=== PATIENT | female | born 1935 | race Native Hawaiian/Other Pacific Islander ===

== ENCOUNTER 2016-12-31 06:50 | Day surgery (SDC) | payer MEDICARE, OTHER ==
[2016-12-31 08:11] VITALS: BMI 26.7
[2016-12-31] MEDS ORDERED: Propofol 10 mg/ml Inj (20 ML) ONE ×2 (09:21→09:52)
--- NOTE | 2016-12-31 09:28 | CP.SDSHP ---
Same Day Surgery H & P - History Proposed Procedure: colonoscopy Pre-Op Diagnosis: blood in stool. colon polyps - Previous Medical/Surgical History Comments: RA - Allergies Allergies: Allergies No Known Allergies Allergy (Verified 08/04/15 15:44) - Physical Exam Vital Signs: Vital Signs 12/31/16 07:26 Temperature 99.5 F Pulse Rate 107 H Respiratory 19 Rate Blood Pressure 119/65 O2 Sat by Pulse 95 Oximetry Mental Status: Alert & Oriented x3 Neuro: WNL Heart: WNL Lungs: WNL GI: WNL - Impression Impression: blood in stool. colon polyp Pt. Evaluated Today:Candidate for Anesthesia & Procedure: Yes - Date & Time Date: 12/31/16 Time: 09:28 Short Stay Discharge - Short Stay Discharge Admitting Diagnosis/Reason for Visit: OCCULT STOOL OTHER FECAL ABNORMALITIES Disposition: HOME/ ROUTINE
[2016-12-31] MEDS ORDERED: Sodium Chloride 0.9% 1,000 ML IV SCH (10:00)
[2016-12-31 10:12] VITALS: TEMP 97.1
[2016-12-31 10:21] VITALS: O2SAT 95
[2016-12-31 11:28] VITALS: BP 103/56; PULSE 95; RESP 18
== END 2016-12-31 11:17 | disposition home or self-care (01) ==
LOC: C.ENDO 06:50
PROVIDERS: ATTEND Internal Medicine Gastroenterology
DX: K63.5 Polyp of colon (principal); D12.3 Benign neoplasm of transverse colon; K92.1 Melena
CPT/HCPCS: 45380; 82948; 88305; J2704; J7040

== ENCOUNTER 2018-02-01 06:28 | Emergency (ER) | payer MEDICARE, OTHER ==
[2018-02-01 06:28] VITALS: BMI 26.7
--- NOTE | 2018-02-01 08:54 | C.PDOC ---
History Of Present Illness 82yo female, with history of arthritis, presents to ER with complaints of bilateral lower extremity pain for the past week. Patient states she has chronic pain but the pain has been worsening over the past week. She denies any trauma, injury, arm pain, chest pain or shortness of breath. She has no other medical complaints. PMD: Dr. Douglas Time Seen by Provider: 02/01/18 07:43 Chief Complaint (Nursing): Lower Extremity Problem/Injury History Per: Patient History/Exam Limitations: no limitations Onset/Duration Of Symptoms: Days Current Symptoms Are (Timing): Still Present Additional History Per: Patient Past Medical History Reviewed: Historical Data, Nursing Documentation, Vital Signs Vital Signs: Last Vital Signs Temp 98.1 F 02/01/18 06:35 Pulse 92 H 02/01/18 06:35 Resp 20 02/01/18 07:05 BP 126/57 L 02/01/18 06:35 Pulse Ox 99 02/01/18 08:57 - Medical History PMH: Arthritis, HTN Denies: Chronic Kidney Disease Surgical History: Appendectomy - [facility] Procedures ENDOSC POLYPECTOMY OF LG INTEST (02/17/13) Family History: States: No Known Family Hx, Unknown Family Hx - Social History Hx Tobacco Use: No Hx Alcohol Use: No Hx Substance Use: No - Immunization History Hx Tetanus Toxoid Vaccination: No Hx Influenza Vaccination: Yes Hx Pneumococcal Vaccination: Yes Review Of Systems Except As Marked, All Systems Reviewed And Found Negative. Constitutional: Negative for: Fever, Chills Cardiovascular: Negative for: Chest Pain Respiratory: Negative for: Shortness of Breath Musculoskeletal: Positive for: Leg Pain (bilateral). Negative for: Arm Pain Physical Exam - Physical Exam Appears: Non-toxic, No Acute Distress Skin: Normal Color, Warm, Dry Head: Normacephalic Eye(s): bilateral: Normal Inspection Neck: Normal ROM, Supple Chest: Symmetrical Cardiovascular: Rhythm Regular Respiratory: Normal Breath Sounds Extremity: Tenderness (diffuse tenderness to bilateral lower extremities below the knee), Pedal Edema (1+ pitting edema bilateral lower extremities), Calf Tenderness (bilateral), No Deformity, Other (chronic skin changes bilateral feet ) Neurological/Psych: Oriented x3 ED Course And Treatment O2 Sat by Pulse Oximetry: 99 (RA) Pulse Ox Interpretation: Normal Medical Decision Making Medical Decision Making: Impression: leg pain, pedal edema Plan: --US Doppler venous, lower extremities Disposition - Disposition Referrals: Alan Douglas MD [Staff Provider] - Disposition: HOME/ ROUTINE Disposition Time: 10:27 Condition: GOOD Additional Instructions: Follow up with the medical doctor within 1-2 days. Return if worsend. 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 - Scribe Statement The provider has reviewed the documentation as recorded by the Scribe (Beth Lauren) Provider Attestation: All medical record entries made by the Scribe were at my direction and personally dictated by me. I have reviewed the chart and agree that the record accurately reflects my personal performance of the history, physical exam, medical decision making, and the department course for this patient. I have also personally directed, reviewed, and agree with the discharge instructions and disposition.
[2018-02-01] MEDS ORDERED: Lidocaine 5% Patch TD STA (09:43)
[2018-02-01] MEDS ORDERED: Lidocaine 5% Patch TD ONE (09:55)
[2018-02-01 10:40] VITALS: BP 112/73; PULSE 99; RESP 16; TEMP 99.3; O2SAT 96
--- NOTE | 2018-02-01 11:59 | VASCLAB ---
PROCEDURE: Lower Extremity Venous Duplex Exam. HISTORY: Bilateral swelling and calf tenderness PRIORS: No previous venous exam TECHNIQUE: Bilateral common femoral, femoral, popliteal and posterior tibial, peroneal and great saphenous veins were evaluated. Flow was assessed with color Doppler, compressibility, assessment of phasic flow and augmentation response. Report prepared by LUCERO Be FINDINGS: RIGHT: 1. Common Femoral Vein: 1.1. Compressibility - Fully compressible: Thrombus - None : Flow - Phasic: Augmentation -Normal: Reflux - None. 2. Femoral Vein: 2.1. Compressibility - Fully compressible: Thrombus - None : Flow - Phasic: Augmentation -Normal: Reflux - None. 3. Popliteal Vein: 3.1. Compressibility - Fully compressible: Thrombus - None : Flow - Phasic: Augmentation -Normal: Reflux - None. 4. Posterior Tibial Vein: 5. Peroneal Vein: 6. Great Saphenous Vein: 6.1. Compressibility - Fully compressible: Thrombus - None: Flow - Phasic: Augmentation - Normal: Reflux - None. LEFT: 1. Common Femoral Vein: 1.1. Compressibility - Fully compressible: Thrombus - None: Flow - Phasic: Augmentation -Normal: Reflux - None. 2. Femoral Vein: 2.1. Compressibility - Fully compressible: Thrombus - None: Flow - Phasic: Augmentation -Normal: Reflux - None. 3. Popliteal Vein: 3.1. Compressibility - Fully compressible: Thrombus - None : Flow - Phasic: Augmentation -Normal: Reflux - None. 4. Posterior Tibial Vein: 5. Peroneal Vein: 6. Great Saphenous Vein: 6.1. Compressibility - Fully compressible: Thrombus - None: Flow - Phasic: Augmentation - Normal: Reflux - None. OTHER FINDINGS: 1. Unable to visualize bilateral calf veins, due to swelling. The remaining veins in bilateral lower extremities are compressible. 2. An irregular shaped anechoic mass was noted behind the right knee area, measuring 2.78 x 1.75 c.m., questionable romero's cyst. IMPRESSION: No evidence of venous thrombosis in bilateral lower extremities for the examined veins.
== END 2018-02-01 10:45 | disposition home or self-care (01) ==
LOC: C.ER 06:28
DX: M19.90 Unspecified osteoarthritis, unspecified site (principal); I10 Essential (primary) hypertension

== ENCOUNTER 2018-03-09 07:18 | Inpatient (IN) | payer MEDICARE, OTHER ==
[2018-03-09 07:25] VITALS: BMI 26.4
--- NOTE | 2018-03-09 08:29 | C.PDOC ---
History Of Present Illness Patient presents with abdominal pain radiating into rectal area associated with rectal bleeding. Patient denies fever, vomiting or diarrhea. Time Seen by Provider: 03/09/18 07:43 Chief Complaint (Nursing): GI Problem History Per: Patient History/Exam Limitations: no limitations Onset/Duration Of Symptoms: Days Current Symptoms Are (Timing): Still Present Context: Food Severity: Mild Pain Scale Rating Of: 1 Location Of Pain/Discomfort: Diffuse Radiation Of Pain To:: Other (rectal area) Associated Symptoms: denies: Fever Past Medical History Reviewed: Historical Data, Nursing Documentation, Vital Signs Vital Signs: Last Vital Signs Temp 99.0 F 03/09/18 07:24 Pulse 84 03/09/18 12:48 Resp 18 03/09/18 12:48 BP 112/56 L 03/09/18 12:48 Pulse Ox 97 03/09/18 13:38 - Medical History PMH: Arthritis, HTN Denies: Chronic Kidney Disease Surgical History: Appendectomy - [facility] Procedures ENDOSC POLYPECTOMY OF LG INTEST (02/17/13) Family History: States: Unknown Family Hx - Social History Hx Tobacco Use: No Hx Alcohol Use: No Hx Substance Use: No - Immunization History Hx Tetanus Toxoid Vaccination: No Hx Influenza Vaccination: Yes Hx Pneumococcal Vaccination: Yes Review Of Systems Constitutional: Negative for: Fever, Chills Gastrointestinal: Positive for: Abdominal Pain, Rectal Pain Physical Exam - Physical Exam Appears: Well, Non-toxic Skin: Normal Color Oral Mucosa: Moist Neck: Normal Cardiovascular: Rhythm Regular Respiratory: Normal Breath Sounds Gastrointestinal/Abdominal: Tenderness (diffuse) Rectal: Other (area of erythema around rectal area, (+) tenderness) ED Course And Treatment - Laboratory Results Result Diagrams: 03/09/18 08:15 03/09/18 08:15 Lab Interpretation: Normal O2 Sat by Pulse Oximetry: 97 Pulse Ox Interpretation: Normal - CT Scan/US No standard instances Other Rad Studies (CT/US): Read By Radiologist, Radiology Report Reviewed CT/US Interpretation: FINDINGS: LOWER THORAX: No infiltrate/effusion. Mild circumferential mural thickening of distal esophagus. Possible esophagitis. Consider endoscopy to rule out neoplasm. LIVER: Unremarkable. No gross lesion or ductal dilatation. GALLBLADDER AND BILE DUCTS: Unremarkable. PANCREAS: Fatty atrophy. No mass. No peripancreatic fluid. SPLEEN: Unremarkable. ADRENALS: Unremarkable. No mass. KIDNEYS AND URETERS: Unremarkable. No hydronephrosis. No solid mass. VASCULATURE: Unremarkable. No aortic aneurysm. BOWEL: No bowel obstruction. Incidental diverticulum of the 2nd duodenum protruding into the ampulla. Normal variant. APPENDIX: Not identified. No secondary findings. PERITONEUM: Unremarkable. No free fluid. No free air. LYMPH NODES: Unremarkable. No enlarged lymph nodes. BLADDER: Unremarkable. REPRODUCTIVE: Normal uterus. BONES: No acute fracture. 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 OTHER FINDINGS: None. IMPRESSION: Unremarkable non contrast enhanced CT of the abdomen and pelvis. Progress Note: Patient treated with IVF NSS and morphine 2 mg IV. On re- evaluation sleeping in no distress Reassessment Condition: Improved - Physician Consult Information Physician Contacted: Rick Ramos Outcome Of Conversation: admit Medical Decision Making Medical Decision Making: Consult placed to GI for Dr Novoa Disposition Discussed With Dr.: Rick Ramos Doctor Will See Patient In The: Hospital - Disposition Disposition: HOME/ ROUTINE Disposition Time: 11:40 Condition: STABLE - POA Present On Arrival: None - Clinical Impression Clinical Impression: UTI (urinary tract infection), Gastrointestinal hemorrhage Decision To Admit - Pt Status Changed To: Hospital Disposition Of: Inpatient - Admit Certification Admit to Inpatient:: After my assessment, the patient will require hospitalization for at least two midnights. This is because of the severity of symptoms shown, intensity of services needed, and/or the medical risk in this patient being treated as an outpatient. - InPatient: Physician Admission Certification:: Rectal Bleeding. UTI - . Bed Request Type: Regular Admitting Physician: Rick Ramos Patient Diagnosis: Gastrointestinal hemorrhage, UTI (urinary tract infection)
[2018-03-09 08:31] LABS: BASO # 0.1 K/uL (0.0-0.2); BASO % 0.5 % (0.0-2.0); HEMOGLOBIN 12.3 g/dL (11.0-16.0); LYMPH # 0.9 K/uL (1.0-4.3); LYMPH % 9.4 % (20.0-40.0); MEAN CELL VOLUME 94.8 fL (81.0-99.0); MEAN CORPUSCULAR HEMOGLOBIN 32.2 pg (27.0-31.0); MEAN CORPUSCULAR HGB CONC 33.9 g/dL (33.0-37.0); MEAN PLATELET VOLUME 7.6 fL (7.2-11.7); MONO # 0.8 K/uL (0.0-0.8); MONO % 8.5 % (0.0-10.0); NEUT # 7.9 K/uL (1.8-7.0); NEUT % 81.6 % (50.0-75.0); NRBC % 0.6 % (0.0-2.0); PLATELET COUNT 305 K/uL (130-400); RBC 3.83 Mil/uL (3.80-5.20); RED CELL DISTRIBUTION WIDTH 14.3 % (11.5-14.5); WHITE BLOOD COUNT 9.7 K/uL (4.8-10.8)
[2018-03-09 08:50] LABS: ALB/GLOB RATIO 1.4 (1.0-2.1); ALBUMIN 4.2 g/dL (3.5-5.0); ALT/SGPT 69 U/L (9-52); AST/SGOT 130 U/L (14-36); BLOOD UREA NITROGEN 39 mg/dL (7-17); CALCIUM 9.4 mg/dl (8.6-10.4); GFR AFRICAN-AMERICAN > 60; GFR NON-AFRICAN AMERICAN 60; LIPASE 60 U/L (23-300)
[2018-03-09 09:16] LABS: SQUAMOUS EPITHIAL 2 /hpf (0-5); URINE AMORPHOUS SEDIMENT OCC /ul (<OCC); URINE BACTERIA FEW (<OCC); URINE BILIRUBIN NEGATIVE (NEGATIVE); URINE BLOOD 1+ (NEGATIVE); URINE CLARITY Turbid (Clear); URINE GLUCOSE (UA) NORMAL (Normal); URINE LEUKOCYTE ESTERASE 3+ Leu/uL (Negative); URINE PROTEIN 1+ mg/dL (NEGATIVE); URINE UROBILINOGEN NORMAL mg/dL (0.2-1.0)
[2018-03-09 09:19] LABS: LYMPHOCYTE 13 % (20-40); MONOCYTE 3 % (0-10); NEUTROPHIL 84 % (50-75); PLATELET ESTIMATE NORMAL (NORMAL); TOTAL CELLS COUNTED 100
[2018-03-09 09:19] LABS: URINE COLOR YELLOW (YELLOW)
[2018-03-09] MEDS ORDERED: cefTRIAXone IV 1 gm in Dextros 50 ML IV ONE (09:24)
[2018-03-09] MEDS ORDERED: cefTRIAXone IV 1 gm in Dextros 50 ML IVPB ONE (09:47)
--- NOTE | 2018-03-09 10:09 | CT ---
PROCEDURE: CT Abdomen and Pelvis without intravenous contrast HISTORY: Pain COMPARISON: None. TECHNIQUE: Without contrast.. Contrast dose: 0 Radiation dose: Total exam DLP = 315.42 mGy-cm. This CT exam was performed using one or more of the following dose reduction techniques: Automated exposure control, adjustment of the mA and/or kV according to patient size, and/or use of iterative reconstruction technique. FINDINGS: LOWER THORAX: No infiltrate/effusion. Mild circumferential mural thickening of distal esophagus. Possible esophagitis. Consider endoscopy to rule out neoplasm. LIVER: Unremarkable. No gross lesion or ductal dilatation. GALLBLADDER AND BILE DUCTS: Unremarkable. PANCREAS: Fatty atrophy. No mass. No peripancreatic fluid. SPLEEN: Unremarkable. ADRENALS: Unremarkable. No mass. KIDNEYS AND URETERS: Unremarkable. No hydronephrosis. No solid mass. VASCULATURE: Unremarkable. No aortic aneurysm. BOWEL: No bowel obstruction. Incidental diverticulum of the 2nd duodenum protruding into the ampulla. Normal variant. APPENDIX: Not identified. No secondary findings. PERITONEUM: Unremarkable. No free fluid. No free air. LYMPH NODES: Unremarkable. No enlarged lymph nodes. BLADDER: Unremarkable. REPRODUCTIVE: Normal uterus. BONES: No acute fracture. 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 OTHER FINDINGS: None. IMPRESSION: Unremarkable non contrast enhanced CT of the abdomen and pelvis.
--- NOTE | 2018-03-09 14:26 | CP.PCM.HP ---
History of Present Illness - History of Present Illness History of Present Illness: COMPREHENSIVE HISTORY & PHYSICAL EXAM Patient is admitted with lower abdominal pain and rectal bleeding. The pain started this morning lower abdominal colicky radiating to the rectal area subsequently patient had a bright blood bleeding from the rectum. Patient was evaluated in an ER and admitted for further treatment Patient also has high WBC count in the urine with complaints of dysuria HPI PAST HIST. Patient has a history of hypertension arthritis and previous history of rectal bleeding PERSONAL HIST: Smoking. N Alcohol. N Allergy N Travel_- . FAMILY HIST : ROS : Constitutional: Negative for weight change, chills, night sweats, fatigue and usage of assist device. Eyes: Negative for redness, swelling, itching, discharge, vision changes, blurry vision, double vision, glaucoma, cataracts, Ears: Negative for hearing loss, ringing, , tinnitus, vertigo Nose: Negative for rhinorrhea, stuffiness, sniffing, itching, postnasal drip, discoloration, nasal congestion and epistaxis. Throat: Negative for throat clearing, sore throat, hoarseness, difficulty swallowing and difficulty speaking. Respiratory: Negative for cough, , sputum production, chest tightness, wheezing, pleuritic chest pain ,daytime somnolence, chronic cough, hemoptysis, snoring at night, Cardiovascular: Negative for chest pain, palpitations, orthopnea, PND, Edema of legs, leg cramps, angina, claudication, , irregular heartbeat, Neurology: Negative for irritability, muscle weakness, numbness and tingling, seizures, tremors, migraines, slurred speech, syncope, memory loss, mood changes , recurrent headaches Gastrointestinal: Negative for difficulty swallowing, diarrhea, constipation, nausea, flatulence, reflux, poor appetite, changes in bowel habits, Genitourinary: Negative for frequent urination, hematuria, discharge, incontinence, urinary retention, frequent UTI, Psychiatric: Negative for depression, anxiety/panic, suicidal tendencies, Musculoskeletal: Negative for swollen joints, back pain, , neck pain, morning stiffness of joints, . Skin: Negative for rash, ulcers, itching, dry skin and pigmented lesions. P/E: Constitutional: Appears stated age and in no apparent distress. Head: Normocephalic. Ears: External ear canals patent without inflammation. Tympanic membranes intact with normal light reflex and landmark. Eyes: Pupils are central, bilaterally equal, symmetrical and reacts to light with normal movements and no icterus or pallor. Nose: External nares are patent. Mucosa is pink Mouth-Throat: Good general appearance and condition. No post-pharyngeal/oropharyngeal erythema and tonsillar hypertrophy. Good dental hygiene. Neck-Lymphatic: Neck is supple with normal ROM, no thyromegaly, lymph nodes or masses. JVD is normal with no carotid bruit. Lungs: Clear to percussion and auscultation with bilateral normal air entry. Cardiovascular: S1 and S2 are normal with no murmurs, gallops and rub. GI Exam: No hepatomegaly. Abdomen is soft and-tender. No Organomegaly , masses or hernias are evident and bowel sounds are normal and active. Neurology: Higher function and all cranial nerves intact, with no gross motor or sensory deficit. Superficial and deep reflexes are normal with downwards planters. No cerebellar deficit with normal gait. Musculoskeletal: No tender spots with normal curvature of the spine with no swelling or restricted ROM of the small and large joints. Extremities: Homans sign absent. Intact pulses with no pitting edema, calf tenderness or skin color changes. Skin: No rash, eruptions or abnormal skin pigmentation LAB/RADIOLOGY: ASSESMENT : Acute rectal bleeding etiology to be determined. Urinary tract infection. Osteoarthritis. Hypertension PLAN: GI evaluation. See further orders Present on Admission - Present on Admission Any Indicators Present on Admission: No Past Patient History - Infectious Disease Hx of Infectious Diseases: None - Past Medical History & Family History Past Medical History?: Yes - Past Social History Smoking Status: Never Smoked - CARDIAC Hx Hypertension: Yes - PULMONARY Hx Respiratory Disorders: No - NEUROLOGICAL Hx Neurological Disorder: No - HEENT Hx Cataracts: Yes (WITH BRANDON IOL) - RENAL Hx Chronic Kidney Disease: No - ENDOCRINE/METABOLIC Hx Endocrine Disorders: No - HEMATOLOGICAL/ONCOLOGICAL Hx Blood Disorders: No - INTEGUMENTARY Hx Dermatological Problems: No - MUSCULOSKELETAL/RHEUMATOLOGICAL Hx Arthritis: Yes - GASTROINTESTINAL Hx Gastrointestinal Disorders: No - GENITOURINARY/GYNECOLOGICAL Hx Genitourinary Disorders: No - PSYCHIATRIC Hx Substance Use: No - SURGICAL HISTORY Hx Appendectomy: Yes - ANESTHESIA Hx Anesthesia: Yes Hx Anesthesia Reactions: No Meds Allergies/Adverse Reactions: Allergies Allergy/AdvReac Type Severity Reaction Status Date / Time No Known Allergies Allergy Verified 03/09/18 07:23 Results - Vital Signs Recent Vital Signs: Last Vital Signs Temp 99.0 F 03/09/18 07:24 Pulse 84 03/09/18 12:48 Resp 18 03/09/18 12:48 BP 112/56 L 03/09/18 12:48 Pulse Ox 97 03/09/18 13:38 - Labs Result Diagrams: 03/10/18 13:29 03/10/18 06:19 Labs: Laboratory Results - last 24 hr 03/09/18 03/09/18 03/09/18 07:29 08:15 08:15 WBC 9.7 RBC 3.83 Hgb 12.3 Hct 36.4 MCV 94.8 MCH 32.2 H MCHC 33.9 RDW 14.3 Plt Count 305 MPV 7.6 Neut % (Auto) 81.6 H Lymph % (Auto) 9.4 L [place] % (Auto) 8.5 Eos % (Auto) 0.0 Baso % (Auto) 0.5 Neut # (Auto) 7.9 H Lymph # (Auto) 0.9 L [place] # (Auto) 0.8 Eos # (Auto) 0.0 Baso # (Auto) 0.1 Neutrophils % (Manual) 84 H Lymphocytes % (Manual) 13 L Monocytes % (Manual) 3 Platelet Estimate Normal RBC Morphology Normal Sodium 141 Potassium 4.4 Chloride 103 Carbon Dioxide 28 Anion Gap 15 BUN 39 H Creatinine 0.9 Est GFR ( Amer) > 60 Est GFR (Non-Af Amer) 60 POC Glucose (mg/dL) 138 H Random Glucose 140 H Calcium 9.4 Total Bilirubin 1.4 H AST 130 H ALT 69 H Alkaline Phosphatase 67 Total Protein 7.1 Albumin 4.2 Globulin 3.0 Albumin/Globulin Ratio 1.4 Lipase 60 Urine Color Urine Clarity Urine pH Ur Specific [place] Urine Protein Urine Glucose (UA) Urine Ketones Urine Blood Urine Nitrate Urine Bilirubin Urine Urobilinogen Ur Leukocyte Esterase Urine WBC (Auto) Urine RBC (Auto) Ur Squamous Epith Cells Amorphous Sediment Urine Bacteria 03/09/18 08:29 WBC RBC Hgb Hct MCV MCH MCHC RDW Plt Count MPV Neut % (Auto) Lymph % (Auto) [place] % (Auto) Eos % (Auto) Baso % (Auto) Neut # (Auto) Lymph # (Auto) [place] # (Auto) Eos # (Auto) Baso # (Auto) Neutrophils % (Manual) Lymphocytes % (Manual) Monocytes % (Manual) Platelet Estimate RBC Morphology Sodium Potassium Chloride Carbon Dioxide Anion Gap BUN Creatinine Est GFR ( Amer) Est GFR (Non-Af Amer) POC Glucose (mg/dL) Random Glucose Calcium Total Bilirubin AST ALT Alkaline Phosphatase Total Protein Albumin Globulin Albumin/Globulin Ratio Lipase Urine Color Yellow Urine Clarity Turbid Urine pH 7.0 Ur Specific [place] 1.016 Urine Protein 1+ H Urine Glucose (UA) Normal Urine Ketones Negative Urine Blood 1+ H Urine Nitrate Negative Urine Bilirubin Negative Urine Urobilinogen Normal Ur Leukocyte Esterase 3+ H Urine WBC (Auto) 42 H Urine RBC (Auto) 10 H Ur Squamous Epith Cells 2 Amorphous Sediment Occ H Urine Bacteria Few H
--- NOTE | 2018-03-09 16:52 | CP.PCM.CON ---
<Maxine Pierre - Last Filed: 03/09/18 18:31> History of Present Illness - History of Present Illness History of Present Illness: Critical Care Consult Note This is an 82 year old female with PMHx of HTN, HLD, T2DM, osteoarthritis , previous history of rectal bleeding, who presented to the ED 7:24am on for abdominal pain and rectal bleeding. She denied any ASA, NSAID, anticoagulants. Patient reported the last 3 days she has been having abdominal pain, painful bowel movements, starting this morning she had bright red blood per rectum which prompted her to come to the ED. Patient had CBC, CMP, UA, CT abdomen and pelvis done at that time. There was an admission order at 11:33am for inpatient /medsurg with admitting diagnosis of Rectal Bleeding and UTI. At this time there was no consult ordered for GI - both consult for GI and Surgery were placed at 4:35pm. As per nurse rectal bleeding was only seen around 3pm. As per nurse's note, "increase in rectal bleed, pt soaked 2 bed pads. pt cleansed and made comfortable". At this time, 2: 13pm, no orders were carried out. Patient has remained in the ED during this time, waiting for bed placement. ICU was consulted by Primary Physician for ICU eval at 4:10pm. ICU team evaluated the patient within 10 minutes. Vitals on exam were stable. Patient was evaluated and noted to lying in coagulated blood contained by a shuck. Blood was noted to have collected in folds of her groin, vagina, and buttocks. At this time no repeat CBC was done since 8am, no type and cross match was ordered or administered, no consent for blood was retrieved, no coags ordered, no protonix given (despite protocol for GI bleed), no IVF given. ICU team retrieved consent for administration of blood products, type and crossmatched ordered for 4 units, coags ordered, IVF started, Protonix stat dose given and protonix Q12 started. Patient kept NPO. Instructed nurse to follow up with GI - Dr. Alfred - who is being covered by Dr. Oneill - pending recommendations. Patient denied chest pain, SOB, nausea, vomiting; admitted to abdominal pain and BRBPR. PMHx: HTN, HLD, T2DM, arthritis, previous history of rectal bleeding PSHx: Colonoscopy 2016 - polyps resected - pathology revealed tubular adenoma Meds: patient does not know her medications by name but reports she has not taken them for a few days due to abdominal pain SHx: Denied tobacco, ETOH, alcohol use FHx: Unremarkable Past Patient History - Infectious Disease Hx of Infectious Diseases: None - Past Medical History & Family History Past Medical History?: Yes - Past Social History Smoking Status: Never Smoked - CARDIAC Hx Hypertension: Yes - PULMONARY Hx Respiratory Disorders: No - NEUROLOGICAL Hx Neurological Disorder: No - HEENT Hx Cataracts: Yes (WITH BRANDON IOL) - RENAL Hx Chronic Kidney Disease: No - ENDOCRINE/METABOLIC Hx Endocrine Disorders: No - HEMATOLOGICAL/ONCOLOGICAL Hx Blood Disorders: No - INTEGUMENTARY Hx Dermatological Problems: No - MUSCULOSKELETAL/RHEUMATOLOGICAL Hx Arthritis: Yes - GASTROINTESTINAL Hx Gastrointestinal Disorders: No - GENITOURINARY/GYNECOLOGICAL Hx Genitourinary Disorders: No - PSYCHIATRIC Hx Substance Use: No - SURGICAL HISTORY Hx Appendectomy: Yes - ANESTHESIA Hx Anesthesia: Yes Hx Anesthesia Reactions: No Meds Allergies/Adverse Reactions: Allergies Allergy/AdvReac Type Severity Reaction Status Date / Time No Known Allergies Allergy Verified 03/09/18 07:23 - Medications Medications: Current Medications Sodium Chloride (Sodium Chloride 0.9%) 1,000 mls @ 100 mls/hr IV .Q10H [facility] Pantoprazole Sodium (Protonix Inj) 40 mg IVP Q12H [facility] Physical Exam - Constitutional Appears: Toxic - Head Exam Head Exam: ATRAUMATIC, NORMAL INSPECTION, NORMOCEPHALIC - Eye Exam Eye Exam: EOMI, Normal appearance, PERRL Pupil Exam: NORMAL ACCOMODATION, PERRL - ENT Exam ENT Exam: Mucous Membranes Dry - Respiratory Exam Respiratory Exam: Clear to Auscultation Bilateral, NORMAL BREATHING PATTERN - Cardiovascular Exam Cardiovascular Exam: Tachycardia - GI/Abdominal Exam GI & Abdominal Exam: Distended, Firm, Tenderness (LLQ, RLQ). absent: Organomegaly - Rectal Exam Additional comments: internal hemorrhoid exiting rectum, BRBPR. Blood was noted to have collected in folds of her groin, vagina, and buttocks. - Extremities Exam Extremities exam: Positive for: normal inspection, pedal pulses present. Negative for: pedal edema, tenderness - Back Exam Back exam: NORMAL INSPECTION - Neurological Exam Neurological exam: Alert, Oriented x3 - Psychiatric Exam Psychiatric exam: Anxious - Skin Skin Exam: Dry, Intact, Pallor, Warm Results - Vital Signs Recent Vital Signs: Last Vital Signs Temp 98.9 F 03/09/18 16:08 Pulse 131 H 03/09/18 16:50 Resp 18 03/09/18 16:50 BP 114/67 03/09/18 16:50 Pulse Ox 98 03/09/18 16:50 - Labs Result Diagrams: 03/09/18 08:15 03/09/18 08:15 Labs: Laboratory Results - last 24 hr 03/09/18 03/09/18 03/09/18 07:29 08:15 08:15 WBC 9.7 RBC 3.83 Hgb 12.3 Hct 36.4 MCV 94.8 MCH 32.2 H MCHC 33.9 RDW 14.3 Plt Count 305 MPV 7.6 Neut % (Auto) 81.6 H Lymph % (Auto) 9.4 L Elliott % (Auto) 8.5 Eos % (Auto) 0.0 Baso % (Auto) 0.5 Neut # (Auto) 7.9 H Lymph # (Auto) 0.9 L Elliott # (Auto) 0.8 Eos # (Auto) 0.0 Baso # (Auto) 0.1 Neutrophils % (Manual) 84 H Lymphocytes % (Manual) 13 L Monocytes % (Manual) 3 Platelet Estimate Normal RBC Morphology Normal Sodium 141 Potassium 4.4 Chloride 103 Carbon Dioxide 28 Anion Gap 15 BUN 39 H Creatinine 0.9 Est GFR ( Amer) > 60 Est GFR (Non-Af Amer) 60 POC Glucose (mg/dL) 138 H Random Glucose 140 H Calcium 9.4 Total Bilirubin 1.4 H AST 130 H ALT 69 H Alkaline Phosphatase 67 Total Protein 7.1 Albumin 4.2 Globulin 3.0 Albumin/Globulin Ratio 1.4 Lipase 60 Urine Color Urine Clarity Urine pH Ur Specific [place] Urine Protein Urine Glucose (UA) Urine Ketones Urine Blood Urine Nitrate Urine Bilirubin Urine Urobilinogen Ur Leukocyte Esterase Urine WBC (Auto) Urine RBC (Auto) Ur Squamous Epith Cells Amorphous Sediment Urine Bacteria 03/09/18 08:29 WBC RBC Hgb Hct MCV MCH MCHC RDW Plt Count MPV Neut % (Auto) Lymph % (Auto) Elliott % (Auto) Eos % (Auto) Baso % (Auto) Neut # (Auto) Lymph # (Auto) [place] # (Auto) Eos # (Auto) Baso # (Auto) Neutrophils % (Manual) Lymphocytes % (Manual) Monocytes % (Manual) Platelet Estimate RBC Morphology Sodium Potassium Chloride Carbon Dioxide Anion Gap BUN Creatinine Est GFR ( Amer) Est GFR (Non-Af Amer) POC Glucose (mg/dL) Random Glucose Calcium Total Bilirubin AST ALT Alkaline Phosphatase Total Protein Albumin Globulin Albumin/Globulin Ratio Lipase Urine Color Yellow Urine Clarity Turbid Urine pH 7.0 Ur Specific [place] 1.016 Urine Protein 1+ H Urine Glucose (UA) Normal Urine Ketones Negative Urine Blood 1+ H Urine Nitrate Negative Urine Bilirubin Negative Urine Urobilinogen Normal Ur Leukocyte Esterase 3+ H Urine WBC (Auto) 42 H Urine RBC (Auto) 10 H Ur Squamous Epith Cells 2 Amorphous Sediment Occ H Urine Bacteria Few H Assessment & Plan - Assessment and Plan (Free Text) Assessment: This is an 82 year old female with PMHx of HTN, HLD, T2DM, osteoarthritis , previous history of rectal bleeding admitted to the ICU for rectal bleeding. Plan: Neuro: GCS15 Cardio: A: Hx HTN, HLD - Will hold all BP meds in light of rectal bleeding - Will hold any statins 2/2 transaminitis Endo: A: T2DM - Accuchecks, ISS- low - Q6H - HgbA1C ordered GI: A: Rectal Bleeding -- Dr. Alfred/ Mai consulted -- Dr. Lopez consulted - Previous colonoscopy 12/2016; 2-3 polyps seen, resected and biopsied; tubular adenoma - CT Ab/pelvis: Unremarkable - CBC ordered STAT 12.3 --> 10.8 - Will be transfused 1 unit - due to hypotension - NPO, PPIQ12, IVF A: Transaminitis, Elevated T. Bili - CT Ab/pelvis: Unremarkable - Continue to monitor : A: UTI -- Dr. Lutz consulted - Started Cefepime due to Transaminitis - UC ordered MSK: A: Osteoarthritis - Patient denies any ASA, NSAID use - As per EMR she was once on methotrexate Prophylaxis: - PPI Q12 - SCDs, VTE c/i 2/2 rectal bleeding - PT/ OT will be ordered once patient is stabilized - NPO for now Disposition: Monitoring vitals, CBC, pending GI/ Surg reccs. DW Maxine Levine DO, PGY-1 <Hay Haddad S - Last Filed: 03/09/18 18:59> Meds - Medications Medications: Current Medications Dextrose (Dextrose 50% Inj) 0 ml IV STAT PRN; Protocol PRN Reason: Hypoglycemia Protocol Dextrose (Glutose 15) 0 gm PO ONCE PRN; Protocol PRN Reason: Hypoglycemia Protocol Glucagon (Glucagen Diagnostic Kit) 0 mg IM STAT PRN; Protocol PRN Reason: Hypoglycemia Protocol Sodium Chloride (Sodium Chloride 0.9%) 1,000 mls @ 100 mls/hr IV .Q10H [facility] Last Admin: 03/09/18 17:22 Dose: 100 mls/hr Dextrose (Dextrose 5% In Water 1000 Ml) 1,000 mls @ 0 mls/hr IV .Q0M PRN; Protocol; Per Protocol PRN Reason: Hypoglycemia Protocol Cefepime HCl (Maxipime Iv 1 Gm Premix) 1 gm in 50 mls @ 100 mls/hr IVPB Q24H [facility] PRN Reason: Protocol Insulin Human Regular (Novolin R) 0 unit SC Q6H [facility] PRN Reason: Protocol Morphine Sulfate (Morphine) 1 mg IVP Q4 PRN PRN Reason: Pain, severe (8-10) Pantoprazole Sodium (Protonix Inj) 40 mg IVP Q12H [facility] Results - Vital Signs Recent Vital Signs: Last Vital Signs Temp 98.9 F 03/09/18 16:08 Pulse 131 H 03/09/18 16:50 Resp 18 03/09/18 16:50 BP 114/67 03/09/18 16:50 Pulse Ox 98 03/09/18 16:50 - Labs Result Diagrams: 03/09/18 18:28 03/09/18 08:15 Labs: Laboratory Results - last 24 hr 03/09/18 03/09/18 03/09/18 07:29 08:15 08:15 WBC 9.7 RBC 3.83 Hgb 12.3 Hct 36.4 MCV 94.8 MCH 32.2 H MCHC 33.9 RDW 14.3 Plt Count 305 MPV 7.6 Neut % (Auto) 81.6 H Lymph % (Auto) 9.4 L [place] % (Auto) 8.5 Eos % (Auto) 0.0 Baso % (Auto) 0.5 Neut # (Auto) 7.9 H Lymph # (Auto) 0.9 L [place] # (Auto) 0.8 Eos # (Auto) 0.0 Baso # (Auto) 0.1 Neutrophils % (Manual) 84 H Lymphocytes % (Manual) 13 L Monocytes % (Manual) 3 Platelet Estimate Normal RBC Morphology Normal PT INR APTT Sodium 141 Potassium 4.4 Chloride 103 Carbon Dioxide 28 Anion Gap 15 BUN 39 H Creatinine 0.9 Est GFR ( Amer) > 60 Est GFR (Non-Af Amer) 60 POC Glucose (mg/dL) 138 H Random Glucose 140 H Calcium 9.4 Total Bilirubin 1.4 H AST 130 H ALT 69 H Alkaline Phosphatase 67 Total Protein 7.1 Albumin 4.2 Globulin 3.0 Albumin/Globulin Ratio 1.4 Lipase 60 Urine Color Urine Clarity Urine pH Ur Specific [place] Urine Protein Urine Glucose (UA) Urine Ketones Urine Blood Urine Nitrate Urine Bilirubin Urine Urobilinogen Ur Leukocyte Esterase Urine WBC (Auto) Urine RBC (Auto) Ur Squamous Epith Cells Amorphous Sediment Urine Bacteria Blood Type Antibody Screen 03/09/18 03/09/18 03/09/18 08:29 17:02 17:05 WBC RBC Hgb Hct MCV MCH MCHC RDW Plt Count MPV Neut % (Auto) Lymph % (Auto) [place] % (Auto) Eos % (Auto) Baso % (Auto) Neut # (Auto) Lymph # (Auto) Elliott # (Auto) Eos # (Auto) Baso # (Auto) Neutrophils % (Manual) Lymphocytes % (Manual) Monocytes % (Manual) Platelet Estimate RBC Morphology PT 11.7 INR 1.1 APTT 20 L Sodium Potassium Chloride Carbon Dioxide Anion Gap BUN Creatinine Est GFR ( Amer) Est GFR (Non-Af Amer) POC Glucose (mg/dL) Random Glucose Calcium Total Bilirubin AST ALT Alkaline Phosphatase Total Protein Albumin Globulin Albumin/Globulin Ratio Lipase Urine Color Yellow Urine Clarity Turbid Urine pH 7.0 Ur Specific [place] 1.016 Urine Protein 1+ H Urine Glucose (UA) Normal Urine Ketones Negative Urine Blood 1+ H Urine Nitrate Negative Urine Bilirubin Negative Urine Urobilinogen Normal Ur Leukocyte Esterase 3+ H Urine WBC (Auto) 42 H Urine RBC (Auto) 10 H Ur Squamous Epith Cells 2 Amorphous Sediment Occ H Urine Bacteria Few H Blood Type O POSITIVE Antibody Screen Negative 03/09/18 18:28 WBC 16.5 H D RBC 3.35 L Hgb 10.8 L Hct 32.0 L MCV 95.6 MCH 32.3 H MCHC 33.8 RDW 14.3 Plt Count 334 MPV 7.8 Neut % (Auto) Lymph % (Auto) [place] % (Auto) Eos % (Auto) Baso % (Auto) Neut # (Auto) Lymph # (Auto) [place] # (Auto) Eos # (Auto) Baso # (Auto) Neutrophils % (Manual) Lymphocytes % (Manual) Monocytes % (Manual) Platelet Estimate RBC Morphology PT INR APTT Sodium Potassium Chloride Carbon Dioxide Anion Gap BUN Creatinine Est GFR ( Amer) Est GFR (Non-Af Amer) POC Glucose (mg/dL) Random Glucose Calcium Total Bilirubin AST ALT Alkaline Phosphatase Total Protein Albumin Globulin Albumin/Globulin Ratio Lipase Urine Color Urine Clarity Urine pH Ur Specific [place] Urine Protein Urine Glucose (UA) Urine Ketones Urine Blood Urine Nitrate Urine Bilirubin Urine Urobilinogen Ur Leukocyte Esterase Urine WBC (Auto) Urine RBC (Auto) Ur Squamous Epith Cells Amorphous Sediment Urine Bacteria Blood Type Antibody Screen Attending/Attestation - Attestation I have personally seen and examined this patient.: Yes I have fully participated in the care of the patient.: Yes I have reviewed all pertinent clinical information: Yes Notes (Text): 03/09/18 18:58 patient seen and examined 82-year-old female admitted to intensive care unit for rectal bleeding, hypotension and tachycardia. Transfuse packed RBCs Monitor H&H GI evaluation Protonix
[2018-03-09] MEDS: Sodium Chloride 0.9% 1,000 ML IV SCH (17:22)
[2018-03-09 17:24] LABS: INR 1.1; PROTHROMBIN TIME 11.7 SECONDS (9.7-12.2)
--- NOTE | 2018-03-09 17:40 | RAD ---
Chest x-ray single frontal view History: Preoperative evaluation. Comparison: 07/10/2014 Findings: Diffuse increased interstitial lung markings. No gross focal infiltrate or effusion. Chin obscures evaluation of the right lung apex. Tortuous aorta. Calcification at the aortic knob. Degenerative changes in the spine. Impression: No focal infiltrate or effusion.
[2018-03-09] MEDS ORDERED: Glucagon Recombinant 1 mg Inj IM PRN (17:50)
[2018-03-09] MEDS ORDERED: Dextrose 50% SYRINGE Inj (50 ml) IV PRN (17:50)
--- NOTE | 2018-03-09 17:50 | CP.PCM.CON ---
History of Present Illness - History of Present Illness History of Present Illness: INFECTIOUS DISEASE CONSULT; HPI; 82-year-old female who presented to [facility] on 03/09/18 with complaints of abdominal pain and small amount of rectal bleeding. Patient also complains of tenesmus. Patient on admission was found to have stable hemoglobin of 12.3 Today later in the day patient developed large amount of bright red rectal bleeding and clots and became tachypneic and tachycardic and was transferred to ICU from the ER. GI and surgery consults were obtained as per chart. Infectious disease consultation requested as patient was found to have turbid urine with 3+ leukocytes and pyuria. PATIENT ALSO COMPLAINING OF DYSURIA AND FREQUENT AMOUNTS OF SMALL AMOUNTS OF URINATION Patient denied any history of fever or chills. Patient was started empirically on IV Rocephin as noted in the ER. CT scan of the abdomen and pelvis was unremarkable with questionable esophagitis. Patient denies any odynophagia or dysphagia. PATIENT DENIES ANY RECENT TRAVEL. NO HISTORY OF DIARRHEA. Patient also found to have transaminitis with elevated AST and ALT and bilirubin of 1.4. PMHx: HTN, HLD, T2DM, arthritis, previous history of rectal bleeding PSHx: Colonoscopy 2016 - polyps resected - pathology revealed tubular adenoma Meds: patient does not know her medications by name but reports she has not taken them for a few days due to abdominal pain SHx: Denied tobacco, ETOH, alcohol use FHx: Unremarkable ALLERGY; NKA Review of Systems - Constitutional Constitutional: absent: Chills, Fever - EENT Nose/Mouth/Throat: Dry Mouth. absent: Mouth Lesions, Odynophagia - Cardiovascular Cardiovascular: absent: Chest Pain, Dyspnea - Respiratory Respiratory: absent: Cough, Hemoptysis - Gastrointestinal Gastrointestinal: Abdominal Pain, Hematochezia, Temesmus. absent: Hematemesis, Nausea, Odynophagia, Vomiting - Genitourinary Genitourinary: Dysuria, Voiding Freq/Small Amts. absent: Urinary Frequency - Menstruation Menstruation: Post Menopausal - Neurological Neurological: Weakness - Hematologic/Lymphatic Hematologic: As Per HPI. absent: Easy Bleeding, Easy Bruising Past Patient History - Infectious Disease Hx of Infectious Diseases: None - Past Medical History & Family History Past Medical History?: Yes - Past Social History Smoking Status: Never Smoked - CARDIAC Hx Hypertension: Yes - PULMONARY Hx Respiratory Disorders: No - NEUROLOGICAL Hx Neurological Disorder: No - HEENT Hx Cataracts: Yes (WITH BRANDON IOL) - RENAL Hx Chronic Kidney Disease: No - ENDOCRINE/METABOLIC Hx Endocrine Disorders: No - HEMATOLOGICAL/ONCOLOGICAL Hx Blood Disorders: No - INTEGUMENTARY Hx Dermatological Problems: No - MUSCULOSKELETAL/RHEUMATOLOGICAL Hx Arthritis: Yes - GASTROINTESTINAL Hx Gastrointestinal Disorders: No - GENITOURINARY/GYNECOLOGICAL Hx Genitourinary Disorders: No - PSYCHIATRIC Hx Substance Use: No - SURGICAL HISTORY Hx Appendectomy: Yes - ANESTHESIA Hx Anesthesia: Yes Hx Anesthesia Reactions: No Meds Allergies/Adverse Reactions: Allergies Allergy/AdvReac Type Severity Reaction Status Date / Time No Known Allergies Allergy Verified 03/09/18 07:23 - Medications Medications: Current Medications Sodium Chloride (Sodium Chloride 0.9%) 1,000 mls @ 100 mls/hr IV .Q10H [facility] Last Admin: 03/09/18 17:22 Dose: 100 mls/hr Ceftriaxone Sodium (Rocephin Iv 1 Gm Duplex) 50 mls @ 100 mls/hr IVPB DAILY [facility] PRN Reason: Protocol Insulin Human Regular (Novolin R) 0 unit SC Q6H [facility] PRN Reason: Protocol Morphine Sulfate (Morphine) 1 mg IVP Q4 PRN PRN Reason: Pain, severe (8-10) Pantoprazole Sodium (Protonix Inj) 40 mg IVP Q12H [facility] Physical Exam - Constitutional Appears: No Acute Distress - Head Exam Head Exam: NORMAL INSPECTION - Eye Exam Eye Exam: EOMI, PERRL - ENT Exam ENT Exam: Mucous Membranes Dry, Normal Oropharynx - Neck Exam Neck exam: Positive for: Normal Inspection - Respiratory Exam Respiratory Exam: Clear to Auscultation Bilateral - Cardiovascular Exam Cardiovascular Exam: Tachycardia, REGULAR RHYTHM, +S1, +S2 - GI/Abdominal Exam GI & Abdominal Exam: Hyperactive Bowel Sounds, Soft, Tenderness (LOWER ABDOMINAL ON DEEP PALPATION.). absent: Distended, Guarding - Rectal Exam Rectal Exam: Deferred - Extremities Exam Extremities exam: Positive for: pedal pulses present. Negative for: calf tenderness, pedal edema - Neurological Exam Neurological exam: Alert, CN II-XII Intact, Oriented x3, Reflexes Normal - Psychiatric Exam Psychiatric exam: Normal Mood - Skin Skin Exam: Normal Color, Warm Results - Vital Signs Recent Vital Signs: Last Vital Signs Temp 98.9 F 03/09/18 16:08 Pulse 131 H 03/09/18 16:50 Resp 18 03/09/18 16:50 BP 114/67 03/09/18 16:50 Pulse Ox 98 03/09/18 16:50 - Labs Result Diagrams: 03/09/18 18:28 03/09/18 08:15 Labs: Laboratory Results - last 24 hr 03/09/18 03/09/18 03/09/18 07:29 08:15 08:15 WBC 9.7 RBC 3.83 Hgb 12.3 Hct 36.4 MCV 94.8 MCH 32.2 H MCHC 33.9 RDW 14.3 Plt Count 305 MPV 7.6 Neut % (Auto) 81.6 H Lymph % (Auto) 9.4 L [place] % (Auto) 8.5 Eos % (Auto) 0.0 Baso % (Auto) 0.5 Neut # (Auto) 7.9 H Lymph # (Auto) 0.9 L [place] # (Auto) 0.8 Eos # (Auto) 0.0 Baso # (Auto) 0.1 Neutrophils % (Manual) 84 H Lymphocytes % (Manual) 13 L Monocytes % (Manual) 3 Platelet Estimate Normal RBC Morphology Normal PT INR APTT Sodium 141 Potassium 4.4 Chloride 103 Carbon Dioxide 28 Anion Gap 15 BUN 39 H Creatinine 0.9 Est GFR ( Amer) > 60 Est GFR (Non-Af Amer) 60 POC Glucose (mg/dL) 138 H Random Glucose 140 H Calcium 9.4 Total Bilirubin 1.4 H AST 130 H ALT 69 H Alkaline Phosphatase 67 Total Protein 7.1 Albumin 4.2 Globulin 3.0 Albumin/Globulin Ratio 1.4 Lipase 60 Urine Color Urine Clarity Urine pH Ur Specific [place] Urine Protein Urine Glucose (UA) Urine Ketones Urine Blood Urine Nitrate Urine Bilirubin Urine Urobilinogen Ur Leukocyte Esterase Urine WBC (Auto) Urine RBC (Auto) Ur Squamous Epith Cells Amorphous Sediment Urine Bacteria Blood Type 03/09/18 03/09/18 03/09/18 08:29 17:02 17:05 WBC RBC Hgb Hct MCV MCH MCHC RDW Plt Count MPV Neut % (Auto) Lymph % (Auto) [place] % (Auto) Eos % (Auto) Baso % (Auto) Neut # (Auto) Lymph # (Auto) [place] # (Auto) Eos # (Auto) Baso # (Auto) Neutrophils % (Manual) Lymphocytes % (Manual) Monocytes % (Manual) Platelet Estimate RBC Morphology PT 11.7 INR 1.1 APTT 20 L Sodium Potassium Chloride Carbon Dioxide Anion Gap BUN Creatinine Est GFR ( Amer) Est GFR (Non-Af Amer) POC Glucose (mg/dL) Random Glucose Calcium Total Bilirubin AST ALT Alkaline Phosphatase Total Protein Albumin Globulin Albumin/Globulin Ratio Lipase Urine Color Yellow Urine Clarity Turbid Urine pH 7.0 Ur Specific [place] 1.016 Urine Protein 1+ H Urine Glucose (UA) Normal Urine Ketones Negative Urine Blood 1+ H Urine Nitrate Negative Urine Bilirubin Negative Urine Urobilinogen Normal Ur Leukocyte Esterase 3+ H Urine WBC (Auto) 42 H Urine RBC (Auto) 10 H Ur Squamous Epith Cells 2 Amorphous Sediment Occ H Urine Bacteria Few H Blood Type O POSITIVE - Imaging and Cardiology CT scan - abdomenand pelvis without by mouth or IV contrast Status: Report reviewed by me Assessment & Plan (1) UTI (urinary tract infection) Assessment and Plan: PANCULTURES uRINE CULTURES PENDING DC iv CEFTRIAXONE IN VIEW OF ELEVATED TRANSAMINASES. START iv MAXIPEME 1 G EVERY 24 HOURLY. 03/09/18 fOLLOW-UP URINE CULTURES TO ADJUST ANTIBIOTICS. CASE DISCUSSED WITH THE STAFF/AND RESIDENT. Status: Acute (2) Acute lower GI hemorrhage Assessment and Plan: PATIENT GETTING BLOOD TRANSFUSION. GI ON BOARD. SURGERY CONSULT IN PROGRESS Status: Acute (3) Arthritis Assessment and Plan: PATIENT HAS HISTORY OF ARTHRITIS ON NSAIDS AND ACETAMINOPHEN PRN . Status: Acute (4) HTN (hypertension) Status: Acute
[2018-03-09 18:38] LABS: HEMOGLOBIN 10.8 g/dL (11.0-16.0); MEAN CELL VOLUME 95.6 fL (81.0-99.0); MEAN CORPUSCULAR HEMOGLOBIN 32.3 pg (27.0-31.0); MEAN CORPUSCULAR HGB CONC 33.8 g/dL (33.0-37.0); MEAN PLATELET VOLUME 7.8 fL (7.2-11.7); RBC 3.35 Mil/uL (3.80-5.20); RED CELL DISTRIBUTION WIDTH 14.3 % (11.5-14.5); WHITE BLOOD COUNT 16.5 K/uL (4.8-10.8)
--- NOTE | 2018-03-09 18:52 | CP.PCM.CON ---
History of Present Illness - History of Present Illness History of Present Illness: CC: rectal hemorrhage 82 yr old woman presented to the ER this morning with small amount of blood on toilet paper 4 days ago. Pt was straining to have BMs over next few days and she saw blood in stool again today. Hgb was 12 on presentation. Later in the day she developed large amount of bright red rectal bleeding of large amounts and became tachycardic and was admitted to the ICU, and GI and surgery consults were obtained. The patient is known to Dr Alfred, and had Colonoscopy in 2017- 2 small benign polyps, without diverticulosis. The patient had previous colonoscopies, also showing small polyps, without any other lesions noted on the reports. Patient also found to have a UTI . CT scan of abdomen is unremarkable. Review of Systems - Constitutional Constitutional: absent: Fever, Weakness - EENT Eyes: absent: Change in Vision Nose/Mouth/Throat: absent: Epistaxis - Breasts Breasts: absent: Mass - Cardiovascular Cardiovascular: absent: Chest Pain - Respiratory Respiratory: absent: Dyspnea - Gastrointestinal Gastrointestinal: Constipation, Hematochezia. absent: Abdominal Pain, Dyspepsia , Melena - Genitourinary Genitourinary: absent: Difficulty Urinating, Dysuria - Musculoskeletal Musculoskeletal: Arthralgias, Back Pain - Integumentary Integumentary: absent: Jaundice - Neurological Neurological: absent: Abnormal Hearing, Syncope - Psychiatric Psychiatric: absent: Anxiety, Depression - Hematologic/Lymphatic Hematologic: absent: Easy Bleeding Past Patient History - Infectious Disease Hx of Infectious Diseases: None - Past Medical History & Family History Past Medical History?: Yes - Past Social History Smoking Status: Never Smoked - CARDIAC Hx Hypertension: Yes - PULMONARY Hx Respiratory Disorders: No - NEUROLOGICAL Hx Neurological Disorder: No - HEENT Hx Cataracts: Yes (WITH BRANDON IOL) - RENAL Hx Chronic Kidney Disease: No - ENDOCRINE/METABOLIC Hx Endocrine Disorders: No - HEMATOLOGICAL/ONCOLOGICAL Hx Blood Disorders: No - INTEGUMENTARY Hx Dermatological Problems: No - MUSCULOSKELETAL/RHEUMATOLOGICAL Hx Arthritis: Yes - GASTROINTESTINAL Hx Gastrointestinal Disorders: No - GENITOURINARY/GYNECOLOGICAL Hx Genitourinary Disorders: No - PSYCHIATRIC Hx Substance Use: No - SURGICAL HISTORY Hx Appendectomy: Yes - ANESTHESIA Hx Anesthesia: Yes Hx Anesthesia Reactions: No Meds Allergies/Adverse Reactions: Allergies Allergy/AdvReac Type Severity Reaction Status Date / Time No Known Allergies Allergy Verified 03/09/18 07:23 - Medications Medications: Current Medications Dextrose (Dextrose 50% Inj) 0 ml IV STAT PRN; Protocol PRN Reason: Hypoglycemia Protocol Dextrose (Glutose 15) 0 gm PO ONCE PRN; Protocol PRN Reason: Hypoglycemia Protocol Glucagon (Glucagen Diagnostic Kit) 0 mg IM STAT PRN; Protocol PRN Reason: Hypoglycemia Protocol Sodium Chloride (Sodium Chloride 0.9%) 1,000 mls @ 100 mls/hr IV .Q10H [facility] Last Admin: 03/09/18 17:22 Dose: 100 mls/hr Dextrose (Dextrose 5% In Water 1000 Ml) 1,000 mls @ 0 mls/hr IV .Q0M PRN; Protocol; Per Protocol PRN Reason: Hypoglycemia Protocol Cefepime HCl (Maxipime Iv 1 Gm Premix) 1 gm in 50 mls @ 100 mls/hr IVPB Q24H [facility] PRN Reason: Protocol Insulin Human Regular (Novolin R) 0 unit SC Q6H [facility] PRN Reason: Protocol Morphine Sulfate (Morphine) 1 mg IVP Q4 PRN PRN Reason: Pain, severe (8-10) Pantoprazole Sodium (Protonix Inj) 40 mg IVP Q12H [facility] Physical Exam - Constitutional Appears: No Acute Distress, Chronically Ill - Head Exam Head Exam: NORMOCEPHALIC - Eye Exam Eye Exam: absent: Scleral icterus (Pale conjunctivae) - ENT Exam ENT Exam: Normal Exam - Respiratory Exam Respiratory Exam: Clear to Auscultation Bilateral - Cardiovascular Exam Cardiovascular Exam: Tachycardia, REGULAR RHYTHM - GI/Abdominal Exam GI & Abdominal Exam: Distended, Soft, Tenderness. absent: Rebound (Suprapubic fullness/tenderness) - Rectal Exam Additional comments: escorted by Dr Pierre. Large fleshy engorged hemorrhoid with active bleeding present at anal verge - Extremities Exam Extremities exam: Positive for: normal inspection - Neurological Exam Neurological exam: Alert, Oriented x3 - Psychiatric Exam Psychiatric exam: Normal Mood - Skin Skin Exam: Warm Results - Vital Signs Recent Vital Signs: Last Vital Signs Temp 98.9 F 03/09/18 16:08 Pulse 131 H 03/09/18 16:50 Resp 18 03/09/18 16:50 BP 114/67 03/09/18 16:50 Pulse Ox 98 03/09/18 16:50 - Labs Result Diagrams: 03/09/18 08:15 03/09/18 08:15 Labs: Laboratory Results - last 24 hr 03/09/18 03/09/18 03/09/18 07:29 08:15 08:15 WBC 9.7 RBC 3.83 Hgb 12.3 Hct 36.4 MCV 94.8 MCH 32.2 H MCHC 33.9 RDW 14.3 Plt Count 305 MPV 7.6 Neut % (Auto) 81.6 H Lymph % (Auto) 9.4 L Waller % (Auto) 8.5 Eos % (Auto) 0.0 Baso % (Auto) 0.5 Neut # (Auto) 7.9 H Lymph # (Auto) 0.9 L [place] # (Auto) 0.8 Eos # (Auto) 0.0 Baso # (Auto) 0.1 Neutrophils % (Manual) 84 H Lymphocytes % (Manual) 13 L Monocytes % (Manual) 3 Platelet Estimate Normal RBC Morphology Normal PT INR APTT Sodium 141 Potassium 4.4 Chloride 103 Carbon Dioxide 28 Anion Gap 15 BUN 39 H Creatinine 0.9 Est GFR ( Amer) > 60 Est GFR (Non-Af Amer) 60 POC Glucose (mg/dL) 138 H Random Glucose 140 H Calcium 9.4 Total Bilirubin 1.4 H AST 130 H ALT 69 H Alkaline Phosphatase 67 Total Protein 7.1 Albumin 4.2 Globulin 3.0 Albumin/Globulin Ratio 1.4 Lipase 60 Urine Color Urine Clarity Urine pH Ur Specific [place] Urine Protein Urine Glucose (UA) Urine Ketones Urine Blood Urine Nitrate Urine Bilirubin Urine Urobilinogen Ur Leukocyte Esterase Urine WBC (Auto) Urine RBC (Auto) Ur Squamous Epith Cells Amorphous Sediment Urine Bacteria Blood Type Antibody Screen 03/09/18 03/09/18 03/09/18 08:29 17:02 17:05 WBC RBC Hgb Hct MCV MCH MCHC RDW Plt Count MPV Neut % (Auto) Lymph % (Auto) [place] % (Auto) Eos % (Auto) Baso % (Auto) Neut # (Auto) Lymph # (Auto) [place] # (Auto) Eos # (Auto) Baso # (Auto) Neutrophils % (Manual) Lymphocytes % (Manual) Monocytes % (Manual) Platelet Estimate RBC Morphology PT 11.7 INR 1.1 APTT 20 L Sodium Potassium Chloride Carbon Dioxide Anion Gap BUN Creatinine Est GFR ( Amer) Est GFR (Non-Af Amer) POC Glucose (mg/dL) Random Glucose Calcium Total Bilirubin AST ALT Alkaline Phosphatase Total Protein Albumin Globulin Albumin/Globulin Ratio Lipase Urine Color Yellow Urine Clarity Turbid Urine pH 7.0 Ur Specific [place] 1.016 Urine Protein 1+ H Urine Glucose (UA) Normal Urine Ketones Negative Urine Blood 1+ H Urine Nitrate Negative Urine Bilirubin Negative Urine Urobilinogen Normal Ur Leukocyte Esterase 3+ H Urine WBC (Auto) 42 H Urine RBC (Auto) 10 H Ur Squamous Epith Cells 2 Amorphous Sediment Occ H Urine Bacteria Few H Blood Type O POSITIVE Antibody Screen Negative - Imaging and Cardiology CT scan - abdomen Status: Report reviewed by me Assessment & Plan - Assessment and Plan (Free Text) Assessment: Hemorrhage of Rectum/Anus- Source is large engorged prolapsed hemorrhoid, precipitated by straining with BMs Suprapubic fullness/tenderness- CT reported normal bladder appearance. I suspect UTI and possible development of urinary retention since the CT was done History of Colon Polyps- most recent colonoscopy was < 1 year ago. Diabetes Arthritis Rec; Surgery consultation. Topical/local care of hemorrhoids. Would not repeat Colonoscopy at the present time. Monitor Hgb levels. Consider Lopes catheter discussed with ICU resident Dr Vazquez - Date & Time Date: 03/09/18 Time: 19:02
[2018-03-09] MEDS: (Novolin R) Insulin Human Regular 100 units/ml vial SC SCH (19:00)
[2018-03-09] MEDS: Cefepime IV 1 gm in Dextrose 1 GM/50 ML BAG IVPB SCH (19:04)
[2018-03-09] MEDS ORDERED: Sodium Chloride 0.9% 1,000 ML IV ONE (19:08)
[2018-03-09 22:00] LABS: URINE AMORPHOUS SEDIMENT MODERATE /ul (<OCC); URINE BILIRUBIN NEGATIVE (NEGATIVE); URINE BLOOD 1+ (NEGATIVE); URINE CLARITY Hazy (Clear); URINE COLOR Yellow (YELLOW); URINE GLUCOSE (UA) NORMAL (Normal); URINE LEUKOCYTE ESTERASE 1+ Leu/uL (Negative); URINE PROTEIN 1+ mg/dL (NEGATIVE); URINE UROBILINOGEN NORMAL mg/dL (0.2-1.0)
[2018-03-09] MEDS: Hydrocortisone 2.5% Rectal Cream(30 gm) PR SCH (22:14)
[2018-03-10] MEDS: Sodium Chloride 0.9% 1,000 ML IV SCH ×4 (03:00→22:00)
[2018-03-10] MEDS: (Novolin R) Insulin Human Regular 100 units/ml vial SC SCH ×4 (06:00→17:54)
[2018-03-10 06:36] LABS: BASO % 0.3 % (0.0-2.0); HEMOGLOBIN 10.3 g/dL (11.0-16.0); LYMPH # 1.1 K/uL (1.0-4.3); MEAN CORPUSCULAR HEMOGLOBIN 31.2 pg (27.0-31.0); MEAN CORPUSCULAR HGB CONC 33.9 g/dL (33.0-37.0); MEAN PLATELET VOLUME 7.8 fL (7.2-11.7); MONO # 0.6 K/uL (0.0-0.8); MONO % 7.3 % (0.0-10.0); NEUT # 6.8 K/uL (1.8-7.0); NEUT % 79.4 % (50.0-75.0); RBC 3.31 Mil/uL (3.80-5.20); RED CELL DISTRIBUTION WIDTH 16.9 % (11.5-14.5); WHITE BLOOD COUNT 8.6 K/uL (4.8-10.8)
[2018-03-10 06:42] LABS: ALB/GLOB RATIO 1.2 (1.0-2.1); ALBUMIN 3.1 g/dL (3.5-5.0); ALT/SGPT 62 U/L (9-52); AST/SGOT 74 U/L (14-36); BLOOD UREA NITROGEN 33 mg/dL (7-17); CALCIUM 8.2 mg/dl (8.6-10.4); GFR AFRICAN-AMERICAN > 60; GFR NON-AFRICAN AMERICAN > 60
[2018-03-10] MEDS: Hydrocortisone 2.5% Rectal Cream(30 gm) PR SCH ×2 (09:25→17:55)
[2018-03-10] MEDS ORDERED: Potassium Chloride 20 mEq ER Tab PO ONE ×2 (10:00→13:30)
[2018-03-10] MEDS ORDERED: cefTRIAXone IV 1 gm in Dextros 50 ML IVPB SCH (10:00)
[2018-03-10] MEDS: POLYETHYLENE GLYCOL 3350 17 GM/Dose PACKET PO SCH ×2 (10:00→15:24)
--- NOTE | 2018-03-10 10:12 | CP.PCM.PN ---
Subjective - Date & Time of Evaluation Date of Evaluation: 03/10/18 Time of Evaluation: 10:09 - Subjective Subjective: F/u r bleeding. Reports few episodes BRBPR. Reports anal pain- same. Abdom pain- mild mid lower. Denies SOB, fever, WYNNE, cough, hemoptysis, SZ, tremor, myalgia Objective - Vital Signs/Intake and Output Vital Signs (last 24 hours): Temp Pulse Resp BP Pulse Ox 97.8 F 92 H 14 130/59 L 99 03/10/18 07:30 03/10/18 09:27 03/10/18 09:27 03/10/18 09:28 03/10/18 09:27 Intake and Output: 03/10/18 03/10/18 06:59 18:59 Intake Total 19681 1200 Output Total 1460 250 Balance 61253 950 - Medications Medications: Current Medications Dextrose (Dextrose 50% Inj) 0 ml IV STAT PRN; Protocol PRN Reason: Hypoglycemia Protocol Dextrose (Glutose 15) 0 gm PO ONCE PRN; Protocol PRN Reason: Hypoglycemia Protocol Docusate Sodium (Colace) 100 mg PO TID [facility] Glucagon (Glucagen Diagnostic Kit) 0 mg IM STAT PRN; Protocol PRN Reason: Hypoglycemia Protocol Hydrocortisone (Anusol-Hc) 1 gm [place] BID [facility] Last Admin: 03/10/18 09:25 Dose: 1 applic Sodium Chloride (Sodium Chloride 0.9%) 1,000 mls @ 100 mls/hr IV .Q10H [facility] Last Admin: 03/10/18 09:23 Dose: 100 mls/hr Dextrose (Dextrose 5% In Water 1000 Ml) 1,000 mls @ 0 mls/hr IV .Q0M PRN; Protocol; Per Protocol PRN Reason: Hypoglycemia Protocol Cefepime HCl (Maxipime Iv 1 Gm Premix) 1 gm in 50 mls @ 100 mls/hr IVPB Q24H [facility] PRN Reason: Protocol Last Admin: 03/09/18 19:04 Dose: 100 mls/hr Insulin Human Regular (Novolin R) 0 unit SC Q6H [facility] PRN Reason: Protocol Last Admin: 03/10/18 06:00 Dose: Not Given Morphine Sulfate (Morphine) 1 mg IVP Q4 PRN PRN Reason: Pain, severe (8-10) Pantoprazole Sodium (Protonix Inj) 40 mg IVP Q12H [facility] Last Admin: 03/10/18 09:24 Dose: 40 mg Polyethylene Glycol (Miralax) 17 gm PO DAILY [facility] - Labs Labs: 03/10/18 06:18 03/10/18 06:19 PT 11.7 SECONDS (9.7-12.2) 03/09/18 17:05 INR 1.1 03/09/18 17:05 APTT 20 SECONDS (21-34) L 03/09/18 17:05 - Constitutional Appears: Well - Respiratory Exam Respiratory Exam: Clear to Ausculation Bilateral - Cardiovascular Exam Cardiovascular Exam: RRR - GI/Abdominal Exam GI & Abdominal Exam: Soft, Normal Bowel Sounds. absent: Guarding, Tenderness, Mass, Rebound - Rectal Exam Additional comments: RN present. + blood, sl tender, prolapsd hemorrhoids- reducible. - Extremities Exam Extremities Exam: absent: Calf Tenderness - Neurological Exam Neurological Exam: Alert, Awake Assessment and Plan (1) Hemorrhoids Assessment & Plan: patient had recent colonosocpy. No other lesions seen. Bleeding appears to be from hemorrhoids. Colace. Check Hb NEEDS SURGERY EVALUATION. . Cont Rx with cream. Consider SITZ baths, suppositories. Status: Acute (2) Constipation Assessment & Plan: colace, laxatives. Status: Acute (3) Acute lower GI hemorrhage Assessment & Plan: Appears from hemorrhodis. Sl drop in Hb. Status: Acute (4) HTN (hypertension) Status: Acute (5) UTI (urinary tract infection) Status: Acute (6) Arthritis Status: Acute
--- NOTE | 2018-03-10 10:16 | CP.CCUPN ---
<Maxine Pierre - Last Filed: 03/10/18 10:11> CCU Subjective - Physician Review Subjective (Free Text): Patient was seen and examined at bedside. Patient reports she does not feel well. She continues with rectal pain. CCU Objective - Vital Signs / Intake & Output Vital Signs (Last 4 hours): Vital Signs Temp Pulse Resp BP Pulse Ox 03/10/18 09:28 130/59 L 03/10/18 09:27 92 H 14 99 03/10/18 09:00 87 21 99 03/10/18 08:30 92 H 19 89 L 03/10/18 08:28 87 17 123/51 L 96 03/10/18 08:00 90 17 98 03/10/18 07:30 97.8 F 91 H 20 100 03/10/18 07:28 88 13 118/52 L 95 03/10/18 07:00 86 15 97 03/10/18 06:28 87 16 111/54 L 98 Intake and Output (Last 8hrs): Intake & Output 03/09/18 03/10/18 03/10/18 22:59 06:59 14:59 Intake Total 4000 8278 1200 Output Total 780 680 250 Balance 3220 7598 950 Weight 139 lb 15.896 oz Intake: Intake, IV Amount 4000 8000 1200 Left Antecubital 4000 8000 1200 Oral 0 Blood Product 0 278 Apheresis Rbc Cp2d As3 Lr 0 278 1st Unit [id number] Output: Urine 780 680 250 Urethral (Lopes) 780 680 250 Emesis 0 Other: Voiding Method Bedpan # Bowel Movements 1 - Physical Exam Other physical findings (Free Text): - Constitutional Appears: No acute distress - Head Exam Head Exam: ATRAUMATIC, NORMAL INSPECTION, NORMOCEPHALIC - Eye Exam Eye Exam: EOMI, Normal appearance, PERRL Pupil Exam: NORMAL ACCOMODATION, PERRL - ENT Exam ENT Exam: Mucous Membranes Dry - Respiratory Exam Respiratory Exam: Clear to Auscultation Bilateral, NORMAL BREATHING PATTERN - Cardiovascular Exam Cardiovascular Exam: Tachycardia - GI/Abdominal Exam GI & Abdominal Exam: Soft, less distended. absent: Organomegaly - Extremities Exam Extremities exam: Positive for: normal inspection, pedal pulses present. Negative for: pedal edema, tenderness - Back Exam Back exam: NORMAL INSPECTION - Neurological Exam Neurological exam: Alert, Oriented x3 - Psychiatric Exam Psychiatric exam: Anxious - Skin Skin Exam: Dry, Intact, Pallor, Warm - Medications Active Medications: Active Medications Generic Name Dose Route Start Last Admin Trade Name Freq PRN Reason Stop Dose Admin Dextrose 0 ml 03/09/18 17:50 Dextrose 50% Inj IV STAT PRN Hypoglycemia Protocol Protocol Dextrose 0 gm 03/09/18 17:50 Glutose 15 PO ONCE PRN Hypoglycemia Protocol Protocol Docusate Sodium 100 mg 03/10/18 10:00 Colace PO TID MERRILL Glucagon 0 mg 03/09/18 17:50 Glucagen Diagnostic Kit IM STAT PRN Hypoglycemia Protocol Protocol Hydrocortisone 1 gm 03/09/18 19:15 03/10/18 09:25 Anusol-Hc VT 1 applic BID MERRILL Administration Sodium Chloride 1,000 mls @ 100 mls/hr 03/09/18 17:00 03/10/18 09:23 Sodium Chloride 0.9% IV 100 mls/hr .Q10H MERRILL Administration Dextrose 1,000 mls @ 0 mls/hr 03/09/18 17:50 Dextrose 5% In Water 1000 Ml IV .Q0M PRN Hypoglycemia Protocol Protocol Per Protocol Cefepime HCl 1 gm in 50 mls @ 100 mls/hr 03/09/18 18:00 03/09/18 19:04 Maxipime Iv 1 Gm Premix IVPB 100 mls/hr Q24H MERRILL Administration Protocol Insulin Human Regular 0 unit 03/09/18 18:00 03/10/18 06:00 Novolin R SC Not Given Q6H MERRILL Protocol Morphine Sulfate 1 mg 03/09/18 16:59 Morphine IVP Q4 PRN Pain, severe (8-10) Pantoprazole Sodium 40 mg 03/09/18 22:00 03/10/18 09:24 Protonix Inj IVP 40 mg Q12H MERRILL Administration Polyethylene Glycol 17 gm 03/10/18 10:00 Miralax PO DAILY MERRILL - Patient Studies Lab Studies: Microbiology Studies 03/09/18 08:33 Urine Culture - Preliminary Urine,Catheterized Gram Negative Reynaldo Lab Studies 03/10/18 03/10/18 03/10/18 Range/Units 06:42 06:19 06:18 WBC 8.6 (4.8-10.8) K/uL RBC 3.31 L (3.80-5.20) Mil/uL Hgb 10.3 L (11.0-16.0) g/dL Hct 30.4 L (34.0-47.0) % MCV 92.0 D (81.0-99.0) fL MCH 31.2 H (27.0-31.0) pg MCHC 33.9 (33.0-37.0) g/dL RDW 16.9 H (11.5-14.5) % Plt Count 223 D (130-400) K/uL MPV 7.8 (7.2-11.7) fL Neut % (Auto) 79.4 H (50.0-75.0) % Lymph % (Auto) 13.0 L (20.0-40.0) % [place] % (Auto) 7.3 (0.0-10.0) % Eos % (Auto) 0.0 (0.0-4.0) % Baso % (Auto) 0.3 (0.0-2.0) % Neut # (Auto) 6.8 (1.8-7.0) K/uL Lymph # (Auto) 1.1 (1.0-4.3) K/uL [place] # (Auto) 0.6 (0.0-0.8) K/uL Eos # (Auto) 0.0 (0.0-0.7) K/uL Baso # (Auto) 0.0 (0.0-0.2) K/uL PT (9.7-12.2) SECONDS INR APTT (21-34) SECONDS Sodium 144 (132-148) mmol/L Potassium 3.5 L (3.6-5.2) mmol/L Chloride 109 H (98-107) mmol/L Carbon Dioxide 22 (22-30) mmol/L Anion Gap 16 (10-20) BUN 33 H (7-17) mg/dL Creatinine 0.8 (0.7-1.2) mg/dL Est GFR ( Amer) > 60 Est GFR (Non-Af Amer) > 60 POC Glucose (mg/dL) (65-110) mg/dL Random Glucose 109 H (65-105) mg/dL Hemoglobin A1c 5.9 (4.2-6.5) % Calcium 8.2 L (8.6-10.4) mg/dl Phosphorus 3.5 (2.5-4.5) mg/dL Magnesium 2.3 (1.6-2.3) mg/dL Total Bilirubin 0.9 (0.2-1.3) mg/dL AST 74 H D (14-36) U/L ALT 62 H (9-52) U/L Alkaline Phosphatase 49 (38-126) U/L Total Protein 5.8 L (6.3-8.3) g/dL Albumin 3.1 L D (3.5-5.0) g/dL Globulin 2.6 (2.2-3.9) gm/dL Albumin/Globulin Ratio 1.2 (1.0-2.1) Urine Color (YELLOW) Urine Clarity (Clear) Urine pH (5.0-8.0) Ur Specific [place] (1.003-1.030) Urine Protein (NEGATIVE) mg/dL Urine Glucose (UA) (Normal) mg/dL Urine Ketones (NEGATIVE) mg/dL Urine Blood (NEGATIVE) Urine Nitrate (NEGATIVE) Urine Bilirubin (NEGATIVE) Urine Urobilinogen (0.2-1.0) mg/dL Ur Leukocyte Esterase (Negative) Wilner/uL Urine WBC (Auto) (0-5) /hpf Urine RBC (Auto) (0-3) /hpf Amorphous Sediment (<OCC) /ul Blood Type Antibody Screen 03/10/18 03/09/18 03/09/18 Range/Units 06:06 23:34 21:43 WBC (4.8-10.8) K/uL RBC (3.80-5.20) Mil/uL Hgb (11.0-16.0) g/dL Hct (34.0-47.0) % MCV (81.0-99.0) fL MCH (27.0-31.0) pg MCHC (33.0-37.0) g/dL RDW (11.5-14.5) % Plt Count (130-400) K/uL MPV (7.2-11.7) fL Neut % (Auto) (50.0-75.0) % Lymph % (Auto) (20.0-40.0) % [place] % (Auto) (0.0-10.0) % Eos % (Auto) (0.0-4.0) % Baso % (Auto) (0.0-2.0) % Neut # (Auto) (1.8-7.0) K/uL Lymph # (Auto) (1.0-4.3) K/uL [place] # (Auto) (0.0-0.8) K/uL Eos # (Auto) (0.0-0.7) K/uL Baso # (Auto) (0.0-0.2) K/uL PT (9.7-12.2) SECONDS INR APTT (21-34) SECONDS Sodium (132-148) mmol/L Potassium (3.6-5.2) mmol/L Chloride (98-107) mmol/L Carbon Dioxide (22-30) mmol/L Anion Gap (10-20) BUN (7-17) mg/dL Creatinine (0.7-1.2) mg/dL Est GFR ( Amer) Est GFR (Non-Af Amer) POC Glucose (mg/dL) 112 H 149 H (65-110) mg/dL Random Glucose (65-105) mg/dL Hemoglobin A1c (4.2-6.5) % Calcium (8.6-10.4) mg/dl Phosphorus (2.5-4.5) mg/dL Magnesium (1.6-2.3) mg/dL Total Bilirubin (0.2-1.3) mg/dL AST (14-36) U/L ALT (9-52) U/L Alkaline Phosphatase (38-126) U/L Total Protein (6.3-8.3) g/dL Albumin (3.5-5.0) g/dL Globulin (2.2-3.9) gm/dL Albumin/Globulin Ratio (1.0-2.1) Urine Color Yellow (YELLOW) Urine Clarity Hazy (Clear) Urine pH 7.0 (5.0-8.0) Ur Specific [place] 1.016 (1.003-1.030) Urine Protein 1+ H (NEGATIVE) mg/dL Urine Glucose (UA) Normal (Normal) mg/dL Urine Ketones Trace (NEGATIVE) mg/dL Urine Blood 1+ H (NEGATIVE) Urine Nitrate Negative (NEGATIVE) Urine Bilirubin Negative (NEGATIVE) Urine Urobilinogen Normal (0.2-1.0) mg/dL Ur Leukocyte Esterase 1+ H (Negative) Wilner/uL Urine WBC (Auto) 9 H (0-5) /hpf Urine RBC (Auto) 11 H (0-3) /hpf Amorphous Sediment Moderate H (<OCC) /ul Blood Type Antibody Screen 03/09/18 03/09/18 03/09/18 Range/Units 18:53 18:28 17:05 WBC 16.5 H D (4.8-10.8) K/uL RBC 3.35 L (3.80-5.20) Mil/uL Hgb 10.8 L (11.0-16.0) g/dL Hct 32.0 L (34.0-47.0) % MCV 95.6 (81.0-99.0) fL MCH 32.3 H (27.0-31.0) pg MCHC 33.8 (33.0-37.0) g/dL RDW 14.3 (11.5-14.5) % Plt Count 334 (130-400) K/uL MPV 7.8 (7.2-11.7) fL Neut % (Auto) (50.0-75.0) % Lymph % (Auto) (20.0-40.0) % [place] % (Auto) (0.0-10.0) % Eos % (Auto) (0.0-4.0) % Baso % (Auto) (0.0-2.0) % Neut # (Auto) (1.8-7.0) K/uL Lymph # (Auto) (1.0-4.3) K/uL [place] # (Auto) (0.0-0.8) K/uL Eos # (Auto) (0.0-0.7) K/uL Baso # (Auto) (0.0-0.2) K/uL PT 11.7 (9.7-12.2) SECONDS INR 1.1 APTT 20 L (21-34) SECONDS Sodium (132-148) mmol/L Potassium (3.6-5.2) mmol/L Chloride (98-107) mmol/L Carbon Dioxide (22-30) mmol/L Anion Gap (10-20) BUN (7-17) mg/dL Creatinine (0.7-1.2) mg/dL Est GFR ( Amer) Est GFR (Non-Af Amer) POC Glucose (mg/dL) 162 H (65-110) mg/dL Random Glucose (65-105) mg/dL Hemoglobin A1c (4.2-6.5) % Calcium (8.6-10.4) mg/dl Phosphorus (2.5-4.5) mg/dL Magnesium (1.6-2.3) mg/dL Total Bilirubin (0.2-1.3) mg/dL AST (14-36) U/L ALT (9-52) U/L Alkaline Phosphatase (38-126) U/L Total Protein (6.3-8.3) g/dL Albumin (3.5-5.0) g/dL Globulin (2.2-3.9) gm/dL Albumin/Globulin Ratio (1.0-2.1) Urine Color (YELLOW) Urine Clarity (Clear) Urine pH (5.0-8.0) Ur Specific [place] (1.003-1.030) Urine Protein (NEGATIVE) mg/dL Urine Glucose (UA) (Normal) mg/dL Urine Ketones (NEGATIVE) mg/dL Urine Blood (NEGATIVE) Urine Nitrate (NEGATIVE) Urine Bilirubin (NEGATIVE) Urine Urobilinogen (0.2-1.0) mg/dL Ur Leukocyte Esterase (Negative) Wilner/uL Urine WBC (Auto) (0-5) /hpf Urine RBC (Auto) (0-3) /hpf Amorphous Sediment (<OCC) /ul Blood Type Antibody Screen 03/09/18 Range/Units 17:02 WBC (4.8-10.8) K/uL RBC (3.80-5.20) Mil/uL Hgb (11.0-16.0) g/dL Hct (34.0-47.0) % MCV (81.0-99.0) fL MCH (27.0-31.0) pg MCHC (33.0-37.0) g/dL RDW (11.5-14.5) % Plt Count (130-400) K/uL MPV (7.2-11.7) fL Neut % (Auto) (50.0-75.0) % Lymph % (Auto) (20.0-40.0) % [place] % (Auto) (0.0-10.0) % Eos % (Auto) (0.0-4.0) % Baso % (Auto) (0.0-2.0) % Neut # (Auto) (1.8-7.0) K/uL Lymph # (Auto) (1.0-4.3) K/uL [place] # (Auto) (0.0-0.8) K/uL Eos # (Auto) (0.0-0.7) K/uL Baso # (Auto) (0.0-0.2) K/uL PT (9.7-12.2) SECONDS INR APTT (21-34) SECONDS Sodium (132-148) mmol/L Potassium (3.6-5.2) mmol/L Chloride (98-107) mmol/L Carbon Dioxide (22-30) mmol/L Anion Gap (10-20) BUN (7-17) mg/dL Creatinine (0.7-1.2) mg/dL Est GFR ( Amer) Est GFR (Non-Af Amer) POC Glucose (mg/dL) (65-110) mg/dL Random Glucose (65-105) mg/dL Hemoglobin A1c (4.2-6.5) % Calcium (8.6-10.4) mg/dl Phosphorus (2.5-4.5) mg/dL Magnesium (1.6-2.3) mg/dL Total Bilirubin (0.2-1.3) mg/dL AST (14-36) U/L ALT (9-52) U/L Alkaline Phosphatase (38-126) U/L Total Protein (6.3-8.3) g/dL Albumin (3.5-5.0) g/dL Globulin (2.2-3.9) gm/dL Albumin/Globulin Ratio (1.0-2.1) Urine Color (YELLOW) Urine Clarity (Clear) Urine pH (5.0-8.0) Ur Specific [place] (1.003-1.030) Urine Protein (NEGATIVE) mg/dL Urine Glucose (UA) (Normal) mg/dL Urine Ketones (NEGATIVE) mg/dL Urine Blood (NEGATIVE) Urine Nitrate (NEGATIVE) Urine Bilirubin (NEGATIVE) Urine Urobilinogen (0.2-1.0) mg/dL Ur Leukocyte Esterase (Negative) Wilner/uL Urine WBC (Auto) (0-5) /hpf Urine RBC (Auto) (0-3) /hpf Amorphous Sediment (<OCC) /ul Blood Type O POSITIVE Antibody Screen Negative Laboratory Results - last 24 hr 03/09/18 03/09/18 03/09/18 17:02 17:05 18:28 WBC 16.5 H D RBC 3.35 L Hgb 10.8 L Hct 32.0 L MCV 95.6 MCH 32.3 H MCHC 33.8 RDW 14.3 Plt Count 334 MPV 7.8 Neut % (Auto) Lymph % (Auto) [place] % (Auto) Eos % (Auto) Baso % (Auto) Neut # (Auto) Lymph # (Auto) [place] # (Auto) Eos # (Auto) Baso # (Auto) PT 11.7 INR 1.1 APTT 20 L Sodium Potassium Chloride Carbon Dioxide Anion Gap BUN Creatinine Est GFR ( Amer) Est GFR (Non-Af Amer) POC Glucose (mg/dL) Random Glucose Hemoglobin A1c Calcium Phosphorus Magnesium Total Bilirubin AST ALT Alkaline Phosphatase Total Protein Albumin Globulin Albumin/Globulin Ratio Urine Color Urine Clarity Urine pH Ur Specific [place] Urine Protein Urine Glucose (UA) Urine Ketones Urine Blood Urine Nitrate Urine Bilirubin Urine Urobilinogen Ur Leukocyte Esterase Urine WBC (Auto) Urine RBC (Auto) Amorphous Sediment Blood Type O POSITIVE Antibody Screen Negative 03/09/18 03/09/18 03/09/18 18:53 21:43 23:34 WBC RBC Hgb Hct MCV MCH MCHC RDW Plt Count MPV Neut % (Auto) Lymph % (Auto) [place] % (Auto) Eos % (Auto) Baso % (Auto) Neut # (Auto) Lymph # (Auto) [place] # (Auto) Eos # (Auto) Baso # (Auto) PT INR APTT Sodium Potassium Chloride Carbon Dioxide Anion Gap BUN Creatinine Est GFR ( Amer) Est GFR (Non-Af Amer) POC Glucose (mg/dL) 162 H 149 H Random Glucose Hemoglobin A1c Calcium Phosphorus Magnesium Total Bilirubin AST ALT Alkaline Phosphatase Total Protein Albumin Globulin Albumin/Globulin Ratio Urine Color Yellow Urine Clarity Hazy Urine pH 7.0 Ur Specific [place] 1.016 Urine Protein 1+ H Urine Glucose (UA) Normal Urine Ketones Trace Urine Blood 1+ H Urine Nitrate Negative Urine Bilirubin Negative Urine Urobilinogen Normal Ur Leukocyte Esterase 1+ H Urine WBC (Auto) 9 H Urine RBC (Auto) 11 H Amorphous Sediment Moderate H Blood Type Antibody Screen 03/10/18 03/10/18 03/10/18 06:06 06:18 06:19 WBC 8.6 RBC 3.31 L Hgb 10.3 L Hct 30.4 L MCV 92.0 D MCH 31.2 H MCHC 33.9 RDW 16.9 H Plt Count 223 D MPV 7.8 Neut % (Auto) 79.4 H Lymph % (Auto) 13.0 L [place] % (Auto) 7.3 Eos % (Auto) 0.0 Baso % (Auto) 0.3 Neut # (Auto) 6.8 Lymph # (Auto) 1.1 [place] # (Auto) 0.6 Eos # (Auto) 0.0 Baso # (Auto) 0.0 PT INR APTT Sodium 144 Potassium 3.5 L Chloride 109 H Carbon Dioxide 22 Anion Gap 16 BUN 33 H Creatinine 0.8 Est GFR ( Amer) > 60 Est GFR (Non-Af Amer) > 60 POC Glucose (mg/dL) 112 H Random Glucose 109 H Hemoglobin A1c Calcium 8.2 L Phosphorus 3.5 Magnesium 2.3 Total Bilirubin 0.9 AST 74 H D ALT 62 H Alkaline Phosphatase 49 Total Protein 5.8 L Albumin 3.1 L D Globulin 2.6 Albumin/Globulin Ratio 1.2 Urine Color Urine Clarity Urine pH Ur Specific [place] Urine Protein Urine Glucose (UA) Urine Ketones Urine Blood Urine Nitrate Urine Bilirubin Urine Urobilinogen Ur Leukocyte Esterase Urine WBC (Auto) Urine RBC (Auto) Amorphous Sediment Blood Type Antibody Screen 03/10/18 06:42 WBC RBC Hgb Hct MCV MCH MCHC RDW Plt Count MPV Neut % (Auto) Lymph % (Auto) [place] % (Auto) Eos % (Auto) Baso % (Auto) Neut # (Auto) Lymph # (Auto) [place] # (Auto) Eos # (Auto) Baso # (Auto) PT INR APTT Sodium Potassium Chloride Carbon Dioxide Anion Gap BUN Creatinine Est GFR ( Amer) Est GFR (Non-Af Amer) POC Glucose (mg/dL) Random Glucose Hemoglobin A1c 5.9 Calcium Phosphorus Magnesium Total Bilirubin AST ALT Alkaline Phosphatase Total Protein Albumin Globulin Albumin/Globulin Ratio Urine Color Urine Clarity Urine pH Ur Specific [place] Urine Protein Urine Glucose (UA) Urine Ketones Urine Blood Urine Nitrate Urine Bilirubin Urine Urobilinogen Ur Leukocyte Esterase Urine WBC (Auto) Urine RBC (Auto) Amorphous Sediment Blood Type Antibody Screen EKG/Cardiology Studies: Cardiology / EKG Studies 03/09/18 17:13 ELECTROCARDIOGRAM Stat Comment: Mode Of Transportation: Reason For Exam: preop Fingerstick Blood Sugar Results: 112 Critical Care Progress Note - Nutrition Nutrition: Nutrition Category Date Time Status NPO Diet [DIET] Diets 03/09/18 Dinner Active Assessment/Plan - Assessment and Plan (Free Text) Assessment: This is an 82 year old female with PMHx of HTN, HLD, T2DM, osteoarthritis , previous history of rectal bleeding admitted to the ICU for rectal bleeding. Plan: Neuro: GCS15 Cardio: A: Hx HTN, HLD - Will hold all BP meds in light of rectal bleeding - Will hold any statins 2/2 transaminitis Endo: A: T2DM - Accuchecks, ISS- low - Q6H - 5.9 GI: A: Rectal Bleeding -- Dr. Alfred/ Mai consulted -- Dr. Lopez consulted - Previous colonoscopy 12/2016; 2-3 polyps seen, resected and biopsied; tubular adenoma - CT Ab/pelvis: Unremarkable - Colonoscopy 11am today - CBC ordered STAT 12.3 --> 10.8 - Transfused 1 unit - due to hypotension - NPO, PPIQ12, IVF A: Transaminitis, Elevated T. Bili - CT Ab/pelvis: Unremarkable - Continue to monitor : A: UTI, urinary retention -- Dr. Lutz consulted - Started Cefepime due to Transaminitis - Lopes placed, due to retention of 1000cc - UC ordered - gram neg MSK: A: Osteoarthritis - Patient denies any ASA, NSAID use - As per EMR she was once on methotrexate Prophylaxis: - PPI Q12 - SCDs, VTE c/i 2/2 rectal bleeding - PT/ OT will be ordered once patient is stabilized - NPO for now Disposition: For colonoscopy today @ 11am. Patient is downgraded to telemetry. DW Dr. Ernestine Junior, Maxine Pierre DO, PGY-1 <Edison Junior - Last Filed: 03/10/18 17:04> CCU Objective - Vital Signs / Intake & Output Vital Signs (Last 4 hours): Vital Signs Pulse Resp BP Pulse Ox 03/10/18 14:27 83 19 109/61 98 03/10/18 14:00 89 13 96 03/10/18 13:28 84 19 108/51 L 98 Intake and Output (Last 8hrs): Intake & Output 03/10/18 03/10/18 03/10/18 06:59 14:59 22:59 Intake Total 8278 1700 Output Total 680 610 Balance 7598 1090 Weight 139 lb 15.896 oz Intake: Intake, IV Amount 8000 1700 Left Antecubital 8000 1700 Oral 0 Blood Product 278 Apheresis Rbc Cp2d As3 Lr 278 1st Unit [id number] Output: Urine 680 610 Urethral (Lopes) 680 610 Emesis 0 Other: # Bowel Movements 0 - Medications Active Medications: Active Medications Generic Name Dose Route Start Last Admin Trade Name Freq PRN Reason Stop Dose Admin Dextrose 0 ml 03/09/18 17:50 Dextrose 50% Inj IV STAT PRN Hypoglycemia Protocol Protocol Dextrose 0 gm 03/09/18 17:50 Glutose 15 PO ONCE PRN Hypoglycemia Protocol Protocol Docusate Sodium 100 mg 03/10/18 10:00 03/10/18 15:23 Colace PO 100 mg TID MERRILL Administration Glucagon 0 mg 03/09/18 17:50 Glucagen Diagnostic Kit IM STAT PRN Hypoglycemia Protocol Protocol Hydrocortisone 1 gm 03/09/18 19:15 03/10/18 09:25 Anusol-Hc VT 1 applic BID MERRILL Administration Sodium Chloride 1,000 mls @ 100 mls/hr 03/09/18 17:00 03/10/18 09:23 Sodium Chloride 0.9% IV 100 mls/hr .Q10H MERRILL Administration Dextrose 1,000 mls @ 0 mls/hr 03/09/18 17:50 Dextrose 5% In Water 1000 Ml IV .Q0M PRN Hypoglycemia Protocol Protocol Per Protocol Cefepime HCl 1 gm in 50 mls @ 100 mls/hr 03/09/18 18:00 03/09/18 19:04 Maxipime Iv 1 Gm Premix IVPB 100 mls/hr Q24H MERRILL Administration Protocol Amikacin Sulfate 500 mg/ 252 mls @ 250 mls/hr 03/10/18 14:15 Sodium Chloride IVPB ONCE MERRILL Protocol Insulin Human Regular 0 unit 03/09/18 18:00 03/10/18 12:40 Novolin R SC Not Given Q6H MERRILL Protocol Morphine Sulfate 1 mg 03/09/18 16:59 03/10/18 12:46 Morphine IVP 1 mg Q4 PRN Administration Pain, severe (8-10) Pantoprazole Sodium 40 mg 03/09/18 22:00 03/10/18 09:24 Protonix Inj IVP 40 mg Q12H MERRILL Administration Polyethylene Glycol 17 gm 03/10/18 10:00 03/10/18 15:24 Miralax PO 17 gm DAILY MERRILL Administration - Patient Studies Lab Studies: Microbiology Studies 03/09/18 21:43 Urine Culture - Preliminary Urine,Lopes Gram Negative Reynaldo 03/09/18 08:33 Urine Culture - Preliminary Urine,Catheterized Gram Negative Reynaldo Lab Studies 03/10/18 03/10/18 03/10/18 Range/Units 13:29 11:34 06:42 WBC 8.9 (4.8-10.8) K/uL RBC 3.15 L (3.80-5.20) Mil/uL Hgb 9.8 L (11.0-16.0) g/dL Hct 28.6 L (34.0-47.0) % MCV 90.6 (81.0-99.0) fL MCH 31.1 H (27.0-31.0) pg MCHC 34.3 (33.0-37.0) g/dL RDW 17.0 H (11.5-14.5) % Plt Count 230 (130-400) K/uL MPV 7.6 (7.2-11.7) fL Neut % (Auto) 77.4 H (50.0-75.0) % Lymph % (Auto) 13.1 L (20.0-40.0) % [place] % (Auto) 9.1 (0.0-10.0) % Eos % (Auto) 0.0 (0.0-4.0) % Baso % (Auto) 0.4 (0.0-2.0) % Neut # (Auto) 6.9 (1.8-7.0) K/uL Lymph # (Auto) 1.2 (1.0-4.3) K/uL [place] # (Auto) 0.8 (0.0-0.8) K/uL Eos # (Auto) 0.0 (0.0-0.7) K/uL Baso # (Auto) 0.0 (0.0-0.2) K/uL PT (9.7-12.2) SECONDS INR APTT (21-34) SECONDS Sodium (132-148) mmol/L Potassium (3.6-5.2) mmol/L Chloride (98-107) mmol/L Carbon Dioxide (22-30) mmol/L Anion Gap (10-20) BUN (7-17) mg/dL Creatinine (0.7-1.2) mg/dL Est GFR ( Amer) Est GFR (Non-Af Amer) POC Glucose (mg/dL) 92 (65-110) mg/dL Random Glucose (65-105) mg/dL Hemoglobin A1c 5.9 (4.2-6.5) % Calcium (8.6-10.4) mg/dl Phosphorus (2.5-4.5) mg/dL Magnesium (1.6-2.3) mg/dL Total Bilirubin (0.2-1.3) mg/dL AST (14-36) U/L ALT (9-52) U/L Alkaline Phosphatase (38-126) U/L Total Protein (6.3-8.3) g/dL Albumin (3.5-5.0) g/dL Globulin (2.2-3.9) gm/dL Albumin/Globulin Ratio (1.0-2.1) Urine Color (YELLOW) Urine Clarity (Clear) Urine pH (5.0-8.0) Ur Specific [place] (1.003-1.030) Urine Protein (NEGATIVE) mg/dL Urine Glucose (UA) (Normal) mg/dL Urine Ketones (NEGATIVE) mg/dL Urine Blood (NEGATIVE) Urine Nitrate (NEGATIVE) Urine Bilirubin (NEGATIVE) Urine Urobilinogen (0.2-1.0) mg/dL Ur Leukocyte Esterase (Negative) Wilner/uL Urine WBC (Auto) (0-5) /hpf Urine RBC (Auto) (0-3) /hpf Amorphous Sediment (<OCC) /ul Blood Type Antibody Screen 03/10/18 03/10/18 03/10/18 Range/Units 06:19 06:18 06:06 WBC 8.6 (4.8-10.8) K/uL RBC 3.31 L (3.80-5.20) Mil/uL Hgb 10.3 L (11.0-16.0) g/dL Hct 30.4 L (34.0-47.0) % MCV 92.0 D (81.0-99.0) fL MCH 31.2 H (27.0-31.0) pg MCHC 33.9 (33.0-37.0) g/dL RDW 16.9 H (11.5-14.5) % Plt Count 223 D (130-400) K/uL MPV 7.8 (7.2-11.7) fL Neut % (Auto) 79.4 H (50.0-75.0) % Lymph % (Auto) 13.0 L (20.0-40.0) % [place] % (Auto) 7.3 (0.0-10.0) % Eos % (Auto) 0.0 (0.0-4.0) % Baso % (Auto) 0.3 (0.0-2.0) % Neut # (Auto) 6.8 (1.8-7.0) K/uL Lymph # (Auto) 1.1 (1.0-4.3) K/uL [place] # (Auto) 0.6 (0.0-0.8) K/uL Eos # (Auto) 0.0 (0.0-0.7) K/uL Baso # (Auto) 0.0 (0.0-0.2) K/uL PT (9.7-12.2) SECONDS INR APTT (21-34) SECONDS Sodium 144 (132-148) mmol/L Potassium 3.5 L (3.6-5.2) mmol/L Chloride 109 H (98-107) mmol/L Carbon Dioxide 22 (22-30) mmol/L Anion Gap 16 (10-20) BUN 33 H (7-17) mg/dL Creatinine 0.8 (0.7-1.2) mg/dL Est GFR ( Amer) > 60 Est GFR (Non-Af Amer) > 60 POC Glucose (mg/dL) 112 H (65-110) mg/dL Random Glucose 109 H (65-105) mg/dL Hemoglobin A1c (4.2-6.5) % Calcium 8.2 L (8.6-10.4) mg/dl Phosphorus 3.5 (2.5-4.5) mg/dL Magnesium 2.3 (1.6-2.3) mg/dL Total Bilirubin 0.9 (0.2-1.3) mg/dL AST 74 H D (14-36) U/L ALT 62 H (9-52) U/L Alkaline Phosphatase 49 (38-126) U/L Total Protein 5.8 L (6.3-8.3) g/dL Albumin 3.1 L D (3.5-5.0) g/dL Globulin 2.6 (2.2-3.9) gm/dL Albumin/Globulin Ratio 1.2 (1.0-2.1) Urine Color (YELLOW) Urine Clarity (Clear) Urine pH (5.0-8.0) Ur Specific [place] (1.003-1.030) Urine Protein (NEGATIVE) mg/dL Urine Glucose (UA) (Normal) mg/dL Urine Ketones (NEGATIVE) mg/dL Urine Blood (NEGATIVE) Urine Nitrate (NEGATIVE) Urine Bilirubin (NEGATIVE) Urine Urobilinogen (0.2-1.0) mg/dL Ur Leukocyte Esterase (Negative) Wilner/uL Urine WBC (Auto) (0-5) /hpf Urine RBC (Auto) (0-3) /hpf Amorphous Sediment (<OCC) /ul Blood Type Antibody Screen 03/09/18 03/09/18 03/09/18 Range/Units 23:34 21:43 18:53 WBC (4.8-10.8) K/uL RBC (3.80-5.20) Mil/uL Hgb (11.0-16.0) g/dL Hct (34.0-47.0) % MCV (81.0-99.0) fL MCH (27.0-31.0) pg MCHC (33.0-37.0) g/dL RDW (11.5-14.5) % Plt Count (130-400) K/uL MPV (7.2-11.7) fL Neut % (Auto) (50.0-75.0) % Lymph % (Auto) (20.0-40.0) % [place] % (Auto) (0.0-10.0) % Eos % (Auto) (0.0-4.0) % Baso % (Auto) (0.0-2.0) % Neut # (Auto) (1.8-7.0) K/uL Lymph # (Auto) (1.0-4.3) K/uL [place] # (Auto) (0.0-0.8) K/uL Eos # (Auto) (0.0-0.7) K/uL Baso # (Auto) (0.0-0.2) K/uL PT (9.7-12.2) SECONDS INR APTT (21-34) SECONDS Sodium (132-148) mmol/L Potassium (3.6-5.2) mmol/L Chloride (98-107) mmol/L Carbon Dioxide (22-30) mmol/L Anion Gap (10-20) BUN (7-17) mg/dL Creatinine (0.7-1.2) mg/dL Est GFR ( Amer) Est GFR (Non-Af Amer) POC Glucose (mg/dL) 149 H 162 H (65-110) mg/dL Random Glucose (65-105) mg/dL Hemoglobin A1c (4.2-6.5) % Calcium (8.6-10.4) mg/dl Phosphorus (2.5-4.5) mg/dL Magnesium (1.6-2.3) mg/dL Total Bilirubin (0.2-1.3) mg/dL AST (14-36) U/L ALT (9-52) U/L Alkaline Phosphatase (38-126) U/L Total Protein (6.3-8.3) g/dL Albumin (3.5-5.0) g/dL Globulin (2.2-3.9) gm/dL Albumin/Globulin Ratio (1.0-2.1) Urine Color Yellow (YELLOW) Urine Clarity Hazy (Clear) Urine pH 7.0 (5.0-8.0) Ur Specific [place] 1.016 (1.003-1.030) Urine Protein 1+ H (NEGATIVE) mg/dL Urine Glucose (UA) Normal (Normal) mg/dL Urine Ketones Trace (NEGATIVE) mg/dL Urine Blood 1+ H (NEGATIVE) Urine Nitrate Negative (NEGATIVE) Urine Bilirubin Negative (NEGATIVE) Urine Urobilinogen Normal (0.2-1.0) mg/dL Ur Leukocyte Esterase 1+ H (Negative) Wilner/uL Urine WBC (Auto) 9 H (0-5) /hpf Urine RBC (Auto) 11 H (0-3) /hpf Amorphous Sediment Moderate H (<OCC) /ul Blood Type Antibody Screen 03/09/18 03/09/18 03/09/18 Range/Units 18:28 17:05 17:02 WBC 16.5 H D (4.8-10.8) K/uL RBC 3.35 L (3.80-5.20) Mil/uL Hgb 10.8 L (11.0-16.0) g/dL Hct 32.0 L (34.0-47.0) % MCV 95.6 (81.0-99.0) fL MCH 32.3 H (27.0-31.0) pg MCHC 33.8 (33.0-37.0) g/dL RDW 14.3 (11.5-14.5) % Plt Count 334 (130-400) K/uL MPV 7.8 (7.2-11.7) fL Neut % (Auto) (50.0-75.0) % Lymph % (Auto) (20.0-40.0) % [place] % (Auto) (0.0-10.0) % Eos % (Auto) (0.0-4.0) % Baso % (Auto) (0.0-2.0) % Neut # (Auto) (1.8-7.0) K/uL Lymph # (Auto) (1.0-4.3) K/uL [place] # (Auto) (0.0-0.8) K/uL Eos # (Auto) (0.0-0.7) K/uL Baso # (Auto) (0.0-0.2) K/uL PT 11.7 (9.7-12.2) SECONDS INR 1.1 APTT 20 L (21-34) SECONDS Sodium (132-148) mmol/L Potassium (3.6-5.2) mmol/L Chloride (98-107) mmol/L Carbon Dioxide (22-30) mmol/L Anion Gap (10-20) BUN (7-17) mg/dL Creatinine (0.7-1.2) mg/dL Est GFR ( Amer) Est GFR (Non-Af Amer) POC Glucose (mg/dL) (65-110) mg/dL Random Glucose (65-105) mg/dL Hemoglobin A1c (4.2-6.5) % Calcium (8.6-10.4) mg/dl Phosphorus (2.5-4.5) mg/dL Magnesium (1.6-2.3) mg/dL Total Bilirubin (0.2-1.3) mg/dL AST (14-36) U/L ALT (9-52) U/L Alkaline Phosphatase (38-126) U/L Total Protein (6.3-8.3) g/dL Albumin (3.5-5.0) g/dL Globulin (2.2-3.9) gm/dL Albumin/Globulin Ratio (1.0-2.1) Urine Color (YELLOW) Urine Clarity (Clear) Urine pH (5.0-8.0) Ur Specific [place] (1.003-1.030) Urine Protein (NEGATIVE) mg/dL Urine Glucose (UA) (Normal) mg/dL Urine Ketones (NEGATIVE) mg/dL Urine Blood (NEGATIVE) Urine Nitrate (NEGATIVE) Urine Bilirubin (NEGATIVE) Urine Urobilinogen (0.2-1.0) mg/dL Ur Leukocyte Esterase (Negative) [place]/uL Urine WBC (Auto) (0-5) /hpf Urine RBC (Auto) (0-3) /hpf Amorphous Sediment (<OCC) /ul Blood Type O POSITIVE Antibody Screen Negative Laboratory Results - last 24 hr 03/09/18 03/09/18 03/09/18 17:02 17:05 18:28 WBC 16.5 H D RBC 3.35 L Hgb 10.8 L Hct 32.0 L MCV 95.6 MCH 32.3 H MCHC 33.8 RDW 14.3 Plt Count 334 MPV 7.8 Neut % (Auto) Lymph % (Auto) [place] % (Auto) Eos % (Auto) Baso % (Auto) Neut # (Auto) Lymph # (Auto) [place] # (Auto) Eos # (Auto) Baso # (Auto) PT 11.7 INR 1.1 APTT 20 L Sodium Potassium Chloride Carbon Dioxide Anion Gap BUN Creatinine Est GFR ( Amer) Est GFR (Non-Af Amer) POC Glucose (mg/dL) Random Glucose Hemoglobin A1c Calcium Phosphorus Magnesium Total Bilirubin AST ALT Alkaline Phosphatase Total Protein Albumin Globulin Albumin/Globulin Ratio Urine Color Urine Clarity Urine pH Ur Specific [place] Urine Protein Urine Glucose (UA) Urine Ketones Urine Blood Urine Nitrate Urine Bilirubin Urine Urobilinogen Ur Leukocyte Esterase Urine WBC (Auto) Urine RBC (Auto) Amorphous Sediment Blood Type O POSITIVE Antibody Screen Negative 03/09/18 03/09/18 03/09/18 18:53 21:43 23:34 WBC RBC Hgb Hct MCV MCH MCHC RDW Plt Count MPV Neut % (Auto) Lymph % (Auto) [place] % (Auto) Eos % (Auto) Baso % (Auto) Neut # (Auto) Lymph # (Auto) [place] # (Auto) Eos # (Auto) Baso # (Auto) PT INR APTT Sodium Potassium Chloride Carbon Dioxide Anion Gap BUN Creatinine Est GFR ( Amer) Est GFR (Non-Af Amer) POC Glucose (mg/dL) 162 H 149 H Random Glucose Hemoglobin A1c Calcium Phosphorus Magnesium Total Bilirubin AST ALT Alkaline Phosphatase Total Protein Albumin Globulin Albumin/Globulin Ratio Urine Color Yellow Urine Clarity Hazy Urine pH 7.0 Ur Specific [place] 1.016 Urine Protein 1+ H Urine Glucose (UA) Normal Urine Ketones Trace Urine Blood 1+ H Urine Nitrate Negative Urine Bilirubin Negative Urine Urobilinogen Normal Ur Leukocyte Esterase 1+ H Urine WBC (Auto) 9 H Urine RBC (Auto) 11 H Amorphous Sediment Moderate H Blood Type Antibody Screen 03/10/18 03/10/18 03/10/18 06:06 06:18 06:19 WBC 8.6 RBC 3.31 L Hgb 10.3 L Hct 30.4 L MCV 92.0 D MCH 31.2 H MCHC 33.9 RDW 16.9 H Plt Count 223 D MPV 7.8 Neut % (Auto) 79.4 H Lymph % (Auto) 13.0 L [place] % (Auto) 7.3 Eos % (Auto) 0.0 Baso % (Auto) 0.3 Neut # (Auto) 6.8 Lymph # (Auto) 1.1 [place] # (Auto) 0.6 Eos # (Auto) 0.0 Baso # (Auto) 0.0 PT INR APTT Sodium 144 Potassium 3.5 L Chloride 109 H Carbon Dioxide 22 Anion Gap 16 BUN 33 H Creatinine 0.8 Est GFR ( Amer) > 60 Est GFR (Non-Af Amer) > 60 POC Glucose (mg/dL) 112 H Random Glucose 109 H Hemoglobin A1c Calcium 8.2 L Phosphorus 3.5 Magnesium 2.3 Total Bilirubin 0.9 AST 74 H D ALT 62 H Alkaline Phosphatase 49 Total Protein 5.8 L Albumin 3.1 L D Globulin 2.6 Albumin/Globulin Ratio 1.2 Urine Color Urine Clarity Urine pH Ur Specific [place] Urine Protein Urine Glucose (UA) Urine Ketones Urine Blood Urine Nitrate Urine Bilirubin Urine Urobilinogen Ur Leukocyte Esterase Urine WBC (Auto) Urine RBC (Auto) Amorphous Sediment Blood Type Antibody Screen 03/10/18 03/10/18 03/10/18 06:42 11:34 13:29 WBC 8.9 RBC 3.15 L Hgb 9.8 L Hct 28.6 L MCV 90.6 MCH 31.1 H MCHC 34.3 RDW 17.0 H Plt Count 230 MPV 7.6 Neut % (Auto) 77.4 H Lymph % (Auto) 13.1 L [place] % (Auto) 9.1 Eos % (Auto) 0.0 Baso % (Auto) 0.4 Neut # (Auto) 6.9 Lymph # (Auto) 1.2 [place] # (Auto) 0.8 Eos # (Auto) 0.0 Baso # (Auto) 0.0 PT INR APTT Sodium Potassium Chloride Carbon Dioxide Anion Gap BUN Creatinine Est GFR ( Amer) Est GFR (Non-Af Amer) POC Glucose (mg/dL) 92 Random Glucose Hemoglobin A1c 5.9 Calcium Phosphorus Magnesium Total Bilirubin AST ALT Alkaline Phosphatase Total Protein Albumin Globulin Albumin/Globulin Ratio Urine Color Urine Clarity Urine pH Ur Specific [place] Urine Protein Urine Glucose (UA) Urine Ketones Urine Blood Urine Nitrate Urine Bilirubin Urine Urobilinogen Ur Leukocyte Esterase Urine WBC (Auto) Urine RBC (Auto) Amorphous Sediment Blood Type Antibody Screen EKG/Cardiology Studies: Cardiology / EKG Studies 03/09/18 17:13 ELECTROCARDIOGRAM Stat Comment: Mode Of Transportation: Reason For Exam: preop Critical Care Progress Note - Nutrition Nutrition: Nutrition Category Date Time Status Heart Healthy Diet [DIET] Diets 03/10/18 Lunch Active NPO Diet [DIET] Diets 03/11/18 Lunch Active Assessment/Plan - Assessment and Plan (Free Text) Plan: Patient remains hemodynamically stable. -monitor serial cbc -transfuse as needed to keep hemodynamic stability -patient remains hemodyanmically stable. - Date & Time Date: 03/10/18 Time: 17:04
[2018-03-10 13:35] LABS: BASO % 0.4 % (0.0-2.0); HEMOGLOBIN 9.8 g/dL (11.0-16.0); LYMPH # 1.2 K/uL (1.0-4.3); LYMPH % 13.1 % (20.0-40.0); MEAN CELL VOLUME 90.6 fL (81.0-99.0); MEAN CORPUSCULAR HEMOGLOBIN 31.1 pg (27.0-31.0); MEAN CORPUSCULAR HGB CONC 34.3 g/dL (33.0-37.0); MEAN PLATELET VOLUME 7.6 fL (7.2-11.7); MONO # 0.8 K/uL (0.0-0.8); MONO % 9.1 % (0.0-10.0); NEUT # 6.9 K/uL (1.8-7.0); NEUT % 77.4 % (50.0-75.0); NRBC % 0.1 % (0.0-2.0); RBC 3.15 Mil/uL (3.80-5.20); WHITE BLOOD COUNT 8.9 K/uL (4.8-10.8)
--- NOTE | 2018-03-10 13:54 | CP.PCM.PN ---
Subjective - Date & Time of Evaluation Date of Evaluation: 03/10/18 Time of Evaluation: 13:50 - Subjective Subjective: CHIEF COMPLAINTS TODAY : 2 hours after the patient was admitted the nurse from the emergency room informed me that patient had a moderate amount of rectal bleeding with tachycardia. She also informed me that the GI consult has not responded. Type and crossmatch and to transfuse 1 unit order was given and also informed to call GI consult with Dr. Alfred. Initially patient was seen in the triage and admitted in a stable condition. Currently patient has very minimal bleeding with some rectal pain ROS. HEENT : N. Resp : No cough, wheezing ,pleuritic CP ,or hemoptysis Cardio : No anginal CP, PND, orthopnea, palpitation GI : No abd.pain, n/v ,diarrhea or GI bleeding . 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 Musculoskel : No joint swelling , Derm : No rash Psych : Normal affect. Ext : No swelling ,calf pain PE. Pt. is alert awake in no distress. V.S As noted in the chart Head ,ear nose,throat and eyes : Normal. Neck : Supple with normal carotids. Lungs: Clear air entry. Heart : S1 & S2 normal with S4. No murmur. Abd : Soft non tender with normal bowel sounds. Neuro : Moves all ext. with no localized deficit. Ext : No edema with intact pulses.Non tender calves Derm : No rashes or decubitus ulcer. LABS/RADIOLOGY: ASSESSMENT/PLAN : Most probably patient has a fissure in ano with rectal bleeding secondary to hemorrhoids. We will stabilize the patient and referred to the surgical service. Objective - Vital Signs/Intake and Output Vital Signs (last 24 hours): Temp Pulse Resp BP Pulse Ox 97.8 F 92 H 14 130/59 L 99 03/10/18 07:30 03/10/18 09:27 03/10/18 09:27 03/10/18 09:28 03/10/18 09:27 Intake and Output: 03/10/18 03/10/18 11:59 23:59 Intake Total 8478 Output Total 830 Balance 7648 - Medications Medications: Current Medications Dextrose (Dextrose 50% Inj) 0 ml IV STAT PRN; Protocol PRN Reason: Hypoglycemia Protocol Dextrose (Glutose 15) 0 gm PO ONCE PRN; Protocol PRN Reason: Hypoglycemia Protocol Docusate Sodium (Colace) 100 mg PO TID [facility] Last Admin: 03/10/18 10:00 Dose: Not Given Glucagon (Glucagen Diagnostic Kit) 0 mg IM STAT PRN; Protocol PRN Reason: Hypoglycemia Protocol Hydrocortisone (Anusol-Hc) 1 gm ID BID [facility] Last Admin: 03/10/18 09:25 Dose: 1 applic Sodium Chloride (Sodium Chloride 0.9%) 1,000 mls @ 100 mls/hr IV .Q10H [facility] Last Admin: 03/10/18 09:23 Dose: 100 mls/hr Dextrose (Dextrose 5% In Water 1000 Ml) 1,000 mls @ 0 mls/hr IV .Q0M PRN; Protocol; Per Protocol PRN Reason: Hypoglycemia Protocol Cefepime HCl (Maxipime Iv 1 Gm Premix) 1 gm in 50 mls @ 100 mls/hr IVPB Q24H [facility] PRN Reason: Protocol Last Admin: 03/09/18 19:04 Dose: 100 mls/hr Insulin Human Regular (Novolin R) 0 unit SC Q6H [facility] PRN Reason: Protocol Last Admin: 03/10/18 12:40 Dose: Not Given Morphine Sulfate (Morphine) 1 mg IVP Q4 PRN PRN Reason: Pain, severe (8-10) Last Admin: 03/10/18 12:46 Dose: 1 mg Pantoprazole Sodium (Protonix Inj) 40 mg IVP Q12H [facility] Last Admin: 03/10/18 09:24 Dose: 40 mg Polyethylene Glycol (Miralax) 17 gm PO DAILY [facility] Last Admin: 03/10/18 10:00 Dose: Not Given - Labs Labs: 03/10/18 13:29 03/10/18 06:19 PT 11.7 SECONDS (9.7-12.2) 03/09/18 17:05 INR 1.1 03/09/18 17:05 APTT 20 SECONDS (21-34) L 03/09/18 17:05
--- NOTE | 2018-03-10 14:10 | CP.PCM.PN ---
Subjective - Date & Time of Evaluation Date of Evaluation: 03/10/18 Time of Evaluation: 14:10 - Subjective Subjective: CHIEF COMPLAINTS TODAY : afebrile, VS NOTED AWAKE / ALERT PRESENTLY DENIES ANY FURTHER BLEEDING C/O PAIN ON DEFECATION/STRAINING. C/O DYSURIA. ROS. HEENT : N. Resp : No cough, wheezing ,pleuritic CP ,or hemoptysis Cardio : No anginal CP, PND, orthopnea, palpitation GI : No abd.pain, n/v ,diarrhea +VE GI bleeding (BRIGHT RED BLOOD RECTUM ). 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 Musculoskel : No joint swelling , Derm : No rash Psych : Normal affect. Ext : No swelling ,calf pain PE. Pt. is alert awake in no distress. V.S As noted in the chart Head ,ear nose,throat and eyes : Normal. Neck : Supple with normal carotids. Lungs: Clear air entry. Heart : S1 & S2 normal with S4. No murmur. Abd : Soft non tender with normal bowel sounds. Neuro : Moves all ext. with no localized deficit. Ext : No edema with intact pulses.Non tender calves Derm : No rashes or decubitus ulcer. LABS/RADIOLOGY: wbc 8.9, H/H 9.8/28.6 pLATELETS ADEQUATE AT 230 LFTS -IMPROVING URINE CULTURE +VE GNR Objective - Vital Signs/Intake and Output Vital Signs (last 24 hours): Temp Pulse Resp BP Pulse Ox 97.8 F 92 H 14 130/59 L 99 03/10/18 07:30 03/10/18 09:27 03/10/18 09:27 03/10/18 09:28 03/10/18 09:27 Intake and Output: 03/10/18 03/10/18 06:59 18:59 Intake Total 71129 1200 Output Total 1460 250 Balance 23064 950 - Medications Medications: Current Medications Dextrose (Dextrose 50% Inj) 0 ml IV STAT PRN; Protocol PRN Reason: Hypoglycemia Protocol Dextrose (Glutose 15) 0 gm PO ONCE PRN; Protocol PRN Reason: Hypoglycemia Protocol Docusate Sodium (Colace) 100 mg PO TID [facility] Last Admin: 03/10/18 10:00 Dose: Not Given Glucagon (Glucagen Diagnostic Kit) 0 mg IM STAT PRN; Protocol PRN Reason: Hypoglycemia Protocol Hydrocortisone (Anusol-Hc) 1 gm [place] BID [facility] Last Admin: 03/10/18 09:25 Dose: 1 applic Sodium Chloride (Sodium Chloride 0.9%) 1,000 mls @ 100 mls/hr IV .Q10H [facility] Last Admin: 03/10/18 09:23 Dose: 100 mls/hr Dextrose (Dextrose 5% In Water 1000 Ml) 1,000 mls @ 0 mls/hr IV .Q0M PRN; Protocol; Per Protocol PRN Reason: Hypoglycemia Protocol Cefepime HCl (Maxipime Iv 1 Gm Premix) 1 gm in 50 mls @ 100 mls/hr IVPB Q24H [facility] PRN Reason: Protocol Last Admin: 03/09/18 19:04 Dose: 100 mls/hr Insulin Human Regular (Novolin R) 0 unit SC Q6H [facility] PRN Reason: Protocol Last Admin: 03/10/18 12:40 Dose: Not Given Morphine Sulfate (Morphine) 1 mg IVP Q4 PRN PRN Reason: Pain, severe (8-10) Last Admin: 03/10/18 12:46 Dose: 1 mg Pantoprazole Sodium (Protonix Inj) 40 mg IVP Q12H [facility] Last Admin: 03/10/18 09:24 Dose: 40 mg Polyethylene Glycol (Miralax) 17 gm PO DAILY [facility] Last Admin: 03/10/18 10:00 Dose: Not Given - Labs Labs: 03/10/18 13:29 03/10/18 06:19 PT 11.7 SECONDS (9.7-12.2) 03/09/18 17:05 INR 1.1 03/09/18 17:05 APTT 20 SECONDS (21-34) L 03/09/18 17:05 Assessment and Plan (1) UTI (urinary tract infection) Assessment & Plan: ON iv MAXIPEME 1 G EVERY 24 HOURLY. 03/09/18 I DOSE IV AMIKACIN 500MG IVPB STAT ORDERED TODAY 03/10/18 fOLLOW-UP URINE CULTURES TO ADJUST ANTIBIOTICS. CASE DISCUSSED WITH THE STAFF/AND RESIDENT. Status: Acute (2) Acute lower GI hemorrhage Assessment & Plan: SEEN BY GI AND NOTED. SEEN BY SURGERY . PT HAS FISSURE IN ANO/HEMORRHOIDAL BLEED. PER SURGERY PT FOR OR IN AM. Status: Acute (3) Arthritis Status: Acute (4) HTN (hypertension) Status: Acute
[2018-03-10] MEDS ORDERED: Amikacin Sulfate 500 MG in Sodium Chloride 0.9% 250 ML IVPB SCH (14:15)
[2018-03-10] MEDS ORDERED: Amikacin Sulfate 500 MG in Sodium Chloride 0.9% 250 ML IVPB ONE (17:30)
[2018-03-10] MEDS: Cefepime IV 1 gm in Dextrose 1 GM/50 ML BAG IVPB SCH (17:56)
[2018-03-11 00:02] LABS: BASO % 0.6 % (0.0-2.0); EOS % 0.5 % (0.0-4.0); HEMOGLOBIN 8.6 g/dL (11.0-16.0); LYMPH # 1.3 K/uL (1.0-4.3); MEAN CELL VOLUME 91.1 fL (81.0-99.0); MEAN CORPUSCULAR HEMOGLOBIN 31.4 pg (27.0-31.0); MEAN CORPUSCULAR HGB CONC 34.5 g/dL (33.0-37.0); MEAN PLATELET VOLUME 7.5 fL (7.2-11.7); MONO # 0.9 K/uL (0.0-0.8); MONO % 12.4 % (0.0-10.0); NEUT # 5.1 K/uL (1.8-7.0); NEUT % 68.5 % (50.0-75.0); NRBC % 0.1 % (0.0-2.0); RBC 2.73 Mil/uL (3.80-5.20); RED CELL DISTRIBUTION WIDTH 16.7 % (11.5-14.5); WHITE BLOOD COUNT 7.5 K/uL (4.8-10.8)
[2018-03-11] MEDS: (Novolin R) Insulin Human Regular 100 units/ml vial SC SCH ×4 (05:28→17:22)
[2018-03-11 06:21] LABS: BASO % 0.5 % (0.0-2.0); EOS % 0.5 % (0.0-4.0); HEMOGLOBIN 9.6 g/dL (11.0-16.0); LYMPH # 1.1 K/uL (1.0-4.3); LYMPH % 14.3 % (20.0-40.0); MEAN CELL VOLUME 91.3 fL (81.0-99.0); MEAN CORPUSCULAR HEMOGLOBIN 31.6 pg (27.0-31.0); MEAN CORPUSCULAR HGB CONC 34.6 g/dL (33.0-37.0); MEAN PLATELET VOLUME 7.6 fL (7.2-11.7); MONO # 0.9 K/uL (0.0-0.8); MONO % 11.1 % (0.0-10.0); NEUT # 5.8 K/uL (1.8-7.0); NEUT % 73.6 % (50.0-75.0); RBC 3.05 Mil/uL (3.80-5.20); RED CELL DISTRIBUTION WIDTH 16.9 % (11.5-14.5); WHITE BLOOD COUNT 7.8 K/uL (4.8-10.8)
[2018-03-11 06:40] LABS: ALB/GLOB RATIO 1.1 (1.0-2.1); ALBUMIN 2.7 g/dL (3.5-5.0); ALT/SGPT 52 U/L (9-52); AST/SGOT 47 U/L (14-36); BLOOD UREA NITROGEN 16 mg/dL (7-17); CALCIUM 7.9 mg/dl (8.6-10.4); GFR AFRICAN-AMERICAN > 60; GFR NON-AFRICAN AMERICAN > 60
[2018-03-11] MEDS: Hydrocortisone 2.5% Rectal Cream(30 gm) PR SCH ×2 (09:51→17:22)
[2018-03-11] MEDS: POLYETHYLENE GLYCOL 3350 17 GM/Dose PACKET PO SCH (09:52)
[2018-03-11] MEDS: Pantoprazole 40 mg EC Tab PO SCH (09:53)
--- NOTE | 2018-03-11 13:33 | CP.PCM.PN ---
Subjective - Date & Time of Evaluation Date of Evaluation: 03/11/18 Time of Evaluation: 13:30 - Subjective Subjective: Discussed with RN: blood stain from rectum. Pt notes rectal pain. Apparently having surgical intervention later today for hemorrhoidal bleeding. Objective - Vital Signs/Intake and Output Vital Signs (last 24 hours): Temp Pulse Resp BP Pulse Ox 98 F 91 H 21 120/63 97 03/11/18 11:30 03/11/18 13:00 03/11/18 13:00 03/11/18 12:39 03/11/18 13:00 Intake and Output: 03/11/18 03/11/18 06:59 18:59 Intake Total 100 1750 Output Total 100 1700 Balance 0 50 - Medications Medications: Current Medications Dextrose (Dextrose 50% Inj) 0 ml IV STAT PRN; Protocol PRN Reason: Hypoglycemia Protocol Dextrose (Glutose 15) 0 gm PO ONCE PRN; Protocol PRN Reason: Hypoglycemia Protocol Docusate Sodium (Colace) 100 mg PO TID [facility] Last Admin: 03/11/18 09:52 Dose: Not Given Glucagon (Glucagen Diagnostic Kit) 0 mg IM STAT PRN; Protocol PRN Reason: Hypoglycemia Protocol Hydrocortisone (Anusol-Hc) 1 gm [place] BID [facility] Last Admin: 03/11/18 09:51 Dose: 1 applic Sodium Chloride (Sodium Chloride 0.9%) 1,000 mls @ 100 mls/hr IV .Q10H [facility] Last Admin: 03/10/18 22:00 Dose: Not Given Dextrose (Dextrose 5% In Water 1000 Ml) 1,000 mls @ 0 mls/hr IV .Q0M PRN; Protocol; Per Protocol PRN Reason: Hypoglycemia Protocol Cefepime HCl (Maxipime Iv 1 Gm Premix) 1 gm in 50 mls @ 100 mls/hr IVPB Q24H [facility] PRN Reason: Protocol Last Admin: 03/10/18 17:56 Dose: 100 mls/hr Insulin Human Regular (Novolin R) 0 unit SC Q6H [facility] PRN Reason: Protocol Last Admin: 03/11/18 12:10 Dose: Not Given Morphine Sulfate (Morphine) 1 mg IVP Q4 PRN PRN Reason: Pain, severe (8-10) Last Admin: 03/11/18 00:16 Dose: 1 mg Pantoprazole Sodium (Protonix Ec Tab) 40 mg PO DAILY [facility] Last Admin: 03/11/18 09:53 Dose: 40 mg Polyethylene Glycol (Miralax) 17 gm PO DAILY [facility] Last Admin: 03/11/18 09:52 Dose: Not Given - Labs Labs: 03/11/18 06:14 03/11/18 06:14 PT 11.7 SECONDS (9.7-12.2) 03/09/18 17:05 INR 1.1 03/09/18 17:05 APTT 20 SECONDS (21-34) L 03/09/18 17:05 - Constitutional Appears: Well, No Acute Distress - Respiratory Exam Respiratory Exam: Clear to Ausculation Bilateral - Cardiovascular Exam Cardiovascular Exam: REGULAR RHYTHM - GI/Abdominal Exam GI & Abdominal Exam: Soft. absent: Tenderness Assessment and Plan (1) Gastrointestinal hemorrhage Assessment & Plan: Bleeding prolapsed engorged hemorrhoids Bleed has subsided. Hgb is stable Continue laxatives Surgery consult for bleeding hemorrhoids recommend stool softeners and laxatives, topical cream for hemorrhoids Status: Acute (2) Hemorrhoids Assessment & Plan: See above Status: Acute
--- NOTE | 2018-03-11 14:21 | CP.PCM.PN ---
Subjective - Date & Time of Evaluation Date of Evaluation: 03/11/18 Time of Evaluation: 14:19 - Subjective Subjective: CHIEF COMPLAINTS TODAY : patient has complained of rectal pain and still has some oozing of blood Hemoglobin is 9.6 mg/dL. Patient is for OR for hemorrhoidectomy. ROS. HEENT : N. 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 Musculoskel : No joint swelling , Derm : No rash Psych : Normal affect. Ext : No swelling ,calf pain PE. Pt. is alert awake in no distress. V.S As noted in the chart Head ,ear nose,throat and eyes : Normal. Neck : Supple with normal carotids. Lungs: Clear air entry. Heart : S1 & S2 normal with S4. No murmur. Abd : Soft non tender with normal bowel sounds. Neuro : Moves all ext. with no localized deficit. Ext : No edema with intact pulses.Non tender calves Derm : No rashes or decubitus ulcer. LABS/RADIOLOGY: ASSESSMENT/PLAN : we will transfuse 1 unit of packed cell prior to OR. Monitor H&H Objective - Vital Signs/Intake and Output Vital Signs (last 24 hours): Temp Pulse Resp BP Pulse Ox 98.5 F 89 16 134/68 96 03/11/18 13:45 03/11/18 13:45 03/11/18 13:45 03/11/18 13:45 03/11/18 13:40 Intake and Output: 03/11/18 03/11/18 11:59 23:59 Intake Total 1750 0 Output Total 1700 Balance 50 0 - Medications Medications: Current Medications Dextrose (Dextrose 50% Inj) 0 ml IV STAT PRN; Protocol PRN Reason: Hypoglycemia Protocol Dextrose (Glutose 15) 0 gm PO ONCE PRN; Protocol PRN Reason: Hypoglycemia Protocol Docusate Sodium (Colace) 100 mg PO TID [facility] Last Admin: 03/11/18 13:59 Dose: Not Given Glucagon (Glucagen Diagnostic Kit) 0 mg IM STAT PRN; Protocol PRN Reason: Hypoglycemia Protocol Hydrocortisone (Anusol-Hc) 1 gm [place] BID [facility] Last Admin: 03/11/18 09:51 Dose: 1 applic Sodium Chloride (Sodium Chloride 0.9%) 1,000 mls @ 100 mls/hr IV .Q10H [facility] Last Admin: 03/10/18 22:00 Dose: Not Given Dextrose (Dextrose 5% In Water 1000 Ml) 1,000 mls @ 0 mls/hr IV .Q0M PRN; Protocol; Per Protocol PRN Reason: Hypoglycemia Protocol Cefepime HCl (Maxipime Iv 1 Gm Premix) 1 gm in 50 mls @ 100 mls/hr IVPB Q24H [facility] PRN Reason: Protocol Last Admin: 03/10/18 17:56 Dose: 100 mls/hr Insulin Human Regular (Novolin R) 0 unit SC Q6H [facility] PRN Reason: Protocol Last Admin: 03/11/18 12:10 Dose: Not Given Morphine Sulfate (Morphine) 1 mg IVP Q4 PRN PRN Reason: Pain, severe (8-10) Last Admin: 03/11/18 00:16 Dose: 1 mg Pantoprazole Sodium (Protonix Ec Tab) 40 mg PO DAILY [facility] Last Admin: 03/11/18 09:53 Dose: 40 mg Polyethylene Glycol (Miralax) 17 gm PO DAILY [facility] Last Admin: 03/11/18 09:52 Dose: Not Given - Labs Labs: 03/11/18 06:14 03/11/18 06:14 PT 11.7 SECONDS (9.7-12.2) 03/09/18 17:05 INR 1.1 03/09/18 17:05 APTT 20 SECONDS (21-34) L 03/09/18 17:05
[2018-03-11] MEDS: Cefepime IV 1 gm in Dextrose 1 GM/50 ML BAG IVPB SCH (17:21)
[2018-03-11] MEDS: Sodium Chloride 0.9% 1,000 ML IV SCH (17:23)
[2018-03-11] MEDS ORDERED: Propofol 10 mg/ml Inj (20 ML) ONE (17:24)
[2018-03-11] MEDS ORDERED: Bupivacaine 0.25% 20 ML INJ IJ ONE (17:32)
[2018-03-11] MEDS ORDERED: Neostigmine Methylsulfate 3mg/3ml Syringe IV ONE (18:33)
--- NOTE | 2018-03-11 23:49 | CP.PCM.PN ---
Subjective - Date & Time of Evaluation Date of Evaluation: 03/11/18 Time of Evaluation: 23:49 - Subjective Subjective: CHIEF COMPLAINTS TODAY : afebrile, VS NOTED C/O RECTAL PAIN lESS DYSURIA. PT FOR OR TODAY FOR HEMORRHOIDECTOMY ROS. HEENT : N. Resp : No cough, wheezing ,pleuritic CP ,or hemoptysis Cardio : No anginal CP, PND, orthopnea, palpitation GI : No abd.pain, n/v ,diarrhea +VE GI bleeding (BRIGHT RED BLOOD RECTUM ). 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 Musculoskel : No joint swelling , Derm : No rash Psych : Normal affect. Ext : No swelling ,calf pain PE. Pt. is alert awake in no distress. V.S As noted in the chart Head ,ear nose,throat and eyes : Normal. Neck : Supple with normal carotids. Lungs: Clear air entry. Heart : S1 & S2 normal with S4. No murmur. Abd : Soft non tender with normal bowel sounds. Neuro : Moves all ext. with no localized deficit. Ext : No edema with intact pulses.Non tender calves Derm : No rashes or decubitus ulcer. LABS/RADIOLOGY: wbc 7.8, H/H 9.6/28.6 pLATELETS ADEQUATE AT 210 LFTS -IMPROVING CREAT 0.6/BUN 16. URINE CULTURE +VE kLEBSIELLA PNEUMONIA -VE ESBL S- CEFEPIME. Objective - Vital Signs/Intake and Output Vital Signs (last 24 hours): Temp Pulse Resp BP Pulse Ox 98.2 F 87 16 116/61 100 03/11/18 20:00 03/11/18 22:25 03/11/18 22:25 03/11/18 22:26 03/11/18 22:25 Intake and Output: 03/11/18 03/12/18 18:59 06:59 Intake Total 2775 Output Total 1700 Balance 1075 - Medications Medications: Current Medications Dextrose (Dextrose 50% Inj) 0 ml IV STAT PRN; Protocol PRN Reason: Hypoglycemia Protocol Dextrose (Glutose 15) 0 gm PO ONCE PRN; Protocol PRN Reason: Hypoglycemia Protocol Docusate Sodium (Colace) 100 mg PO TID [facility] Last Admin: 03/11/18 17:22 Dose: Not Given Glucagon (Glucagen Diagnostic Kit) 0 mg IM STAT PRN; Protocol PRN Reason: Hypoglycemia Protocol Hydrocortisone (Anusol-Hc) 1 gm [place] BID [facility] Last Admin: 03/11/18 17:22 Dose: 1 applic Sodium Chloride (Sodium Chloride 0.9%) 1,000 mls @ 100 mls/hr IV .Q10H [facility] Last Admin: 03/11/18 17:23 Dose: Not Given Dextrose (Dextrose 5% In Water 1000 Ml) 1,000 mls @ 0 mls/hr IV .Q0M PRN; Protocol; Per Protocol PRN Reason: Hypoglycemia Protocol Cefepime HCl (Maxipime Iv 1 Gm Premix) 1 gm in 50 mls @ 100 mls/hr IVPB Q24H [facility] PRN Reason: Protocol Last Admin: 03/11/18 17:21 Dose: 100 mls/hr Insulin Human Regular (Novolin R) 0 unit SC Q6H [facility] PRN Reason: Protocol Last Admin: 03/11/18 17:22 Dose: Not Given Morphine Sulfate (Morphine) 1 mg IVP Q4 PRN PRN Reason: Pain, severe (8-10) Last Admin: 03/11/18 19:55 Dose: 1 mg Pantoprazole Sodium (Protonix Ec Tab) 40 mg PO DAILY [facility] Last Admin: 03/11/18 09:53 Dose: 40 mg Polyethylene Glycol (Miralax) 17 gm PO DAILY [facility] Last Admin: 03/11/18 09:52 Dose: Not Given Tramadol HCl (Ultram) 50 mg PO TID PRN - Labs Labs: 03/11/18 06:14 03/11/18 06:14 PT 11.7 SECONDS (9.7-12.2) 03/09/18 17:05 INR 1.1 03/09/18 17:05 APTT 20 SECONDS (21-34) L 03/09/18 17:05 Assessment and Plan (1) UTI (urinary tract infection) Assessment & Plan: CONTINUE iv ANTIBIOTICS CEFEPIME 1 G ONCE A DAY. Status: Acute (2) Acute lower GI hemorrhage Assessment & Plan: PT WITH INTERNAL HEMORRHOIDS PATIENT FOR OR TODAY. Status: Acute (3) Arthritis Status: Acute (4) HTN (hypertension) Status: Acute
[2018-03-12] MEDS: (Novolin R) Insulin Human Regular 100 units/ml vial SC SCH ×4 (06:33→21:37)
[2018-03-12 06:40] LABS: BASO % 0.4 % (0.0-2.0); EOS % 0.3 % (0.0-4.0); HEMOGLOBIN 11.2 g/dL (11.0-16.0); LYMPH # 0.9 K/uL (1.0-4.3); LYMPH % 10.6 % (20.0-40.0); MEAN CELL VOLUME 91.6 fL (81.0-99.0); MEAN CORPUSCULAR HEMOGLOBIN 31.4 pg (27.0-31.0); MEAN CORPUSCULAR HGB CONC 34.3 g/dL (33.0-37.0); MEAN PLATELET VOLUME 7.6 fL (7.2-11.7); MONO # 0.9 K/uL (0.0-0.8); NEUT # 6.9 K/uL (1.8-7.0); NEUT % 78.7 % (50.0-75.0); NRBC % 0.1 % (0.0-2.0); RBC 3.57 Mil/uL (3.80-5.20); WHITE BLOOD COUNT 8.8 K/uL (4.8-10.8)
[2018-03-12] MEDS: Sodium Chloride 0.9% 1,000 ML IV SCH ×3 (06:43→17:25)
[2018-03-12 07:05] LABS: ALB/GLOB RATIO 1.2 (1.0-2.1); ALT/SGPT 51 U/L (9-52); AST/SGOT 34 U/L (14-36); BLOOD UREA NITROGEN 10 mg/dL (7-17); CALCIUM 8.3 mg/dl (8.6-10.4); GFR AFRICAN-AMERICAN > 60; GFR NON-AFRICAN AMERICAN > 60
[2018-03-12] MEDS: POLYETHYLENE GLYCOL 3350 17 GM/Dose PACKET PO SCH (10:13)
[2018-03-12] MEDS: Pantoprazole 40 mg EC Tab PO SCH (10:13)
[2018-03-12] MEDS: Hydrocortisone 2.5% Rectal Cream(30 gm) PR SCH ×2 (10:15→18:03)
--- NOTE | 2018-03-12 11:28 | CP.PCM.PN ---
Subjective - Date & Time of Evaluation Date of Evaluation: 03/12/18 Time of Evaluation: 11:25 - Subjective Subjective: Patient underwent hemorroidectomy last night. She is complaining of rectal pain but denies having abdominal pain, nausea and vomiting. Her appetite is poor. HGB this moring is 11.2. Objective - Vital Signs/Intake and Output Vital Signs (last 24 hours): Temp Pulse Resp BP Pulse Ox 99.1 F 84 20 130/74 99 03/12/18 08:30 03/12/18 08:30 03/12/18 08:30 03/12/18 08:30 03/12/18 08:30 - Medications Medications: Current Medications Dextrose (Dextrose 50% Inj) 0 ml IV STAT PRN; Protocol PRN Reason: Hypoglycemia Protocol Dextrose (Glutose 15) 0 gm PO ONCE PRN; Protocol PRN Reason: Hypoglycemia Protocol Docusate Sodium (Colace) 100 mg PO TID [facility] Last Admin: 03/12/18 10:12 Dose: 100 mg Glucagon (Glucagen Diagnostic Kit) 0 mg IM STAT PRN; Protocol PRN Reason: Hypoglycemia Protocol Hydrocortisone (Anusol-Hc) 1 gm [place] BID [facility] Last Admin: 03/12/18 10:15 Dose: 1 applic Sodium Chloride (Sodium Chloride 0.9%) 1,000 mls @ 100 mls/hr IV .Q10H [facility] Last Admin: 03/12/18 06:43 Dose: 100 mls/hr Dextrose (Dextrose 5% In Water 1000 Ml) 1,000 mls @ 0 mls/hr IV .Q0M PRN; Protocol; Per Protocol PRN Reason: Hypoglycemia Protocol Cefepime HCl (Maxipime Iv 1 Gm Premix) 1 gm in 50 mls @ 100 mls/hr IVPB Q24H [facility] PRN Reason: Protocol Last Admin: 03/11/18 17:21 Dose: 100 mls/hr Insulin Human Regular (Novolin R) 0 unit SC Q6H [facility] PRN Reason: Protocol Last Admin: 03/12/18 06:33 Dose: Not Given Morphine Sulfate (Morphine) 1 mg IVP Q4 PRN PRN Reason: Pain, severe (8-10) Last Admin: 03/11/18 19:55 Dose: 1 mg Pantoprazole Sodium (Protonix Ec Tab) 40 mg PO DAILY [facility] Last Admin: 03/12/18 10:13 Dose: 40 mg Polyethylene Glycol (Miralax) 17 gm PO DAILY [facility] Last Admin: 03/12/18 10:13 Dose: 17 gm Tramadol HCl (Ultram) 50 mg PO TID PRN Last Admin: 03/12/18 10:12 Dose: 50 mg - Labs Labs: 03/12/18 06:32 03/12/18 06:33 PT 11.7 SECONDS (9.7-12.2) 03/09/18 17:05 INR 1.1 03/09/18 17:05 APTT 20 SECONDS (21-34) L 03/09/18 17:05 - Constitutional Appears: No Acute Distress - Head Exam Head Exam: ATRAUMATIC, NORMOCEPHALIC - Eye Exam Eye Exam: EOMI, PERRL - Neck Exam Neck Exam: absent: Lymphadenopathy, Thyromegaly - Respiratory Exam Respiratory Exam: NORMAL BREATHING PATTERN. absent: Rales, Rhonchi, Wheezes - Cardiovascular Exam Cardiovascular Exam: REGULAR RHYTHM, +S1, +S2. absent: Gallop, Rubs, Murmur - GI/Abdominal Exam GI & Abdominal Exam: Soft, Normal Bowel Sounds. absent: Tenderness, Mass, Organomegaly - Rectal Exam Rectal Exam: Deferred - Extremities Exam Extremities Exam: absent: Calf Tenderness, Pedal Edema Assessment and Plan (1) Acute lower GI hemorrhage Assessment & Plan: Patient underwent hemorrhoidectomy last night. The hemoglobin is stable. Follow CBC. Post op orders per Dr. Lopez. Status: Acute
--- NOTE | 2018-03-12 14:31 | CP.PCM.PN ---
Subjective - Date & Time of Evaluation Date of Evaluation: 03/12/18 Time of Evaluation: 14:30 - Subjective Subjective: CHIEF COMPLAINTS TODAY : patient is status post hemorrhoidectomy with postop pain. Hemoglobin is stable no further bleeding ROS. HEENT : N. Resp : No cough, wheezing ,pleuritic CP ,or hemoptysis Cardio : No anginal CP, PND, orthopnea, palpitation GI : No abd.pain, n/v rectal pain and bleeding. 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 Musculoskel : No joint swelling , Derm : No rash Psych : Normal affect. Ext : No swelling ,calf pain PE. Pt. is alert awake in no distress. V.S As noted in the chart Head ,ear nose,throat and eyes : Normal. Neck : Supple with normal carotids. Lungs: Clear air entry. Heart : S1 & S2 normal with S4. No murmur. Abd : Soft non tender with normal bowel sounds. Neuro : Moves all ext. with no localized deficit. Ext : No edema with intact pulses.Non tender calves Derm : No rashes or decubitus ulcer. LABS/RADIOLOGY: ASSESSMENT/PLAN : continue postop care as outlined by the surgery. Follow H&H Objective - Vital Signs/Intake and Output Vital Signs (last 24 hours): Temp Pulse Resp BP Pulse Ox 99.1 F 83 20 101/60 95 03/12/18 11:55 03/12/18 11:55 03/12/18 11:55 03/12/18 11:55 03/12/18 11:55 - Medications Medications: Current Medications Dextrose (Dextrose 50% Inj) 0 ml IV STAT PRN; Protocol PRN Reason: Hypoglycemia Protocol Dextrose (Glutose 15) 0 gm PO ONCE PRN; Protocol PRN Reason: Hypoglycemia Protocol Docusate Sodium (Colace) 100 mg PO TID [facility] Last Admin: 03/12/18 10:12 Dose: 100 mg Glucagon (Glucagen Diagnostic Kit) 0 mg IM STAT PRN; Protocol PRN Reason: Hypoglycemia Protocol Hydrocortisone (Anusol-Hc) 1 gm [place] BID [facility] Last Admin: 03/12/18 10:15 Dose: 1 applic Sodium Chloride (Sodium Chloride 0.9%) 1,000 mls @ 100 mls/hr IV .Q10H [facility] Last Admin: 03/12/18 06:43 Dose: 100 mls/hr Dextrose (Dextrose 5% In Water 1000 Ml) 1,000 mls @ 0 mls/hr IV .Q0M PRN; Protocol; Per Protocol PRN Reason: Hypoglycemia Protocol Cefepime HCl (Maxipime Iv 1 Gm Premix) 1 gm in 50 mls @ 100 mls/hr IVPB Q24H [facility] PRN Reason: Protocol Last Admin: 03/11/18 17:21 Dose: 100 mls/hr Insulin Human Regular (Novolin R) 0 unit SC Q6H [facility] PRN Reason: Protocol Last Admin: 03/12/18 12:28 Dose: 1 unit Morphine Sulfate (Morphine) 1 mg IVP Q4 PRN PRN Reason: Pain, severe (8-10) Last Admin: 03/11/18 19:55 Dose: 1 mg Pantoprazole Sodium (Protonix Ec Tab) 40 mg PO DAILY [facility] Last Admin: 03/12/18 10:13 Dose: 40 mg Polyethylene Glycol (Miralax) 17 gm PO DAILY [facility] Last Admin: 03/12/18 10:13 Dose: 17 gm Tramadol HCl (Ultram) 50 mg PO TID PRN Last Admin: 03/12/18 10:12 Dose: 50 mg - Labs Labs: 03/12/18 06:32 03/12/18 06:33 PT 11.7 SECONDS (9.7-12.2) 03/09/18 17:05 INR 1.1 03/09/18 17:05 APTT 20 SECONDS (21-34) L 03/09/18 17:05
[2018-03-12] MEDS: Cefepime IV 1 gm in Dextrose 1 GM/50 ML BAG IVPB SCH (17:22)
[2018-03-12 19:34] LABS: BASO % 0.3 % (0.0-2.0); EOS # 0.1 K/uL (0.0-0.7); LYMPH # 1.3 K/uL (1.0-4.3); LYMPH % 14.1 % (20.0-40.0); MEAN CELL VOLUME 91.9 fL (81.0-99.0); MEAN CORPUSCULAR HEMOGLOBIN 31.7 pg (27.0-31.0); MEAN CORPUSCULAR HGB CONC 34.5 g/dL (33.0-37.0); MEAN PLATELET VOLUME 7.7 fL (7.2-11.7); MONO % 10.8 % (0.0-10.0); NEUT # 7.1 K/uL (1.8-7.0); NEUT % 73.8 % (50.0-75.0); RBC 3.48 Mil/uL (3.80-5.20); RED CELL DISTRIBUTION WIDTH 15.7 % (11.5-14.5); WHITE BLOOD COUNT 9.6 K/uL (4.8-10.8)
--- NOTE | 2018-03-12 23:53 | CP.PCM.PN ---
Subjective - Date & Time of Evaluation Date of Evaluation: 03/12/18 Time of Evaluation: 23:53 - Subjective Subjective: CHIEF COMPLAINTS TODAY : POD # S/P HEMORRHOIDECTOMY 03/11/18 afebrile, VSS C/O RECTAL BLEEDING FEELING SWEATY H/H 11.0/32.0 ROS. HEENT : N. Resp : No cough, wheezing ,pleuritic CP ,or hemoptysis Cardio : No anginal CP, PND, orthopnea, palpitation GI : No abd.pain, n/v ,diarrhea +VE GI bleeding (BRIGHT RED BLOOD RECTUM ). 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 Musculoskel : No joint swelling , Derm : No rash Psych : Normal affect. Ext : No swelling ,calf pain PE. Pt. is alert awake in no distress. V.S As noted in the chart Head ,ear nose,throat and eyes : Normal. Neck : Supple with normal carotids. Lungs: Clear air entry. Heart : S1 & S2 normal with S4. No murmur. Abd : Soft non tender with normal bowel sounds. Neuro : Moves all ext. with no localized deficit. Ext : No edema with intact pulses.Non tender calves Derm : No rashes or decubitus ulcer. LABS/RADIOLOGY: WBC 9.6 CREAT 0.6/BUN 10 URINE CULTURE +VE kLEBSIELLA PNEUMONIA -VE ESBL S- CEFEPIME. Objective - Vital Signs/Intake and Output Vital Signs (last 24 hours): Temp Pulse Resp BP Pulse Ox 98.1 F 105 H 18 113/80 98 03/12/18 22:38 03/12/18 22:38 03/12/18 22:38 03/12/18 22:38 03/12/18 22:38 Intake and Output: 03/12/18 03/13/18 18:59 06:59 Intake Total 1200 Output Total 900 Balance 300 - Medications Medications: Current Medications Dextrose (Dextrose 50% Inj) 0 ml IV STAT PRN; Protocol PRN Reason: Hypoglycemia Protocol Dextrose (Glutose 15) 0 gm PO ONCE PRN; Protocol PRN Reason: Hypoglycemia Protocol Docusate Sodium (Colace) 100 mg PO TID [facility] Last Admin: 03/12/18 17:23 Dose: 100 mg Glucagon (Glucagen Diagnostic Kit) 0 mg IM STAT PRN; Protocol PRN Reason: Hypoglycemia Protocol Hydrocortisone (Anusol-Hc) 1 gm [place] BID [facility] Last Admin: 03/12/18 18:03 Dose: 1 applic Cefepime HCl (Maxipime Iv 1 Gm Premix) 1 gm in 50 mls @ 100 mls/hr IVPB Q24H [facility] PRN Reason: Protocol Last Admin: 03/12/18 17:22 Dose: 100 mls/hr Insulin Human Regular (Novolin R) 0 unit SC ACHS [facility] PRN Reason: Protocol Last Admin: 03/12/18 21:37 Dose: Not Given Morphine Sulfate (Morphine) 1 mg IVP Q4 PRN PRN Reason: Pain, severe (8-10) Last Admin: 03/11/18 19:55 Dose: 1 mg Pantoprazole Sodium (Protonix Ec Tab) 40 mg PO DAILY [facility] Last Admin: 03/12/18 10:13 Dose: 40 mg Polyethylene Glycol (Miralax) 17 gm PO DAILY [facility] Last Admin: 03/12/18 10:13 Dose: 17 gm Tramadol HCl (Ultram) 50 mg PO TID PRN Last Admin: 03/12/18 20:01 Dose: 50 mg - Labs Labs: 03/12/18 19:32 03/12/18 06:33 PT 11.7 SECONDS (9.7-12.2) 03/09/18 17:05 INR 1.1 03/09/18 17:05 APTT 20 SECONDS (21-34) L 03/09/18 17:05 Assessment and Plan (1) UTI (urinary tract infection) Assessment & Plan: CONTINUE iv CEFEPIME 1 G EVERY 24 HOURLY. F/U REPEAT UA/AND URINE CULTURE ON wednesday Status: Acute (2) Acute lower GI hemorrhage Assessment & Plan: S/P HEMORRHOIDECTOMY. PRESENTLY COMPLAINING OF RECTAL BLEEDING. SURGERY AWARE PATIENT FOR BLEEDING SCAN TODAY. WATCH H/H . Status: Acute (3) Arthritis Status: Acute (4) HTN (hypertension) Status: Acute (5) Status post hemorrhoidectomy Assessment & Plan: PATIENT POSTOPERATIVE DAY # 1 (03/11/18 ) Status: Acute
[2018-03-13 03:27] LABS: BASO # 0.1 K/uL (0.0-0.2); BASO % 1.3 % (0.0-2.0); EOS # 0.1 K/uL (0.0-0.7); EOS % 0.9 % (0.0-4.0); HEMOGLOBIN 8.9 g/dL (11.0-16.0); LYMPH # 0.6 K/uL (1.0-4.3); LYMPH % 7.9 % (20.0-40.0); MEAN CELL VOLUME 91.8 fL (81.0-99.0); MEAN CORPUSCULAR HEMOGLOBIN 30.8 pg (27.0-31.0); MEAN CORPUSCULAR HGB CONC 33.5 g/dL (33.0-37.0); MEAN PLATELET VOLUME 7.2 fL (7.2-11.7); MONO # 0.7 K/uL (0.0-0.8); MONO % 8.9 % (0.0-10.0); NEUT # 6.4 K/uL (1.8-7.0); NRBC % 0.1 % (0.0-2.0); PLATELET COUNT 220 K/uL (130-400); RBC 2.91 Mil/uL (3.80-5.20); RED CELL DISTRIBUTION WIDTH 16.2 % (11.5-14.5); WHITE BLOOD COUNT 7.9 K/uL (4.8-10.8)
[2018-03-13 03:33] LABS: ALB/GLOB RATIO 1.1 (1.0-2.1); ALBUMIN 2.5 g/dL (3.5-5.0); ALT/SGPT 40 U/L (9-52); AST/SGOT 24 U/L (14-36); BLOOD UREA NITROGEN 11 mg/dL (7-17); CALCIUM 7.9 mg/dl (8.6-10.4); GFR AFRICAN-AMERICAN > 60; GFR NON-AFRICAN AMERICAN > 60
[2018-03-13 04:13] LABS: ANISOCYTOSIS SLIGHT; BASOPHIL 1 % (0-2); EOSINOPHIL 1 % (0-4); LYMPHOCYTE 8 % (20-40); MONOCYTE 7 % (0-10); NEUTROPHIL 83 % (50-75); PLATELET ESTIMATE NORMAL (NORMAL); POLYCHROMIC SLIGHT; TOTAL CELLS COUNTED 100
[2018-03-13] MEDS: (Novolin R) Insulin Human Regular 100 units/ml vial SC SCH ×4 (07:54→21:42)
[2018-03-13] MEDS: POLYETHYLENE GLYCOL 3350 17 GM/Dose PACKET PO SCH (09:16)
[2018-03-13] MEDS: Pantoprazole 40 mg EC Tab PO SCH (09:16)
[2018-03-13] MEDS: Hydrocortisone 2.5% Rectal Cream(30 gm) PR SCH ×2 (09:20→17:37)
--- NOTE | 2018-03-13 11:32 | CP.PCM.PN ---
Subjective - Date & Time of Evaluation Date of Evaluation: 03/13/18 Time of Evaluation: 11:29 - Subjective Subjective: Nurses report rectal bleeding with clots last night and this morning. Hemoglobin dropped from 11.0 to 8.9 this morning. Patient continues to complain of rectal pain. Her appetite is poor. She denies having nausea, vomiting, abdominal pain. Objective - Vital Signs/Intake and Output Vital Signs (last 24 hours): Temp Pulse Resp BP Pulse Ox 98 F 90 20 110/65 100 03/13/18 08:59 03/13/18 08:59 03/13/18 08:59 03/13/18 08:59 03/13/18 08:59 Intake and Output: 03/13/18 03/13/18 06:59 18:59 Intake Total 1450 325 Output Total 2400 Balance -950 325 - Medications Medications: Current Medications Dextrose (Dextrose 50% Inj) 0 ml IV STAT PRN; Protocol PRN Reason: Hypoglycemia Protocol Dextrose (Glutose 15) 0 gm PO ONCE PRN; Protocol PRN Reason: Hypoglycemia Protocol Docusate Sodium (Colace) 100 mg PO TID [facility] Last Admin: 03/13/18 09:16 Dose: 100 mg Glucagon (Glucagen Diagnostic Kit) 0 mg IM STAT PRN; Protocol PRN Reason: Hypoglycemia Protocol Hydrocortisone (Anusol-Hc) 1 gm [place] BID [facility] Last Admin: 03/13/18 09:20 Dose: 1 applic Cefepime HCl (Maxipime Iv 1 Gm Premix) 1 gm in 50 mls @ 100 mls/hr IVPB Q24H [facility] PRN Reason: Protocol Last Admin: 03/12/18 17:22 Dose: 100 mls/hr Insulin Human Regular (Novolin R) 0 unit SC ACHS [facility] PRN Reason: Protocol Last Admin: 03/13/18 07:54 Dose: Not Given Morphine Sulfate (Morphine) 1 mg IVP Q4 PRN PRN Reason: Pain, severe (8-10) Last Admin: 03/11/18 19:55 Dose: 1 mg Pantoprazole Sodium (Protonix Ec Tab) 40 mg PO DAILY [facility] Last Admin: 03/13/18 09:16 Dose: 40 mg Polyethylene Glycol (Miralax) 17 gm PO DAILY [facility] Last Admin: 03/13/18 09:16 Dose: 17 gm Tramadol HCl (Ultram) 50 mg PO TID PRN Last Admin: 03/13/18 09:16 Dose: 50 mg - Labs Labs: 03/13/18 03:19 03/13/18 03:19 PT 11.7 SECONDS (9.7-12.2) 03/09/18 17:05 INR 1.1 03/09/18 17:05 APTT 20 SECONDS (21-34) L 03/09/18 17:05 - Constitutional Appears: No Acute Distress - Head Exam Head Exam: ATRAUMATIC, NORMOCEPHALIC - Eye Exam Eye Exam: EOMI, PERRL - Neck Exam Neck Exam: absent: Lymphadenopathy, Thyromegaly - Respiratory Exam Respiratory Exam: NORMAL BREATHING PATTERN. absent: Rales, Rhonchi, Wheezes - Cardiovascular Exam Cardiovascular Exam: REGULAR RHYTHM, +S1, +S2. absent: Gallop, Rubs, Murmur - GI/Abdominal Exam GI & Abdominal Exam: Soft, Normal Bowel Sounds. absent: Tenderness, Mass, Organomegaly - Rectal Exam Rectal Exam: Deferred - Extremities Exam Extremities Exam: absent: Calf Tenderness, Pedal Edema Assessment and Plan (1) Acute lower GI hemorrhage Assessment & Plan: Patient has two episodes of bleeding post operatively. HGB dropped to 8.9, and a repeat CBC is pending. Recommend surgery follow up. Status: Acute
--- NOTE | 2018-03-13 11:33 | NM ---
PROCEDURE: Nuclear medicine gastrointestinal bleeding scan. HISTORY: rectal bleeding COMPARISON: None available. TECHNIQUE: 4ccof patient blood was withdrawn and mixed with 24.3mCi of technetium ultra tagged. Images of the abdomen and pelvis were obtained in the anterior and posterior projection at 1 min intervals over a period of 45 min. FINDINGS: No abnormal extravasation of tracer was observed throughout the exam to indicate active bleeding within or outside the gastrointestinal tract. Physiologic activity was seen in the heart, liver, spleen and blood vessels. IMPRESSION: No evidence of active gastrointestinal bleeding. Concordant results (preliminary interpretation) provided by [facility]. Procedure Completed: 01:20 Preliminary ([facility]) Report: Dictated and Authenticated: 01:48 Final Interpretation: 11:31
[2018-03-13 13:33] LABS: HEMOGLOBIN 11.4 g/dL (11.0-16.0); MEAN CELL VOLUME 92.2 fL (81.0-99.0); MEAN CORPUSCULAR HGB CONC 34.7 g/dL (33.0-37.0); MEAN PLATELET VOLUME 7.3 fL (7.2-11.7); RBC 3.56 Mil/uL (3.80-5.20); RED CELL DISTRIBUTION WIDTH 14.9 % (11.5-14.5); WHITE BLOOD COUNT 8.9 K/uL (4.8-10.8)
[2018-03-13 13:48] LABS: BLOOD UREA NITROGEN 13 mg/dL (7-17); GFR AFRICAN-AMERICAN > 60; GFR NON-AFRICAN AMERICAN > 60
--- NOTE | 2018-03-13 15:31 | CP.PCM.PN ---
Subjective - Date & Time of Evaluation Date of Evaluation: 03/13/18 Time of Evaluation: 15:29 - Subjective Subjective: Last night patient had a rectal bleeding with clots significant amount. Patient felt diaphoretic with a heart rate of 105 with normal blood pressure. Hemoglobin yesterday was 11.2 and this morning it is 8.9 and the repeat hemoglobin done at 3 PM today is 11.2. Since this morning there is very small amount of clots coming out from the rectum Patient had a bleeding scan which did not show any active GI bleeding. Patient still has lower abdominal and rectal pain Discussed with surgery, patient will be evaluated today by surgery for further orders and treatment Objective - Vital Signs/Intake and Output Vital Signs (last 24 hours): Temp Pulse Resp BP Pulse Ox 98 F 86 20 110/65 100 03/13/18 08:59 03/13/18 12:00 03/13/18 08:59 03/13/18 08:59 03/13/18 08:59 Intake and Output: 03/13/18 03/13/18 11:59 23:59 Intake Total 325 500 Output Total 1000 850 Balance -675 -350 - Medications Medications: Current Medications Dextrose (Dextrose 50% Inj) 0 ml IV STAT PRN; Protocol PRN Reason: Hypoglycemia Protocol Dextrose (Glutose 15) 0 gm PO ONCE PRN; Protocol PRN Reason: Hypoglycemia Protocol Docusate Sodium (Colace) 100 mg PO TID [facility] Last Admin: 03/13/18 14:20 Dose: 100 mg Glucagon (Glucagen Diagnostic Kit) 0 mg IM STAT PRN; Protocol PRN Reason: Hypoglycemia Protocol Hydrocortisone (Anusol-Hc) 1 gm [place] BID [facility] Last Admin: 03/13/18 09:20 Dose: 1 applic Cefepime HCl (Maxipime Iv 1 Gm Premix) 1 gm in 50 mls @ 100 mls/hr IVPB Q24H [facility] PRN Reason: Protocol Last Admin: 03/12/18 17:22 Dose: 100 mls/hr Insulin Human Regular (Novolin R) 0 unit SC ACHS [facility] PRN Reason: Protocol Last Admin: 03/13/18 12:30 Dose: Not Given Morphine Sulfate (Morphine) 1 mg IVP Q4 PRN PRN Reason: Pain, severe (8-10) Last Admin: 03/11/18 19:55 Dose: 1 mg Pantoprazole Sodium (Protonix Ec Tab) 40 mg PO DAILY [facility] Last Admin: 03/13/18 09:16 Dose: 40 mg Polyethylene Glycol (Miralax) 17 gm PO DAILY [facility] Last Admin: 03/13/18 09:16 Dose: 17 gm Tramadol HCl (Ultram) 50 mg PO TID PRN Last Admin: 03/13/18 09:16 Dose: 50 mg - Labs Labs: 03/13/18 13:26 03/13/18 13:26 PT 11.7 SECONDS (9.7-12.2) 03/09/18 17:05 INR 1.1 03/09/18 17:05 APTT 20 SECONDS (21-34) L 03/09/18 17:05
[2018-03-13] MEDS: Cefepime IV 1 gm in Dextrose 1 GM/50 ML BAG IVPB SCH (17:29)
[2018-03-14] MEDS: (Novolin R) Insulin Human Regular 100 units/ml vial SC SCH ×4 (08:46→22:22)
[2018-03-14] MEDS: Pantoprazole 40 mg EC Tab PO SCH (10:38)
[2018-03-14] MEDS: Sodium Chloride 0.9% 1,000 ML IV SCH ×3 (10:38→20:25)
[2018-03-14] MEDS: POLYETHYLENE GLYCOL 3350 17 GM/Dose PACKET PO SCH (10:38)
[2018-03-14] MEDS: Hydrocortisone 2.5% Rectal Cream(30 gm) PR SCH ×2 (11:21→18:57)
[2018-03-14] MEDS ORDERED: Lactated Ringer's 1,000 ML IV ONE (12:25)
[2018-03-14] MEDS ORDERED: Propofol 10 mg/ml Inj (20 ML) ONE (12:39)
[2018-03-14] MEDS ORDERED: Bupivacaine 0.25% 20 ML INJ IJ ONE (12:42)
[2018-03-14] MEDS ORDERED: Absorbable Gelatin Sponge Size 100 ONE (13:19)
--- NOTE | 2018-03-14 13:44 | CP.PCM.PN ---
Subjective - Date & Time of Evaluation Date of Evaluation: 03/14/18 Time of Evaluation: 13:44 - Subjective Subjective: CHIEF COMPLAINTS TODAY : POD # S/P HEMORRHOIDECTOMY 03/11/18 # DAY 3 afebrile, VSS PT HAD RECTAL BLEEDING LAST NIGHT S/P RIGID PROCTOSIGMOIDOSCOPY TODAY 03/14/18. and bleeding controlled -findings noted. GI F/U NOTED. ROS. HEENT : N. Resp : No cough, wheezing ,pleuritic CP ,or hemoptysis Cardio : No anginal CP, PND, orthopnea, palpitation GI : No abd.pain, n/v ,diarrhea , NO BLEEDING PRESENTLY. 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 Musculoskel : No joint swelling , Derm : No rash Psych : Normal affect. Ext : No swelling ,calf pain PE. Pt. is alert awake in no distress. V.S As noted in the chart Head ,ear nose,throat and eyes : Normal. Neck : Supple with normal carotids. Lungs: Clear air entry. Heart : S1 & S2 normal with S4. No murmur. Abd : Soft non tender with normal bowel sounds. Neuro : Moves all ext. with no localized deficit. Ext : No edema with intact pulses.Non tender calves Derm : No rashes or decubitus ulcer. LABS/RADIOLOGY: WBC 8.9 H/H 11.4/32.8 03/14/18 CREAT 0.6/BUN 13 URINE CULTURE +VE kLEBSIELLA PNEUMONIA -VE ESBL S- CEFEPIME. Objective - Vital Signs/Intake and Output Vital Signs (last 24 hours): Temp Pulse Resp BP Pulse Ox 98.3 F 82 20 100/57 L 97 03/14/18 07:00 03/14/18 07:42 03/14/18 07:00 03/14/18 07:00 03/14/18 07:00 Intake and Output: 03/14/18 03/14/18 06:59 18:59 Intake Total 700 Output Total 400 Balance 300 - Medications Medications: Current Medications Dextrose (Dextrose 50% Inj) 0 ml IV STAT PRN; Protocol PRN Reason: Hypoglycemia Protocol Dextrose (Glutose 15) 0 gm PO ONCE PRN; Protocol PRN Reason: Hypoglycemia Protocol Docusate Sodium (Colace) 100 mg PO TID [facility] Last Admin: 03/14/18 09:59 Dose: Not Given Glucagon (Glucagen Diagnostic Kit) 0 mg IM STAT PRN; Protocol PRN Reason: Hypoglycemia Protocol Hydrocortisone (Anusol-Hc) 1 gm [place] BID [facility] Last Admin: 03/14/18 11:21 Dose: 1 applic Cefepime HCl (Maxipime Iv 1 Gm Premix) 1 gm in 50 mls @ 100 mls/hr IVPB Q24H [facility] PRN Reason: Protocol Last Admin: 03/13/18 17:29 Dose: 100 mls/hr Sodium Chloride (Sodium Chloride 0.9%) 1,000 mls @ 100 mls/hr IV .Q10H [facility] Last Admin: 03/14/18 10:38 Dose: Not Given Insulin Human Regular (Novolin R) 0 unit SC ACHS [facility] PRN Reason: Protocol Last Admin: 03/14/18 12:06 Dose: Not Given Ketorolac Tromethamine (Toradol) 30 mg IVP ONCE PRN PRN Reason: Pain, moderate (4-7) Stop: 03/14/18 15:28 Ondansetron HCl (Zofran Inj) 4 mg IVP ONCE PRN PRN Reason: Nausea/Vomiting Stop: 03/14/18 15:28 Pantoprazole Sodium (Protonix Ec Tab) 40 mg PO DAILY [facility] Last Admin: 03/14/18 10:38 Dose: Not Given Polyethylene Glycol (Miralax) 17 gm PO DAILY [facility] Last Admin: 03/14/18 10:38 Dose: Not Given Tramadol HCl (Ultram) 50 mg PO TID PRN Last Admin: 03/13/18 20:51 Dose: 50 mg - Labs Labs: 03/13/18 13:26 03/13/18 13:26 PT 11.7 SECONDS (9.7-12.2) 03/09/18 17:05 INR 1.1 03/09/18 17:05 APTT 20 SECONDS (21-34) L 03/09/18 17:05 Assessment and Plan (1) UTI (urinary tract infection) Assessment & Plan: CONTINUE iv CEFEPIME 1 G EVERY 24 HOURLY. F/U REPEAT UA/AND URINE CULTURE AFTER COLONOSCOPY. Status: Acute (2) Acute lower GI hemorrhage Assessment & Plan: S/P RIGID PROCTOSIGMOIDOSCOPY.FINDINGS NOTED bLEEDING CONTROLLED PRESENTLY. GI FOR COLONOSCOPY FOR ETIOLOGY OF RECURRENT GI BLEEDING Status: Acute (3) Arthritis Status: Acute (4) HTN (hypertension) Status: Acute (5) Status post hemorrhoidectomy Status: Acute
--- NOTE | 2018-03-14 13:51 | CP.PCM.PN ---
Subjective - Date & Time of Evaluation Date of Evaluation: 03/14/18 Time of Evaluation: 13:47 - Subjective Subjective: CHIEF COMPLAINTS TODAY : Patient is in OR for proctosigmoidoscopy. Patient again had a bleeding with clots last night. Hemoglobin is stable ROS. HEENT : N. Resp : No cough, wheezing ,pleuritic CP ,or hemoptysis Cardio : No anginal CP, PND, orthopnea, palpitation GI : No abd.pain, n/v rectal pain and bleeding. 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 Musculoskel : No joint swelling , Derm : No rash Psych : Normal affect. Ext : No swelling ,calf pain PE. Pt. is alert awake in no distress. V.S As noted in the chart Head ,ear nose,throat and eyes : Normal. Neck : Supple with normal carotids. Lungs: Clear air entry. Heart : S1 & S2 normal with S4. No murmur. Abd : Soft non tender with normal bowel sounds. Neuro : Moves all ext. with no localized deficit. Ext : No edema with intact pulses.Non tender calves Derm : No rashes or decubitus ulcer. LABS/RADIOLOGY: ASSESSMENT/PLAN : Continue monitoring H&H and IV fluids Discussed with surgery. Objective - Vital Signs/Intake and Output Vital Signs (last 24 hours): Temp Pulse Resp BP Pulse Ox 98.3 F 82 20 100/57 L 97 03/14/18 07:00 03/14/18 07:42 03/14/18 07:00 03/14/18 07:00 03/14/18 07:00 Intake and Output: 03/14/18 03/14/18 11:59 23:59 Intake Total 700 Output Total 400 Balance 300 - Medications Medications: Current Medications Dextrose (Dextrose 50% Inj) 0 ml IV STAT PRN; Protocol PRN Reason: Hypoglycemia Protocol Dextrose (Glutose 15) 0 gm PO ONCE PRN; Protocol PRN Reason: Hypoglycemia Protocol Docusate Sodium (Colace) 100 mg PO TID [facility] Last Admin: 03/14/18 09:59 Dose: Not Given Glucagon (Glucagen Diagnostic Kit) 0 mg IM STAT PRN; Protocol PRN Reason: Hypoglycemia Protocol Hydrocortisone (Anusol-Hc) 1 gm [place] BID [facility] Last Admin: 03/14/18 11:21 Dose: 1 applic Cefepime HCl (Maxipime Iv 1 Gm Premix) 1 gm in 50 mls @ 100 mls/hr IVPB Q24H [facility] PRN Reason: Protocol Last Admin: 03/13/18 17:29 Dose: 100 mls/hr Sodium Chloride (Sodium Chloride 0.9%) 1,000 mls @ 100 mls/hr IV .Q10H [facility] Last Admin: 03/14/18 10:38 Dose: Not Given Insulin Human Regular (Novolin R) 0 unit SC ACHS [facility] PRN Reason: Protocol Last Admin: 03/14/18 12:06 Dose: Not Given Ketorolac Tromethamine (Toradol) 30 mg IVP ONCE PRN PRN Reason: Pain, moderate (4-7) Stop: 03/14/18 15:28 Ondansetron HCl (Zofran Inj) 4 mg IVP ONCE PRN PRN Reason: Nausea/Vomiting Stop: 03/14/18 15:28 Pantoprazole Sodium (Protonix Ec Tab) 40 mg PO DAILY [facility] Last Admin: 03/14/18 10:38 Dose: Not Given Polyethylene Glycol (Miralax) 17 gm PO DAILY [facility] Last Admin: 03/14/18 10:38 Dose: Not Given Tramadol HCl (Ultram) 50 mg PO TID PRN Last Admin: 03/13/18 20:51 Dose: 50 mg - Labs Labs: 03/13/18 13:26 03/13/18 13:26 PT 11.7 SECONDS (9.7-12.2) 03/09/18 17:05 INR 1.1 03/09/18 17:05 APTT 20 SECONDS (21-34) L 03/09/18 17:05
--- NOTE | 2018-03-14 15:42 | CP.PCM.PN ---
Subjective - Date & Time of Evaluation Date of Evaluation: 03/14/18 Time of Evaluation: 15:39 - Subjective Subjective: Rectal bleed S/p hemorrhoidectomy 03/11, followed by large lower GI bleeding, subsequent rigid proctoscopy by Dr Lopez today reveals blood coming from more proximal region than the rectum. Discussed with Dr Lopez. Will need Colonoscopy to evaluate, discussed with patient. Of note, patient had colonoscopy in past 8 months. Objective - Vital Signs/Intake and Output Vital Signs (last 24 hours): Temp Pulse Resp BP Pulse Ox 97.7 F 88 16 117/59 L 98 03/14/18 14:30 03/14/18 14:30 03/14/18 14:30 03/14/18 14:30 03/14/18 14:30 Intake and Output: 03/14/18 03/14/18 06:59 18:59 Intake Total 700 410 Output Total 400 Balance 300 410 - Medications Medications: Current Medications Dextrose (Dextrose 50% Inj) 0 ml IV STAT PRN; Protocol PRN Reason: Hypoglycemia Protocol Dextrose (Glutose 15) 0 gm PO ONCE PRN; Protocol PRN Reason: Hypoglycemia Protocol Docusate Sodium (Colace) 100 mg PO TID [facility] Last Admin: 03/14/18 13:50 Dose: Not Given Glucagon (Glucagen Diagnostic Kit) 0 mg IM STAT PRN; Protocol PRN Reason: Hypoglycemia Protocol Hydrocortisone (Anusol-Hc) 1 gm DC BID [facility] Last Admin: 03/14/18 11:21 Dose: 1 applic Cefepime HCl (Maxipime Iv 1 Gm Premix) 1 gm in 50 mls @ 100 mls/hr IVPB Q24H [facility] PRN Reason: Protocol Last Admin: 03/13/18 17:29 Dose: 100 mls/hr Sodium Chloride (Sodium Chloride 0.9%) 1,000 mls @ 100 mls/hr IV .Q10H [facility] Last Admin: 03/14/18 10:38 Dose: Not Given Insulin Human Regular (Novolin R) 0 unit SC ACHS [facility] PRN Reason: Protocol Last Admin: 03/14/18 12:06 Dose: Not Given Pantoprazole Sodium (Protonix Ec Tab) 40 mg PO DAILY [facility] Last Admin: 03/14/18 10:38 Dose: Not Given Polyethylene Glycol (Miralax) 17 gm PO DAILY [facility] Last Admin: 03/14/18 10:38 Dose: Not Given Tramadol HCl (Ultram) 50 mg PO TID PRN Last Admin: 03/13/18 20:51 Dose: 50 mg - Labs Labs: 03/13/18 13:26 03/13/18 13:26 PT 11.7 SECONDS (9.7-12.2) 03/09/18 17:05 INR 1.1 03/09/18 17:05 APTT 20 SECONDS (21-34) L 03/09/18 17:05 - Constitutional Appears: Well, No Acute Distress - Head Exam Head Exam: NORMOCEPHALIC - Respiratory Exam Respiratory Exam: NORMAL BREATHING PATTERN - Cardiovascular Exam Cardiovascular Exam: REGULAR RHYTHM - GI/Abdominal Exam GI & Abdominal Exam: Soft, Tenderness Assessment and Plan (1) Gastrointestinal hemorrhage Assessment & Plan: Need to assess via repeat colonoscopy Monitor for bleeding recheck CBC Status: Acute (2) Hemorrhoids Status: Acute
[2018-03-14] MEDS ORDERED: Bisacodyl 5mg EC Tab PO ONE (17:00)
[2018-03-14] MEDS ORDERED: Peg-Electrolyte Oral Soln 4L (Golytely) PO ONE (18:00)
[2018-03-14] MEDS: Cefepime IV 1 gm in Dextrose 1 GM/50 ML BAG IVPB SCH (18:58)
--- NOTE | 2018-03-15 00:46 | OP ---
PROCEDURE DATE: 03/14/2018 PREOPERATIVE DIAGNOSIS: Rule out suture line bleeding, status post hemorrhoidectomy. POSTOPERATIVE DIAGNOSIS: Colonic bleeding. PROCEDURE PERFORMED: Anoscopy and proctosigmoidoscopy with rectal exam under anesthesia. SURGEON: Hermilo Lopez M.D. ANESTHESIA: General. BLOOD LOSS: 30 mL. POSTOPERATIVE CONDITION: Stable. INDICATIONS FOR SURGERY: This is an 82-year-old female who presented with rectal bleeding, found to have bleeding secondary to hemorrhoids with GI exam. She was taken for hemorrhoidectomy on this past Wednesday, but however, over the last couple of days continued to have colonic bleeding. She now is taken back to the OR for examination of her suture line. GROSS FINDINGS: The suture line was noted not to be bleeding. It was bleeding, coming from above, and a proctosigmoidoscopy was performed to 20 cm with dark maroon blood and clots noted to be coming from above this area. During vigorous anoscopy and proctosigmoidoscopy, there was a perianal tear and some bleeding which was repaired. Otherwise, the patient tolerated the procedure well, returned to recovery room in stable condition. Hermilo Lopez MD
[2018-03-15] MEDS: Sodium Chloride 0.9% 1,000 ML IV SCH ×4 (05:45→18:30)
[2018-03-15] MEDS ORDERED: Peg-Electrolyte Oral Soln 4L (Golytely) PO ONE (06:00)
--- NOTE | 2018-03-15 06:03 | CARD ---
APPROVED REPORT EKG Measurement Heart [id number] <Conclusion> Sinus tachycardia Otherwise normal ECG
[2018-03-15] MEDS: (Novolin R) Insulin Human Regular 100 units/ml vial SC SCH ×4 (07:38→22:47)
[2018-03-15 08:21] LABS: HEMOGLOBIN 10.2 g/dL (11.0-16.0); MEAN CELL VOLUME 92.8 fL (81.0-99.0); MEAN CORPUSCULAR HEMOGLOBIN 31.7 pg (27.0-31.0); MEAN CORPUSCULAR HGB CONC 34.1 g/dL (33.0-37.0); MEAN PLATELET VOLUME 7.1 fL (7.2-11.7); RBC 3.23 Mil/uL (3.80-5.20); RED CELL DISTRIBUTION WIDTH 15.4 % (11.5-14.5); WHITE BLOOD COUNT 6.1 K/uL (4.8-10.8)
[2018-03-15 08:37] LABS: BLOOD UREA NITROGEN 10 mg/dL (7-17); CALCIUM 8.3 mg/dl (8.6-10.4); GFR AFRICAN-AMERICAN > 60; GFR NON-AFRICAN AMERICAN > 60
[2018-03-15] MEDS: Pantoprazole 40 mg EC Tab PO SCH (10:06)
[2018-03-15] MEDS: POLYETHYLENE GLYCOL 3350 17 GM/Dose PACKET PO SCH (10:06)
[2018-03-15] MEDS: Hydrocortisone 2.5% Rectal Cream(30 gm) PR SCH ×2 (12:53→18:30)
[2018-03-15] MEDS ORDERED: Lactated Ringer's 500 ML IV ONE (13:04)
[2018-03-15] MEDS ORDERED: Propofol 10 mg/ml Inj (20 ML) ONE (13:21)
--- NOTE | 2018-03-15 13:57 | CP.PCM.PN ---
Subjective - Date & Time of Evaluation Date of Evaluation: 03/15/18 Time of Evaluation: 13:56 - Subjective Subjective: CHIEF COMPLAINTS TODAY : patient had a colonoscopy done this morning. There is no new finding on the test. There are just postoperative changes from the recent hemorrhoidectomy. There were no any active bleeding sites noted. ROS. HEENT : N. Resp : No cough, wheezing ,pleuritic CP ,or hemoptysis Cardio : No anginal CP, PND, orthopnea, palpitation GI : No abd.pain, n/v rectal pain and bleeding. rectal pain QA AUTOMATION ARCHITECT : No headache, vertigo, focal deficit. Musculoskel : No joint swelling , Derm : No rash Psych : Normal affect. Ext : No swelling ,calf pain PE. Pt. is alert awake in no distress. V.S As noted in the chart Head ,ear nose,throat and eyes : Normal. Neck : Supple with normal carotids. Lungs: Clear air entry. Heart : S1 & S2 normal with S4. No murmur. Abd : Soft non tender with normal bowel sounds. Neuro : Moves all ext. with no localized deficit. Ext : No edema with intact pulses.Non tender calves Derm : No rashes or decubitus ulcer. LABS/RADIOLOGY: ASSESSMENT/PLAN : the recent hemoglobin is 10.2 g/. Will continue monitoring the hemoglobin and hematocrit. Continue postop care as outlined by surgery. Objective - Vital Signs/Intake and Output Vital Signs (last 24 hours): Temp Pulse Resp BP Pulse Ox 98.8 F 105 H 11 L 138/64 100 03/15/18 13:45 03/15/18 13:45 03/15/18 13:45 03/15/18 13:45 03/15/18 13:45 - Medications Medications: Current Medications Dextrose (Dextrose 50% Inj) 0 ml IV STAT PRN; Protocol PRN Reason: Hypoglycemia Protocol Dextrose (Glutose 15) 0 gm PO ONCE PRN; Protocol PRN Reason: Hypoglycemia Protocol Docusate Sodium (Colace) 100 mg PO TID [facility] Last Admin: 03/15/18 13:25 Dose: Not Given Glucagon (Glucagen Diagnostic Kit) 0 mg IM STAT PRN; Protocol PRN Reason: Hypoglycemia Protocol Hydrocortisone (Anusol-Hc) 1 gm ME BID [facility] Last Admin: 03/15/18 12:53 Dose: Not Given Cefepime HCl (Maxipime Iv 1 Gm Premix) 1 gm in 50 mls @ 100 mls/hr IVPB Q24H [facility] PRN Reason: Protocol Last Admin: 03/14/18 18:58 Dose: 100 mls/hr Sodium Chloride (Sodium Chloride 0.9%) 1,000 mls @ 100 mls/hr IV .Q10H [facility] Last Admin: 03/15/18 07:03 Dose: 100 mls/hr Insulin Human Regular (Novolin R) 0 unit SC ACHS [facility] PRN Reason: Protocol Last Admin: 03/15/18 12:53 Dose: Not Given Pantoprazole Sodium (Protonix Ec Tab) 40 mg PO DAILY [facility] Last Admin: 03/15/18 10:06 Dose: Not Given Polyethylene Glycol (Miralax) 17 gm PO DAILY [facility] Last Admin: 03/15/18 10:06 Dose: Not Given Tramadol HCl (Ultram) 50 mg PO TID [facility]N Last Admin: 03/13/18 20:51 Dose: 50 mg - Labs Labs: 03/15/18 08:14 03/15/18 08:14 PT 11.7 SECONDS (9.7-12.2) 03/09/18 17:05 INR 1.1 03/09/18 17:05 APTT 20 SECONDS (21-34) L 03/09/18 17:05
--- NOTE | 2018-03-15 14:37 | CP.PCM.PN ---
Subjective - Date & Time of Evaluation Date of Evaluation: 03/15/18 Time of Evaluation: 14:37 - Subjective Subjective: CHIEF COMPLAINTS TODAY : POD # S/P HEMORRHOIDECTOMY 03/11/18 # DAY 4 afebrile, VSS S/P -COLONOSCOPY TODAY BY GI NO NEW FINDINGS. NO FURTHER BLEEDING ROS. HEENT : N. Resp : No cough, wheezing ,pleuritic CP ,or hemoptysis Cardio : No anginal CP, PND, orthopnea, palpitation GI : No abd.pain, n/v ,diarrhea , NO BLEEDING PRESENTLY. DRYERMAN/WOMAN : No headache, vertigo, focal deficit. Musculoskel : No joint swelling , Derm : No rash Psych : Normal affect. Ext : No swelling ,calf pain PE. Pt. isawake in no distress. V.S As noted in the chart Head ,ear nose,throat and eyes : Normal. Neck : Supple with normal carotids. Lungs: Clear air entry. Heart : S1 & S2 normal with S4. No murmur. Abd : Soft non tender with normal bowel sounds. Neuro : Moves all ext. with no localized deficit. Ext : No edema with intact pulses.Non tender calves Derm : No rashes or decubitus ulcer. LABS/RADIOLOGY: WBC 6.1 H/H 10.2/30.0 CREAT 0.6/BUN 10 URINE CULTURE +VE kLEBSIELLA PNEUMONIA -VE ESBL S- CEFEPIME. Objective - Vital Signs/Intake and Output Vital Signs (last 24 hours): Temp Pulse Resp BP Pulse Ox 98.8 F 95 H 12 131/68 100 03/15/18 13:45 03/15/18 14:15 03/15/18 14:15 03/15/18 14:15 03/15/18 14:15 Intake and Output: 03/15/18 03/15/18 06:59 18:59 Intake Total 2600 300 Output Total 1200 Balance 1400 300 - Medications Medications: Current Medications Dextrose (Dextrose 50% Inj) 0 ml IV STAT PRN; Protocol PRN Reason: Hypoglycemia Protocol Dextrose (Glutose 15) 0 gm PO ONCE PRN; Protocol PRN Reason: Hypoglycemia Protocol Docusate Sodium (Colace) 100 mg PO TID [facility] Last Admin: 03/15/18 13:25 Dose: Not Given Glucagon (Glucagen Diagnostic Kit) 0 mg IM STAT PRN; Protocol PRN Reason: Hypoglycemia Protocol Hydrocortisone (Anusol-Hc) 1 gm ID BID [facility] Last Admin: 03/15/18 12:53 Dose: Not Given Cefepime HCl (Maxipime Iv 1 Gm Premix) 1 gm in 50 mls @ 100 mls/hr IVPB Q24H [facility] PRN Reason: Protocol Last Admin: 03/14/18 18:58 Dose: 100 mls/hr Sodium Chloride (Sodium Chloride 0.9%) 1,000 mls @ 100 mls/hr IV .Q10H [facility] Last Admin: 03/15/18 07:03 Dose: 100 mls/hr Insulin Human Regular (Novolin R) 0 unit SC ACHS [facility] PRN Reason: Protocol Last Admin: 03/15/18 12:53 Dose: Not Given Pantoprazole Sodium (Protonix Ec Tab) 40 mg PO DAILY [facility] Last Admin: 03/15/18 10:06 Dose: Not Given Polyethylene Glycol (Miralax) 17 gm PO DAILY [facility] Last Admin: 03/15/18 10:06 Dose: Not Given Tramadol HCl (Ultram) 50 mg PO TID PRN Last Admin: 03/13/18 20:51 Dose: 50 mg - Labs Labs: 03/15/18 08:14 03/15/18 08:14 PT 11.7 SECONDS (9.7-12.2) 03/09/18 17:05 INR 1.1 03/09/18 17:05 APTT 20 SECONDS (21-34) L 03/09/18 17:05 Assessment and Plan (1) UTI (urinary tract infection) Assessment & Plan: ON IV CEFEPIME 1GM IVPB Q 24 HRLY. F/U REPEAT UA/AND URINE CULTURE IN AM Status: Acute (2) Acute lower GI hemorrhage Assessment & Plan: F/U H/H. Status: Acute (3) Arthritis Status: Acute (4) HTN (hypertension) Status: Acute (5) Status post hemorrhoidectomy Status: Acute
[2018-03-15] MEDS: Cefepime IV 1 gm in Dextrose 1 GM/50 ML BAG IVPB SCH (18:29)
[2018-03-16 03:28] LABS: URINE BILIRUBIN NEGATIVE (NEGATIVE); URINE BLOOD NEGATIVE (NEGATIVE); URINE COLOR Straw (YELLOW); URINE GLUCOSE (UA) 2+ mg/dL (Normal); URINE LEUKOCYTE ESTERASE 2+ Leu/uL (Negative); URINE PROTEIN NEGATIVE (NEGATIVE); URINE UROBILINOGEN NORMAL mg/dL (0.2-1.0)
[2018-03-16 03:37] LABS: URINE CLARITY Hazy (Clear)
[2018-03-16 07:27] LABS: BASO # 0.1 K/uL (0.0-0.2); EOS # 0.2 K/uL (0.0-0.7); EOS % 2.8 % (0.0-4.0); HEMOGLOBIN 9.7 g/dL (11.0-16.0); LYMPH # 0.7 K/uL (1.0-4.3); LYMPH % 11.2 % (20.0-40.0); MEAN CELL VOLUME 92.2 fL (81.0-99.0); MEAN CORPUSCULAR HEMOGLOBIN 31.7 pg (27.0-31.0); MEAN CORPUSCULAR HGB CONC 34.4 g/dL (33.0-37.0); MEAN PLATELET VOLUME 7.1 fL (7.2-11.7); MONO # 0.8 K/uL (0.0-0.8); MONO % 11.9 % (0.0-10.0); NEUT # 4.7 K/uL (1.8-7.0); NEUT % 73.1 % (50.0-75.0); RBC 3.07 Mil/uL (3.80-5.20); RED CELL DISTRIBUTION WIDTH 15.3 % (11.5-14.5); WHITE BLOOD COUNT 6.5 K/uL (4.8-10.8)
--- NOTE | 2018-03-16 09:51 | CP.PCM.PN ---
Subjective - Date & Time of Evaluation Date of Evaluation: 03/16/18 Time of Evaluation: 09:45 - Subjective Subjective: F/u RB. Pt seen with RN No R bleeding. Still ano-rectal pain. Denies fever, chills, SZ, LOC, WYNNE, cough, hematuria, hemoptysis Objective - Vital Signs/Intake and Output Vital Signs (last 24 hours): Temp Pulse Resp BP Pulse Ox 98.2 F 83 20 126/65 100 03/16/18 07:00 03/16/18 07:31 03/16/18 07:00 03/16/18 07:00 03/16/18 07:00 Intake and Output: 03/16/18 03/16/18 06:59 18:59 Intake Total 1280 Output Total 800 Balance 480 - Medications Medications: Current Medications Dextrose (Dextrose 50% Inj) 0 ml IV STAT PRN; Protocol PRN Reason: Hypoglycemia Protocol Dextrose (Glutose 15) 0 gm PO ONCE PRN; Protocol PRN Reason: Hypoglycemia Protocol Docusate Sodium (Colace) 100 mg PO TID [facility] Last Admin: 03/15/18 18:30 Dose: 100 mg Glucagon (Glucagen Diagnostic Kit) 0 mg IM STAT PRN; Protocol PRN Reason: Hypoglycemia Protocol Hydrocortisone (Anusol-Hc) 1 gm MS BID [facility] Last Admin: 03/15/18 18:30 Dose: 1 applic Cefepime HCl (Maxipime Iv 1 Gm Premix) 1 gm in 50 mls @ 100 mls/hr IVPB Q24H [facility] PRN Reason: Protocol Last Admin: 03/15/18 18:29 Dose: 100 mls/hr Sodium Chloride (Sodium Chloride 0.9%) 1,000 mls @ 100 mls/hr IV .Q10H [facility] Last Admin: 03/15/18 18:30 Dose: 100 mls/hr Insulin Human Regular (Novolin R) 0 unit SC ACHS [facility] PRN Reason: Protocol Last Admin: 03/15/18 22:47 Dose: Not Given Pantoprazole Sodium (Protonix Ec Tab) 40 mg PO DAILY [facility] Last Admin: 03/15/18 10:06 Dose: Not Given Polyethylene Glycol (Miralax) 17 gm PO DAILY [facility] Last Admin: 03/15/18 10:06 Dose: Not Given Tramadol HCl (Ultram) 50 mg PO TID PRN Last Admin: 03/13/18 20:51 Dose: 50 mg - Labs Labs: 03/16/18 07:15 03/15/18 08:14 PT 11.7 SECONDS (9.7-12.2) 03/09/18 17:05 INR 1.1 03/09/18 17:05 APTT 20 SECONDS (21-34) L 03/09/18 17:05 - Constitutional Appears: Well - Neck Exam Neck Exam: absent: Tenderness - Respiratory Exam Respiratory Exam: Clear to Ausculation Bilateral - Cardiovascular Exam Cardiovascular Exam: RRR - GI/Abdominal Exam GI & Abdominal Exam: Soft, Normal Bowel Sounds. absent: Guarding, Tenderness, Mass - Neurological Exam Neurological Exam: Alert, Awake, Oriented x3 Assessment and Plan (1) Hemorrhoids Assessment & Plan: s/p surgery Status: Acute (2) Constipation Assessment & Plan: avoid constipation. Use laxatives Status: Acute (3) Acute lower GI hemorrhage Assessment & Plan: Colonosocpy showed inflamm and ulceration at hemorrhoid surgery site. No other source for bleeding seen. Only source seen at colonosocpy was ano-rectal inflammation at surgery site. F/u by Dr Lopez Status: Acute (4) HTN (hypertension) Status: Acute (5) UTI (urinary tract infection) Status: Acute (6) Arthritis Status: Acute
[2018-03-16] MEDS: Pantoprazole 40 mg EC Tab PO SCH (11:00)
[2018-03-16] MEDS: POLYETHYLENE GLYCOL 3350 17 GM/Dose PACKET PO SCH (11:00)
[2018-03-16] MEDS: (Novolin R) Insulin Human Regular 100 units/ml vial SC SCH ×5 (11:00→21:19)
[2018-03-16] MEDS: Hydrocortisone 2.5% Rectal Cream(30 gm) PR SCH (11:02)
--- NOTE | 2018-03-16 12:07 | CP.PCM.PN ---
Subjective - Date & Time of Evaluation Date of Evaluation: 03/16/18 Time of Evaluation: 12:06 - Subjective Subjective: CHIEF COMPLAINTS TODAY : PATIENT'S HEMOGLOBIN HAS GONE DOWN BY 1 G. tHERE IS NO ANY ACTIVE RECTAL BLEEDING JUST COMPLAINS OF PAIN IN THE RECTAL AREA ROS. HEENT : N. Resp : No cough, wheezing ,pleuritic CP ,or hemoptysis Cardio : No anginal CP, PND, orthopnea, palpitation GI : No abd.pain, n/v rectal pain and bleeding. rectal pain SUPERVISOR PLASMA : No headache, vertigo, focal deficit. Musculoskel : No joint swelling , Derm : No rash Psych : Normal affect. Ext : No swelling ,calf pain PE. Pt. is alert awake in no distress. V.S As noted in the chart Head ,ear nose,throat and eyes : Normal. Neck : Supple with normal carotids. Lungs: Clear air entry. Heart : S1 & S2 normal with S4. No murmur. Abd : Soft non tender with normal bowel sounds. Neuro : Moves all ext. with no localized deficit. Ext : No edema with intact pulses.Non tender calves Derm : No rashes or decubitus ulcer. LABS/RADIOLOGY: ASSESSMENT/PLAN : CONTINUE MONITORING h&h. aWAITING BED FOR SHORT-TERM REHAB. Objective - Vital Signs/Intake and Output Vital Signs (last 24 hours): Temp Pulse Resp BP Pulse Ox 98.2 F 81 20 126/65 100 03/16/18 07:00 03/16/18 11:48 03/16/18 07:00 03/16/18 07:00 03/16/18 07:00 Intake and Output: 03/16/18 03/16/18 11:59 23:59 Output Total 800 Balance -800 - Medications Medications: Current Medications Dextrose (Dextrose 50% Inj) 0 ml IV STAT PRN; Protocol PRN Reason: Hypoglycemia Protocol Dextrose (Glutose 15) 0 gm PO ONCE PRN; Protocol PRN Reason: Hypoglycemia Protocol Docusate Sodium (Colace) 100 mg PO TID [facility] Last Admin: 03/16/18 10:59 Dose: Not Given Glucagon (Glucagen Diagnostic Kit) 0 mg IM STAT PRN; Protocol PRN Reason: Hypoglycemia Protocol Hydrocortisone (Anusol-Hc) 1 gm MS BID [facility] Last Admin: 03/16/18 11:02 Dose: 1 applic Cefepime HCl (Maxipime Iv 1 Gm Premix) 1 gm in 50 mls @ 100 mls/hr IVPB Q24H [facility] PRN Reason: Protocol Last Admin: 03/15/18 18:29 Dose: 100 mls/hr Sodium Chloride (Sodium Chloride 0.9%) 1,000 mls @ 100 mls/hr IV .Q10H [facility] Last Admin: 03/15/18 18:30 Dose: 100 mls/hr Insulin Human Regular (Novolin R) 0 unit SC ACHS [facility] PRN Reason: Protocol Last Admin: 03/16/18 11:00 Dose: Not Given Pantoprazole Sodium (Protonix Ec Tab) 40 mg PO DAILY [facility] Last Admin: 03/16/18 11:00 Dose: 40 mg Polyethylene Glycol (Miralax) 17 gm PO DAILY [facility] Last Admin: 03/16/18 11:00 Dose: Not Given Tramadol HCl (Ultram) 50 mg PO TID PRN Last Admin: 03/13/18 20:51 Dose: 50 mg - Labs Labs: 03/16/18 07:15 03/15/18 08:14 PT 11.7 SECONDS (9.7-12.2) 03/09/18 17:05 INR 1.1 03/09/18 17:05 APTT 20 SECONDS (21-34) L 03/09/18 17:05
[2018-03-16] MEDS: Cefepime IV 1 gm in Dextrose 1 GM/50 ML BAG IVPB SCH (17:22)
--- NOTE | 2018-03-16 23:59 | CP.PCM.PN ---
Subjective - Date & Time of Evaluation Date of Evaluation: 03/16/18 Time of Evaluation: 23:59 - Subjective Subjective: CHIEF COMPLAINTS TODAY : POD # S/P HEMORRHOIDECTOMY 03/11/18 # DAY 5 afebrile, VSS S/P -COLONOSCOPY BY GI, -NO NEW FINDINGS. NO FURTHER BLEEDING H/H 9.7/28.3 ROS. HEENT : N. Resp : No cough, wheezing ,pleuritic CP ,or hemoptysis Cardio : No anginal CP, PND, orthopnea, palpitation GI : No abd.pain, n/v ,diarrhea , NO BLEEDING PRESENTLY. TUBER HELPER : No headache, vertigo, focal deficit. Musculoskel : No joint swelling , Derm : No rash Psych : Normal affect. Ext : No swelling ,calf pain PE. Pt. isawake in no distress. V.S As noted in the chart Head ,ear nose,throat and eyes : Normal. Neck : Supple with normal carotids. Lungs: Clear air entry. Heart : S1 & S2 normal with S4. No murmur. Abd : Soft non tender with normal bowel sounds. Neuro : Moves all ext. with no localized deficit. Ext : No edema with intact pulses.Non tender calves Derm : No rashes or decubitus ulcer. LABS/RADIOLOGY: WBC 6.5 H/H DROPPED 1 G CREAT 0.6/BUN 10 URINE CULTURE +VE kLEBSIELLA PNEUMONIA -VE ESBL S- CEFEPIME. Objective - Vital Signs/Intake and Output Vital Signs (last 24 hours): Temp Pulse Resp BP Pulse Ox 99.1 F 106 H 20 112/64 100 03/16/18 15:50 03/16/18 20:00 03/16/18 15:50 03/16/18 15:50 03/16/18 15:50 Intake and Output: 03/16/18 03/17/18 18:59 06:59 Intake Total 1100 1200 Output Total 1400 1200 Balance -300 0 - Medications Medications: Current Medications Dextrose (Dextrose 50% Inj) 0 ml IV STAT PRN; Protocol PRN Reason: Hypoglycemia Protocol Dextrose (Glutose 15) 0 gm PO ONCE PRN; Protocol PRN Reason: Hypoglycemia Protocol Docusate Sodium (Colace) 100 mg PO TID [facility] Last Admin: 03/16/18 17:21 Dose: Not Given Glucagon (Glucagen Diagnostic Kit) 0 mg IM STAT PRN; Protocol PRN Reason: Hypoglycemia Protocol Hydrocortisone (Anusol-Hc) 1 gm IA BID [facility] Last Admin: 03/16/18 11:02 Dose: 1 applic Cefepime HCl (Maxipime Iv 1 Gm Premix) 1 gm in 50 mls @ 100 mls/hr IVPB Q24H [facility] PRN Reason: Protocol Last Admin: 03/16/18 17:22 Dose: 100 mls/hr Sodium Chloride (Sodium Chloride 0.9%) 1,000 mls @ 100 mls/hr IV .Q10H [facility] Last Admin: 03/15/18 18:30 Dose: 100 mls/hr Insulin Human Regular (Novolin R) 0 unit SC ACHS [facility] PRN Reason: Protocol Last Admin: 03/16/18 21:19 Dose: Not Given Pantoprazole Sodium (Protonix Ec Tab) 40 mg PO DAILY [facility] Last Admin: 03/16/18 11:00 Dose: 40 mg Polyethylene Glycol (Miralax) 17 gm PO DAILY [facility] Last Admin: 03/16/18 11:00 Dose: Not Given Tramadol HCl (Ultram) 50 mg PO TID PRN Last Admin: 03/13/18 20:51 Dose: 50 mg - Labs Labs: 03/16/18 07:15 03/15/18 08:14 PT 11.7 SECONDS (9.7-12.2) 03/09/18 17:05 INR 1.1 03/09/18 17:05 APTT 20 SECONDS (21-34) L 03/09/18 17:05 Assessment and Plan (1) UTI (urinary tract infection) Assessment & Plan: FOLLOW-UP REPEAT ua URINE CULTURES .cONTINUE iv CEFEPIME 1 G EVERY 24 HOURLY. Status: Acute (2) Acute lower GI hemorrhage Assessment & Plan: MONITOR h&h fOLLOW-UP FOR ANY FURTHER BLEED. Status: Acute (3) Arthritis Status: Acute (4) HTN (hypertension) Status: Acute (5) Status post hemorrhoidectomy Assessment & Plan: C/O RECTAL PAIN. dENIES ANY FURTHER BLEEDING. Status: Acute
[2018-03-17] MEDS: Sodium Chloride 0.9% 1,000 ML IV SCH ×2 (04:58→13:32)
[2018-03-17 07:50] LABS: BASO % 0.7 % (0.0-2.0); EOS # 0.1 K/uL (0.0-0.7); EOS % 1.7 % (0.0-4.0); HEMOGLOBIN 9.9 g/dL (11.0-16.0); LYMPH # 0.8 K/uL (1.0-4.3); LYMPH % 11.2 % (20.0-40.0); MEAN CELL VOLUME 92.3 fL (81.0-99.0); MEAN CORPUSCULAR HEMOGLOBIN 32.8 pg (27.0-31.0); MEAN CORPUSCULAR HGB CONC 35.5 g/dL (33.0-37.0); MEAN PLATELET VOLUME 7.2 fL (7.2-11.7); MONO # 0.8 K/uL (0.0-0.8); MONO % 11.5 % (0.0-10.0); NEUT # 5.1 K/uL (1.8-7.0); NEUT % 74.9 % (50.0-75.0); NRBC % 0.1 % (0.0-2.0); RBC 3.01 Mil/uL (3.80-5.20); RED CELL DISTRIBUTION WIDTH 15.6 % (11.5-14.5); WHITE BLOOD COUNT 6.8 K/uL (4.8-10.8)
[2018-03-17] MEDS ORDERED: Sodium Chloride 0.9% 1,000 ML IV ONE (08:41)
--- NOTE | 2018-03-17 08:44 | CP.PCM.PN ---
Subjective - Date & Time of Evaluation Date of Evaluation: 03/17/18 Time of Evaluation: 08:35 - Subjective Subjective: CC- eye pain RN called to evaluate pat c/o eye pain this am also tachycardia on monitor HPI- 82 yr old female with pmhx of HTN and arthritis s/p heorrhoidectomy on with Dr. Lopez, followed by proctosigmoidoscopy for continued rectal bleed and anorectal pain. Patient seen an dexamined at bed corie e awake, alert, denies any eye pain, tachycardia noted and hypotension BP 90/70 and monitor sinus tachy rate above 130's . upon physical examination moderate amount of blood from rectum with clots noted and am labs reviewed noted hgb 7 drops from 9.3 . 1 lit of NSS bolus started and D/w Dr. Junior. R. quality lead , accepted patient for ICU transfer for further management . DIRECTOR SALES TRAINING called by RN patient transferred to ICU The above plan discussed with Dr. Ramos and agrees with plan Dr. Ta service contacted and left the message fo rDr. Ta Objective - Vital Signs/Intake and Output Vital Signs (last 24 hours): Temp Pulse Resp BP Pulse Ox 98.6 F 85 20 117/65 100 03/16/18 23:00 03/16/18 23:00 03/16/18 23:00 03/16/18 23:00 03/16/18 23:00 Intake and Output: 03/17/18 03/17/18 06:59 18:59 Intake Total 1200 Output Total 1200 Balance 0 - Medications Medications: Current Medications Dextrose (Dextrose 50% Inj) 0 ml IV STAT PRN; Protocol PRN Reason: Hypoglycemia Protocol Dextrose (Glutose 15) 0 gm PO ONCE PRN; Protocol PRN Reason: Hypoglycemia Protocol Docusate Sodium (Colace) 100 mg PO TID [facility] Last Admin: 03/16/18 17:21 Dose: Not Given Glucagon (Glucagen Diagnostic Kit) 0 mg IM STAT PRN; Protocol PRN Reason: Hypoglycemia Protocol Hydrocortisone (Anusol-Hc) 1 gm CA BID [facility] Last Admin: 03/16/18 11:02 Dose: 1 applic Cefepime HCl (Maxipime Iv 1 Gm Premix) 1 gm in 50 mls @ 100 mls/hr IVPB Q24H [facility] PRN Reason: Protocol Last Admin: 03/16/18 17:22 Dose: 100 mls/hr Sodium Chloride (Sodium Chloride 0.9%) 1,000 mls @ 1,000 mls/hr IV .Q1H ONE Stop: 03/17/18 09:40 Insulin Human Regular (Novolin R) 0 unit SC ACHS [facility] PRN Reason: Protocol Last Admin: 03/16/18 21:19 Dose: Not Given Pantoprazole Sodium (Protonix Ec Tab) 40 mg PO DAILY [facility] Last Admin: 03/16/18 11:00 Dose: 40 mg Polyethylene Glycol (Miralax) 17 gm PO DAILY [facility] Last Admin: 03/16/18 11:00 Dose: Not Given Tramadol HCl (Ultram) 50 mg PO TID PRN Last Admin: 03/13/18 20:51 Dose: 50 mg - Labs Labs: 03/17/18 07:00 03/15/18 08:14 PT 11.7 SECONDS (9.7-12.2) 03/09/18 17:05 INR 1.1 03/09/18 17:05 APTT 20 SECONDS (21-34) L 03/09/18 17:05
[2018-03-17] MEDS: (Novolin R) Insulin Human Regular 100 units/ml vial SC SCH ×4 (08:46→21:44)
[2018-03-17 08:56] LABS: BASO # 0.1 K/uL (0.0-0.2); BASO % 0.9 % (0.0-2.0); EOS # 0.1 K/uL (0.0-0.7); EOS % 1.1 % (0.0-4.0); LYMPH # 0.8 K/uL (1.0-4.3); LYMPH % 11.9 % (20.0-40.0); MEAN CELL VOLUME 93.5 fL (81.0-99.0); MEAN CORPUSCULAR HEMOGLOBIN 31.5 pg (27.0-31.0); MEAN CORPUSCULAR HGB CONC 33.7 g/dL (33.0-37.0); MONO # 0.6 K/uL (0.0-0.8); MONO % 8.9 % (0.0-10.0); NEUT # 5.2 K/uL (1.8-7.0); NEUT % 77.2 % (50.0-75.0); RBC 2.21 Mil/uL (3.80-5.20); RED CELL DISTRIBUTION WIDTH 15.6 % (11.5-14.5); WHITE BLOOD COUNT 6.8 K/uL (4.8-10.8)
[2018-03-17 09:05] LABS: INR 1.3; PROTHROMBIN TIME 14.3 SECONDS (9.7-12.2)
--- NOTE | 2018-03-17 09:58 | PCM.PROC ---
Procedures Attestation:: I certify that I have explained the specified Operation(s) or Procedure(s), risks, benefits and reasonable alternatives to the Patient and/or other person responsible. The opportunity was given to ask questions and all questions answered - Central Line Placement Right Femoral Triple Lumen Catheter Aseptic technique was employed throughout the procedure: Hand Hygiene done prior to procedure, Full sterile barriers (mask, hair cover, sterile gown, sterile gloves), Full body sterile drape, Chloraprep Antiseptic: 2 minute prep for Femoral CVP Time Out Performed: Yes Pt. Placed on Pulse Ox Monitor: Yes Local Anesthesia Used: Lidocaine 1% Amount of Anesthesia Used (mls): 7 Ultrasound Used for Placement: No Central Line Lumen Inserted: triple Central Line Length: 20 cm Post Procedure: Sutured in Place, Good Blood Return, All Ports Aspirated, Flushed, Capped, Sterile Dressing Applied Secured by: Suture Post procedure dressing: Gauze, Clear vapor permeable Post Procedure X-Ray: No Patient Tolerated Procedure: Well Immediate Complications: None
--- NOTE | 2018-03-17 10:11 | CP.PCM.PN ---
Subjective - Date & Time of Evaluation Date of Evaluation: 03/17/18 Time of Evaluation: 10:00 - Subjective Subjective: f/u r bleed. Had more BRBPR last nite- dropped Hb to 7. Tachcardic. Denies constip, fever, chills, SZ, melena, hematemesis, hematuria, hemoptysis, myalgia, SZ, tremor, dysphagia, dysarthria C/o RECTAL PAIN Objective - Vital Signs/Intake and Output Vital Signs (last 24 hours): Temp Pulse Resp BP Pulse Ox 98.0 F 127 H 18 98/70 L 100 03/17/18 07:30 03/17/18 07:30 03/17/18 07:30 03/17/18 07:30 03/17/18 07:30 Intake and Output: 03/17/18 03/17/18 06:59 18:59 Intake Total 1200 Output Total 1200 Balance 0 - Medications Medications: Current Medications Dextrose (Dextrose 50% Inj) 0 ml IV STAT PRN; Protocol PRN Reason: Hypoglycemia Protocol Dextrose (Glutose 15) 0 gm PO ONCE PRN; Protocol PRN Reason: Hypoglycemia Protocol Docusate Sodium (Colace) 100 mg PO TID [facility] Last Admin: 03/16/18 17:21 Dose: Not Given Glucagon (Glucagen Diagnostic Kit) 0 mg IM STAT PRN; Protocol PRN Reason: Hypoglycemia Protocol Hydrocortisone (Anusol-Hc) 1 gm [place] BID [facility] Last Admin: 03/16/18 11:02 Dose: 1 applic Cefepime HCl (Maxipime Iv 1 Gm Premix) 1 gm in 50 mls @ 100 mls/hr IVPB Q24H [facility] PRN Reason: Protocol Last Admin: 03/16/18 17:22 Dose: 100 mls/hr Insulin Human Regular (Novolin R) 0 unit SC ACHS [facility] PRN Reason: Protocol Last Admin: 03/17/18 08:46 Dose: Not Given Pantoprazole Sodium (Protonix Ec Tab) 40 mg PO DAILY [facility] Last Admin: 03/16/18 11:00 Dose: 40 mg Polyethylene Glycol (Miralax) 17 gm PO DAILY [facility] Last Admin: 03/16/18 11:00 Dose: Not Given Tramadol HCl (Ultram) 50 mg PO TID PRN Last Admin: 03/13/18 20:51 Dose: 50 mg - Labs Labs: 03/17/18 08:52 03/15/18 08:14 PT 14.3 SECONDS (9.7-12.2) H 03/17/18 08:52 INR 1.3 03/17/18 08:52 APTT 28 SECONDS (21-34) 03/17/18 08:52 - Constitutional Appears: Non-toxic - Respiratory Exam Respiratory Exam: Clear to Ausculation Bilateral - Cardiovascular Exam Cardiovascular Exam: RRR - GI/Abdominal Exam GI & Abdominal Exam: Normal Bowel Sounds - Extremities Exam Extremities Exam: absent: Calf Tenderness - Neurological Exam Neurological Exam: Alert, Awake, Oriented x3 Assessment and Plan (1) Hemorrhoids Assessment & Plan: s/p surgery Status: Acute (2) Constipation Status: Acute (3) Acute lower GI hemorrhage Assessment & Plan: ano-rectal inflammation and ulceration at site of recent hemorrhoid surgery. Bleeding I feel is from this area. No other lesions seen in colon. Recommend surgery follow up and treatment Status: Acute (4) HTN (hypertension) Status: Acute (5) UTI (urinary tract infection) Status: Acute (6) Arthritis Status: Acute
--- NOTE | 2018-03-17 10:12 | PCM.RRT ---
<Trina Matos P - Last Filed: 03/17/18 10:09> COUNTER SERVER Nurses Assessment - Situation Date: 03/17/18 Time COUNTER SERVER was called: 08:20 COUNTER SERVER Responder Arrival Time:: 08:20 COUNTER SERVER Location:: 6T Med/Surg COUNTER SERVER Reason for Call: Tachycardia, Hypotension, Looks Sicker (blood per rectum with clots) COUNTER SERVER Called By: RN - IV IV Fluids Initiated During COUNTER SERVER?: Normal Saline 1L bolus - Respiratory COUNTER SERVER Delivery Method: Nasal Cannula @L/min (2L/min) - Stat Labs Ordered COUNTER SERVER Stat Labs Ordered: CBC, PT/PTT COUNTER SERVER Other Labs Ordered: Type and cross - Samina Coma Scale Coma Scale Eye Opening: Spontaneous Coma Scale Motor: Obeys Commands Movement - Recommendations 5) COUNTER SERVER Level of Care Recommendations: Transfer to ICU I.Reason for COUNTER SERVER - A) Acute Change in Patient: (Select all that apply): Uncontrolled Bleeding, Hemoptysis, Hematemesis, Melena (Blood per rectum with clots) - Neurological Status (Select all that apply): Alert, Responsive - Respiratory Oxygen Delivery Method: Nasal Cannula @L/min (2L/min) - Constitutional Appears: No Acute Distress - Head Head Exam: ATRAUMATIC, NORMOCEPHALIC - Eyes Eye Exam: EOMI - Respiratory Exam Respiratory Exam: NORMAL BREATHING PATTERN - Cardiovascular Exam Cardiovascular Exam: Tachycardia, +S1, +S2 - GI/Abdominal Exam GI & Abdominal Exam: Soft Additional comments: Blood per rectum with clots. - Neurological Exam Neurological Exam: Alert, Awake Plan - Assessment of Findings&Treatment Plan House doctor note. Rapid response called by nurse for decreased blood pressure, increased heart rate and blood per rectum with clots. Patient status post anoscopy and proctosigmoidoscopy with rectal exam under anesthesia on 03/14/18. Pt had prior hemorrhoidectomy on 03/11/[address] Lopez. Vital Signs: HR 125, BP 85/59, SpO2 100% 2L NC Blood with clots noted in bed. Patient is awake and alert, following commands, answering questions appropriately. 1L saline bolus started. Patient was transferred to ICU. Type and cross, CBC, and PT/INR were ordered and drawn in ICU. Blood bank was called. Dr. Ramos, Primary physican, was called. Dr. Lopez was called. Additional fluid boluses ordered for patient. Patient verbally consented for R femoral TLC. Further management per ICU team. <Fritz Kent - Last Filed: 03/22/18 07:15> COUNTER SERVER Nurses Assessment - Vital Signs Vital Signs: Rapid Response Vital Sign Blood Pressure 85/59 Pulse Rate 140 Temperature 97.8 F Oxygen Saturation 100 - Vital Signs at end of COUNTER SERVER Vital Signs at end of COUNTER SERVER: Rapid Response End Vital Sign Pulse Rate 127 Respiratory Rate 20 O2 Sat by Pulse Oximetry 117 Attending/Attestation - Attestation I have personally seen and examined this patient.: Yes I have fully participated in the care of the patient.: Yes I have reviewed all pertinent clinical information, including history, physical exam and plan: Yes Notes (Text): Patient was seen and examined and I agree with the documentation
[2018-03-17] MEDS: POLYETHYLENE GLYCOL 3350 17 GM/Dose PACKET PO SCH (11:03)
[2018-03-17] MEDS: Pantoprazole 40 mg EC Tab PO SCH (11:03)
[2018-03-17] MEDS: Hydrocortisone 2.5% Rectal Cream(30 gm) PR SCH ×2 (11:25→18:01)
--- NOTE | 2018-03-17 13:02 | CP.PCM.CON ---
<Doreen Paulson - Last Filed: 03/17/18 15:10> History of Present Illness - History of Present Illness History of Present Illness: 82 yo F with PMHx of HTN and arthritis transferred to ICU today for rectal bleeding. Pt is s/p heorrhoidectomy on 03/[address] Lopez, followed by proctosigmoidoscopy for continued rectal bleed and anorectal pain. Patient was admitted to ICU today after continued rectal bleed. Hgb dropped from 9.9 to 7.0 after bleed. Femoral TLC was placed and patient to be transfused 2U PRBC. Patient admits to weakness, but is improving. Denies chest pain, SOB, palpitations, abdominal pain, dyuria, headache, dizziness. Review of Systems - Constitutional Constitutional: As Per HPI - EENT Eyes: absent: Change in Vision - Cardiovascular Cardiovascular: absent: Chest Pain, Palpitations - Respiratory Respiratory: As Per HPI. absent: Dyspnea - Gastrointestinal Gastrointestinal: As Per HPI, Hematochezia. absent: Abdominal Pain, Nausea, Vomiting - Genitourinary Genitourinary: absent: Dysuria - Musculoskeletal Musculoskeletal: Arthralgias - Neurological Neurological: absent: Dizziness Past Patient History - Infectious Disease Hx of Infectious Diseases: None - Past Medical History & Family History Past Medical History?: Yes - Past Social History Smoking Status: Never Smoked - CARDIAC Hx Hypertension: Yes - PULMONARY Hx Respiratory Disorders: No - NEUROLOGICAL Hx Neurological Disorder: No - HEENT Hx Cataracts: Yes (WITH BRANDON IOL) - RENAL Hx Chronic Kidney Disease: No - ENDOCRINE/METABOLIC Hx Diabetes Mellitus Type 2: Yes - HEMATOLOGICAL/ONCOLOGICAL Hx Blood Disorders: No - INTEGUMENTARY Hx Dermatological Problems: No - MUSCULOSKELETAL/RHEUMATOLOGICAL Hx Arthritis: Yes - GASTROINTESTINAL Hx Gastrointestinal Disorders: No - GENITOURINARY/GYNECOLOGICAL Hx Genitourinary Disorders: No - PSYCHIATRIC Hx Substance Use: No - SURGICAL HISTORY Hx Appendectomy: Yes - ANESTHESIA Hx Anesthesia: Yes Hx Anesthesia Reactions: No Meds Allergies/Adverse Reactions: Allergies Allergy/AdvReac Type Severity Reaction Status Date / Time No Known Allergies Allergy Verified 03/09/18 07:23 - Medications Medications: Current Medications Dextrose (Dextrose 50% Inj) 0 ml IV STAT PRN; Protocol PRN Reason: Hypoglycemia Protocol Dextrose (Glutose 15) 0 gm PO ONCE PRN; Protocol PRN Reason: Hypoglycemia Protocol Docusate Sodium (Colace) 100 mg PO TID [facility] Last Admin: 03/17/18 10:00 Dose: Not Given Glucagon (Glucagen Diagnostic Kit) 0 mg IM STAT PRN; Protocol PRN Reason: Hypoglycemia Protocol Hydrocortisone (Anusol-Hc) 1 gm ME BID [facility] Last Admin: 03/17/18 11:25 Dose: 1 applic Cefepime HCl (Maxipime Iv 1 Gm Premix) 1 gm in 50 mls @ 100 mls/hr IVPB Q24H [facility] PRN Reason: Protocol Last Admin: 03/16/18 17:22 Dose: 100 mls/hr Insulin Human Regular (Novolin R) 0 unit SC ACHS [facility] PRN Reason: Protocol Last Admin: 03/17/18 12:07 Dose: Not Given Pantoprazole Sodium (Protonix Ec Tab) 40 mg PO DAILY [facility] Last Admin: 03/17/18 11:03 Dose: Not Given Polyethylene Glycol (Miralax) 17 gm PO DAILY [facility] Last Admin: 03/17/18 11:03 Dose: Not Given Tramadol HCl (Ultram) 50 mg PO TID [facility] Last Admin: 03/13/18 20:51 Dose: 50 mg Physical Exam - Constitutional Appears: Non-toxic - Head Exam Head Exam: ATRAUMATIC - Eye Exam Eye Exam: EOMI - Respiratory Exam Respiratory Exam: Clear to Auscultation Bilateral, NORMAL BREATHING PATTERN - Cardiovascular Exam Cardiovascular Exam: REGULAR RHYTHM, RRR - GI/Abdominal Exam GI & Abdominal Exam: Normal Bowel Sounds - Rectal Exam Additional comments: Blood Results - Vital Signs Recent Vital Signs: Last Vital Signs Temp 98.9 F 03/17/18 11:12 Pulse 114 H 03/17/18 11:12 Resp 14 03/17/18 11:12 BP 103/70 03/17/18 11:12 Pulse Ox 100 03/17/18 10:00 - Labs Result Diagrams: 03/17/18 08:52 03/17/18 13:25 Labs: Laboratory Results - last 24 hr 03/16/18 03/16/18 03/16/18 16:10 20:48 21:17 WBC RBC Hgb Hct MCV MCH MCHC RDW Plt Count MPV Neut % (Auto) Lymph % (Auto) [place] % (Auto) Eos % (Auto) Baso % (Auto) Neut # (Auto) Lymph # (Auto) [place] # (Auto) Eos # (Auto) Baso # (Auto) PT INR APTT POC Glucose (mg/dL) 158 H 216 H 203 H Blood Type Antibody Screen 03/17/18 03/17/18 03/17/18 06:44 07:00 08:52 WBC 6.8 6.8 RBC 3.01 L 2.21 L Hgb 9.9 L 7.0 L D Hct 27.8 L 20.7 L MCV 92.3 93.5 MCH 32.8 H 31.5 H MCHC 35.5 33.7 RDW 15.6 H 15.6 H Plt Count 304 258 MPV 7.2 7.0 L Neut % (Auto) 74.9 77.2 H Lymph % (Auto) 11.2 L 11.9 L [place] % (Auto) 11.5 H 8.9 Eos % (Auto) 1.7 1.1 Baso % (Auto) 0.7 0.9 Neut # (Auto) 5.1 5.2 Lymph # (Auto) 0.8 L 0.8 L [place] # (Auto) 0.8 0.6 Eos # (Auto) 0.1 0.1 Baso # (Auto) 0.0 0.1 PT INR APTT POC Glucose (mg/dL) 140 H Blood Type Antibody Screen 03/17/18 03/17/18 03/17/18 08:52 08:52 11:53 WBC RBC Hgb Hct MCV MCH MCHC RDW Plt Count MPV Neut % (Auto) Lymph % (Auto) [place] % (Auto) Eos % (Auto) Baso % (Auto) Neut # (Auto) Lymph # (Auto) [place] # (Auto) Eos # (Auto) Baso # (Auto) PT 14.3 H INR 1.3 APTT 28 POC Glucose (mg/dL) 155 H Blood Type O POSITIVE Antibody Screen Negative Assessment & Plan - Assessment and Plan (Free Text) Assessment: 82 yo F with PMHx of HTN and arthritis transferred to ICU today for rectal bleeding. Pt is s/p heorrhoidectomy on 03/[address] Lopez, followed by proctosigmoidoscopy for continued rectal bleed and anorectal pain. Patient was admitted to ICU today after continued rectal bleed. Hgb dropped from 9.9 to 7.0 after bleed. Femoral TLC was placed and patient to be transfused 2U PRBC. Pt being treated for UTI. Patient admits to weakness, but is improving. Denies chest pain, SOB, palpitations, abdominal pain, dyuria, headache, dizziness. 1. Anemia-blood loss per rectum -transfused 1U, another to be transfused today -monitor hgb -NPO -Hold antocoags -plan for CT angio per Dr. Lopez 2. Hemorrhoids -6 days s/p hemerrhoidectomy -Tamadol 50mg TID for pain -Miralax, colace 3. UTI -Cefepime 1g IV 3. HTN -stable, monitor 4. Arthritis -monitor for pain 5. Ppx -heparin held at this time due to acute blood loss per rectum -protonix 40mg IVP <Edison Junior - Last Filed: 03/18/18 15:27> Meds - Medications Medications: Current Medications Dextrose (Dextrose 50% Inj) 0 ml IV STAT PRN; Protocol PRN Reason: Hypoglycemia Protocol Dextrose (Glutose 15) 0 gm PO ONCE PRN; Protocol PRN Reason: Hypoglycemia Protocol Docusate Sodium (Colace) 100 mg PO TID [facility] Last Admin: 03/18/18 13:23 Dose: 100 mg Glucagon (Glucagen Diagnostic Kit) 0 mg IM STAT PRN; Protocol PRN Reason: Hypoglycemia Protocol Hydrocortisone (Anusol-Hc) 0 gm ME BID [facility] Cefepime HCl (Maxipime Iv 1 Gm Premix) 1 gm in 50 mls @ 100 mls/hr IVPB Q24H [facility] PRN Reason: Protocol Last Admin: 03/17/18 18:01 Dose: 100 mls/hr Potassium Phosphate 15 mmole/ (Dextrose) 255 mls @ 42.5 mls/hr IVPB ONCE ONE Stop: 03/18/18 21:59 Insulin Human Regular (Novolin R) 0 unit SC ACHS [facility] PRN Reason: Protocol Last Admin: 03/18/18 11:30 Dose: Not Given Pantoprazole Sodium (Protonix Inj) 40 mg IVP DAILY [facility] Last Admin: 03/18/18 09:06 Dose: 40 mg Potassium Chloride (Potassium Chloride Oral Soln) 40 meq PO Q6H [facility] Stop: 03/18/18 21:16 Results - Vital Signs Recent Vital Signs: Last Vital Signs Temp 98.2 F 07/06/18 12:25 Pulse 82 03/18/18 13:42 Resp 15 03/18/18 13:42 BP 125/63 03/18/18 13:42 Pulse Ox 100 03/18/18 13:42 - Labs Result Diagrams: 03/18/18 06:26 03/18/18 06:25 Labs: Laboratory Results - last 24 hr 03/17/18 03/17/18 03/17/18 16:00 16:21 21:14 WBC 7.3 RBC 3.11 L Hgb 9.5 L D Hct 26.8 L MCV 86.2 D MCH 30.5 MCHC 35.4 RDW 15.5 H Plt Count 200 MPV 7.0 L Neut % (Auto) 74.0 Lymph % (Auto) 13.0 L [place] % (Auto) 11.5 H Eos % (Auto) 1.0 Baso % (Auto) 0.5 Neut # (Auto) 5.4 Lymph # (Auto) 0.9 L [place] # (Auto) 0.8 Eos # (Auto) 0.1 Baso # (Auto) 0.0 Sodium Potassium Chloride Carbon Dioxide Anion Gap BUN Creatinine Est GFR ( Amer) Est GFR (Non-Af Amer) POC Glucose (mg/dL) 137 H Random Glucose Calcium Phosphorus Magnesium Total Bilirubin AST ALT Alkaline Phosphatase Total Protein Albumin Globulin Albumin/Globulin Ratio Urine Color Yellow Urine Clarity Turbid Urine pH 5.0 Ur Specific [place] 1.005 Urine Protein Negative Urine Glucose (UA) 1+ Urine Ketones Negative Urine Blood 1+ H Urine Nitrate Negative Urine Bilirubin Negative Urine Urobilinogen Normal Ur Leukocyte Esterase 3+ H Urine WBC (Auto) 1667 H Urine RBC (Auto) 582 H Urine Yeast (Budding) Many H 03/17/18 03/18/18 03/18/18 21:34 06:25 06:26 WBC 6.4 RBC 3.08 L Hgb 9.4 L Hct 26.7 L MCV 86.9 MCH 30.6 MCHC 35.2 RDW 15.9 H Plt Count 189 MPV 7.3 Neut % (Auto) Lymph % (Auto) [place] % (Auto) Eos % (Auto) Baso % (Auto) Neut # (Auto) Lymph # (Auto) [place] # (Auto) Eos # (Auto) Baso # (Auto) Sodium 138 Potassium 3.4 L Chloride 107 Carbon Dioxide 25 Anion Gap 10 BUN 10 Creatinine 0.6 L Est GFR ( Amer) > 60 Est GFR (Non-Af Amer) > 60 POC Glucose (mg/dL) 100 Random Glucose 94 Calcium 7.7 L Phosphorus 2.2 L Magnesium 1.9 Total Bilirubin 0.6 AST 26 ALT 35 Alkaline Phosphatase 36 L Total Protein 4.1 L Albumin 2.2 L Globulin 1.9 L Albumin/Globulin Ratio 1.2 Urine Color Urine Clarity Urine pH Ur Specific [place] Urine Protein Urine Glucose (UA) Urine Ketones Urine Blood Urine Nitrate Urine Bilirubin Urine Urobilinogen Ur Leukocyte Esterase Urine WBC (Auto) Urine RBC (Auto) Urine Yeast (Budding) 03/18/18 03/18/18 08:15 11:04 WBC RBC Hgb Hct MCV MCH MCHC RDW Plt Count MPV Neut % (Auto) Lymph % (Auto) [place] % (Auto) Eos % (Auto) Baso % (Auto) Neut # (Auto) Lymph # (Auto) [place] # (Auto) Eos # (Auto) Baso # (Auto) Sodium Potassium Chloride Carbon Dioxide Anion Gap BUN Creatinine Est GFR ( Amer) Est GFR (Non-Af Amer) POC Glucose (mg/dL) 100 85 Random Glucose Calcium Phosphorus Magnesium Total Bilirubin AST ALT Alkaline Phosphatase Total Protein Albumin Globulin Albumin/Globulin Ratio Urine Color Urine Clarity Urine pH Ur Specific [place] Urine Protein Urine Glucose (UA) Urine Ketones Urine Blood Urine Nitrate Urine Bilirubin Urine Urobilinogen Ur Leukocyte Esterase Urine WBC (Auto) Urine RBC (Auto) Urine Yeast (Budding) Assessment & Plan - Assessment and Plan (Free Text) Plan: Above patient seen and examined at bedside. Patient had acute blood loss anemia requiring urgent central line on femoral vein. Patient was trasnfused 2 units of blood. Patient's hemodynamic stabilized. Colorectal and Gi were consulted. Patient. Daughter reqeusted 2nd opinion from Dr. Macedo (surgery) and Gi consult (Dr. Landaverde). -Patient's clinical status stabilized. -awaiting endoscopy in AM. -d/w daughter, who requested patient to be DNR/DNI. -Patient verbalized understanding. -monitor serial cbc - Date & Time Date: 03/17/18 Time: 19:00
[2018-03-17 13:43] LABS: ALB/GLOB RATIO 1.1 (1.0-2.1); ALBUMIN 2.2 g/dL (3.5-5.0); ALT/SGPT 37 U/L (9-52); AST/SGOT 20 U/L (14-36); BLOOD UREA NITROGEN 8 mg/dL (7-17); CALCIUM 6.9 mg/dl (8.6-10.4); GFR AFRICAN-AMERICAN > 60; GFR NON-AFRICAN AMERICAN > 60
--- NOTE | 2018-03-17 14:13 | CP.PCM.PN ---
Subjective - Date & Time of Evaluation Date of Evaluation: 03/17/18 Time of Evaluation: 14:10 - Subjective Subjective: this morning patient became tachycardic and hypotensive. There was another bout of rectal bleeding with clots. Stat H&H showed hemoglobin of 7 drop of 2 g. Patient is ICU for resuscitation and blood transfusion. Discussed with Dr. Lopez. Patient is to undergo endorectal area inspection in the OR. If there is no site of bleeding patient probably will need a CT angiography for the site of bleeding. At the present time I do not think patient needs a colectomy Objective - Vital Signs/Intake and Output Vital Signs (last 24 hours): Temp Pulse Resp BP Pulse Ox 98.4 F 97 H 16 92/53 L 100 03/17/18 13:29 03/17/18 13:29 03/17/18 13:29 03/17/18 13:29 03/17/18 10:00 Intake and Output: 03/17/18 03/17/18 11:59 23:59 Intake Total 1380 325 Output Total 0 Balance 1380 325 - Medications Medications: Current Medications Dextrose (Dextrose 50% Inj) 0 ml IV STAT PRN; Protocol PRN Reason: Hypoglycemia Protocol Dextrose (Glutose 15) 0 gm PO ONCE PRN; Protocol PRN Reason: Hypoglycemia Protocol Docusate Sodium (Colace) 100 mg PO TID [facility] Last Admin: 03/17/18 14:02 Dose: Not Given Glucagon (Glucagen Diagnostic Kit) 0 mg IM STAT PRN; Protocol PRN Reason: Hypoglycemia Protocol Hydrocortisone (Anusol-Hc) 1 gm GA BID [facility] Last Admin: 03/17/18 11:25 Dose: 1 applic Cefepime HCl (Maxipime Iv 1 Gm Premix) 1 gm in 50 mls @ 100 mls/hr IVPB Q24H [facility] PRN Reason: Protocol Last Admin: 03/16/18 17:22 Dose: 100 mls/hr Insulin Human Regular (Novolin R) 0 unit SC ACHS [facility] PRN Reason: Protocol Last Admin: 03/17/18 12:07 Dose: Not Given Mesalamine (Canasa) 1,000 mg GA DAILY [facility] Pantoprazole Sodium (Protonix Inj) 40 mg IVP DAILY [facility] Last Admin: 03/17/18 14:01 Dose: 40 mg Polyethylene Glycol (Miralax) 17 gm PO DAILY [facility] Last Admin: 03/17/18 11:03 Dose: Not Given Tramadol HCl (Ultram) 50 mg PO TID PRN Last Admin: 03/13/18 20:51 Dose: 50 mg - Labs Labs: 03/17/18 08:52 03/17/18 13:25 PT 14.3 SECONDS (9.7-12.2) H 03/17/18 08:52 INR 1.3 03/17/18 08:52 APTT 28 SECONDS (21-34) 03/17/18 08:52
[2018-03-17 16:25] LABS: URINE BILIRUBIN NEGATIVE (NEGATIVE); URINE BLOOD 1+ (NEGATIVE); URINE CLARITY Turbid (Clear); URINE COLOR Yellow (YELLOW); URINE GLUCOSE (UA) 1+ mg/dL (Normal); URINE LEUKOCYTE ESTERASE 3+ Leu/uL (Negative); URINE PROTEIN NEGATIVE (NEGATIVE); URINE UROBILINOGEN NORMAL mg/dL (0.2-1.0)
[2018-03-17] MEDS: Cefepime IV 1 gm in Dextrose 1 GM/50 ML BAG IVPB SCH (18:01)
[2018-03-17] MEDS ORDERED: Iodixanol 320 MG/ML 100 ML BOTTLE IV ONE (18:38)
--- NOTE | 2018-03-17 20:31 | CP.PCM.PN ---
Subjective - Date & Time of Evaluation Date of Evaluation: 03/17/18 Time of Evaluation: 20:08 - Subjective Subjective: F/u for Gi bleed. Bleeding decreased- and now no further bleeding. I have had many conversations today with doctors, daughter, and patient. I spoke to dr lopez early this afternoon- He discussed that when he did scope on wednesday03/14/18, he saw blood coming from proximal to 20 cm. He thought bleeding was from more proximal location than the rectum. He explained that he had originall seen a solitary rectal ulcer. He did the hemorrhoidectomy distal to the ulcer. I explained that I did not see any bleeding at colonosocpy and no precise bleeding site. And I saw the ulcerations and inflamation in distal rectum, and I thought the bleeding had likely come from one of the ulcer sites. He recommended CT angio and consider colectomy for the recurrent severe bleeding. I told him I do not recommend colectomy as I am not sure that will take care of the bleeding. I agree with CTA or bleeding scan, and do EGD to rule out Upper GI source for bleeding. NG tube shows no blood. I would also consider repeat flex sig to try to see if bleeding source is from rectum. I called the daughter and had a long discussion with her- about the details and my findings and impression and thoughts. I discussed the rectal ulcers and Dr Lopez findings and that he thought bleeding was coming from more proximal. She does not want colon resection at this time. She asked for second opinion for Surgery and Gi. I told her to discuss this with Dr Ramos. I called Dr Ramos and i discussed the same with him. I reviewed the colonsocopy findings, Dr Lopez findings and recommendations. I discussed that I would not proceed with colectomy at this point. And I would agree with CTAngio. IF CTAngio is not helpful, then I would proceed with EGD and consider repeat FLex sig. He recommended that I call a reectal Surgeon at [facility]. I called DR Jalloh and had a long conversation with her. She agrees with the current plan: CTAngio, consider EGD and repeat flex sig, and not to do colectomy. Also said to consider SITZ baths and suppositories. I have also discussed this with Dr Oneill, and this evening with Dr Landaverde. I came now to ,. I discussed all this again with the daughter and the patient at the bedside. They agree to this plan. The daughter and patient request DNR status. I discussed this also with the ICU Net Application Support Specialist, DR Bill Armenta. We will proceed with plan of: CTAngio, check Hb. Then will consider further work -up- such as EGD and flex-sig- depending on results of CTAngio. Fortunately, bleeding has stopped today PM. Objective - Vital Signs/Intake and Output Vital Signs (last 24 hours): Temp Pulse Resp BP Pulse Ox 98.5 F 75 19 103/52 L 100 03/17/18 18:22 03/17/18 19:00 03/17/18 19:00 03/17/18 18:59 03/17/18 19:00 Intake and Output: 03/17/18 03/18/18 18:59 06:59 Intake Total 3575 Output Total 1300 Balance 2275 - Medications Medications: Current Medications Dextrose (Dextrose 50% Inj) 0 ml IV STAT PRN; Protocol PRN Reason: Hypoglycemia Protocol Dextrose (Glutose 15) 0 gm PO ONCE PRN; Protocol PRN Reason: Hypoglycemia Protocol Docusate Sodium (Colace) 100 mg PO TID [facility] Last Admin: 03/17/18 17:10 Dose: Not Given Glucagon (Glucagen Diagnostic Kit) 0 mg IM STAT PRN; Protocol PRN Reason: Hypoglycemia Protocol Hydrocortisone (Anusol-Hc) 1 gm [place] BID [facility] Last Admin: 03/17/18 18:01 Dose: 1 applic Cefepime HCl (Maxipime Iv 1 Gm Premix) 1 gm in 50 mls @ 100 mls/hr IVPB Q24H [facility] PRN Reason: Protocol Last Admin: 03/17/18 18:01 Dose: 100 mls/hr Insulin Human Regular (Novolin R) 0 unit SC ACHS [facility] PRN Reason: Protocol Last Admin: 03/17/18 17:06 Dose: Not Given Mesalamine (Canasa) 1,000 mg [place] DAILY [facility] Pantoprazole Sodium (Protonix Inj) 40 mg IVP DAILY [facility] Last Admin: 03/17/18 14:01 Dose: 40 mg Polyethylene Glycol (Miralax) 17 gm PO DAILY [facility] Last Admin: 03/17/18 11:03 Dose: Not Given - Labs Labs: 03/17/18 08:52 07/05/18 13:25 PT 14.3 SECONDS (9.7-12.2) H 03/17/18 08:52 INR 1.3 03/17/18 08:52 APTT 28 SECONDS (21-34) 03/17/18 08:52 Assessment and Plan (1) Hemorrhoids Status: Acute (2) Constipation Status: Acute (3) Acute lower GI hemorrhage Status: Acute (4) HTN (hypertension) Status: Acute (5) UTI (urinary tract infection) Status: Acute (6) Arthritis Status: Acute
--- NOTE | 2018-03-17 20:36 | CP.PCM.PN ---
Subjective - Date & Time of Evaluation Date of Evaluation: 03/17/18 Time of Evaluation: 20:36 - Subjective Subjective: CHIEF COMPLAINTS TODAY : EVENT NOTED. PT SEEN IN ICU' H/H DROPPED TO 7.0 THIS AM EMERGENCY RT FEMORAL CATHETER PLACEMENT NOTED BY DR FINLEY PATIENT GETTING BLOOD TRANSFUSION POD # S/P HEMORRHOIDECTOMY 03/11/18 # DAY 6 ROS. HEENT : N. Resp : No cough, wheezing ,pleuritic CP ,or hemoptysis Cardio : No anginal CP, PND, orthopnea, palpitation GI : No abd.pain, n/v ,diarrhea , +VE RECTAL BLEEDING PRESENTLY. [employer] : No headache, vertigo, focal deficit. Musculoskel : No joint swelling , Derm : No rash Psych : Normal affect. Ext : No swelling ,calf pain PE. Pt. is awake V.S As noted in the chart Head ,ear nose,throat and eyes : Normal. Neck : Supple with normal carotids. Lungs: Clear air entry. Heart : S1 & S2 normal with SINUS TACHYCARDIA Abd : Soft non tender with normal bowel sounds. Neuro : Moves all ext. with no localized deficit. Ext : No edema with intact pulses.Non tender calves Derm : No rashes or decubitus ulcer. LABS/RADIOLOGY: REVIEWED. REPEAT URINE CULTURE -VE GROWTH 03/16/18 H/H HGB 7.0 URINE CULTURE +VE kLEBSIELLA PNEUMONIA -VE ESBL S- CEFEPIME. Objective - Vital Signs/Intake and Output Vital Signs (last 24 hours): Temp Pulse Resp BP Pulse Ox 98.5 F 75 19 103/52 L 100 03/17/18 18:22 03/17/18 19:00 03/17/18 19:00 03/17/18 18:59 03/17/18 19:00 Intake and Output: 03/17/18 03/18/18 18:59 06:59 Intake Total 3575 Output Total 1300 Balance 2275 - Medications Medications: Current Medications Dextrose (Dextrose 50% Inj) 0 ml IV STAT PRN; Protocol PRN Reason: Hypoglycemia Protocol Dextrose (Glutose 15) 0 gm PO ONCE PRN; Protocol PRN Reason: Hypoglycemia Protocol Docusate Sodium (Colace) 100 mg PO TID [facility] Last Admin: 03/17/18 17:10 Dose: Not Given Glucagon (Glucagen Diagnostic Kit) 0 mg IM STAT PRN; Protocol PRN Reason: Hypoglycemia Protocol Hydrocortisone (Anusol-Hc) 1 gm NC BID [facility] Last Admin: 03/17/18 18:01 Dose: 1 applic Cefepime HCl (Maxipime Iv 1 Gm Premix) 1 gm in 50 mls @ 100 mls/hr IVPB Q24H [facility] PRN Reason: Protocol Last Admin: 03/17/18 18:01 Dose: 100 mls/hr Insulin Human Regular (Novolin R) 0 unit SC ACHS [facility] PRN Reason: Protocol Last Admin: 03/17/18 17:06 Dose: Not Given Mesalamine (Canasa) 1,000 mg NC DAILY [facility] Pantoprazole Sodium (Protonix Inj) 40 mg IVP DAILY [facility] Last Admin: 03/17/18 14:01 Dose: 40 mg Polyethylene Glycol (Miralax) 17 gm PO DAILY [facility] Last Admin: 03/17/18 11:03 Dose: Not Given - Labs Labs: 03/17/18 08:52 03/17/18 13:25 PT 14.3 SECONDS (9.7-12.2) H 03/17/18 08:52 INR 1.3 03/17/18 08:52 APTT 28 SECONDS (21-34) 03/17/18 08:52 Assessment and Plan (1) UTI (urinary tract infection) Assessment & Plan: REPEAT URINE CULTURES NEGATIVE . CONTINUE iv CEFEPIME 1 G EVERY 24 HOURLY FOR NOW Status: Acute (2) Acute lower GI hemorrhage Assessment & Plan: PATIENT HAD A SECOND BOUT OF RECTAL BLEEDING. GI/SURGERY ON THE CASE. RECOMMENDATIONS NOTED. CASE DISCUSSED WITH THE STAFF/PMD. Status: Acute (3) Arthritis Status: Acute (4) HTN (hypertension) Status: Acute (5) Status post hemorrhoidectomy Assessment & Plan: PER GI/SURGERY. Status: Acute
[2018-03-17 21:26] LABS: BASO % 0.5 % (0.0-2.0); EOS # 0.1 K/uL (0.0-0.7); LYMPH # 0.9 K/uL (1.0-4.3); MEAN CORPUSCULAR HEMOGLOBIN 30.5 pg (27.0-31.0); MEAN CORPUSCULAR HGB CONC 35.4 g/dL (33.0-37.0); MONO # 0.8 K/uL (0.0-0.8); MONO % 11.5 % (0.0-10.0); NEUT # 5.4 K/uL (1.8-7.0); RBC 3.11 Mil/uL (3.80-5.20); RED CELL DISTRIBUTION WIDTH 15.5 % (11.5-14.5); WHITE BLOOD COUNT 7.3 K/uL (4.8-10.8)
[2018-03-17 21:33] LABS: HEMOGLOBIN 9.5 g/dL (11.0-16.0); MEAN CELL VOLUME 86.2 fL (81.0-99.0)
--- NOTE | 2018-03-17 23:09 | CON ---
DATE: 03/17/2018 HISTORY OF PRESENT ILLNESS: The patient is an 82-year-old female with a history of diabetes. She was admitted for abdominal issues and was recently transferred to the ICU for abdominal bleeding. The patient reports that starting this morning, she had sharp pain in her right eye. She does not feel that the vision changed. PHYSICAL EXAMINATION: EYES: She has some dryness of her right eye. Her anterior chamber appears normal. Her conjunctiva appears normal. Posterior exam, her nerve and retina appear healthy. Her left eye appears totally within normal limits. 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 ASSESSMENT AND PLAN: No acute serious pathology. She does appear to have some dry eye irritation in the right eye. Would recommend Artificial Tears three times a day as needed if the patient feels discomfort. Otherwise, she should have a routine eye checkup once she is discharged. She can always make an appointment again at [phone]. If you have any questions, you can also call the same number. David Nagel MD
[2018-03-18] MEDS: Sodium Chloride 0.9% 1,000 ML IV SCH ×3 (02:46→23:45)
[2018-03-18 06:32] LABS: HEMOGLOBIN 9.4 g/dL (11.0-16.0); MEAN CELL VOLUME 86.9 fL (81.0-99.0); MEAN CORPUSCULAR HEMOGLOBIN 30.6 pg (27.0-31.0); MEAN CORPUSCULAR HGB CONC 35.2 g/dL (33.0-37.0); MEAN PLATELET VOLUME 7.3 fL (7.2-11.7); RBC 3.08 Mil/uL (3.80-5.20); RED CELL DISTRIBUTION WIDTH 15.9 % (11.5-14.5); WHITE BLOOD COUNT 6.4 K/uL (4.8-10.8)
[2018-03-18 06:52] LABS: ALB/GLOB RATIO 1.2 (1.0-2.1); ALBUMIN 2.2 g/dL (3.5-5.0); ALT/SGPT 35 U/L (9-52); AST/SGOT 26 U/L (14-36); BLOOD UREA NITROGEN 10 mg/dL (7-17); CALCIUM 7.7 mg/dl (8.6-10.4); GFR AFRICAN-AMERICAN > 60; GFR NON-AFRICAN AMERICAN > 60
[2018-03-18] MEDS: (Novolin R) Insulin Human Regular 100 units/ml vial SC SCH ×4 (07:30→22:00)
--- NOTE | 2018-03-18 08:35 | CP.PCM.PN ---
Subjective - Date & Time of Evaluation Date of Evaluation: 03/18/18 Time of Evaluation: 08:29 - Subjective Subjective: Patient complans of pain on urination. She denies having abdominal pain. She states that she wants only Dr. Alfred to be taking care of her digestive ailments. Objective - Vital Signs/Intake and Output Vital Signs (last 24 hours): Temp Pulse Resp BP Pulse Ox 98.5 F 65 16 124/56 L 100 03/18/18 04:00 03/18/18 07:00 03/18/18 07:00 03/18/18 06:38 03/18/18 07:00 Intake and Output: 03/18/18 03/18/18 06:59 18:59 Intake Total 1225 100 Output Total 1000 Balance 225 100 - Medications Medications: Current Medications Dextrose (Dextrose 50% Inj) 0 ml IV STAT PRN; Protocol PRN Reason: Hypoglycemia Protocol Dextrose (Glutose 15) 0 gm PO ONCE PRN; Protocol PRN Reason: Hypoglycemia Protocol Docusate Sodium (Colace) 100 mg PO TID [facility] Last Admin: 03/17/18 17:10 Dose: Not Given Glucagon (Glucagen Diagnostic Kit) 0 mg IM STAT PRN; Protocol PRN Reason: Hypoglycemia Protocol Hydrocortisone (Anusol-Hc) 1 gm NV BID [facility] Last Admin: 03/17/18 18:01 Dose: 1 applic Cefepime HCl (Maxipime Iv 1 Gm Premix) 1 gm in 50 mls @ 100 mls/hr IVPB Q24H [facility] PRN Reason: Protocol Last Admin: 03/17/18 18:01 Dose: 100 mls/hr Potassium Chloride (Potassium Chloride 20 Meq/100 Ml) 20 meq in 100 mls @ 50 mls/hr IVPB ONCE ONE Stop: 03/18/18 10:09 Insulin Human Regular (Novolin R) 0 unit SC ACHS [facility] PRN Reason: Protocol Last Admin: 03/17/18 21:44 Dose: Not Given Mesalamine (Canasa) 1,000 mg NV DAILY [facility] Pantoprazole Sodium (Protonix Inj) 40 mg IVP DAILY [facility] Last Admin: 03/17/18 14:01 Dose: 40 mg Polyethylene Glycol (Miralax) 17 gm PO DAILY [facility] Last Admin: 03/17/18 11:03 Dose: Not Given - Labs Labs: 03/18/18 06:26 03/18/18 06:25 PT 14.3 SECONDS (9.7-12.2) H 03/17/18 08:52 INR 1.3 03/17/18 08:52 APTT 28 SECONDS (21-34) 03/17/18 08:52 - Constitutional Appears: No Acute Distress - Head Exam Head Exam: ATRAUMATIC, NORMOCEPHALIC - Eye Exam Eye Exam: EOMI, PERRL - Neck Exam Neck Exam: absent: Lymphadenopathy, Thyromegaly - Respiratory Exam Respiratory Exam: NORMAL BREATHING PATTERN. absent: Rales, Rhonchi, Wheezes - Cardiovascular Exam Cardiovascular Exam: REGULAR RHYTHM, +S1, +S2. absent: Gallop, Rubs, Murmur - GI/Abdominal Exam GI & Abdominal Exam: Soft, Normal Bowel Sounds. absent: Tenderness, Mass, Organomegaly - Rectal Exam Rectal Exam: Deferred - Extremities Exam Extremities Exam: absent: Calf Tenderness, Pedal Edema Assessment and Plan (1) Acute lower GI hemorrhage Assessment & Plan: The etiology of the rectal bleeding is certainly related to rectal ulcerations post hemorrhoidectomy. I agree with plans for EGD. If there is further bleeding, repeat colonoscopy should be considered to identify a bleeding site and treat endoscopically if possible. There is no indication for colectomy at this point. 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 I will therefore sign off. Status: Acute
[2018-03-18] MEDS: Hydrocortisone 2.5% Rectal Cream(30 gm) PR SCH ×2 (09:07→17:00)
[2018-03-18] MEDS: POLYETHYLENE GLYCOL 3350 17 GM/Dose PACKET PO SCH (09:15)
[2018-03-18] MEDS ORDERED: Etomidate 20 mg/10ml Inj IV ONE (11:39)
[2018-03-18] MEDS ORDERED: Propofol 10 mg/ml Inj (20 ML) ONE (11:39)
[2018-03-18] MEDS ORDERED: ePHEDrine 50 mg/ml Inj ONE (11:58)
--- NOTE | 2018-03-18 14:17 | CP.PCM.PN ---
Subjective - Date & Time of Evaluation Date of Evaluation: 03/18/18 Time of Evaluation: 14:16 - Subjective Subjective: Patient has no further rectal bleeding. Hemoglobin is stable at 9 g/dL. Patient had a repeat colonoscopy and endoscopy. There is no evidence of any bleeding from the upper GI. The colonoscopy showed an ulcerated hemorrhoid with some clotted blood and some fresh blood. There is no any evidence of any colonic abnormality for the cause of the bleeding. Extensively discussed with the GI. If patient bleeds probably patient will need to be evaluated by colorectal surgeon most probably in [facility]. Discussed with the family. Objective - Vital Signs/Intake and Output Vital Signs (last 24 hours): Temp Pulse Resp BP Pulse Ox 98.2 F 82 15 125/63 100 03/18/18 12:25 03/18/18 13:42 03/18/18 13:42 03/18/18 13:42 03/18/18 13:42 Intake and Output: 03/18/18 03/18/18 11:59 23:59 Intake Total 1200 Output Total 2024 Balance -825 - Medications Medications: Current Medications Dextrose (Dextrose 50% Inj) 0 ml IV STAT PRN; Protocol PRN Reason: Hypoglycemia Protocol Dextrose (Glutose 15) 0 gm PO ONCE PRN; Protocol PRN Reason: Hypoglycemia Protocol Docusate Sodium (Colace) 100 mg PO TID [facility] Last Admin: 03/18/18 13:23 Dose: 100 mg Glucagon (Glucagen Diagnostic Kit) 0 mg IM STAT PRN; Protocol PRN Reason: Hypoglycemia Protocol Hydrocortisone (Anusol-Hc) 0 gm CA BID [facility] Cefepime HCl (Maxipime Iv 1 Gm Premix) 1 gm in 50 mls @ 100 mls/hr IVPB Q24H [facility] PRN Reason: Protocol Last Admin: 03/17/18 18:01 Dose: 100 mls/hr Insulin Human Regular (Novolin R) 0 unit SC ACHS [facility] PRN Reason: Protocol Last Admin: 03/18/18 11:30 Dose: Not Given Pantoprazole Sodium (Protonix Inj) 40 mg IVP DAILY [facility] Last Admin: 03/18/18 09:06 Dose: 40 mg - Labs Labs: 03/18/18 06:26 03/18/18 06:25 PT 14.3 SECONDS (9.7-12.2) H 03/17/18 08:52 INR 1.3 03/17/18 08:52 APTT 28 SECONDS (21-34) 03/17/18 08:52
--- NOTE | 2018-03-18 14:37 | CP.CCUPN ---
<Doreen Paulson - Last Filed: 03/18/18 16:10> CCU Subjective - Physician Review Subjective (Free Text): 03/18/18 14:36 82 yo F with PMHx of HTN and arthritis transferred to ICU today for rectal bleeding. Pt is s/p heorrhoidectomy on 03/[address] Lopez, followed by proctosigmoidoscopy for continued rectal bleed and anorectal pain. Patient was admitted to ICU after continued rectal bleed, with resulting drop in hgb. Femoral TLC was placed and patient was transfused. Patient admits to weakness, but is improving. Denies chest pain, SOB, palpitations, abdominal pain, dyuria , headache, dizziness. No rectal bleed reported overnight, hemodynamically stable. Pt complains of arthritic pain. 03/18/18 15:04 03/18/18 16:10 CCU Objective - Vital Signs / Intake & Output Vital Signs (Last 4 hours): Vital Signs Temp Pulse Resp BP Pulse Ox 03/18/18 13:42 82 15 125/63 100 03/18/18 13:27 80 16 124/63 100 03/18/18 13:12 78 16 124/62 100 03/18/18 13:00 76 16 100 03/18/18 12:57 78 16 130/62 100 03/18/18 12:42 82 15 133/65 100 03/18/18 12:27 85 126/67 100 03/18/18 12:26 85 100 03/18/18 12:25 98.2 F 100 03/18/18 11:05 71 14 123/58 L 100 03/18/18 11:00 70 15 100 Intake and Output (Last 8hrs): Intake & Output 03/17/18 03/18/18 03/18/18 22:59 06:59 14:59 Intake Total 1755 800 500 Output Total 1564 019 6160 Balance 305 -50 -725 Weight 129 lb 9.6 oz Intake: Intake, IV Amount 1430 800 500 Right Medial Port Femoral 800 800 500 Right Proximal Port 630 Femoral Oral 0 0 0 Blood Product 325 Red Blood Cells Cpd As1 325 Lr Unit [id number] Output: Urine 9977 874 4127 Urethral (Lopes) 0502 519 8746 Emesis 0 Other: # Bowel Movements 0 0 0 - Physical Exam Head: Positive for: Atraumatic, Normocephalic Extroacular Muscles: Positive for: EOMI Mouth: Positive for: Moist Mucous Membranes Respiratory/Chest: Positive for: Clear to Auscultation. Negative for: Wheezes, Decreased Breath Sounds Cardiovascular: Positive for: Regular Rate and Rhythm Abdomen: Positive for: Normal Bowel Sounds. Negative for: Tenderness Upper Extremity: Positive for: Normal Inspection. Negative for: Cyanosis Lower Extremity: Positive for: Normal Inspection. Negative for: Edema Neurological: Positive for: GCS=15 Psychiatric: Positive for: Alert, Oriented x 3 - Medications Active Medications: Active Medications Generic Name Dose Route Start Last Admin Trade Name Freq PRN Reason Stop Dose Admin Dextrose 0 ml 03/09/18 17:50 Dextrose 50% Inj IV STAT PRN Hypoglycemia Protocol Protocol Dextrose 0 gm 03/09/18 17:50 Glutose 15 PO ONCE PRN Hypoglycemia Protocol Protocol Docusate Sodium 100 mg 03/10/18 10:00 03/18/18 13:23 Colace PO 100 mg TID MERRILL Administration Glucagon 0 mg 03/09/18 17:50 Glucagen Diagnostic Kit IM STAT PRN Hypoglycemia Protocol Protocol Hydrocortisone 0 gm 03/18/18 12:35 Anusol-Hc AR BID MERRILL Cefepime HCl 1 gm in 50 mls @ 100 mls/hr 03/09/18 18:00 03/17/18 18:01 Maxipime Iv 1 Gm Premix IVPB 100 mls/hr Q24H MERRILL Administration Protocol Insulin Human Regular 0 unit 03/12/18 16:30 03/18/18 11:30 Novolin R SC Not Given ACHS MERRILL Protocol Pantoprazole Sodium 40 mg 03/17/18 13:15 03/18/18 09:06 Protonix Inj IVP 40 mg DAILY MERRILL Administration - Patient Studies Lab Studies: Lab Studies 03/18/18 03/18/18 03/18/18 Range/Units 11:04 08:15 06:26 WBC 6.4 (4.8-10.8) K/uL RBC 3.08 L (3.80-5.20) Mil/uL Hgb 9.4 L (11.0-16.0) g/dL Hct 26.7 L (34.0-47.0) % MCV 86.9 (81.0-99.0) fL MCH 30.6 (27.0-31.0) pg MCHC 35.2 (33.0-37.0) g/dL RDW 15.9 H (11.5-14.5) % Plt Count 189 (130-400) K/uL MPV 7.3 (7.2-11.7) fL Neut % (Auto) (50.0-75.0) % Lymph % (Auto) (20.0-40.0) % [place] % (Auto) (0.0-10.0) % Eos % (Auto) (0.0-4.0) % Baso % (Auto) (0.0-2.0) % Neut # (Auto) (1.8-7.0) K/uL Lymph # (Auto) (1.0-4.3) K/uL [place] # (Auto) (0.0-0.8) K/uL Eos # (Auto) (0.0-0.7) K/uL Baso # (Auto) (0.0-0.2) K/uL Sodium (132-148) mmol/L Potassium (3.6-5.2) mmol/L Chloride (98-107) mmol/L Carbon Dioxide (22-30) mmol/L Anion Gap (10-20) BUN (7-17) mg/dL Creatinine (0.7-1.2) mg/dL Est GFR ( Amer) Est GFR (Non-Af Amer) POC Glucose (mg/dL) 85 100 (65-110) mg/dL Random Glucose (65-105) mg/dL Calcium (8.6-10.4) mg/dl Phosphorus (2.5-4.5) mg/dL Magnesium (1.6-2.3) mg/dL Total Bilirubin (0.2-1.3) mg/dL AST (14-36) U/L ALT (9-52) U/L Alkaline Phosphatase (38-126) U/L Total Protein (6.3-8.3) g/dL Albumin (3.5-5.0) g/dL Globulin (2.2-3.9) gm/dL Albumin/Globulin Ratio (1.0-2.1) Urine Color (YELLOW) Urine Clarity (Clear) Urine pH (5.0-8.0) Ur Specific Horner (1.003-1.030) Urine Protein (NEGATIVE) mg/dL Urine Glucose (UA) (Normal) mg/dL Urine Ketones (NEGATIVE) mg/dL Urine Blood (NEGATIVE) Urine Nitrate (NEGATIVE) Urine Bilirubin (NEGATIVE) Urine Urobilinogen (0.2-1.0) mg/dL Ur Leukocyte Esterase (Negative) Wilner/uL Urine WBC (Auto) (0-5) /hpf Urine RBC (Auto) (0-3) /hpf Urine Yeast (Budding) (NEGATIVE) /hpf 03/18/18 03/17/18 03/17/18 Range/Units 06:25 21:34 21:14 WBC 7.3 (4.8-10.8) K/uL RBC 3.11 L (3.80-5.20) Mil/uL Hgb 9.5 L D (11.0-16.0) g/dL Hct 26.8 L (34.0-47.0) % MCV 86.2 D (81.0-99.0) fL MCH 30.5 (27.0-31.0) pg MCHC 35.4 (33.0-37.0) g/dL RDW 15.5 H (11.5-14.5) % Plt Count 200 (130-400) K/uL MPV 7.0 L (7.2-11.7) fL Neut % (Auto) 74.0 (50.0-75.0) % Lymph % (Auto) 13.0 L (20.0-40.0) % [place] % (Auto) 11.5 H (0.0-10.0) % Eos % (Auto) 1.0 (0.0-4.0) % Baso % (Auto) 0.5 (0.0-2.0) % Neut # (Auto) 5.4 (1.8-7.0) K/uL Lymph # (Auto) 0.9 L (1.0-4.3) K/uL [place] # (Auto) 0.8 (0.0-0.8) K/uL Eos # (Auto) 0.1 (0.0-0.7) K/uL Baso # (Auto) 0.0 (0.0-0.2) K/uL Sodium 138 (132-148) mmol/L Potassium 3.4 L (3.6-5.2) mmol/L Chloride 107 (98-107) mmol/L Carbon Dioxide 25 (22-30) mmol/L Anion Gap 10 (10-20) BUN 10 (7-17) mg/dL Creatinine 0.6 L (0.7-1.2) mg/dL Est GFR ( Amer) > 60 Est GFR (Non-Af Amer) > 60 POC Glucose (mg/dL) 100 (65-110) mg/dL Random Glucose 94 (65-105) mg/dL Calcium 7.7 L (8.6-10.4) mg/dl Phosphorus 2.2 L (2.5-4.5) mg/dL Magnesium 1.9 (1.6-2.3) mg/dL Total Bilirubin 0.6 (0.2-1.3) mg/dL AST 26 (14-36) U/L ALT 35 (9-52) U/L Alkaline Phosphatase 36 L (38-126) U/L Total Protein 4.1 L (6.3-8.3) g/dL Albumin 2.2 L (3.5-5.0) g/dL Globulin 1.9 L (2.2-3.9) gm/dL Albumin/Globulin Ratio 1.2 (1.0-2.1) Urine Color (YELLOW) Urine Clarity (Clear) Urine pH (5.0-8.0) Ur Specific [place]ner (1.003-1.030) Urine Protein (NEGATIVE) mg/dL Urine Glucose (UA) (Normal) mg/dL Urine Ketones (NEGATIVE) mg/dL Urine Blood (NEGATIVE) Urine Nitrate (NEGATIVE) Urine Bilirubin (NEGATIVE) Urine Urobilinogen (0.2-1.0) mg/dL Ur Leukocyte Esterase (Negative) Wilner/uL Urine WBC (Auto) (0-5) /hpf Urine RBC (Auto) (0-3) /hpf Urine Yeast (Budding) (NEGATIVE) /hpf 03/17/18 03/17/18 Range/Units 16:21 16:00 WBC (4.8-10.8) K/uL RBC (3.80-5.20) Mil/uL Hgb (11.0-16.0) g/dL Hct (34.0-47.0) % MCV (81.0-99.0) fL MCH (27.0-31.0) pg MCHC (33.0-37.0) g/dL RDW (11.5-14.5) % Plt Count (130-400) K/uL MPV (7.2-11.7) fL Neut % (Auto) (50.0-75.0) % Lymph % (Auto) (20.0-40.0) % [place] % (Auto) (0.0-10.0) % Eos % (Auto) (0.0-4.0) % Baso % (Auto) (0.0-2.0) % Neut # (Auto) (1.8-7.0) K/uL Lymph # (Auto) (1.0-4.3) K/uL [place] # (Auto) (0.0-0.8) K/uL Eos # (Auto) (0.0-0.7) K/uL Baso # (Auto) (0.0-0.2) K/uL Sodium (132-148) mmol/L Potassium (3.6-5.2) mmol/L Chloride (98-107) mmol/L Carbon Dioxide (22-30) mmol/L Anion Gap (10-20) BUN (7-17) mg/dL Creatinine (0.7-1.2) mg/dL Est GFR ( Amer) Est GFR (Non-Af Amer) POC Glucose (mg/dL) 137 H (65-110) mg/dL Random Glucose (65-105) mg/dL Calcium (8.6-10.4) mg/dl Phosphorus (2.5-4.5) mg/dL Magnesium (1.6-2.3) mg/dL Total Bilirubin (0.2-1.3) mg/dL AST (14-36) U/L ALT (9-52) U/L Alkaline Phosphatase (38-126) U/L Total Protein (6.3-8.3) g/dL Albumin (3.5-5.0) g/dL Globulin (2.2-3.9) gm/dL Albumin/Globulin Ratio (1.0-2.1) Urine Color Yellow (YELLOW) Urine Clarity Turbid (Clear) Urine pH 5.0 (5.0-8.0) Ur Specific [place]ner 1.005 (1.003-1.030) Urine Protein Negative (NEGATIVE) mg/dL Urine Glucose (UA) 1+ (Normal) mg/dL Urine Ketones Negative (NEGATIVE) mg/dL Urine Blood 1+ H (NEGATIVE) Urine Nitrate Negative (NEGATIVE) Urine Bilirubin Negative (NEGATIVE) Urine Urobilinogen Normal (0.2-1.0) mg/dL Ur Leukocyte Esterase 3+ H (Negative) Wilner/uL Urine WBC (Auto) 1667 H (0-5) /hpf Urine RBC (Auto) 582 H (0-3) /hpf Urine Yeast (Budding) Many H (NEGATIVE) /hpf Laboratory Results - last 24 hr 03/17/18 03/17/18 03/17/18 16:00 16:21 21:14 WBC 7.3 RBC 3.11 L Hgb 9.5 L D Hct 26.8 L MCV 86.2 D MCH 30.5 MCHC 35.4 RDW 15.5 H Plt Count 200 MPV 7.0 L Neut % (Auto) 74.0 Lymph % (Auto) 13.0 L [place] % (Auto) 11.5 H Eos % (Auto) 1.0 Baso % (Auto) 0.5 Neut # (Auto) 5.4 Lymph # (Auto) 0.9 L [place] # (Auto) 0.8 Eos # (Auto) 0.1 Baso # (Auto) 0.0 Sodium Potassium Chloride Carbon Dioxide Anion Gap BUN Creatinine Est GFR ( Amer) Est GFR (Non-Af Amer) POC Glucose (mg/dL) 137 H Random Glucose Calcium Phosphorus Magnesium Total Bilirubin AST ALT Alkaline Phosphatase Total Protein Albumin Globulin Albumin/Globulin Ratio Urine Color Yellow Urine Clarity Turbid Urine pH 5.0 Ur Specific [place]ner 1.005 Urine Protein Negative Urine Glucose (UA) 1+ Urine Ketones Negative Urine Blood 1+ H Urine Nitrate Negative Urine Bilirubin Negative Urine Urobilinogen Normal Ur Leukocyte Esterase 3+ H Urine WBC (Auto) 1667 H Urine RBC (Auto) 582 H Urine Yeast (Budding) Many H 03/17/18 03/18/18 03/18/18 21:34 06:25 06:26 WBC 6.4 RBC 3.08 L Hgb 9.4 L Hct 26.7 L MCV 86.9 MCH 30.6 MCHC 35.2 RDW 15.9 H Plt Count 189 MPV 7.3 Neut % (Auto) Lymph % (Auto) [place] % (Auto) Eos % (Auto) Baso % (Auto) Neut # (Auto) Lymph # (Auto) [place] # (Auto) Eos # (Auto) Baso # (Auto) Sodium 138 Potassium 3.4 L Chloride 107 Carbon Dioxide 25 Anion Gap 10 BUN 10 Creatinine 0.6 L Est GFR ( Amer) > 60 Est GFR (Non-Af Amer) > 60 POC Glucose (mg/dL) 100 Random Glucose 94 Calcium 7.7 L Phosphorus 2.2 L Magnesium 1.9 Total Bilirubin 0.6 AST 26 ALT 35 Alkaline Phosphatase 36 L Total Protein 4.1 L Albumin 2.2 L Globulin 1.9 L Albumin/Globulin Ratio 1.2 Urine Color Urine Clarity Urine pH Ur Specific Horner Urine Protein Urine Glucose (UA) Urine Ketones Urine Blood Urine Nitrate Urine Bilirubin Urine Urobilinogen Ur Leukocyte Esterase Urine WBC (Auto) Urine RBC (Auto) Urine Yeast (Budding) 03/18/18 03/18/18 08:15 11:04 WBC RBC Hgb Hct MCV MCH MCHC RDW Plt Count MPV Neut % (Auto) Lymph % (Auto) [place] % (Auto) Eos % (Auto) Baso % (Auto) Neut # (Auto) Lymph # (Auto) [place] # (Auto) Eos # (Auto) Baso # (Auto) Sodium Potassium Chloride Carbon Dioxide Anion Gap BUN Creatinine Est GFR ( Amer) Est GFR (Non-Af Amer) POC Glucose (mg/dL) 100 85 Random Glucose Calcium Phosphorus Magnesium Total Bilirubin AST ALT Alkaline Phosphatase Total Protein Albumin Globulin Albumin/Globulin Ratio Urine Color Urine Clarity Urine pH Ur Specific Horner Urine Protein Urine Glucose (UA) Urine Ketones Urine Blood Urine Nitrate Urine Bilirubin Urine Urobilinogen Ur Leukocyte Esterase Urine WBC (Auto) Urine RBC (Auto) Urine Yeast (Budding) Fingerstick Blood Sugar Results: 100 Review of Systems - Constitutional Constitutional: absent: Sweats, Weakness - Cardiovascular Cardiovascular: absent: Chest Pain, Diaphoresis, Dyspnea, Edema, Palpitations - Respiratory Respiratory: absent: Cough, Dyspnea - Gastrointestinal Gastrointestinal: absent: Abdominal Pain, Diarrhea, Nausea - Genitourinary Genitourinary: Dysuria (burning) - Musculoskeletal Musculoskeletal: Arthralgias (arthritis pain) Critical Care Progress Note - Prophylaxis GI Prophylaxis GI: PPI - Nutrition Nutrition: Nutrition Category Date Time Status Liquid Diet [DIET] Diets 03/18/18 Dinner Active Assessment/Plan - Assessment and Plan (Free Text) Assessment: 82 yo female admitted to ICU for persistent rectal bleed with drop in hgb 1. Anemia -hgb stable at 9.4 -Pt transfused yesterday -hold anticoagulation -monitor hgb 2. GI bleed -f/u CT angio results -consult Dr. Alfred 3. s/p hemorrhoidectomy POD 7 -Dr. Lopez Ppx -protonix 40mg -anticoag held pending bleed case discussed with Dr. Junior <Edison Junior - Last Filed: 03/18/18 16:14> CCU Objective - Vital Signs / Intake & Output Vital Signs (Last 4 hours): Vital Signs Temp Pulse Resp BP Pulse Ox 03/18/18 13:42 82 15 125/63 100 03/18/18 13:27 80 16 124/63 100 03/18/18 13:12 78 16 124/62 100 03/18/18 13:00 76 16 100 03/18/18 12:57 78 16 130/62 100 03/18/18 12:42 82 15 133/65 100 03/18/18 12:27 85 126/67 100 03/18/18 12:26 85 100 03/18/18 12:25 98.2 F 100 Intake and Output (Last 8hrs): Intake & Output 03/18/18 03/18/18 03/18/18 06:59 14:59 22:59 Intake Total 800 500 Output Total 850 1225 Balance -50 -725 Weight 129 lb 9.6 oz Intake: Intake, IV Amount 800 500 Right Medial Port Femoral 800 500 Oral 0 0 Output: Urine 850 1225 Urethral (Lopes) 850 1225 Other: # Bowel Movements 0 0 - Medications Active Medications: Active Medications Generic Name Dose Route Start Last Admin Trade Name Freq PRN Reason Stop Dose Admin Dextrose 0 ml 03/09/18 17:50 Dextrose 50% Inj IV STAT PRN Hypoglycemia Protocol Protocol Dextrose 0 gm 03/09/18 17:50 Glutose 15 PO ONCE PRN Hypoglycemia Protocol Protocol Docusate Sodium 100 mg 03/10/18 10:00 03/18/18 13:23 Colace PO 100 mg TID MERRILL Administration Glucagon 0 mg 03/09/18 17:50 Glucagen Diagnostic Kit IM STAT PRN Hypoglycemia Protocol Protocol Hydrocortisone 0 gm 03/18/18 12:35 Anusol-Hc AR BID MERRILL Cefepime HCl 1 gm in 50 mls @ 100 mls/hr 03/09/18 18:00 03/17/18 18:01 Maxipime Iv 1 Gm Premix IVPB 100 mls/hr Q24H MERRILL Administration Protocol Potassium Phosphate 15 mmole/ 255 mls @ 42.5 mls/hr 03/18/18 16:00 Dextrose IVPB 03/18/18 21:59 ONCE ONE Insulin Human Regular 0 unit 03/12/18 16:30 03/18/18 11:30 Novolin R SC Not Given ACHS MERRILL Protocol Pantoprazole Sodium 40 mg 03/17/18 13:15 03/18/18 09:06 Protonix Inj IVP 40 mg DAILY MERRILL Administration Potassium Chloride 40 meq 03/18/18 15:15 Potassium Chloride Oral Soln PO 03/18/18 21:16 Q6H MERRILL - Patient Studies Lab Studies: Microbiology Studies 03/17/18 11:23 MRSA Culture (Admit) - Final Naris MRSA NOT DETECTED Lab Studies 03/18/18 03/18/18 03/18/18 Range/Units 11:04 08:15 06:26 WBC 6.4 (4.8-10.8) K/uL RBC 3.08 L (3.80-5.20) Mil/uL Hgb 9.4 L (11.0-16.0) g/dL Hct 26.7 L (34.0-47.0) % MCV 86.9 (81.0-99.0) fL MCH 30.6 (27.0-31.0) pg MCHC 35.2 (33.0-37.0) g/dL RDW 15.9 H (11.5-14.5) % Plt Count 189 (130-400) K/uL MPV 7.3 (7.2-11.7) fL Neut % (Auto) (50.0-75.0) % Lymph % (Auto) (20.0-40.0) % [place] % (Auto) (0.0-10.0) % Eos % (Auto) (0.0-4.0) % Baso % (Auto) (0.0-2.0) % Neut # (Auto) (1.8-7.0) K/uL Lymph # (Auto) (1.0-4.3) K/uL [place] # (Auto) (0.0-0.8) K/uL Eos # (Auto) (0.0-0.7) K/uL Baso # (Auto) (0.0-0.2) K/uL Sodium (132-148) mmol/L Potassium (3.6-5.2) mmol/L Chloride (98-107) mmol/L Carbon Dioxide (22-30) mmol/L Anion Gap (10-20) BUN (7-17) mg/dL Creatinine (0.7-1.2) mg/dL Est GFR ( Amer) Est GFR (Non-Af Amer) POC Glucose (mg/dL) 85 100 (65-110) mg/dL Random Glucose (65-105) mg/dL Calcium (8.6-10.4) mg/dl Phosphorus (2.5-4.5) mg/dL Magnesium (1.6-2.3) mg/dL Total Bilirubin (0.2-1.3) mg/dL AST (14-36) U/L ALT (9-52) U/L Alkaline Phosphatase (38-126) U/L Total Protein (6.3-8.3) g/dL Albumin (3.5-5.0) g/dL Globulin (2.2-3.9) gm/dL Albumin/Globulin Ratio (1.0-2.1) Urine Color (YELLOW) Urine Clarity (Clear) Urine pH (5.0-8.0) Ur Specific [place] (1.003-1.030) Urine Protein (NEGATIVE) mg/dL Urine Glucose (UA) (Normal) mg/dL Urine Ketones (NEGATIVE) mg/dL Urine Blood (NEGATIVE) Urine Nitrate (NEGATIVE) Urine Bilirubin (NEGATIVE) Urine Urobilinogen (0.2-1.0) mg/dL Ur Leukocyte Esterase (Negative) Wilner/uL Urine WBC (Auto) (0-5) /hpf Urine RBC (Auto) (0-3) /hpf Urine Yeast (Budding) (NEGATIVE) /hpf 03/18/18 03/17/18 03/17/18 Range/Units 06:25 21:34 21:14 WBC 7.3 (4.8-10.8) K/uL RBC 3.11 L (3.80-5.20) Mil/uL Hgb 9.5 L D (11.0-16.0) g/dL Hct 26.8 L (34.0-47.0) % MCV 86.2 D (81.0-99.0) fL MCH 30.5 (27.0-31.0) pg MCHC 35.4 (33.0-37.0) g/dL RDW 15.5 H (11.5-14.5) % Plt Count 200 (130-400) K/uL MPV 7.0 L (7.2-11.7) fL Neut % (Auto) 74.0 (50.0-75.0) % Lymph % (Auto) 13.0 L (20.0-40.0) % [place] % (Auto) 11.5 H (0.0-10.0) % Eos % (Auto) 1.0 (0.0-4.0) % Baso % (Auto) 0.5 (0.0-2.0) % Neut # (Auto) 5.4 (1.8-7.0) K/uL Lymph # (Auto) 0.9 L (1.0-4.3) K/uL [place] # (Auto) 0.8 (0.0-0.8) K/uL Eos # (Auto) 0.1 (0.0-0.7) K/uL Baso # (Auto) 0.0 (0.0-0.2) K/uL Sodium 138 (132-148) mmol/L Potassium 3.4 L (3.6-5.2) mmol/L Chloride 107 (98-107) mmol/L Carbon Dioxide 25 (22-30) mmol/L Anion Gap 10 (10-20) BUN 10 (7-17) mg/dL Creatinine 0.6 L (0.7-1.2) mg/dL Est GFR ( Amer) > 60 Est GFR (Non-Af Amer) > 60 POC Glucose (mg/dL) 100 (65-110) mg/dL Random Glucose 94 (65-105) mg/dL Calcium 7.7 L (8.6-10.4) mg/dl Phosphorus 2.2 L (2.5-4.5) mg/dL Magnesium 1.9 (1.6-2.3) mg/dL Total Bilirubin 0.6 (0.2-1.3) mg/dL AST 26 (14-36) U/L ALT 35 (9-52) U/L Alkaline Phosphatase 36 L (38-126) U/L Total Protein 4.1 L (6.3-8.3) g/dL Albumin 2.2 L (3.5-5.0) g/dL Globulin 1.9 L (2.2-3.9) gm/dL Albumin/Globulin Ratio 1.2 (1.0-2.1) Urine Color (YELLOW) Urine Clarity (Clear) Urine pH (5.0-8.0) Ur Specific [place]ner (1.003-1.030) Urine Protein (NEGATIVE) mg/dL Urine Glucose (UA) (Normal) mg/dL Urine Ketones (NEGATIVE) mg/dL Urine Blood (NEGATIVE) Urine Nitrate (NEGATIVE) Urine Bilirubin (NEGATIVE) Urine Urobilinogen (0.2-1.0) mg/dL Ur Leukocyte Esterase (Negative) Wilner/uL Urine WBC (Auto) (0-5) /hpf Urine RBC (Auto) (0-3) /hpf Urine Yeast (Budding) (NEGATIVE) /hpf 03/17/18 03/17/18 Range/Units 16:21 16:00 WBC (4.8-10.8) K/uL RBC (3.80-5.20) Mil/uL Hgb (11.0-16.0) g/dL Hct (34.0-47.0) % MCV (81.0-99.0) fL MCH (27.0-31.0) pg MCHC (33.0-37.0) g/dL RDW (11.5-14.5) % Plt Count (130-400) K/uL MPV (7.2-11.7) fL Neut % (Auto) (50.0-75.0) % Lymph % (Auto) (20.0-40.0) % [place] % (Auto) (0.0-10.0) % Eos % (Auto) (0.0-4.0) % Baso % (Auto) (0.0-2.0) % Neut # (Auto) (1.8-7.0) K/uL Lymph # (Auto) (1.0-4.3) K/uL [place] # (Auto) (0.0-0.8) K/uL Eos # (Auto) (0.0-0.7) K/uL Baso # (Auto) (0.0-0.2) K/uL Sodium (132-148) mmol/L Potassium (3.6-5.2) mmol/L Chloride (98-107) mmol/L Carbon Dioxide (22-30) mmol/L Anion Gap (10-20) BUN (7-17) mg/dL Creatinine (0.7-1.2) mg/dL Est GFR ( Amer) Est GFR (Non-Af Amer) POC Glucose (mg/dL) 137 H (65-110) mg/dL Random Glucose (65-105) mg/dL Calcium (8.6-10.4) mg/dl Phosphorus (2.5-4.5) mg/dL Magnesium (1.6-2.3) mg/dL Total Bilirubin (0.2-1.3) mg/dL AST (14-36) U/L ALT (9-52) U/L Alkaline Phosphatase (38-126) U/L Total Protein (6.3-8.3) g/dL Albumin (3.5-5.0) g/dL Globulin (2.2-3.9) gm/dL Albumin/Globulin Ratio (1.0-2.1) Urine Color Yellow (YELLOW) Urine Clarity Turbid (Clear) Urine pH 5.0 (5.0-8.0) Ur Specific [place] 1.005 (1.003-1.030) Urine Protein Negative (NEGATIVE) mg/dL Urine Glucose (UA) 1+ (Normal) mg/dL Urine Ketones Negative (NEGATIVE) mg/dL Urine Blood 1+ H (NEGATIVE) Urine Nitrate Negative (NEGATIVE) Urine Bilirubin Negative (NEGATIVE) Urine Urobilinogen Normal (0.2-1.0) mg/dL Ur Leukocyte Esterase 3+ H (Negative) Wilner/uL Urine WBC (Auto) 1667 H (0-5) /hpf Urine RBC (Auto) 582 H (0-3) /hpf Urine Yeast (Budding) Many H (NEGATIVE) /hpf Laboratory Results - last 24 hr 03/17/18 03/17/18 03/17/18 16:00 16:21 21:14 WBC 7.3 RBC 3.11 L Hgb 9.5 L D Hct 26.8 L MCV 86.2 D MCH 30.5 MCHC 35.4 RDW 15.5 H Plt Count 200 MPV 7.0 L Neut % (Auto) 74.0 Lymph % (Auto) 13.0 L [place] % (Auto) 11.5 H Eos % (Auto) 1.0 Baso % (Auto) 0.5 Neut # (Auto) 5.4 Lymph # (Auto) 0.9 L [place] # (Auto) 0.8 Eos # (Auto) 0.1 Baso # (Auto) 0.0 Sodium Potassium Chloride Carbon Dioxide Anion Gap BUN Creatinine Est GFR ( Amer) Est GFR (Non-Af Amer) POC Glucose (mg/dL) 137 H Random Glucose Calcium Phosphorus Magnesium Total Bilirubin AST ALT Alkaline Phosphatase Total Protein Albumin Globulin Albumin/Globulin Ratio Urine Color Yellow Urine Clarity Turbid Urine pH 5.0 Ur Specific [place] 1.005 Urine Protein Negative Urine Glucose (UA) 1+ Urine Ketones Negative Urine Blood 1+ H Urine Nitrate Negative Urine Bilirubin Negative Urine Urobilinogen Normal Ur Leukocyte Esterase 3+ H Urine WBC (Auto) 1667 H Urine RBC (Auto) 582 H Urine Yeast (Budding) Many H 03/17/18 03/18/18 03/18/18 21:34 06:25 06:26 WBC 6.4 RBC 3.08 L Hgb 9.4 L Hct 26.7 L MCV 86.9 MCH 30.6 MCHC 35.2 RDW 15.9 H Plt Count 189 MPV 7.3 Neut % (Auto) Lymph % (Auto) [place] % (Auto) Eos % (Auto) Baso % (Auto) Neut # (Auto) Lymph # (Auto) [place] # (Auto) Eos # (Auto) Baso # (Auto) Sodium 138 Potassium 3.4 L Chloride 107 Carbon Dioxide 25 Anion Gap 10 BUN 10 Creatinine 0.6 L Est GFR ( Amer) > 60 Est GFR (Non-Af Amer) > 60 POC Glucose (mg/dL) 100 Random Glucose 94 Calcium 7.7 L Phosphorus 2.2 L Magnesium 1.9 Total Bilirubin 0.6 AST 26 ALT 35 Alkaline Phosphatase 36 L Total Protein 4.1 L Albumin 2.2 L Globulin 1.9 L Albumin/Globulin Ratio 1.2 Urine Color Urine Clarity Urine pH Ur Specific [place] Urine Protein Urine Glucose (UA) Urine Ketones Urine Blood Urine Nitrate Urine Bilirubin Urine Urobilinogen Ur Leukocyte Esterase Urine WBC (Auto) Urine RBC (Auto) Urine Yeast (Budding) 03/18/18 03/18/18 08:15 11:04 WBC RBC Hgb Hct MCV MCH MCHC RDW Plt Count MPV Neut % (Auto) Lymph % (Auto) [place] % (Auto) Eos % (Auto) Baso % (Auto) Neut # (Auto) Lymph # (Auto) [place] # (Auto) Eos # (Auto) Baso # (Auto) Sodium Potassium Chloride Carbon Dioxide Anion Gap BUN Creatinine Est GFR ( Amer) Est GFR (Non-Af Amer) POC Glucose (mg/dL) 100 85 Random Glucose Calcium Phosphorus Magnesium Total Bilirubin AST ALT Alkaline Phosphatase Total Protein Albumin Globulin Albumin/Globulin Ratio Urine Color Urine Clarity Urine pH Ur Specific [place] Urine Protein Urine Glucose (UA) Urine Ketones Urine Blood Urine Nitrate Urine Bilirubin Urine Urobilinogen Ur Leukocyte Esterase Urine WBC (Auto) Urine RBC (Auto) Urine Yeast (Budding) Critical Care Progress Note - Nutrition Nutrition: Nutrition Category Date Time Status Liquid Diet [DIET] Diets 03/18/18 Dinner Active Assessment/Plan - Assessment and Plan (Free Text) Assessment: Patient seen and examined at bedside. patient had no BMs overnight. Paitent's vitals remains stable. Not requiring pressors. -patient scheduled for endoscopy today -will d/c femoral central line -Patient remains hemodynamically stable -Patient remains DNR/DNI as per patient request. -advance diet as per Gi (clear) -place PICC line as patient has poor IV access. -Gi and colorectal surgery input appreciated. -continue to monitor - Date & Time Date: 03/18/18 Time: 16:14
[2018-03-18] MEDS ORDERED: Potassium Phosphate 15 MMOLE in Dextrose 5% In Water 250 ML IVPB ONE (16:00)
[2018-03-18] MEDS: Potassium Chloride 20 mEq/15 ml LIQ UD PO SCH ×2 (16:23→22:45)
[2018-03-18] MEDS: Cefepime IV 1 gm in Dextrose 1 GM/50 ML BAG IVPB SCH (16:59)
--- NOTE | 2018-03-18 20:11 | CP.PCM.PN ---
Subjective - Date & Time of Evaluation Date of Evaluation: 03/18/18 Time of Evaluation: 20:11 - Subjective Subjective: CHIEF COMPLAINTS TODAY : POD # S/P HEMORRHOIDECTOMY 03/11/18 # DAY 7 AFEBRILE, VSS NO MORE RECTAL BLEEDING SINCE LAST NIGHT S/P REPEAT COLONOSCOPY AND ENDOSCOPIC TODAY 03/18/18 FINDINGS NOTED-RECTAL ULCER NOTED OLD CLOTTED BLOOD . ROS. HEENT : N. 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 Musculoskel : No joint swelling , Derm : No rash Psych : Normal affect. Ext : No swelling ,calf pain PE. Pt. is awake V.S As noted in the chart Head ,ear nose,throat and eyes : Normal. Neck : Supple with normal carotids. Lungs: Clear air entry. Heart : S1 & S2 normal with SINUS TACHYCARDIA Abd : Soft non tender with normal bowel sounds. Neuro : Moves all ext. with no localized deficit. Ext : No edema with intact pulses.Non tender calves Derm : No rashes or decubitus ulcer. LABS/RADIOLOGY: REVIEWED. REPEAT URINE CULTURE -VE GROWTH 03/16/18 H/H STABLE 9.4/26.7 03/18/18. wbc NORMAL. URINE CULTURE +VE kLEBSIELLA PNEUMONIA -VE ESBL S- CEFEPIME. Objective - Vital Signs/Intake and Output Vital Signs (last 24 hours): Temp Pulse Resp BP Pulse Ox 97.8 F 74 14 112/55 L 100 03/18/18 16:00 03/18/18 19:00 03/18/18 19:00 03/18/18 18:52 03/18/18 19:00 Intake and Output: 03/18/18 03/19/18 18:59 06:59 Intake Total 1886 143 Output Total 2350 100 Balance -464 43 - Medications Medications: Current Medications Dextrose (Dextrose 50% Inj) 0 ml IV STAT PRN; Protocol PRN Reason: Hypoglycemia Protocol Dextrose (Glutose 15) 0 gm PO ONCE PRN; Protocol PRN Reason: Hypoglycemia Protocol Docusate Sodium (Colace) 100 mg PO TID [facility] Last Admin: 03/18/18 16:59 Dose: 100 mg Glucagon (Glucagen Diagnostic Kit) 0 mg IM STAT PRN; Protocol PRN Reason: Hypoglycemia Protocol Hydrocortisone (Anusol-Hc) 0 gm [place] BID [facility] Last Admin: 03/18/18 17:00 Dose: 1 applic Cefepime HCl (Maxipime Iv 1 Gm Premix) 1 gm in 50 mls @ 100 mls/hr IVPB Q24H [facility] PRN Reason: Protocol Last Admin: 03/18/18 16:59 Dose: 100 mls/hr Potassium Phosphate 15 mmole/ (Dextrose) 255 mls @ 42.5 mls/hr IVPB ONCE ONE Stop: 03/18/18 21:59 Last Admin: 03/18/18 16:54 Dose: 42.5 mls/hr Insulin Human Regular (Novolin R) 0 unit SC ACHS [facility] PRN Reason: Protocol Last Admin: 03/18/18 16:25 Dose: Not Given Pantoprazole Sodium (Protonix Inj) 40 mg IVP DAILY [facility] Last Admin: 03/18/18 09:06 Dose: 40 mg Potassium Chloride (Potassium Chloride Oral Soln) 40 meq PO Q6H [facility] Stop: 03/18/18 21:16 Last Admin: 03/18/18 16:23 Dose: 40 meq - Labs Labs: 03/18/18 06:26 03/18/18 06:25 PT 14.3 SECONDS (9.7-12.2) H 03/17/18 08:52 INR 1.3 03/17/18 08:52 APTT 28 SECONDS (21-34) 03/17/18 08:52 Assessment and Plan (1) UTI (urinary tract infection) Assessment & Plan: REPEAT URINE CULTURES NEGATIVE PATIENT ON iv CEFEPIME 1 G EVERY 24 HOURLY. WILL CONTINUE FOR NOW RECENT HEMORRHOIDECTOMY. Status: Acute (2) Acute lower GI hemorrhage Assessment & Plan: NO MORE ACTIVE BLEEDING PER RECTUM. Status: Acute (3) Arthritis Status: Acute (4) HTN (hypertension) Status: Acute (5) Status post hemorrhoidectomy Assessment & Plan: STATUS POST HEMORRHOIDECTOMY-DAY 7 lOCAL TREATMENT PER GI/SURGERY. Status: Acute
--- NOTE | 2018-03-18 22:53 | CP.PCM.PN ---
Subjective - Date & Time of Evaluation Date of Evaluation: 03/18/18 Time of Evaluation: 22:53 - Subjective Subjective: 18g iv angiocath inserted in left EJ, single attempt, with good flow and return , for purpose of blood draw and ivf, femoral TLC will be discontinued. Objective - Vital Signs/Intake and Output Vital Signs (last 24 hours): Temp Pulse Resp BP Pulse Ox 97.8 F 74 14 112/55 L 100 03/18/18 16:00 03/18/18 19:00 03/18/18 19:00 03/18/18 18:52 03/18/18 19:00 Intake and Output: 03/18/18 03/19/18 18:59 06:59 Intake Total 1886 143 Output Total 2350 100 Balance -464 43 - Medications Medications: Current Medications Dextrose (Dextrose 50% Inj) 0 ml IV STAT PRN; Protocol PRN Reason: Hypoglycemia Protocol Dextrose (Glutose 15) 0 gm PO ONCE PRN; Protocol PRN Reason: Hypoglycemia Protocol Docusate Sodium (Colace) 100 mg PO TID [facility] Last Admin: 03/18/18 16:59 Dose: 100 mg Glucagon (Glucagen Diagnostic Kit) 0 mg IM STAT PRN; Protocol PRN Reason: Hypoglycemia Protocol Hydrocortisone (Anusol-Hc) 0 gm [place] BID [facility] Last Admin: 03/18/18 17:00 Dose: 1 applic Cefepime HCl (Maxipime Iv 1 Gm Premix) 1 gm in 50 mls @ 100 mls/hr IVPB Q24H [facility] PRN Reason: Protocol Last Admin: 03/18/18 16:59 Dose: 100 mls/hr Insulin Human Regular (Novolin R) 0 unit SC ACHS [facility] PRN Reason: Protocol Last Admin: 03/18/18 22:00 Dose: Not Given Pantoprazole Sodium (Protonix Inj) 40 mg IVP DAILY [facility] Last Admin: 03/18/18 09:06 Dose: 40 mg - Labs Labs: 03/18/18 06:26 03/18/18 06:25 PT 14.3 SECONDS (9.7-12.2) H 03/17/18 08:52 INR 1.3 03/17/18 08:52 APTT 28 SECONDS (21-34) 03/17/18 08:52
[2018-03-19 06:22] LABS: BASO % 0.9 % (0.0-2.0); EOS # 0.2 K/uL (0.0-0.7); EOS % 4.2 % (0.0-4.0); HEMOGLOBIN 9.7 g/dL (11.0-16.0); LYMPH # 0.8 K/uL (1.0-4.3); LYMPH % 15.2 % (20.0-40.0); MEAN CELL VOLUME 88.2 fL (81.0-99.0); MEAN CORPUSCULAR HEMOGLOBIN 30.9 pg (27.0-31.0); MEAN PLATELET VOLUME 7.1 fL (7.2-11.7); MONO # 0.5 K/uL (0.0-0.8); MONO % 10.2 % (0.0-10.0); NEUT # 3.7 K/uL (1.8-7.0); NEUT % 69.5 % (50.0-75.0); NRBC % 0.1 % (0.0-2.0); RBC 3.13 Mil/uL (3.80-5.20); RED CELL DISTRIBUTION WIDTH 15.7 % (11.5-14.5); WHITE BLOOD COUNT 5.4 K/uL (4.8-10.8)
[2018-03-19 06:35] LABS: ALB/GLOB RATIO 1.2 (1.0-2.1); ALBUMIN 2.4 g/dL (3.5-5.0); ALT/SGPT 35 U/L (9-52); AST/SGOT 26 U/L (14-36); BLOOD UREA NITROGEN 5 mg/dL (7-17); GFR AFRICAN-AMERICAN > 60; GFR NON-AFRICAN AMERICAN > 60
[2018-03-19] MEDS: (Novolin R) Insulin Human Regular 100 units/ml vial SC SCH ×4 (07:30→21:23)
--- NOTE | 2018-03-19 09:26 | CP.PCM.PN ---
Subjective - Date & Time of Evaluation Date of Evaluation: 03/19/18 Time of Evaluation: 09:25 - Subjective Subjective: Patient sitting up. Eating breakfast. PAtient denies any abdominal pain, denies any red or black bowel movement Objective - Vital Signs/Intake and Output Vital Signs (last 24 hours): Temp Pulse Resp BP Pulse Ox 97.8 F 82 12 132/63 100 03/19/18 08:00 03/19/18 08:00 03/19/18 08:00 03/19/18 08:00 03/19/18 08:00 Intake and Output: 03/19/18 03/19/18 06:59 18:59 Intake Total 1243 380 Output Total 1100 0 Balance 143 380 - Medications Medications: Current Medications Dextrose (Dextrose 50% Inj) 0 ml IV STAT PRN; Protocol PRN Reason: Hypoglycemia Protocol Dextrose (Glutose 15) 0 gm PO ONCE PRN; Protocol PRN Reason: Hypoglycemia Protocol Docusate Sodium (Colace) 100 mg PO TID [facility] Last Admin: 03/18/18 16:59 Dose: 100 mg Glucagon (Glucagen Diagnostic Kit) 0 mg IM STAT PRN; Protocol PRN Reason: Hypoglycemia Protocol Hydrocortisone (Anusol-Hc) 0 gm [place] BID [facility] Last Admin: 03/18/18 17:00 Dose: 1 applic Cefepime HCl (Maxipime Iv 1 Gm Premix) 1 gm in 50 mls @ 100 mls/hr IVPB Q24H [facility] PRN Reason: Protocol Last Admin: 03/18/18 16:59 Dose: 100 mls/hr Insulin Human Regular (Novolin R) 0 unit SC ACHS [facility] PRN Reason: Protocol Last Admin: 03/19/18 07:30 Dose: Not Given Pantoprazole Sodium (Protonix Inj) 40 mg IVP DAILY [facility] Last Admin: 03/18/18 09:06 Dose: 40 mg - Labs Labs: 03/19/18 06:14 03/19/18 06:14 PT 14.3 SECONDS (9.7-12.2) H 03/17/18 08:52 INR 1.3 03/17/18 08:52 APTT 28 SECONDS (21-34) 03/17/18 08:52 - Constitutional Appears: Well, Non-toxic, No Acute Distress - Head Exam Head Exam: ATRAUMATIC, NORMAL INSPECTION, NORMOCEPHALIC - Eye Exam Eye Exam: Normal appearance - ENT Exam ENT Exam: Mucous Membranes Moist - Respiratory Exam Respiratory Exam: NORMAL BREATHING PATTERN - Cardiovascular Exam Cardiovascular Exam: REGULAR RHYTHM, +S1, +S2 - GI/Abdominal Exam GI & Abdominal Exam: Soft, Normal Bowel Sounds - Extremities Exam Extremities Exam: Normal Inspection - Neurological Exam Neurological Exam: Alert, Awake, CN II-XII Intact, Oriented x3 Assessment and Plan - Assessment and Plan (Free Text) Assessment: 82 yo female admitted to ICU for rectal bleeding: -acute blood loss anemia: Hb remains stable, no bloody bowel movement -tolerating oral clear diet -Patient remains hemodynamically stable:off pressors, d/c central line, PICC line consult, -continue to monitor serial cbc, transfuse as needed -continue PPI -continue SCDs -PT/OT -OOB to chair
[2018-03-19] MEDS: Hydrocortisone 2.5% Rectal Cream(30 gm) PR SCH ×2 (10:08→17:12)
--- NOTE | 2018-03-19 10:46 | CP.PCM.PN ---
Subjective - Date & Time of Evaluation Date of Evaluation: 03/19/18 Time of Evaluation: 10:44 - Subjective Subjective: f/u rectal bleed No further bleeding Denies RB, melena, hematemesis, abdo pain, SZ, CP, SOB, fever Objective - Vital Signs/Intake and Output Vital Signs (last 24 hours): Temp Pulse Resp BP Pulse Ox 97.8 F 110 H 20 98/52 L 100 03/19/18 08:00 03/19/18 10:05 03/19/18 10:05 03/19/18 10:05 03/19/18 09:00 Intake and Output: 03/19/18 03/19/18 06:59 18:59 Intake Total 1243 760 Output Total 1100 0 Balance 143 760 - Medications Medications: Current Medications Dextrose (Dextrose 50% Inj) 0 ml IV STAT PRN; Protocol PRN Reason: Hypoglycemia Protocol Dextrose (Glutose 15) 0 gm PO ONCE PRN; Protocol PRN Reason: Hypoglycemia Protocol Docusate Sodium (Colace) 100 mg PO TID [facility] Last Admin: 03/19/18 10:07 Dose: 100 mg Glucagon (Glucagen Diagnostic Kit) 0 mg IM STAT PRN; Protocol PRN Reason: Hypoglycemia Protocol Hydrocortisone (Anusol-Hc) 0 gm ID BID [facility] Last Admin: 03/19/18 10:08 Dose: 1 applic Cefepime HCl (Maxipime Iv 1 Gm Premix) 1 gm in 50 mls @ 100 mls/hr IVPB Q24H [facility] PRN Reason: Protocol Last Admin: 03/18/18 16:59 Dose: 100 mls/hr Insulin Human Regular (Novolin R) 0 unit SC ACHS [facility] PRN Reason: Protocol Last Admin: 03/19/18 07:30 Dose: Not Given Pantoprazole Sodium (Protonix Inj) 40 mg IVP DAILY [facility] Last Admin: 03/19/18 10:07 Dose: 40 mg - Labs Labs: 03/19/18 06:14 03/19/18 06:14 PT 14.3 SECONDS (9.7-12.2) H 03/17/18 08:52 INR 1.3 03/17/18 08:52 APTT 28 SECONDS (21-34) 03/17/18 08:52 - Constitutional Appears: Well - Respiratory Exam Respiratory Exam: Clear to Ausculation Bilateral - Cardiovascular Exam Cardiovascular Exam: RRR - GI/Abdominal Exam GI & Abdominal Exam: Soft, Normal Bowel Sounds. absent: Guarding, Tenderness, Mass - Extremities Exam Extremities Exam: absent: Calf Tenderness - Neurological Exam Neurological Exam: Alert, Awake Assessment and Plan (1) Hemorrhoids Assessment & Plan: s/p surgery Status: Acute (2) Constipation Status: Acute (3) Acute lower GI hemorrhage Assessment & Plan: EGD- neg. Repeat f/s shows distal rectal-ano inflammation/ulcers. That is the most likely source of bleeding relating to recent surgery. No further bleeding at this time Status: Acute (4) HTN (hypertension) Status: Acute (5) UTI (urinary tract infection) Status: Acute (6) Arthritis Status: Acute
--- NOTE | 2018-03-19 14:25 | CP.PCM.PN ---
Subjective - Date & Time of Evaluation Date of Evaluation: 03/19/18 Time of Evaluation: 14:23 - Subjective Subjective: Currently patient has no any further rectal bleeding. Hemoglobin stable at 9.5 g/dL. Vital signs are stable Patient has no complaints Discussed extensively with the surgery still difference of opinion of the etiology of the lower GI bleed. Discussed with the patient. Patient currently declines any surgical intervention. Even if his lifesaving. Will discuss with the daughter. Objective - Vital Signs/Intake and Output Vital Signs (last 24 hours): Temp Pulse Resp BP Pulse Ox 97.8 F 104 H 22 107/68 100 03/19/18 08:00 03/19/18 14:01 03/19/18 14:01 03/19/18 14:01 03/19/18 09:00 Intake and Output: 03/19/18 03/19/18 11:59 23:59 Intake Total 1460 200 Output Total 1000 0 Balance 460 200 - Medications Medications: Current Medications Dextrose (Dextrose 50% Inj) 0 ml IV STAT PRN; Protocol PRN Reason: Hypoglycemia Protocol Dextrose (Glutose 15) 0 gm PO ONCE PRN; Protocol PRN Reason: Hypoglycemia Protocol Docusate Sodium (Colace) 100 mg PO TID [facility] Last Admin: 03/19/18 10:07 Dose: 100 mg Glucagon (Glucagen Diagnostic Kit) 0 mg IM STAT PRN; Protocol PRN Reason: Hypoglycemia Protocol Hydrocortisone (Anusol-Hc) 0 gm [place] BID [facility] Last Admin: 03/19/18 10:08 Dose: 1 applic Cefepime HCl (Maxipime Iv 1 Gm Premix) 1 gm in 50 mls @ 100 mls/hr IVPB Q24H [facility] PRN Reason: Protocol Last Admin: 03/18/18 16:59 Dose: 100 mls/hr Insulin Human Regular (Novolin R) 0 unit SC ACHS [facility] PRN Reason: Protocol Last Admin: 03/19/18 12:19 Dose: 1 unit Pantoprazole Sodium (Protonix Inj) 40 mg IVP DAILY [facility] Last Admin: 03/19/18 10:07 Dose: 40 mg - Labs Labs: 03/19/18 06:14 03/19/18 06:14 PT 14.3 SECONDS (9.7-12.2) H 03/17/18 08:52 INR 1.3 03/17/18 08:52 APTT 28 SECONDS (21-34) 03/17/18 08:52
[2018-03-19 16:12] LABS: BASO % 0.7 % (0.0-2.0); EOS # 0.1 K/uL (0.0-0.7); EOS % 1.6 % (0.0-4.0); HEMOGLOBIN 9.6 g/dL (11.0-16.0); LYMPH # 0.9 K/uL (1.0-4.3); MEAN CELL VOLUME 88.1 fL (81.0-99.0); MEAN CORPUSCULAR HEMOGLOBIN 30.3 pg (27.0-31.0); MEAN CORPUSCULAR HGB CONC 34.4 g/dL (33.0-37.0); MEAN PLATELET VOLUME 6.8 fL (7.2-11.7); MONO # 0.6 K/uL (0.0-0.8); NEUT # 4.8 K/uL (1.8-7.0); NEUT % 73.7 % (50.0-75.0); RBC 3.16 Mil/uL (3.80-5.20); RED CELL DISTRIBUTION WIDTH 15.7 % (11.5-14.5); WHITE BLOOD COUNT 6.5 K/uL (4.8-10.8)
[2018-03-19] MEDS: Cefepime IV 1 gm in Dextrose 1 GM/50 ML BAG IVPB SCH (17:11)
--- NOTE | 2018-03-19 23:27 | CP.PCM.PN ---
Subjective - Date & Time of Evaluation Date of Evaluation: 03/19/18 Time of Evaluation: 23:27 - Subjective Subjective: CHIEF COMPLAINTS TODAY : POD # S/P HEMORRHOIDECTOMY 03/11/18 # DAY 8 AFEBRILE, VSS NO MORE RECTAL BLEEDING H/H STABLE. C/O DYSURIA S/P REPEAT COLONOSCOPY AND ENDOSCOPY 03/18/18 FINDINGS NOTED-RECTAL ULCER NOTED OLD CLOTTED BLOOD . ROS. HEENT : N. 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 Musculoskel : No joint swelling , Derm : No rash Psych : Normal affect. Ext : No swelling ,calf pain PE. Pt. is awake V.S As noted in the chart Head ,ear nose,throat and eyes : Normal. Neck : Supple with normal carotids. Lungs: Clear air entry. Heart : S1 & S2 normal with SINUS TACHYCARDIA Abd : Soft non tender with normal bowel sounds. Neuro : Moves all ext. with no localized deficit. Ext : No edema with intact pulses.Non tender calves Derm : No rashes or decubitus ulcer. LABS/RADIOLOGY: REVIEWED. REPEAT URINE CULTURE +VE YEAST H/H STABLE wbc NORMAL. URINE CULTURE +VE kLEBSIELLA PNEUMONIA -VE ESBL S- CEFEPIME. Objective - Vital Signs/Intake and Output Vital Signs (last 24 hours): Temp Pulse Resp BP Pulse Ox 98.3 F 76 18 116/56 L 100 03/19/18 20:00 03/19/18 22:00 03/19/18 22:00 03/19/18 22:00 03/19/18 22:00 Intake and Output: 03/19/18 03/20/18 18:59 06:59 Intake Total 1370 200 Output Total 700 400 Balance 670 -200 - Medications Medications: Current Medications Dextrose (Dextrose 50% Inj) 0 ml IV STAT PRN; Protocol PRN Reason: Hypoglycemia Protocol Dextrose (Glutose 15) 0 gm PO ONCE PRN; Protocol PRN Reason: Hypoglycemia Protocol Docusate Sodium (Colace) 100 mg PO TID [facility] Last Admin: 03/19/18 17:11 Dose: 100 mg Glucagon (Glucagen Diagnostic Kit) 0 mg IM STAT PRN; Protocol PRN Reason: Hypoglycemia Protocol Hydrocortisone (Anusol-Hc) 0 gm [place] BID [facility] Last Admin: 03/19/18 17:12 Dose: 1 applic Cefepime HCl (Maxipime Iv 1 Gm Premix) 1 gm in 50 mls @ 100 mls/hr IVPB Q24H [facility] PRN Reason: Protocol Last Admin: 03/19/18 17:11 Dose: 100 mls/hr Insulin Human Regular (Novolin R) 0 unit SC ACHS [facility] PRN Reason: Protocol Last Admin: 03/19/18 21:23 Dose: Not Given Pantoprazole Sodium (Protonix Inj) 40 mg IVP DAILY [facility] Last Admin: 03/19/18 10:07 Dose: 40 mg - Labs Labs: 03/19/18 16:08 03/19/18 06:14 PT 14.3 SECONDS (9.7-12.2) H 03/17/18 08:52 INR 1.3 03/17/18 08:52 APTT 28 SECONDS (21-34) 03/17/18 08:52 Assessment and Plan (1) UTI (urinary tract infection) Assessment & Plan: REPEAT URINE CULTURES +VE YEAST DC iv CEFEPIME . START IV DIFLUCAN 200MG IV QD DAILY X 5 DAYS,03/20/18 Status: Acute (2) Acute lower GI hemorrhage Assessment & Plan: NO FURTHER RECTAL BLEED. PT FOR CT ANGIO ABDOMEN Status: Acute (3) Arthritis Status: Acute (4) HTN (hypertension) Status: Acute (5) Status post hemorrhoidectomy Status: Acute
[2018-03-20 06:20] LABS: BASO # 0.1 K/uL (0.0-0.2); EOS # 0.2 K/uL (0.0-0.7); EOS % 3.8 % (0.0-4.0); HEMOGLOBIN 10.8 g/dL (11.0-16.0); LYMPH # 0.9 K/uL (1.0-4.3); LYMPH % 18.3 % (20.0-40.0); MEAN CELL VOLUME 90.4 fL (81.0-99.0); MEAN CORPUSCULAR HEMOGLOBIN 30.1 pg (27.0-31.0); MEAN CORPUSCULAR HGB CONC 33.3 g/dL (33.0-37.0); MEAN PLATELET VOLUME 7.2 fL (7.2-11.7); MONO # 0.6 K/uL (0.0-0.8); MONO % 11.5 % (0.0-10.0); NEUT # 3.3 K/uL (1.8-7.0); NEUT % 65.4 % (50.0-75.0); NRBC % 0.1 % (0.0-2.0); RBC 3.59 Mil/uL (3.80-5.20); RED CELL DISTRIBUTION WIDTH 15.9 % (11.5-14.5)
[2018-03-20 06:36] LABS: ALB/GLOB RATIO 1.2 (1.0-2.1); ALBUMIN 2.7 g/dL (3.5-5.0); ALT/SGPT 30 U/L (9-52); AST/SGOT 33 U/L (14-36); BLOOD UREA NITROGEN 3 mg/dL (7-17); CALCIUM 8.6 mg/dl (8.6-10.4); GFR AFRICAN-AMERICAN > 60; GFR NON-AFRICAN AMERICAN > 60
[2018-03-20] MEDS ORDERED: Potassium Chloride 20 mEq/15 ml LIQ UD PO SCH ×2 (07:45→11:00)
[2018-03-20] MEDS: (Novolin R) Insulin Human Regular 100 units/ml vial SC SCH ×4 (07:49→21:33)
[2018-03-20] MEDS: Fluconazole IV 200mg/100 ml NS 100 ML IVPB SCH (09:40)
[2018-03-20] MEDS: Hydrocortisone 2.5% Rectal Cream(30 gm) PR SCH ×2 (09:42→17:35)
--- NOTE | 2018-03-20 11:02 | CP.PCM.PN ---
Subjective - Date & Time of Evaluation Date of Evaluation: 03/20/18 Time of Evaluation: 10:45 - Subjective Subjective: F/u R bleed Denies RB, melena, abdom pain, fever. chills, SZ, CP, SOB Objective - Vital Signs/Intake and Output Vital Signs (last 24 hours): Temp Pulse Resp BP Pulse Ox 97.8 F 79 17 103/56 L 100 03/20/18 08:00 03/20/18 10:00 03/20/18 10:00 03/20/18 10:00 03/20/18 10:00 Intake and Output: 03/20/18 03/20/18 06:59 18:59 Intake Total 540 450 Output Total 1400 Balance -860 450 - Medications Medications: Current Medications Dextrose (Dextrose 50% Inj) 0 ml IV STAT PRN; Protocol PRN Reason: Hypoglycemia Protocol Dextrose (Glutose 15) 0 gm PO ONCE PRN; Protocol PRN Reason: Hypoglycemia Protocol Docusate Sodium (Colace) 100 mg PO TID [facility] Last Admin: 03/20/18 09:38 Dose: 100 mg Glucagon (Glucagen Diagnostic Kit) 0 mg IM STAT PRN; Protocol PRN Reason: Hypoglycemia Protocol Hydrocortisone (Anusol-Hc) 0 gm [place] BID [facility] Last Admin: 03/20/18 09:42 Dose: 1 applic Fluconazole (Diflucan Iv 200 Mg/100 Ml Ns) 100 mls @ 100 mls/hr IVPB DAILY [facility] PRN Reason: Protocol Last Admin: 03/20/18 09:40 Dose: 100 mls/hr Insulin Human Regular (Novolin R) 0 unit SC ACHS [facility] PRN Reason: Protocol Last Admin: 03/20/18 07:49 Dose: Not Given Pantoprazole Sodium (Protonix Ec Tab) 40 mg PO DAILY [facility] Potassium Chloride (Potassium Chloride Oral Soln) 40 meq PO Q6H [facility] Stop: 03/20/18 23:01 - Labs Labs: 03/20/18 06:15 03/20/18 06:12 PT 14.3 SECONDS (9.7-12.2) H 03/17/18 08:52 INR 1.3 03/17/18 08:52 APTT 28 SECONDS (21-34) 03/17/18 08:52 - Constitutional Appears: Well - Respiratory Exam Respiratory Exam: Clear to Ausculation Bilateral - Cardiovascular Exam Cardiovascular Exam: RRR - GI/Abdominal Exam GI & Abdominal Exam: Soft, Normal Bowel Sounds. absent: Tenderness, Mass - Extremities Exam Extremities Exam: absent: Calf Tenderness - Neurological Exam Neurological Exam: Alert, Awake Assessment and Plan (1) Hemorrhoids Status: Acute (2) Constipation Assessment & Plan: laxatives Status: Acute (3) Acute lower GI hemorrhage Assessment & Plan: From rectal ulcers. No bleeding for few days. Rec- SITZ bath, anusol, avoid constipation Status: Acute (4) HTN (hypertension) Status: Acute (5) UTI (urinary tract infection) Status: Acute (6) Arthritis Status: Acute
--- NOTE | 2018-03-20 15:14 | CP.PCM.PN ---
Subjective - Date & Time of Evaluation Date of Evaluation: 03/20/18 Time of Evaluation: 15:12 - Subjective Subjective: currently patient has no any further bleeding from the rectum. Vital signs are stable Hemoglobin is 10.2 Discussed with the patient last night, patient currently does not want any surgical intervention if patient bleeds. We will continue the medications and plan as outlined by GI. Objective - Vital Signs/Intake and Output Vital Signs (last 24 hours): Temp Pulse Resp BP Pulse Ox 98.4 F 90 17 111/61 100 03/20/18 12:00 03/20/18 14:00 03/20/18 14:00 03/20/18 14:00 03/20/18 14:00 Intake and Output: 03/20/18 03/20/18 11:59 23:59 Intake Total 690 Output Total 1000 Balance -310 - Medications Medications: Current Medications Dextrose (Dextrose 50% Inj) 0 ml IV STAT PRN; Protocol PRN Reason: Hypoglycemia Protocol Dextrose (Glutose 15) 0 gm PO ONCE PRN; Protocol PRN Reason: Hypoglycemia Protocol Docusate Sodium (Colace) 100 mg PO TID [facility] Last Admin: 03/20/18 13:48 Dose: Not Given Glucagon (Glucagen Diagnostic Kit) 0 mg IM STAT PRN; Protocol PRN Reason: Hypoglycemia Protocol Hydrocortisone (Anusol-Hc) 0 gm [place] BID [facility] Last Admin: 03/20/18 09:42 Dose: 1 applic Fluconazole (Diflucan Iv 200 Mg/100 Ml Ns) 100 mls @ 100 mls/hr IVPB DAILY [facility] PRN Reason: Protocol Last Admin: 03/20/18 09:40 Dose: 100 mls/hr Insulin Human Regular (Novolin R) 0 unit SC ACHS [facility] PRN Reason: Protocol Last Admin: 03/20/18 12:18 Dose: Not Given Pantoprazole Sodium (Protonix Ec Tab) 40 mg PO DAILY [facility] Potassium Chloride (Potassium Chloride Oral Soln) 40 meq PO Q6H [facility] Stop: 03/20/18 23:01 Last Admin: 03/20/18 11:23 Dose: Not Given - Labs Labs: 03/20/18 06:15 03/20/18 06:12 PT 14.3 SECONDS (9.7-12.2) H 03/17/18 08:52 INR 1.3 03/17/18 08:52 APTT 28 SECONDS (21-34) 03/17/18 08:52
[2018-03-20] MEDS: Potassium Chloride 20 mEq ER Tab PO SCH ×2 (17:34→22:43)
--- NOTE | 2018-03-21 06:47 | PN ---
DATE: 03/18/2018 SUBJECTIVE: The patient is currently resting comfortably, awake in the ICU. She was transferred here early yesterday morning after a new episode of rectal bleeding and becoming hypotensive with blood pressure into the 80s and pulse up over 100. She was fluid resuscitated. Of note, her hemoglobin dropped from a 9.9 to 7.9. She was fluid resuscitated and given two units of blood and her both blood pressure and pulse stabilized nicely. She has no further episodes of bleeding since yesterday morning. She underwent a CT angiogram of the colon last night, which was negative. PHYSICAL EXAMINATION: GENERAL: Today, she is resting comfortably. VITAL SIGNS: Blood pressure 122/83, pulse 72 and regular, respiratory rate 20 and regular, temperature is 98.1. ABDOMEN: Soft. There were no other abnormal findings. LABORATORY DATA: Of note, her hemoglobin today is 9.4 and hematocrit is 27. Her potassium is 3.4, otherwise normal electrolytes. ASSESSMENT AND PLAN: My impression is that the patient has had several episodes of colonic bleeding. Originally, this to a bleeding hemorrhoid; however, I took her to the operating room for a hemorrhoidectomy and at that time did not really find a hemorrhoid that appeared to be causing the bleeding, but she underwent a simple hemorrhoidectomy. Of note, she also had an anorectal ulcer without evidence of bleeding and since this was at the anovaginal septum, I did not biopsy it due to risk of a rectovaginal fistula. She subsequently had episodes of bleeding post-hemorrhoidectomy, was taken back to the operating room where the suture line was found not to be bleeding and neither was the ulcer site. There was maroon blood coming from above the 27-cm hipolito of the proctosigmoidoscopy, which I also performed signifying that this indeed was a colonic bleeding. She then had her colon prepped and underwent a colonoscopy, but no specific findings were noted. She then had another episode of bleeding requiring blood and yesterday we evaluated her upper gastrointestinal tract by placing an nasogastric tube and lavaged without evidence of bleeding. CT angiogram was performed, but; however, this was not until last night well after her last episode of bleeding, which was 12 hours prior. Currently, she is resting comfortably without any further evidence of bleeding. I will see her later if she does bleed again, she should undergo another CT angiogram. There was a difference of opinion with Gastroenterology who seemed to feel that this was anorectal, but again in the operating room there was no evidence of this. If the bleeding continues, she may need subtotal colectomy. Hermilo Lopez MD
[2018-03-21] MEDS: (Novolin R) Insulin Human Regular 100 units/ml vial SC SCH ×4 (07:28→21:22)
[2018-03-21] MEDS: Hydrocortisone 2.5% Rectal Cream(30 gm) PR SCH ×2 (09:22→18:15)
[2018-03-21] MEDS: Fluconazole IV 200mg/100 ml NS 100 ML IVPB SCH (09:25)
[2018-03-21] MEDS ORDERED: Pantoprazole 40 mg EC Tab PO SCH (10:00)
--- NOTE | 2018-03-21 12:45 | CP.PCM.PN ---
Subjective - Date & Time of Evaluation Date of Evaluation: 03/21/18 Time of Evaluation: 12:44 - Subjective Subjective: CHIEF COMPLAINTS TODAY : Patient has no further lower GI bleeding. Hemoglobin is 10.8 g/dL ROS. HEENT : N. Resp : No cough, wheezing ,pleuritic CP ,or hemoptysis Cardio : No anginal CP, PND, orthopnea, palpitation GI : No abd.pain, n/v ,diarrhea or GI bleeding . 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 Musculoskel : No joint swelling , Derm : No rash Psych : Normal affect. Ext : No swelling ,calf pain PE. Pt. is alert awake in no distress. V.S As noted in the chart Head ,ear nose,throat and eyes : Normal. Neck : Supple with normal carotids. Lungs: Clear air entry. Heart : S1 & S2 normal with S4. No murmur. Abd : Soft non tender with normal bowel sounds. Neuro : Moves all ext. with no localized deficit. Ext : No edema with intact pulses.Non tender calves Derm : No rashes or decubitus ulcer. LABS/RADIOLOGY: ASSESSMENT/PLAN : Patient currently stable but still weak with unsteady gait. Referred to [facility] for short-term rehab. Objective - Vital Signs/Intake and Output Vital Signs (last 24 hours): Temp Pulse Resp BP Pulse Ox 98.3 F 97 H 17 107/65 98 03/21/18 12:00 03/21/18 12:00 03/21/18 12:00 03/21/18 12:00 03/21/18 12:00 Intake and Output: 03/21/18 03/21/18 11:59 23:59 Intake Total 300 Output Total 500 Balance -200 - Medications Medications: Current Medications Acetaminophen (Tylenol 325mg Tab) 650 mg PO Q6 PRN PRN Reason: Pain, moderate (4-7) Last Admin: 03/21/18 06:17 Dose: 650 mg Dextrose (Dextrose 50% Inj) 0 ml IV STAT PRN; Protocol PRN Reason: Hypoglycemia Protocol Dextrose (Glutose 15) 0 gm PO ONCE PRN; Protocol PRN Reason: Hypoglycemia Protocol Docusate Sodium (Colace) 100 mg PO TID [facility] Last Admin: 03/21/18 09:21 Dose: 100 mg Glucagon (Glucagen Diagnostic Kit) 0 mg IM STAT PRN; Protocol PRN Reason: Hypoglycemia Protocol Hydrocortisone (Anusol-Hc) 0 gm [place] BID [facility] Last Admin: 03/21/18 09:22 Dose: 1 applic Fluconazole (Diflucan Iv 200 Mg/100 Ml Ns) 100 mls @ 100 mls/hr IVPB DAILY [facility] PRN Reason: Protocol Last Admin: 03/21/18 09:25 Dose: 100 mls/hr Insulin Human Regular (Novolin R) 0 unit SC ACHS [facility] PRN Reason: Protocol Last Admin: 03/21/18 12:30 Dose: Not Given - Labs Labs: 03/20/18 06:15 03/20/18 06:12 PT 14.3 SECONDS (9.7-12.2) H 03/17/18 08:52 INR 1.3 03/17/18 08:52 APTT 28 SECONDS (21-34) 03/17/18 08:52
--- NOTE | 2018-03-21 12:49 | CP.PCM.PN ---
Subjective - Date & Time of Evaluation Date of Evaluation: 03/21/18 Time of Evaluation: 12:49 - Subjective Subjective: POD # S/P HEMORRHOIDECTOMY 03/11/18 # DAY 10 AFEBRILE, VSS NO MORE RECTAL BLEEDING H/H STABLE.10.8 C/O DYSURIA ON IV DIFLUCAN ROS. HEENT : N. 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 Musculoskel : No joint swelling , Derm : No rash Psych : Normal affect. Ext : No swelling ,calf pain PE. Pt. is awake V.S As noted in the chart Head ,ear nose,throat and eyes : Normal. Neck : Supple with normal carotids. Lungs: Clear air entry. Heart : S1 & S2 normal with NO MURMUR Abd : Soft non tender with normal bowel sounds. Neuro : Moves all ext. with no localized deficit. Ext : No edema with intact pulses.Non tender calves Derm : No rashes or decubitus ulcer. LABS/RADIOLOGY: REVIEWED. REPEAT URINE CULTURE +VE YEAST H/H STABLE wbc NORMAL. URINE CULTURE +VE kLEBSIELLA PNEUMONIA -VE ESBL S- CEFEPIME. Objective - Vital Signs/Intake and Output Vital Signs (last 24 hours): Temp Pulse Resp BP Pulse Ox 98.3 F 97 H 17 107/65 98 03/21/18 12:00 03/21/18 12:00 03/21/18 12:00 03/21/18 12:00 03/21/18 12:00 Intake and Output: 03/21/18 03/21/18 06:59 18:59 Intake Total 300 Output Total 500 Balance -200 - Medications Medications: Current Medications Acetaminophen (Tylenol 325mg Tab) 650 mg PO Q6 PRN PRN Reason: Pain, moderate (4-7) Last Admin: 03/21/18 06:17 Dose: 650 mg Dextrose (Dextrose 50% Inj) 0 ml IV STAT PRN; Protocol PRN Reason: Hypoglycemia Protocol Dextrose (Glutose 15) 0 gm PO ONCE PRN; Protocol PRN Reason: Hypoglycemia Protocol Docusate Sodium (Colace) 100 mg PO TID [facility] Last Admin: 07/09/18 09:21 Dose: 100 mg Glucagon (Glucagen Diagnostic Kit) 0 mg IM STAT PRN; Protocol PRN Reason: Hypoglycemia Protocol Hydrocortisone (Anusol-Hc) 0 gm [place] BID [facility] Last Admin: 03/21/18 09:22 Dose: 1 applic Fluconazole (Diflucan Iv 200 Mg/100 Ml Ns) 100 mls @ 100 mls/hr IVPB DAILY [facility] PRN Reason: Protocol Last Admin: 03/21/18 09:25 Dose: 100 mls/hr Insulin Human Regular (Novolin R) 0 unit SC ACHS [facility] PRN Reason: Protocol Last Admin: 03/21/18 12:30 Dose: Not Given - Labs Labs: 03/20/18 06:15 03/20/18 06:12 PT 14.3 SECONDS (9.7-12.2) H 03/17/18 08:52 INR 1.3 03/17/18 08:52 APTT 28 SECONDS (21-34) 03/17/18 08:52 Assessment and Plan (1) UTI (urinary tract infection) Assessment & Plan: REPEAT URINE CULTURES +VE YEAST DC iv CEFEPIME . STARTED ON IV DIFLUCAN 200MG IV QD DAILY X 5 DAYS,03/20/18 CAN SWITCH TO BY MOUTH ON DISCHARGE TO SUBACUTE REHAB DISCUSSED WITH NO Berta. Status: Acute (2) Acute lower GI hemorrhage Assessment & Plan: H/H STABLE S/P COLONOSCOPY/EGD NO MORE RECTAL BLEEDING. RECTAL PAIN ALSO IMPROVING. CONTINUE SITZ BATHS/AND HYDROCORTISONE SUPPOSITORY PER GI. Status: Acute (3) Arthritis Status: Acute (4) HTN (hypertension) Status: Acute (5) Status post hemorrhoidectomy Status: Acute
--- NOTE | 2018-03-21 13:48 | CP.PCM.PN ---
Subjective - Date & Time of Evaluation Date of Evaluation: 03/21/18 Time of Evaluation: 13:46 - Subjective Subjective: f/u RB. No Rb, melena, abdo pain, fever, chills, SZ, LOC, CP, SOB, WYNNE Objective - Vital Signs/Intake and Output Vital Signs (last 24 hours): Temp Pulse Resp BP Pulse Ox 98.3 F 97 H 17 107/65 98 03/21/18 12:00 03/21/18 12:00 03/21/18 12:00 03/21/18 12:00 03/21/18 12:00 Intake and Output: 03/21/18 03/21/18 06:59 18:59 Intake Total 300 Output Total 500 Balance -200 - Medications Medications: Current Medications Acetaminophen (Tylenol 325mg Tab) 650 mg PO Q6 PRN PRN Reason: Pain, moderate (4-7) Last Admin: 03/21/18 06:17 Dose: 650 mg Dextrose (Dextrose 50% Inj) 0 ml IV STAT PRN; Protocol PRN Reason: Hypoglycemia Protocol Dextrose (Glutose 15) 0 gm PO ONCE PRN; Protocol PRN Reason: Hypoglycemia Protocol Docusate Sodium (Colace) 100 mg PO TID [facility] Last Admin: 03/21/18 13:19 Dose: 100 mg Glucagon (Glucagen Diagnostic Kit) 0 mg IM STAT PRN; Protocol PRN Reason: Hypoglycemia Protocol Hydrocortisone (Anusol-Hc) 0 gm [place] BID [facility] Last Admin: 03/21/18 09:22 Dose: 1 applic Fluconazole (Diflucan Iv 200 Mg/100 Ml Ns) 100 mls @ 100 mls/hr IVPB DAILY [facility] PRN Reason: Protocol Last Admin: 03/21/18 09:25 Dose: 100 mls/hr Insulin Human Regular (Novolin R) 0 unit SC ACHS [facility] PRN Reason: Protocol Last Admin: 03/21/18 12:30 Dose: Not Given - Labs Labs: 03/20/18 06:15 03/20/18 06:12 PT 14.3 SECONDS (9.7-12.2) H 03/17/18 08:52 INR 1.3 03/17/18 08:52 APTT 28 SECONDS (21-34) 03/17/18 08:52 - Constitutional Appears: Well - Respiratory Exam Respiratory Exam: Clear to Ausculation Bilateral - Cardiovascular Exam Cardiovascular Exam: RRR - GI/Abdominal Exam GI & Abdominal Exam: Soft, Normal Bowel Sounds. absent: Tenderness, Mass - Neurological Exam Neurological Exam: Alert, Awake Assessment and Plan (1) Hemorrhoids Status: Acute (2) Constipation Assessment & Plan: laxatives. AVOID CONSTIPATION Status: Acute (3) Acute lower GI hemorrhage Assessment & Plan: No further bleeding Advance diet. Continue anusol GI stable. Status: Acute (4) HTN (hypertension) Status: Acute (5) UTI (urinary tract infection) Status: Acute (6) Arthritis Status: Acute
[2018-03-22] MEDS: (Novolin R) Insulin Human Regular 100 units/ml vial SC SCH ×3 (07:39→16:35)
[2018-03-22] MEDS: Fluconazole IV 200mg/100 ml NS 100 ML IVPB SCH (09:35)
[2018-03-22] MEDS: Hydrocortisone 2.5% Rectal Cream(30 gm) PR SCH (09:44)
--- NOTE | 2018-03-22 12:59 | CT ---
Date of service: 03/17/2018 PROCEDURE: CTA of the abdomen and pelvis HISTORY: r/o bleeding COMPARISON: Comparison is made with the previous Study of the abdomen and pelvis without contrast dated 03/09/2018 TECHNIQUE: Axial and reformatted coronal and sagittal CTA images of the abdomen and pelvis were obtained after IV contrast administration. FINDINGS: The abdominal aorta has a normal caliber. There are small foci of atherosclerotic calcifications seen in the abdominal aorta and iliac arteries. No evidence of aneurysm or dissection in the abdominal aorta. The main aortic branches are patent. There is right-sided femoral central line extending to the IVC. There is no definite evidence of contrast extravasation in the bowel noted in this CTA study. The assessment is suboptimal without delayed images. No evidence of acute pathology in the liver spleen pancreas and adrenal glands. The kidneys enhance symmetrically. No evidence of free fluid free air or bowel obstruction. There is Lopes catheter in the bladder. There is mild urinary bladder wall thickening noted. Trace left pleural effusion and cardiomegaly noted. IMPRESSION: Mild atherosclerotic disease. No evidence of aneurysm stenosis or dissection. No evidence of active contrast extravasation noted in this CTA study. The assessment is limited without delayed images. Preliminary report was submitted by virtual Radiology.
--- NOTE | 2018-03-22 13:04 | CP.PCM.PN ---
Subjective - Date & Time of Evaluation Date of Evaluation: 03/22/18 Time of Evaluation: 13:10 - Subjective Subjective: F/U rectal bleed. Feels better. No RB. rectal pain is better. Denies fever, chills, CP. SOB, fever, WYNNE, cough, abdom pain, melena Objective - Vital Signs/Intake and Output Vital Signs (last 24 hours): Temp Pulse Resp BP Pulse Ox 98.5 F 99 H 15 90/67 L 97 03/22/18 04:00 03/22/18 10:00 03/22/18 04:00 03/22/18 04:00 03/22/18 04:00 Intake and Output: 03/22/18 03/22/18 06:59 18:59 Intake Total 500 Output Total 1000 Balance -500 - Medications Medications: Current Medications Acetaminophen (Tylenol 325mg Tab) 650 mg PO Q6 PRN PRN Reason: Pain, moderate (4-7) Last Admin: 03/21/18 21:21 Dose: 650 mg Dextrose (Dextrose 50% Inj) 0 ml IV STAT PRN; Protocol PRN Reason: Hypoglycemia Protocol Dextrose (Glutose 15) 0 gm PO ONCE PRN; Protocol PRN Reason: Hypoglycemia Protocol Docusate Sodium (Colace) 100 mg PO TID [facility] Last Admin: 03/22/18 09:36 Dose: 100 mg Glucagon (Glucagen Diagnostic Kit) 0 mg IM STAT PRN; Protocol PRN Reason: Hypoglycemia Protocol Hydrocortisone (Anusol-Hc) [address] BID [facility] Last Admin: 03/22/18 09:44 Dose: 1 applic Fluconazole (Diflucan Iv 200 Mg/100 Ml Ns) 100 mls @ 100 mls/hr IVPB DAILY [facility] PRN Reason: Protocol Last Admin: 03/22/18 09:35 Dose: 100 mls/hr Insulin Human Regular (Novolin R) 0 unit SC ACHS [facility] PRN Reason: Protocol Last Admin: 03/22/18 12:27 Dose: 2 unit Pantoprazole Sodium (Protonix Inj) 40 mg IVP DAILY [facility] Last Admin: 03/22/18 09:36 Dose: 40 mg - Labs Labs: 03/20/18 06:15 03/20/18 06:12 PT 14.3 SECONDS (9.7-12.2) H 03/17/18 08:52 INR 1.3 03/17/18 08:52 APTT 28 SECONDS (21-34) 03/17/18 08:52 - Constitutional Appears: Non-toxic - Respiratory Exam Respiratory Exam: Clear to Ausculation Bilateral - Cardiovascular Exam Cardiovascular Exam: RRR - GI/Abdominal Exam GI & Abdominal Exam: Soft, Normal Bowel Sounds. absent: Tenderness - Neurological Exam Neurological Exam: Alert, Awake, Oriented x3 Assessment and Plan (1) Hemorrhoids Status: Acute (2) Constipation Status: Acute (3) Acute lower GI hemorrhage Assessment & Plan: No further bleeding Status: Acute (4) HTN (hypertension) Status: Acute (5) UTI (urinary tract infection) Status: Acute (6) Arthritis Status: Acute (7) Rectal ulcer Assessment & Plan: WILL NEED F/U FLEX SIG IN 3-6 MONTHS Status: Acute
--- NOTE | 2018-03-22 13:25 | CP.PCM.PN ---
Subjective - Date & Time of Evaluation Date of Evaluation: 03/22/18 Time of Evaluation: 13:24 - Subjective Subjective: PATIENT WAS ADMITTING FOR RECTAL BLEEDING AAOX3 ON ROOM AIR / DENIES CHEST PAIN OR SOB/ NO SING OF BLEEDING NOTED Objective - Vital Signs/Intake and Output Vital Signs (last 24 hours): Temp Pulse Resp BP Pulse Ox 98.5 F 99 H 15 90/67 L 97 03/22/18 04:00 03/22/18 10:00 03/22/18 04:00 03/22/18 04:00 03/22/18 04:00 Intake and Output: 03/22/18 03/22/18 06:59 18:59 Intake Total 500 Output Total 1000 Balance -500 - Medications Medications: Current Medications Acetaminophen (Tylenol 325mg Tab) 650 mg PO Q6 PRN PRN Reason: Pain, moderate (4-7) Last Admin: 03/21/18 21:21 Dose: 650 mg Dextrose (Dextrose 50% Inj) 0 ml IV STAT PRN; Protocol PRN Reason: Hypoglycemia Protocol Dextrose (Glutose 15) 0 gm PO ONCE PRN; Protocol PRN Reason: Hypoglycemia Protocol Docusate Sodium (Colace) 100 mg PO TID [facility] Last Admin: 03/22/18 09:36 Dose: 100 mg Glucagon (Glucagen Diagnostic Kit) 0 mg IM STAT PRN; Protocol PRN Reason: Hypoglycemia Protocol Hydrocortisone (Anusol-Hc) 0 gm [place] BID [facility] Last Admin: 03/22/18 09:44 Dose: 1 applic Fluconazole (Diflucan Iv 200 Mg/100 Ml Ns) 100 mls @ 100 mls/hr IVPB DAILY [facility] PRN Reason: Protocol Last Admin: 03/22/18 09:35 Dose: 100 mls/hr Insulin Human Regular (Novolin R) 0 unit SC ACHS [facility] PRN Reason: Protocol Last Admin: 03/22/18 12:27 Dose: 2 unit Pantoprazole Sodium (Protonix Inj) 40 mg IVP DAILY [facility] Last Admin: 03/22/18 09:36 Dose: 40 mg - Labs Labs: 03/20/18 06:15 03/20/18 06:12 PT 14.3 SECONDS (9.7-12.2) H 03/17/18 08:52 INR 1.3 03/17/18 08:52 APTT 28 SECONDS (21-34) 03/17/18 08:52 Assessment and Plan - Assessment and Plan (Free Text) Assessment: PLACE [place] [facility] OF [facility] [place]US[place] [facility] [place] FOR [place] ORDER CONTINUE ALL YOUR HOME MEDICATION ORDER NEW PRESCRIPTION GIVEN DIFLUCAN 100 MG PO DAILY COLACE 100 MG PO TID STOP TAKING ASPIRIN/ ALENDRANATE/ LOSARTAN/ METHOTREXATE UNTIL REVISE BY YOUR PRIMARY DR MANCUSO ACTIVITY TOLERATED CALL DR MANCUSO FOR FURTHER ORDER
--- NOTE | 2018-03-22 14:02 | CP.PCM.DIS ---
Provider - Provider Date of Admission: 03/09/18 11:33 Attending physician: Rick Ramos MD Time Spent in preparation of Discharge (in minutes): 40 Hospital Course - Lab Results Lab Results: Micro Results 03/17/18 16:00 Urine,Lopes Urine Culture - Final Yeast Species 03/17/18 11:23 Naris MRSA Culture (Admit) - Final MRSA NOT DETECTED 03/16/18 03:16 Urine,Clean Catch Urine Culture - Final No Growth (<1,000 CFU/ML) 03/12/18 06:37 Naris MRSA Culture - Final MRSA NOT DETECTED 03/09/18 08:33 Urine,Catheterized Urine Culture - Final Klebsiella Pneumoniae Ssp Pneu 03/09/18 21:43 Urine,Lopes Urine Culture - Final Klebsiella Pneumoniae Ssp Pneu 03/09/18 19:21 Nose MRSA Culture (Admit) - Final MRSA NOT DETECTED Most Recent Lab Values WBC 5.0 K/uL (4.8-10.8) 03/20/18 06:15 RBC 3.59 Mil/uL (3.80-5.20) L 03/20/18 06:15 Hgb 10.8 g/dL (11.0-16.0) L 03/20/18 06:15 Hct 32.4 % (34.0-47.0) L 03/20/18 06:15 MCV 90.4 fL (81.0-99.0) D 03/20/18 06:15 MCH 30.1 pg (27.0-31.0) 03/20/18 06:15 MCHC 33.3 g/dL (33.0-37.0) 03/20/18 06:15 RDW 15.9 % (11.5-14.5) H 03/20/18 06:15 Plt Count 247 K/uL (130-400) 03/20/18 06:15 MPV 7.2 fL (7.2-11.7) 03/20/18 06:15 Neut % (Auto) 65.4 % (50.0-75.0) 03/20/18 06:15 Lymph % (Auto) 18.3 % (20.0-40.0) L 03/20/18 06:15 [place] % (Auto) 11.5 % (0.0-10.0) H 03/20/18 06:15 Eos % (Auto) 3.8 % (0.0-4.0) 03/20/18 06:15 Baso % (Auto) 1.0 % (0.0-2.0) 03/20/18 06:15 Neut # (Auto) 3.3 K/uL (1.8-7.0) 03/20/18 06:15 Lymph # (Auto) 0.9 K/uL (1.0-4.3) L 03/20/18 06:15 [place] # (Auto) 0.6 K/uL (0.0-0.8) 03/20/18 06:15 Eos # (Auto) 0.2 K/uL (0.0-0.7) 03/20/18 06:15 Baso # (Auto) 0.1 K/uL (0.0-0.2) 03/20/18 06:15 Neutrophils % (Manual) 83 % (50-75) H 03/13/18 03:19 Lymphocytes % (Manual) 8 % (20-40) L 03/13/18 03:19 Monocytes % (Manual) 7 % (0-10) 03/13/18 03:19 Eosinophils % (Manual) 1 % (0-4) 03/13/18 03:19 Basophils % (Manual) 1 % (0-2) 03/13/18 03:19 Platelet Estimate Normal (NORMAL) 03/13/18 03:19 RBC Morphology Normal 03/09/18 08:15 Polychromasia Slight 03/13/18 03:19 Anisocytosis (manual) Slight 03/13/18 03:19 PT 14.3 SECONDS (9.7-12.2) H 03/17/18 08:52 INR 1.3 03/17/18 08:52 APTT 28 SECONDS (21-34) 03/17/18 08:52 Sodium 140 mmol/L (132-148) 03/20/18 06:12 Potassium 3.5 mmol/L (3.6-5.2) L 03/20/18 06:12 Chloride 104 mmol/L (98-107) 03/20/18 06:12 Carbon Dioxide 25 mmol/L (22-30) 03/20/18 06:12 Anion Gap 15 (10-20) 03/20/18 06:12 BUN 3 mg/dL (7-17) L 03/20/18 06:12 Creatinine 0.6 mg/dL (0.7-1.2) L 03/20/18 06:12 Est GFR ( Amer) > 60 03/20/18 06:12 Est GFR (Non-Af Amer) > 60 03/20/18 06:12 POC Glucose (mg/dL) 202 mg/dL (65-110) H 03/22/18 11:12 Random Glucose 146 mg/dL (65-105) H 03/20/18 06:12 Hemoglobin A1c 5.9 % (4.2-6.5) 03/10/18 06:42 Calcium 8.6 mg/dl (8.6-10.4) 03/20/18 06:12 Phosphorus 2.9 mg/dL (2.5-4.5) 03/20/18 06:12 Magnesium 2.1 mg/dL (1.6-2.3) 03/20/18 06:12 Total Bilirubin 0.6 mg/dL (0.2-1.3) 03/20/18 06:12 AST 33 U/L (14-36) 03/20/18 06:12 ALT 30 U/L (9-52) 03/20/18 06:12 Alkaline Phosphatase 47 U/L (38-126) 03/20/18 06:12 Total Protein 5.0 g/dL (6.3-8.3) L 03/20/18 06:12 Albumin 2.7 g/dL (3.5-5.0) L 03/20/18 06:12 Globulin 2.2 gm/dL (2.2-3.9) 03/20/18 06:12 Albumin/Globulin Ratio 1.2 (1.0-2.1) 03/20/18 06:12 Lipase 60 U/L (23-300) 03/09/18 08:15 Urine Color Yellow (YELLOW) 03/17/18 16:00 Urine Clarity Turbid (Clear) 03/17/18 16:00 Urine pH 5.0 (5.0-8.0) 03/17/18 16:00 Ur Specific [place] 1.005 (1.003-1.030) 03/17/18 16:00 Urine Protein Negative mg/dL (NEGATIVE) 03/17/18 16:00 Urine Glucose (UA) 1+ mg/dL (Normal) 03/17/18 16:00 Urine Ketones Negative mg/dL (NEGATIVE) 03/17/18 16:00 Urine Blood 1+ (NEGATIVE) H 03/17/18 16:00 Urine Nitrate Negative (NEGATIVE) 03/17/18 16:00 Urine Bilirubin Negative (NEGATIVE) 03/17/18 16:00 Urine Urobilinogen Normal mg/dL (0.2-1.0) 03/17/18 16:00 Ur Leukocyte Esterase 3+ [place]/uL (Negative) H 03/17/18 16:00 Urine WBC (Auto) 1667 /hpf (0-5) H 03/17/18 16:00 Urine RBC (Auto) 582 /hpf (0-3) H 03/17/18 16:00 Ur Squamous Epith Cells 2 /hpf (0-5) 03/09/18 08:29 Amorphous Sediment Moderate /ul (<OCC) H 03/09/18 21:43 Urine Bacteria Few (<OCC) H 03/09/18 08:29 Urine Yeast (Budding) Many /hpf (NEGATIVE) H 03/17/18 16:00 Blood Type O POSITIVE 03/17/18 08:52 Antibody Screen Negative 03/17/18 08:52 - Hospital Course Hospital Course: Patient is admitted with lower abdominal pain and rectal bleeding. The pain started this morning lower abdominal colicky radiating to the rectal area subsequently patient had a bright blood bleeding from the rectum. Patient was evaluated in an ER and admitted for further treatment Patient also has high WBC count in the urine with complaints of dysuria HPI PAST HIST. Patient has a history of hypertension arthritis and previous history of rectal bleeding Initially patient was admitted on the floor with stable vital signs and no further bleeding. 24 hour later patient had a large bowel movement with excess amounts of rectal bleeding with clots. Patient was transferred to the unit GI consult and surgical consults were obtained. After group consultation it was agreed that the patient has her rectal bleeding from probable possible hemorrhoids and patient went to the OR for hemorrhoidectomy. Patient had a successful surgery. Postoperatively in 24 hours later the patient again had a rectal bleeding with large clots of blood with hypotension tachycardia and was transferred back to ICU patient on total received about 4 units of packed cells. Patient then underwent a colonoscopy to look for other cause of GI bleeding. Upper endoscopy and colonoscopy did not reveal any other source of bleeding except for some ulcerated lesions in the rectal region near the previous hemorrhoidectomy. Patient stabilized subsequently did not require any more further blood transfusion there was no any rectal bleeding and patient went back on his regular diet. Last hemoglobin before transfer to rehab was 10.8 g/dL Patient is still weak will be transferred to rehab for continuation of physical therapy and muscle strengthening exercises and gait training. Discharge Exam - Head Exam Head Exam: ATRAUMATIC, NORMAL INSPECTION, NORMOCEPHALIC Discharge Plan - Discharge Medications Prescriptions: Fluconazole [Diflucan] 100 mg PO DAILY 4 Days tab - Follow Up Plan Condition: STABLE Disposition: HOME/ ROUTINE Additional Instructions: PLACE UNDER THE SERVICE OF DR RAMOS AT [facility] [place]CALL FOR ADMITTING ORDER CONTINUE ALL YOUR HOME MEDICATION ORDER NEW PRESCRIPTION GIVEN DIFLUCAN 100 MG PO DAILY COLACE 100 MG PO TID STOP TAKING ASPIRIN/ ALENDRANATE/ LOSARTAN/ METHOTREXATE UNTIL REVISE BY YOUR PRIMARY DR RAMOS ACTIVITY TOLERATED CALL DR RAMOS FOR FURTHER ORDER Referrals: Hay Haddad MD [Staff Provider] - Dominik Macedo Jr., MD [Staff Provider] - Rick Ramos MD [Staff Provider] - Hermilo Lopez MD [Staff Provider] - Sylvester Alfred MD [Staff Provider] -
[2018-03-22 15:44] VITALS: BP 139/81; PULSE 88; RESP 17; TEMP 97.8; O2SAT 99
--- NOTE | 2018-04-20 02:21 | OP ---
Copied To: Hermilo Lopez MD Attending MD: Hermilo Lopez MD PROCEDURE DATE: 03/11/2018 PREOPERATIVE DIAGNOSIS: Rectal bleeding secondary to hemorrhoids. POSTOPERATIVE DIAGNOSIS: Rectal bleeding secondary to hemorrhoids with fecal impaction. PROCEDURES PERFORMED: Hemorrhoidectomy, fecal disimpaction. SURGEON: Hermilo Lopez MD ANESTHESIA: General. BLOOD LOSS: 20 mL. POSTOPERATIVE CONDITION: Stable. INDICATIONS FOR SURGERY: This is an 82-year-old female in the ICU with rectal bleeding. She was seen by GI who did not do a colonoscopy, but diagnosed a bleeding, thrombosed hemorrhoid. A surgical consult was obtained for hemorrhoidectomy. The patient is now taken to the operating room for examination under anesthesia. GROSS FINDINGS: The patient was found to have a fecal impaction and a left lateral hemorrhoid, mixed internal and external with no evidence of thrombosis. Fecal disimpaction was performed along with a hemorrhoidectomy. DESCRIPTION OF PROCEDURE: The patient was taken to the operating room, placed in the prone jackknife position with the buttocks taped open. A large fecal bolus was found upon digital examination. Fecal impaction was performed prior to prepping and draping. Once this was done, the area was prepped and draped, and the rectal cavity was irrigated with saline. The hemorrhoid was grasped with a leida clamp and ligated at its base with an 0 chromic suture. An elliptical incision was made out onto the anal skin. It was completely excised. Bleeding was controlled using the Bovie. Larger blood vessels were repaired. The wound was irrigated. Tissue flaps were raised in the mucosa, and a double layer of running 0 chromic closure was performed. The wound was hemostatic at the conclusion of the procedure. The patient tolerated the procedure well and returned to recovery room in stable condition. Hermilo Lopez MD
== END 2018-03-22 17:10 | DRG 348 ==
LOC: C.ER 07:18 → C.9E 11:33 → C.3T 14:46 → C.9E 17:03 → C.9I 17:04 → C.6T 03-12 06:31 → C.9I 03-17 08:31
PROVIDERS: ADMIT Internal Medicine Cardiovascular Disease; ATTEND Internal Medicine Cardiovascular Disease
PROC: 06BY3ZC Excision of Hemorrhoidal Plexus, Percutaneous Approach (ICD-10-PCS; principal; 2018-03-11 18:15)
PROC: 0DN Gastrointestinal System, Release (ICD-10-PCS; 2018-03-14)
DX: K64.8 Other hemorrhoids (principal); K62.6 Ulcer of anus and rectum; N39.0 Urinary tract infection, site not specified; D62 Acute posthemorrhagic anemia; K62.5 Hemorrhage of anus and rectum; E11.9 Type 2 diabetes mellitus without complications; E78.5 Hyperlipidemia, unspecified; I10 Essential (primary) hypertension; K59.00 Constipation, unspecified; M19.90 Unspecified osteoarthritis, unspecified site; Z66 Do not resuscitate; Z86.010 Personal history of colon polyps; Z90.49 Acquired absence of other specified parts of digestive tract; Z79.4 Long term (current) use of insulin

== ENCOUNTER 2018-03-24 15:14 | Inpatient (IN) | payer MEDICARE, OTHER ==
[2018-03-24 15:15] VITALS: BMI 26.4
[2018-03-24] MEDS ORDERED: Sodium Chloride 0.9% 1,000 ML IV ONE ×2 (16:07→16:40)
[2018-03-24 16:24] LABS: BASO # 0.1 K/uL (0.0-0.2); BASO % 0.9 % (0.0-2.0); EOS # 0.1 K/uL (0.0-0.7); HEMOGLOBIN 11.3 g/dL (11.0-16.0); LYMPH # 1.4 K/uL (1.0-4.3); LYMPH % 15.7 % (20.0-40.0); MEAN CELL VOLUME 91.8 fL (81.0-99.0); MEAN CORPUSCULAR HEMOGLOBIN 30.2 pg (27.0-31.0); MEAN CORPUSCULAR HGB CONC 32.9 g/dL (33.0-37.0); MEAN PLATELET VOLUME 7.5 fL (7.2-11.7); MONO # 0.6 K/uL (0.0-0.8); MONO % 7.3 % (0.0-10.0); NEUT # 6.5 K/uL (1.8-7.0); NEUT % 75.1 % (50.0-75.0); NRBC % 0.1 % (0.0-2.0); RBC 3.75 Mil/uL (3.80-5.20); RED CELL DISTRIBUTION WIDTH 16.7 % (11.5-14.5)
[2018-03-24 16:27] LABS: WHITE BLOOD COUNT 8.7 K/uL (4.8-10.8)
[2018-03-24 16:31] LABS: PROTHROMBIN TIME 10.5 SECONDS (9.7-12.2)
[2018-03-24 16:37] LABS: VENOUS BLOOD GAS BASE EXCESS 3.2 mmol/L (0.0-2.0); VENOUS BLOOD GAS PCO2 42 mmHg (40-60); VENOUS BLOOD GAS PO2 21 mm/Hg (30-55); VENOUS BLOOD PH 7.43 (7.32-7.43)
[2018-03-24 16:38] LABS: ALB/GLOB RATIO 1.4 (1.0-2.1); ALBUMIN 3.3 g/dL (3.5-5.0); ALT/SGPT 35 U/L (9-52); AST/SGOT 30 U/L (14-36); BLOOD UREA NITROGEN 22 mg/dL (7-17); CALCIUM 10.1 mg/dl (8.6-10.4); GFR AFRICAN-AMERICAN > 60; GFR NON-AFRICAN AMERICAN 60
--- NOTE | 2018-03-24 16:40 | RAD ---
Date of service: 03/24/2018 HISTORY: Sepsis Patient COMPARISON: 03/09/2018 FINDINGS: LUNGS: No active pulmonary disease. PLEURA: No significant pleural effusion identified, no pneumothorax apparent. CARDIOVASCULAR: Borderline left ventricular enlargement configuration. Atherosclerotic aortic knob vascular calcifications present. . OSSEOUS STRUCTURES: Thoracic spondylosis. Bilateral shoulder mild arthrosis VISUALIZED UPPER ABDOMEN: Normal. OTHER FINDINGS: None. IMPRESSION: No interval pathology noted
--- NOTE | 2018-03-24 17:04 | C.PDOC ---
History Of Present Illness 82 yo female transferred to ED from [place] for evaluation of episode of rectal bleeding had early today. As per pt, " I thought I had bowel movement and when they cleaned me, it was all blood". Otherwise, pt denies fever, abd. pain, vomiting, denies any other new complaints. Pt is poor historian, no other info on current illness can be obtained. FYI: records from previous ED visits review. Pt was admitted to [facility] on 03/09/18 -03/22/18 due to similar complaints of rectal bleeding. Pt underwent hemorroidectomy by , colonoscopy, w/GI consult of . Time Seen by Provider: 03/24/18 15:17 Chief Complaint (Nursing): GI Problem History Per: Patient, Other ([facility] transfer paper) Past Medical History Reviewed: Historical Data, Nursing Documentation, Vital Signs Vital Signs: Last Vital Signs Temp 98.5 F 03/24/18 17:47 Pulse 108 H 03/24/18 17:13 Resp 19 03/24/18 17:13 BP 117/52 L 03/24/18 17:13 Pulse Ox 100 03/24/18 17:26 - Medical History PMH: Arthritis, Dementia, HTN Denies: Chronic Kidney Disease Other PMH: GI bleed Surgical History: Appendectomy - [facility] Procedures ENDOSC POLYPECTOMY OF LG INTEST (02/17/13) EXCISION OF HEMORRHOIDAL PLEXUS, PERCUTANEOUS APPROACH (03/09/18) Family History: States: Unknown Family Hx - Social History Hx Tobacco Use: No Hx Alcohol Use: No Hx Substance Use: No - Immunization History Hx Tetanus Toxoid Vaccination: No Hx Influenza Vaccination: Yes Hx Pneumococcal Vaccination: Yes Review Of Systems Except As Marked, All Systems Reviewed And Found Negative. Constitutional: Negative for: Fever, Malaise Gastrointestinal: Positive for: Melena. Negative for: Vomiting, Abdominal Pain , Diarrhea, Hematemesis Musculoskeletal: Negative for: Neck Pain, Back Pain Skin: Negative for: Rash Neurological: Negative for: Altered Mental Status Physical Exam - Physical Exam Appears: Well, Non-toxic Skin: Normal Color, Warm Head: Normacephalic Eye(s): bilateral: PERRL Nose: No Flaring, No Discharge Oral Mucosa: Moist Neck: Trachea Midline, Supple Chest: Symmetrical Cardiovascular: Rhythm Regular (tachy), No Murmur, No JVD Respiratory: No Decreased Breath Sounds, No Accessory Muscle Use, No Stridor, No Wheezing Rectal: Rectal Tone (normal), Melena, No Tenderness Extremity: Normal ROM, Tenderness (diffuse Right LE, no edema, no erythema, no palpable defomrity.), No Deformity, No Swelling Neurological/Psych: Oriented x3, Normal Speech ED Course And Treatment - Laboratory Results Result Diagrams: 03/24/18 16:19 03/24/18 16:19 Lab Interpretation: No Changes Compared To Prior Results ECG: Interpreted By Me, Viewed By Me Interpretation Of ECG: SR@91/min, NAD, no acute T wave or ST-T changes. O2 Sat by Pulse Oximetry: 100 - Radiology CXR: Interpreted by Me, Read By Radiologist CXR Interpretation: Yes: No Acute Disease, Other (no new changes) Progress Note: Pt remained unchanged during the ED evaluation. Hypotensive, tachycardic, suspicion for acute bleeding, rectal exam (+) sydnie blood per rectum. Blod work review, hemoglobin stable at present time. lactic high, no luekocytosis, no left shift, afebrile Critical Care Time - Critical Care Note Total Time (in mins): 40 Documented critical care: time excludes all time spent performing seperately billable procedures. Disposition - Disposition Disposition: HOSPITALIZED Disposition Time: 16:58 Condition: FAIR - Clinical Impression Clinical Impression: Rectal bleeding, Hypovolemic shock
[2018-03-24 17:11] LABS: URINE BILIRUBIN NEGATIVE (NEGATIVE); URINE BLOOD NEGATIVE (NEGATIVE); URINE CLARITY Clear (Clear); URINE COLOR Yellow (YELLOW); URINE GLUCOSE (UA) NORMAL (Normal); URINE LEUKOCYTE ESTERASE 1+ Leu/uL (Negative); URINE PROTEIN NEGATIVE (NEGATIVE); URINE UROBILINOGEN NORMAL mg/dL (0.2-1.0)
[2018-03-24] MEDS ORDERED: Sodium Chloride 0.9% 1,000 ML ONE (17:25)
--- NOTE | 2018-03-24 18:44 | CP.PCM.CON ---
History of Present Illness - History of Present Illness History of Present Illness: ASked to see pt for GI Bleed. Elderly female h/o CAD, arthritis, HTN. Daughter is present. Recently discharged from 2 days ago, now with BRBPR suddenly , severe. PMH- REcent admission- Rectal pain, hemorrhoids, Had hemorrhoid surgery DR Lopez 2 weeks ago. Developed RB. Colonsocpy shows rectal ulcerations and inflammation. EGD showed no bleeding. Bleeding scan was neg. She had 2 more episodes of sudden and severe bleeding during that hospitilization. SHe had no bleeding for 1 week til now. Now feels weak and cold. Hb-11 Review of Systems - Constitutional Constitutional: Fatigue, Weakness - EENT Eyes: absent: Diplopia, Photophobia - Cardiovascular Cardiovascular: absent: Chest Pain, Dyspnea - Respiratory Respiratory: absent: Hemoptysis, Wheezing - Gastrointestinal Gastrointestinal: Hematochezia. absent: Abdominal Pain, Constipation, Dysphagia , Hematemesis, Melena, Nausea, Vomiting - Genitourinary Genitourinary: absent: Hematuria - Musculoskeletal Musculoskeletal: absent: Muscle Cramps - Integumentary Integumentary: absent: Erythema, Lesions - Neurological Neurological: absent: Convulsions Past Patient History - Infectious Disease Hx of Infectious Diseases: None - Past Medical History & Family History Past Medical History?: Yes - Past Social History Smoking Status: Never Smoked - CARDIAC Hx Hypertension: Yes - PULMONARY Hx Respiratory Disorders: No - NEUROLOGICAL Hx Dementia: Yes - HEENT Hx Cataracts: Yes (WITH BRANDON IOL) - RENAL Hx Chronic Kidney Disease: No - ENDOCRINE/METABOLIC Hx Diabetes Mellitus Type 2: Yes - HEMATOLOGICAL/ONCOLOGICAL Hx Blood Disorders: No - INTEGUMENTARY Hx Dermatological Problems: No - MUSCULOSKELETAL/RHEUMATOLOGICAL Hx Arthritis: Yes - GASTROINTESTINAL Hx Gastrointestinal Disorders: No - GENITOURINARY/GYNECOLOGICAL Hx Genitourinary Disorders: No - PSYCHIATRIC Hx Substance Use: No - SURGICAL HISTORY Hx Appendectomy: Yes - ANESTHESIA Hx Anesthesia: Yes Hx Anesthesia Reactions: No Meds Allergies/Adverse Reactions: Allergies Allergy/AdvReac Type Severity Reaction Status Date / Time No Known Allergies Allergy Verified 03/09/18 07:23 Physical Exam - Constitutional Appears: Non-toxic - Respiratory Exam Respiratory Exam: Clear to Auscultation Bilateral - Cardiovascular Exam Cardiovascular Exam: RRR - GI/Abdominal Exam GI & Abdominal Exam: Normal Bowel Sounds, Soft. absent: Mass, Tenderness - Extremities Exam Extremities exam: Negative for: calf tenderness - Neurological Exam Neurological exam: Alert, Oriented x3 Results - Vital Signs Recent Vital Signs: Last Vital Signs Temp 98.5 F 03/24/18 17:47 Pulse 94 H 03/24/18 18:10 Resp 18 03/24/18 18:10 BP 111/58 L 03/24/18 18:10 Pulse Ox 100 03/24/18 18:30 - Labs Result Diagrams: 03/24/18 16:19 03/24/18 16:19 Labs: Laboratory Results - last 24 hr 03/24/18 03/24/18 03/24/18 16:19 16:19 16:19 WBC 8.7 D RBC 3.75 L Hgb 11.3 Hct 34.5 MCV 91.8 MCH 30.2 MCHC 32.9 L RDW 16.7 H Plt Count 288 MPV 7.5 Neut % (Auto) 75.1 H Lymph % (Auto) 15.7 L [place] % (Auto) 7.3 Eos % (Auto) 1.0 Baso % (Auto) 0.9 Neut # (Auto) 6.5 Lymph # (Auto) 1.4 [place] # (Auto) 0.6 Eos # (Auto) 0.1 Baso # (Auto) 0.1 PT 10.5 INR 1.0 APTT 25 pO2 VBG pH VBG pCO2 VBG HCO3 VBG Total CO2 VBG O2 Sat (Calc) VBG Base Excess VBG Potassium Glucose Lactate Sodium 135 Potassium 4.1 Chloride 99 Carbon Dioxide 26 Anion Gap 15 BUN 22 H Creatinine 0.9 Est GFR ( Amer) > 60 Est GFR (Non-Af Amer) 60 Random Glucose 147 H Calcium 10.1 Phosphorus 4.6 H Magnesium 2.2 Total Bilirubin 0.7 AST 30 ALT 35 Alkaline Phosphatase 68 Troponin I 0.0130 Total Protein 5.6 L Albumin 3.3 L D Globulin 2.4 Albumin/Globulin Ratio 1.4 Venous Blood Potassium Urine Color Urine Clarity Urine pH Ur Specific [place] Urine Protein Urine Glucose (UA) Urine Ketones Urine Blood Urine Nitrate Urine Bilirubin Urine Urobilinogen Ur Leukocyte Esterase Urine WBC (Auto) Urine RBC (Auto) Hyaline Casts Urine Yeast (Budding) Blood Type Antibody Screen 03/24/18 03/24/18 03/24/18 16:33 16:50 17:05 WBC RBC Hgb Hct MCV MCH MCHC RDW Plt Count MPV Neut % (Auto) Lymph % (Auto) [place] % (Auto) Eos % (Auto) Baso % (Auto) Neut # (Auto) Lymph # (Auto) [place] # (Auto) Eos # (Auto) Baso # (Auto) PT INR APTT pO2 21 L VBG pH 7.43 VBG pCO2 42 VBG HCO3 25.8 VBG Total CO2 29.2 H VBG O2 Sat (Calc) 33.1 L VBG Base Excess 3.2 H VBG Potassium 3.9 Glucose 131 H Lactate 3.1 H Sodium 137.0 Potassium Chloride 104.0 Carbon Dioxide Anion Gap BUN Creatinine Est GFR ( Amer) Est GFR (Non-Af Amer) Random Glucose Calcium Phosphorus Magnesium Total Bilirubin AST ALT Alkaline Phosphatase Troponin I Total Protein Albumin Globulin Albumin/Globulin Ratio Venous Blood Potassium 3.9 Urine Color Yellow Urine Clarity Clear Urine pH 6.0 Ur Specific [place] 1.012 Urine Protein Negative Urine Glucose (UA) Normal Urine Ketones Negative Urine Blood Negative Urine Nitrate Negative Urine Bilirubin Negative Urine Urobilinogen Normal Ur Leukocyte Esterase 1+ H Urine WBC (Auto) 7 H Urine RBC (Auto) 4 H Hyaline Casts 6-10 H Urine Yeast (Budding) Mod H Blood Type O POSITIVE Antibody Screen Negative Assessment & Plan (1) Rectal bleeding Assessment and Plan: RB felt to be from rectal ulcerations from recent hemorrhoid surgery. No further bleeding episodes. P- watch for bleeding. Surgery consult. Check Hb, Check labs. Consider tertiary referral for rectal surgeon. Status: Acute (2) Arthritis Status: Acute (3) Constipation Status: Acute (4) HTN (hypertension) Status: Acute (5) Hemorrhoids Status: Acute (6) Rectal ulcer Status: Acute (7) Status post hemorrhoidectomy Status: Acute
--- NOTE | 2018-03-24 19:25 | CP.PCM.HP ---
History of Present Illness - History of Present Illness History of Present Illness: COMPREHENSIVE HISTORY & PHYSICAL EXAM Patient was transferred from short-term rehab after patient had a moderate amount of rectal bleeding bright blood. Patient was also tachycardic and hypertensive. In the first evaluation in the ER blood pressure was 87 mmHg heart rate 105 hemoglobin was stable at 11 g/dL. Patient was admitted in ICU for further treatment HPI Few days ago patient was admitted to [facility] for similar rectal bleed. During that hospitalization patient had hemorrhoidectomy done which was said to be the source of bleeding patient had 2 colonoscopy done which did not reveal any other source of bleeding. Patient was reevaluated by the surgeon and there was an ulceration near the previous surgical site. There is still a difference of opinion of the source of the bleeding. After patient was discharged patient apparently in no distress and experienced sudden onset of rectal bleeding in the rehab. PAST HIST. Patient has a history of hypertension history of typ-ilssrpj-[id number] diabetes. PERSONAL HIST: Smoking. N Alcohol. N Allergy N Travel_- . FAMILY HIST : ROS : Constitutional: Negative for weight change, chills, night sweats Eyes: Negative for redness, swelling, itching, discharge, vision changes, blurry vision, double vision, glaucoma, cataracts, Ears: Negative for hearing loss, ringing, , tinnitus, vertigo Nose: Negative for rhinorrhea, stuffiness, sniffing, itching, postnasal drip, discoloration, nasal congestion and epistaxis. Throat: Negative for throat clearing, sore throat, hoarseness, difficulty swallowing and difficulty speaking. Respiratory: Negative for cough, , sputum production, chest tightness, wheezing, pleuritic chest pain ,daytime somnolence, chronic cough, hemoptysis, snoring at night, Cardiovascular: Negative for chest pain, palpitations, orthopnea, PND, Edema of legs, leg cramps, angina, claudication, , irregular heartbeat, Neurology: Negative for irritability, muscle weakness, numbness and tingling, seizures, tremors, migraines, slurred speech, syncope, memory loss, mood changes , recurrent headaches Gastrointestinal: Negative for difficulty swallowing, diarrhea, constipation, black stools, rectal bleeding, nausea, flatulence, reflux, poor appetite, changes in bowel habits, abdominal pain Genitourinary: Negative for frequent urination, hematuria, discharge, incontinence, urinary retention, frequent UTI, Psychiatric: Negative for depression, anxiety/panic, suicidal tendencies, Musculoskeletal: Negative for swollen joints, back pain, , neck pain, morning stiffness of joints, . Skin: Negative for rash, ulcers, itching, dry skin and pigmented lesions. P/E: Constitutional: Appears stated age and in no apparent distress. Head: Normocephalic. Ears: External ear canals patent without inflammation. Tympanic membranes intact with normal light reflex and landmark. Eyes: Pupils are central, bilaterally equal, symmetrical and reacts to light with normal movements and no icterus or pallor. Nose: External nares are patent. Mucosa is pink Mouth-Throat: Good general appearance and condition. No post-pharyngeal/oropharyngeal erythema and tonsillar hypertrophy. Good dental hygiene. Neck-Lymphatic: Neck is supple with normal ROM, no thyromegaly, lymph nodes or masses. JVD is normal with no carotid bruit. Lungs: Clear to percussion and auscultation with bilateral normal air entry. Cardiovascular: S1 and S2 are normal with no murmurs, gallops and rub. GI Exam: No hepatomegaly. Abdomen is soft and non-tender. No Organomegaly , masses or hernias are evident and bowel sounds are normal and active. Neurology: Higher function and all cranial nerves intact, with no gross motor or sensory deficit. Superficial and deep reflexes are normal with downwards planters. No cerebellar deficit with normal gait. Musculoskeletal: No tender spots with normal curvature of the spine with no swelling or restricted ROM of the small and large joints. Extremities: Homans sign absent. Intact pulses with no pitting edema, calf tenderness or skin color changes. Skin: No rash, eruptions or abnormal skin pigmentation LAB/RADIOLOGY: ASSESMENT : Rectal bleeding etiology probably from the previous hemorrhoidectomies, ulcer. Type 2 diabetes. PLAN: Monitor the patient in the ICU. IV fluids monitor H&H is below 8 to transfuse. Will get surgical evaluation. The family has declined the primary surgeon who operated on the patient. Will get a second opinion. Present on Admission - Present on Admission Any Indicators Present on Admission: No Past Patient History - Infectious Disease Hx of Infectious Diseases: None - Past Medical History & Family History Past Medical History?: Yes - Past Social History Smoking Status: Never Smoked - CARDIAC Hx Hypertension: Yes - PULMONARY Hx Respiratory Disorders: No - NEUROLOGICAL Hx Dementia: Yes - HEENT Hx Cataracts: Yes (WITH BRANDON IOL) - RENAL Hx Chronic Kidney Disease: No - ENDOCRINE/METABOLIC Hx Diabetes Mellitus Type 2: Yes - HEMATOLOGICAL/ONCOLOGICAL Hx Blood Disorders: No - INTEGUMENTARY Hx Dermatological Problems: No - MUSCULOSKELETAL/RHEUMATOLOGICAL Hx Arthritis: Yes - GASTROINTESTINAL Hx Gastrointestinal Disorders: No - GENITOURINARY/GYNECOLOGICAL Hx Genitourinary Disorders: No - PSYCHIATRIC Hx Substance Use: No - SURGICAL HISTORY Hx Appendectomy: Yes - ANESTHESIA Hx Anesthesia: Yes Hx Anesthesia Reactions: No Meds Allergies/Adverse Reactions: Allergies Allergy/AdvReac Type Severity Reaction Status Date / Time No Known Allergies Allergy Verified 03/09/18 07:23 Results - Vital Signs Recent Vital Signs: Last Vital Signs Temp 98.5 F 03/24/18 17:47 Pulse 92 H 03/24/18 18:56 Resp 16 03/24/18 18:56 BP 99/50 L 03/24/18 18:56 Pulse Ox 100 03/24/18 18:56 - Labs Result Diagrams: 03/25/18 06:32 03/25/18 06:32 Labs: Laboratory Results - last 24 hr 03/24/18 03/24/18 03/24/18 16:19 16:19 16:19 WBC 8.7 D RBC 3.75 L Hgb 11.3 Hct 34.5 MCV 91.8 MCH 30.2 MCHC 32.9 L RDW 16.7 H Plt Count 288 MPV 7.5 Neut % (Auto) 75.1 H Lymph % (Auto) 15.7 L [place] % (Auto) 7.3 Eos % (Auto) 1.0 Baso % (Auto) 0.9 Neut # (Auto) 6.5 Lymph # (Auto) 1.4 [place] # (Auto) 0.6 Eos # (Auto) 0.1 Baso # (Auto) 0.1 PT 10.5 INR 1.0 APTT 25 pO2 VBG pH VBG pCO2 VBG HCO3 VBG Total CO2 VBG O2 Sat (Calc) VBG Base Excess VBG Potassium Glucose Lactate Sodium 135 Potassium 4.1 Chloride 99 Carbon Dioxide 26 Anion Gap 15 BUN 22 H Creatinine 0.9 Est GFR ( Amer) > 60 Est GFR (Non-Af Amer) 60 Random Glucose 147 H Calcium 10.1 Phosphorus 4.6 H Magnesium 2.2 Total Bilirubin 0.7 AST 30 ALT 35 Alkaline Phosphatase 68 Troponin I 0.0130 Total Protein 5.6 L Albumin 3.3 L D Globulin 2.4 Albumin/Globulin Ratio 1.4 Venous Blood Potassium Urine Color Urine Clarity Urine pH Ur Specific [place] Urine Protein Urine Glucose (UA) Urine Ketones Urine Blood Urine Nitrate Urine Bilirubin Urine Urobilinogen Ur Leukocyte Esterase Urine WBC (Auto) Urine RBC (Auto) Hyaline Casts Urine Yeast (Budding) Blood Type Antibody Screen 03/24/18 03/24/18 03/24/18 16:33 16:50 17:05 WBC RBC Hgb Hct MCV MCH MCHC RDW Plt Count MPV Neut % (Auto) Lymph % (Auto) [place] % (Auto) Eos % (Auto) Baso % (Auto) Neut # (Auto) Lymph # (Auto) [place] # (Auto) Eos # (Auto) Baso # (Auto) PT INR APTT pO2 21 L VBG pH 7.43 VBG pCO2 42 VBG HCO3 25.8 VBG Total CO2 29.2 H VBG O2 Sat (Calc) 33.1 L VBG Base Excess 3.2 H VBG Potassium 3.9 Glucose 131 H Lactate 3.1 H Sodium 137.0 Potassium Chloride 104.0 Carbon Dioxide Anion Gap BUN Creatinine Est GFR ( Amer) Est GFR (Non-Af Amer) Random Glucose Calcium Phosphorus Magnesium Total Bilirubin AST ALT Alkaline Phosphatase Troponin I Total Protein Albumin Globulin Albumin/Globulin Ratio Venous Blood Potassium 3.9 Urine Color Yellow Urine Clarity Clear Urine pH 6.0 Ur Specific [place] 1.012 Urine Protein Negative Urine Glucose (UA) Normal Urine Ketones Negative Urine Blood Negative Urine Nitrate Negative Urine Bilirubin Negative Urine Urobilinogen Normal Ur Leukocyte Esterase 1+ H Urine WBC (Auto) 7 H Urine RBC (Auto) 4 H Hyaline Casts 6-10 H Urine Yeast (Budding) Mod H Blood Type O POSITIVE Antibody Screen Negative
--- NOTE | 2018-03-24 20:34 | CP.PCM.CON ---
History of Present Illness - History of Present Illness History of Present Illness: 82 y/o female with HTN,Hyperlipidemia,DM,arthritis admitted with rectal bleeding.Patient was discharged on 03/22/18 following admission for abdominal pain,rectal bleed s/p hemorrhoidectomy. She had rectal bleeding after surgery, Colonoscopy revealed rectal ulceration and inflammation Denies chest pain,palpitations,dizziness,difficulty breathing Hb prior to discharge was 10.8g/dl,in ER today was 11.3,rpt hb 8.8 Review of Systems - Constitutional Constitutional: Weakness. absent: Chills, Excessive Sweating, Fever - EENT Eyes: absent: Change in Vision, Itchy Eyes Ears: absent: Ear Pain, Dizziness Nose/Mouth/Throat: absent: Sore Throat - Cardiovascular Cardiovascular: absent: Chest Pain, Dyspnea, Edema - Respiratory Respiratory: absent: Cough, Dyspnea - Gastrointestinal Gastrointestinal: Hematochezia. absent: Abdominal Pain, Coffee Ground Emesis, Heartburn, Nausea - Genitourinary Genitourinary: absent: Dysuria, Hematuria - Musculoskeletal Musculoskeletal: Deformity - Integumentary Integumentary: absent: Bleeding Lesions - Neurological Neurological: absent: Dizziness Past Patient History - Infectious Disease Hx of Infectious Diseases: None - Past Medical History & Family History Past Medical History?: Yes - Past Social History Smoking Status: Never Smoked - CARDIAC Hx Hypertension: Yes - PULMONARY Hx Respiratory Disorders: No - NEUROLOGICAL Hx Dementia: Yes - HEENT Hx Cataracts: Yes (WITH BRANDON IOL) - RENAL Hx Chronic Kidney Disease: No - ENDOCRINE/METABOLIC Hx Diabetes Mellitus Type 2: Yes - HEMATOLOGICAL/ONCOLOGICAL Hx Blood Disorders: No - INTEGUMENTARY Hx Dermatological Problems: No - MUSCULOSKELETAL/RHEUMATOLOGICAL Hx Arthritis: Yes - GASTROINTESTINAL Hx Gastrointestinal Disorders: No - GENITOURINARY/GYNECOLOGICAL Hx Genitourinary Disorders: No - PSYCHIATRIC Hx Substance Use: No - SURGICAL HISTORY Hx Appendectomy: Yes - ANESTHESIA Hx Anesthesia: Yes Hx Anesthesia Reactions: No Meds Allergies/Adverse Reactions: Allergies Allergy/AdvReac Type Severity Reaction Status Date / Time No Known Allergies Allergy Verified 03/09/18 07:23 Physical Exam - Constitutional Appears: No Acute Distress - Head Exam Head Exam: ATRAUMATIC, NORMAL INSPECTION, NORMOCEPHALIC - Eye Exam Eye Exam: EOMI, PERRL - ENT Exam ENT Exam: Mucous Membranes Moist, Normal Exam - Neck Exam Neck exam: Positive for: Normal Inspection - Respiratory Exam Respiratory Exam: Clear to Auscultation Bilateral - Cardiovascular Exam Cardiovascular Exam: REGULAR RHYTHM. absent: JVD - GI/Abdominal Exam GI & Abdominal Exam: Normal Bowel Sounds, Soft. absent: Tenderness - Extremities Exam Extremities exam: Negative for: calf tenderness, pedal edema - Neurological Exam Neurological exam: Alert, Oriented x3 - Psychiatric Exam Psychiatric exam: Normal Affect - Skin Skin Exam: Normal Color, Warm Results - Vital Signs Recent Vital Signs: Last Vital Signs Temp 98.5 F 03/24/18 17:47 Pulse 92 H 03/24/18 18:56 Resp 16 03/24/18 18:56 BP 99/50 L 03/24/18 18:56 Pulse Ox 100 03/24/18 18:56 - Labs Result Diagrams: 03/24/18 16:19 03/24/18 16:19 Labs: Laboratory Results - last 24 hr 03/24/18 03/24/18 03/24/18 16:19 16:19 16:19 WBC 8.7 D RBC 3.75 L Hgb 11.3 Hct 34.5 MCV 91.8 MCH 30.2 MCHC 32.9 L RDW 16.7 H Plt Count 288 MPV 7.5 Neut % (Auto) 75.1 H Lymph % (Auto) 15.7 L [place] % (Auto) 7.3 Eos % (Auto) 1.0 Baso % (Auto) 0.9 Neut # (Auto) 6.5 Lymph # (Auto) 1.4 [place] # (Auto) 0.6 Eos # (Auto) 0.1 Baso # (Auto) 0.1 PT 10.5 INR 1.0 APTT 25 pO2 VBG pH VBG pCO2 VBG HCO3 VBG Total CO2 VBG O2 Sat (Calc) VBG Base Excess VBG Potassium Glucose Lactate Sodium 135 Potassium 4.1 Chloride 99 Carbon Dioxide 26 Anion Gap 15 BUN 22 H Creatinine 0.9 Est GFR ( Amer) > 60 Est GFR (Non-Af Amer) 60 Random Glucose 147 H Calcium 10.1 Phosphorus 4.6 H Magnesium 2.2 Total Bilirubin 0.7 AST 30 ALT 35 Alkaline Phosphatase 68 Troponin I 0.0130 Total Protein 5.6 L Albumin 3.3 L D Globulin 2.4 Albumin/Globulin Ratio 1.4 Venous Blood Potassium Urine Color Urine Clarity Urine pH Ur Specific [place] Urine Protein Urine Glucose (UA) Urine Ketones Urine Blood Urine Nitrate Urine Bilirubin Urine Urobilinogen Ur Leukocyte Esterase Urine WBC (Auto) Urine RBC (Auto) Hyaline Casts Urine Yeast (Budding) Blood Type Antibody Screen 03/24/18 03/24/18 03/24/18 16:33 16:50 17:05 WBC RBC Hgb Hct MCV MCH MCHC RDW Plt Count MPV Neut % (Auto) Lymph % (Auto) [place] % (Auto) Eos % (Auto) Baso % (Auto) Neut # (Auto) Lymph # (Auto) [place] # (Auto) Eos # (Auto) Baso # (Auto) PT INR APTT pO2 21 L VBG pH 7.43 VBG pCO2 42 VBG HCO3 25.8 VBG Total CO2 29.2 H VBG O2 Sat (Calc) 33.1 L VBG Base Excess 3.2 H VBG Potassium 3.9 Glucose 131 H Lactate 3.1 H Sodium 137.0 Potassium Chloride 104.0 Carbon Dioxide Anion Gap BUN Creatinine Est GFR ( Amer) Est GFR (Non-Af Amer) Random Glucose Calcium Phosphorus Magnesium Total Bilirubin AST ALT Alkaline Phosphatase Troponin I Total Protein Albumin Globulin Albumin/Globulin Ratio Venous Blood Potassium 3.9 Urine Color Yellow Urine Clarity Clear Urine pH 6.0 Ur Specific [place] 1.012 Urine Protein Negative Urine Glucose (UA) Normal Urine Ketones Negative Urine Blood Negative Urine Nitrate Negative Urine Bilirubin Negative Urine Urobilinogen Normal Ur Leukocyte Esterase 1+ H Urine WBC (Auto) 7 H Urine RBC (Auto) 4 H Hyaline Casts 6-10 H Urine Yeast (Budding) Mod H Blood Type O POSITIVE Antibody Screen Negative - Imaging and Cardiology Chest x-ray Status: Image reviewed by me, Report reviewed by me Assessment & Plan - Assessment and Plan (Free Text) Assessment: 1.GI Bleed/Anemia monitor H/H,transfuse PRN GI evaluation appreciated 2.HTN Hold antihypertensives and monitor BP 3.DM-patient NPO Insulin coverage 4.Arthritis 5.Hyperlipidemia
[2018-03-24 20:35] LABS: HEMOGLOBIN 8.8 g/dL (11.0-16.0)
[2018-03-24] MEDS ORDERED: Dextrose 5%/0.9% NS 1,000 ML IV ONE (20:51)
--- NOTE | 2018-03-24 22:13 | CP.PCM.CON ---
Past Patient History - Infectious Disease Hx of Infectious Diseases: None - Past Medical History & Family History Past Medical History?: Yes - Past Social History Smoking Status: Never Smoked - CARDIAC Hx Hypertension: Yes - PULMONARY Hx Respiratory Disorders: No - NEUROLOGICAL Hx Dementia: Yes - HEENT Hx Cataracts: Yes (WITH BRANDON IOL) - RENAL Hx Chronic Kidney Disease: No - ENDOCRINE/METABOLIC Hx Diabetes Mellitus Type 2: Yes - HEMATOLOGICAL/ONCOLOGICAL Hx Blood Disorders: No - INTEGUMENTARY Hx Dermatological Problems: No - MUSCULOSKELETAL/RHEUMATOLOGICAL Hx Arthritis: Yes - GASTROINTESTINAL Hx Gastrointestinal Disorders: No - GENITOURINARY/GYNECOLOGICAL Hx Genitourinary Disorders: No - PSYCHIATRIC Hx Substance Use: No - SURGICAL HISTORY Hx Appendectomy: Yes - ANESTHESIA Hx Anesthesia: Yes Hx Anesthesia Reactions: No Meds Allergies/Adverse Reactions: Allergies Allergy/AdvReac Type Severity Reaction Status Date / Time No Known Allergies Allergy Verified 03/09/18 07:23 - Medications Medications: Current Medications Dextrose/Sodium Chloride (Dextrose 5%/0.9% Ns 1000 Ml) 1,000 mls @ 75 mls/hr IV .[id number] ONE Stop: 03/25/18 10:10 Last Admin: 03/24/18 21:52 Dose: 75 mls/hr Insulin Human Regular (Novolin R) 0 unit SC Q6 [facility] PRN Reason: Protocol Pantoprazole Sodium (Protonix Inj) 40 mg IVP DAILY [facility] Results - Vital Signs Recent Vital Signs: Last Vital Signs Temp 98.3 F 03/24/18 20:54 Pulse 83 03/24/18 21:00 Resp 18 03/24/18 21:00 BP 102/46 L 03/24/18 20:52 Pulse Ox 100 03/24/18 21:00 - Labs Result Diagrams: 03/25/18 00:42 03/24/18 16:19 Labs: Laboratory Results - last 24 hr 03/24/18 03/24/18 03/24/18 16:19 16:19 16:19 WBC 8.7 D RBC 3.75 L Hgb 11.3 Hct 34.5 MCV 91.8 MCH 30.2 MCHC 32.9 L RDW 16.7 H Plt Count 288 MPV 7.5 Neut % (Auto) 75.1 H Lymph % (Auto) 15.7 L [place] % (Auto) 7.3 Eos % (Auto) 1.0 Baso % (Auto) 0.9 Neut # (Auto) 6.5 Lymph # (Auto) 1.4 [place] # (Auto) 0.6 Eos # (Auto) 0.1 Baso # (Auto) 0.1 PT 10.5 INR 1.0 APTT 25 pO2 VBG pH VBG pCO2 VBG HCO3 VBG Total CO2 VBG O2 Sat (Calc) VBG Base Excess VBG Potassium Glucose Lactate Sodium 135 Potassium 4.1 Chloride 99 Carbon Dioxide 26 Anion Gap 15 BUN 22 H Creatinine 0.9 Est GFR ( Amer) > 60 Est GFR (Non-Af Amer) 60 Random Glucose 147 H Calcium 10.1 Phosphorus 4.6 H Magnesium 2.2 Total Bilirubin 0.7 AST 30 ALT 35 Alkaline Phosphatase 68 Troponin I 0.0130 Total Protein 5.6 L Albumin 3.3 L D Globulin 2.4 Albumin/Globulin Ratio 1.4 Venous Blood Potassium Urine Color Urine Clarity Urine pH Ur Specific [place] Urine Protein Urine Glucose (UA) Urine Ketones Urine Blood Urine Nitrate Urine Bilirubin Urine Urobilinogen Ur Leukocyte Esterase Urine WBC (Auto) Urine RBC (Auto) Hyaline Casts Urine Yeast (Budding) Blood Type Antibody Screen 03/24/18 03/24/18 03/24/18 16:33 16:50 17:05 WBC RBC Hgb Hct MCV MCH MCHC RDW Plt Count MPV Neut % (Auto) Lymph % (Auto) [place] % (Auto) Eos % (Auto) Baso % (Auto) Neut # (Auto) Lymph # (Auto) [place] # (Auto) Eos # (Auto) Baso # (Auto) PT INR APTT pO2 21 L VBG pH 7.43 VBG pCO2 42 VBG HCO3 25.8 VBG Total CO2 29.2 H VBG O2 Sat (Calc) 33.1 L VBG Base Excess 3.2 H VBG Potassium 3.9 Glucose 131 H Lactate 3.1 H Sodium 137.0 Potassium Chloride 104.0 Carbon Dioxide Anion Gap BUN Creatinine Est GFR ( Amer) Est GFR (Non-Af Amer) Random Glucose Calcium Phosphorus Magnesium Total Bilirubin AST ALT Alkaline Phosphatase Troponin I Total Protein Albumin Globulin Albumin/Globulin Ratio Venous Blood Potassium 3.9 Urine Color Yellow Urine Clarity Clear Urine pH 6.0 Ur Specific [place] 1.012 Urine Protein Negative Urine Glucose (UA) Normal Urine Ketones Negative Urine Blood Negative Urine Nitrate Negative Urine Bilirubin Negative Urine Urobilinogen Normal Ur Leukocyte Esterase 1+ H Urine WBC (Auto) 7 H Urine RBC (Auto) 4 H Hyaline Casts 6-10 H Urine Yeast (Budding) Mod H Blood Type O POSITIVE Antibody Screen Negative 03/24/18 20:30 WBC RBC Hgb 8.8 L D Hct 26.1 L MCV MCH MCHC RDW Plt Count MPV Neut % (Auto) Lymph % (Auto) [place] % (Auto) Eos % (Auto) Baso % (Auto) Neut # (Auto) Lymph # (Auto) [place] # (Auto) Eos # (Auto) Baso # (Auto) PT INR APTT pO2 VBG pH VBG pCO2 VBG HCO3 VBG Total CO2 VBG O2 Sat (Calc) VBG Base Excess VBG Potassium Glucose Lactate Sodium Potassium Chloride Carbon Dioxide Anion Gap BUN Creatinine Est GFR ( Amer) Est GFR (Non-Af Amer) Random Glucose Calcium Phosphorus Magnesium Total Bilirubin AST ALT Alkaline Phosphatase Troponin I Total Protein Albumin Globulin Albumin/Globulin Ratio Venous Blood Potassium Urine Color Urine Clarity Urine pH Ur Specific [place] Urine Protein Urine Glucose (UA) Urine Ketones Urine Blood Urine Nitrate Urine Bilirubin Urine Urobilinogen Ur Leukocyte Esterase Urine WBC (Auto) Urine RBC (Auto) Hyaline Casts Urine Yeast (Budding) Blood Type Antibody Screen
[2018-03-25] MEDS: (Novolin R) Insulin Human Regular 100 units/ml vial SC SCH ×4 (00:17→18:15)
[2018-03-25 00:45] LABS: BASO # 0.1 K/uL (0.0-0.2); BASO % 1.6 % (0.0-2.0); EOS # 0.1 K/uL (0.0-0.7); EOS % 3.1 % (0.0-4.0); HEMOGLOBIN 8.6 g/dL (11.0-16.0); LYMPH # 1.5 K/uL (1.0-4.3); LYMPH % 30.5 % (20.0-40.0); MEAN CELL VOLUME 91.6 fL (81.0-99.0); MEAN CORPUSCULAR HEMOGLOBIN 30.9 pg (27.0-31.0); MEAN CORPUSCULAR HGB CONC 33.8 g/dL (33.0-37.0); MONO # 0.4 K/uL (0.0-0.8); MONO % 9.3 % (0.0-10.0); NEUT # 2.7 K/uL (1.8-7.0); NEUT % 55.5 % (50.0-75.0); RBC 2.8 Mil/uL (3.80-5.20); RED CELL DISTRIBUTION WIDTH 16.8 % (11.5-14.5); WHITE BLOOD COUNT 4.8 K/uL (4.8-10.8)
[2018-03-25 06:44] LABS: BASO # 0.1 K/uL (0.0-0.2); BASO % 1.3 % (0.0-2.0); EOS # 0.2 K/uL (0.0-0.7); EOS % 3.5 % (0.0-4.0); HEMOGLOBIN 8.4 g/dL (11.0-16.0); LYMPH # 1.2 K/uL (1.0-4.3); LYMPH % 26.3 % (20.0-40.0); MEAN CELL VOLUME 92.2 fL (81.0-99.0); MEAN CORPUSCULAR HGB CONC 33.6 g/dL (33.0-37.0); MEAN PLATELET VOLUME 7.2 fL (7.2-11.7); MONO # 0.4 K/uL (0.0-0.8); MONO % 9.6 % (0.0-10.0); NEUT # 2.7 K/uL (1.8-7.0); NEUT % 59.3 % (50.0-75.0); NRBC % 0.1 % (0.0-2.0); RBC 2.71 Mil/uL (3.80-5.20); WHITE BLOOD COUNT 4.5 K/uL (4.8-10.8)
[2018-03-25 06:48] LABS: PROTHROMBIN TIME 10.6 SECONDS (9.7-12.2)
[2018-03-25 07:08] LABS: ALB/GLOB RATIO 1.1 (1.0-2.1); ALBUMIN 2.4 g/dL (3.5-5.0); ALT/SGPT 34 U/L (9-52); AST/SGOT 31 U/L (14-36); BLOOD UREA NITROGEN 15 mg/dL (7-17); CALCIUM 8.1 mg/dl (8.6-10.4); GFR AFRICAN-AMERICAN > 60; GFR NON-AFRICAN AMERICAN > 60
--- NOTE | 2018-03-25 11:54 | CP.CCUPN ---
<Doreen Paulson - Last Filed: 03/25/18 16:00> CCU Subjective - Physician Review Events Since Last Encounter (Free Text): 82 yo F W/ PMHx of RA, HTN and DM admitted to ICU(03/24) for BRBPR. Pt is s/p hemorrhoidectomy(03/11) with Dr. Lopez, complicated by persistent colonic/ rectal bleed requiring multiple transfusions for asymptomatic acute blood loss anemia. Patient seen and examined at bedside, in no acute distress. Patient reports she noticed rectal blood yesterday and come to ED. She reports feeling tired and cold, however denies chest pain, SOB, abd pain, rectal pain, nausea, diarrhea. 03/25/18 12:11 CCU Objective - Vital Signs / Intake & Output Vital Signs (Last 4 hours): Vital Signs Temp Pulse Resp BP Pulse Ox 03/25/18 10:39 74 15 111/51 L 100 03/25/18 09:41 80 15 102/45 L 100 03/25/18 08:54 86 15 90/54 L 100 03/25/18 08:00 98.4 F 99 03/25/18 07:53 75 16 111/47 L 100 Intake and Output (Last 8hrs): Intake & Output 03/24/18 03/25/18 03/25/18 22:59 06:59 14:59 Intake Total 75 675 225 Output Total 400 100 Balance 75 275 125 Weight 100 lb 124 lb 4.8 oz Intake: Intake, IV Amount 75 675 225 Left Antecubital 75 675 225 Oral 0 Output: Urine 400 100 Urine, Voided 400 100 - Physical Exam Head: Positive for: Atraumatic, Normocephalic Extroacular Muscles: Positive for: EOMI Mouth: Positive for: Moist Mucous Membranes Respiratory/Chest: Positive for: Clear to Auscultation, Good Air Exchange. Negative for: Respiratory Distress, Wheezes Cardiovascular: Positive for: Regular Rate and Rhythm. Negative for: Murmurs Abdomen: Positive for: Normal Bowel Sounds. Negative for: Tenderness, Distention Upper Extremity: Negative for: Cyanosis, Edema Lower Extremity: Positive for: NORMAL PULSES. Negative for: Edema Neurological: Positive for: GCS=15 Skin: Positive for: Pale Psychiatric: Positive for: Alert, Oriented x 3 - Medications Active Medications: Active Medications Generic Name Dose Route Start Last Admin Trade Name Freq PRN Reason Stop Dose Admin Insulin Human Regular 0 unit 03/25/18 00:00 03/25/18 07:20 Novolin R SC Not Given Q6 [facility] Protocol Pantoprazole Sodium 40 mg 03/25/18 10:00 03/25/18 09:38 Protonix Inj IVP 40 mg DAILY [facility] Administration - Patient Studies Lab Studies: Lab Studies 03/25/18 03/25/18 03/25/18 Range/Units 06:32 06:32 06:32 WBC 4.5 L (4.8-10.8) K/uL RBC 2.71 L (3.80-5.20) Mil/uL Hgb 8.4 L (11.0-16.0) g/dL Hct 25.0 L (34.0-47.0) % MCV 92.2 (81.0-99.0) fL MCH 31.0 (27.0-31.0) pg MCHC 33.6 (33.0-37.0) g/dL RDW 17.0 H (11.5-14.5) % Plt Count 223 (130-400) K/uL MPV 7.2 (7.2-11.7) fL Neut % (Auto) 59.3 (50.0-75.0) % Lymph % (Auto) 26.3 (20.0-40.0) % [place] % (Auto) 9.6 (0.0-10.0) % Eos % (Auto) 3.5 (0.0-4.0) % Baso % (Auto) 1.3 (0.0-2.0) % Neut # (Auto) 2.7 (1.8-7.0) K/uL Lymph # (Auto) 1.2 (1.0-4.3) K/uL [place] # (Auto) 0.4 (0.0-0.8) K/uL Eos # (Auto) 0.2 (0.0-0.7) K/uL Baso # (Auto) 0.1 (0.0-0.2) K/uL PT 10.6 (9.7-12.2) SECONDS INR 1.0 APTT 27 (21-34) SECONDS pO2 (30-55) mm/Hg VBG pH (7.32-7.43) VBG pCO2 (40-60) mmHg VBG HCO3 mmol/L VBG Total CO2 (22-28) mmol/L VBG O2 Sat (Calc) (40-65) % VBG Base Excess (0.0-2.0) mmol/L VBG Potassium (3.6-5.2) mmol/L Glucose (65-105) mg/dl Lactate (0.7-2.1) mmol/L Sodium 139 (132-148) mmol/L Potassium 3.6 (3.6-5.2) mmol/L Chloride 109 H (98-107) mmol/L Carbon Dioxide 25 (22-30) mmol/L Anion Gap 9 L (10-20) BUN 15 (7-17) mg/dL Creatinine 0.7 (0.7-1.2) mg/dL Est GFR ( Amer) > 60 Est GFR (Non-Af Amer) > 60 POC Glucose (mg/dL) (65-110) mg/dL Random Glucose 106 H (65-105) mg/dL Calcium 8.1 L (8.6-10.4) mg/dl Phosphorus 3.1 (2.5-4.5) mg/dL Magnesium 2.1 (1.6-2.3) mg/dL Total Bilirubin 0.7 (0.2-1.3) mg/dL AST 31 (14-36) U/L ALT 34 (9-52) U/L Alkaline Phosphatase 47 (38-126) U/L Troponin I (0.00-0.120) ng/mL Total Protein 4.6 L (6.3-8.3) g/dL Albumin 2.4 L D (3.5-5.0) g/dL Globulin 2.1 L (2.2-3.9) gm/dL Albumin/Globulin Ratio 1.1 (1.0-2.1) Venous Blood Potassium (3.6-5.2) mmol/L Urine Color (YELLOW) Urine Clarity (Clear) Urine pH (5.0-8.0) Ur Specific [place] (1.003-1.030) Urine Protein (NEGATIVE) mg/dL Urine Glucose (UA) (Normal) mg/dL Urine Ketones (NEGATIVE) mg/dL Urine Blood (NEGATIVE) Urine Nitrate (NEGATIVE) Urine Bilirubin (NEGATIVE) Urine Urobilinogen (0.2-1.0) mg/dL Ur Leukocyte Esterase (Negative) Wil[place]/uL Urine WBC (Auto) (0-5) /hpf Urine RBC (Auto) (0-3) /hpf Hyaline Casts (0-2) /lpf Urine Yeast (Budding) (NEGATIVE) /hpf Blood Type Antibody Screen 03/25/18 03/25/18 03/25/18 Range/Units 05:42 00:42 00:02 WBC 4.8 (4.8-10.8) K/uL RBC 2.80 L (3.80-5.20) Mil/uL Hgb 8.6 L (11.0-16.0) g/dL Hct 25.6 L (34.0-47.0) % MCV 91.6 (81.0-99.0) fL MCH 30.9 (27.0-31.0) pg MCHC 33.8 (33.0-37.0) g/dL RDW 16.8 H (11.5-14.5) % Plt Count 224 (130-400) K/uL MPV 7.0 L (7.2-11.7) fL Neut % (Auto) 55.5 (50.0-75.0) % Lymph % (Auto) 30.5 (20.0-40.0) % [place] % (Auto) 9.3 (0.0-10.0) % Eos % (Auto) 3.1 (0.0-4.0) % Baso % (Auto) 1.6 (0.0-2.0) % Neut # (Auto) 2.7 (1.8-7.0) K/uL Lymph # (Auto) 1.5 (1.0-4.3) K/uL [place] # (Auto) 0.4 (0.0-0.8) K/uL Eos # (Auto) 0.1 (0.0-0.7) K/uL Baso # (Auto) 0.1 (0.0-0.2) K/uL PT (9.7-12.2) SECONDS INR APTT (21-34) SECONDS pO2 (30-55) mm/Hg VBG pH (7.32-7.43) VBG pCO2 (40-60) mmHg VBG HCO3 mmol/L VBG Total CO2 (22-28) mmol/L VBG O2 Sat (Calc) (40-65) % VBG Base Excess (0.0-2.0) mmol/L VBG Potassium (3.6-5.2) mmol/L Glucose (65-105) mg/dl Lactate (0.7-2.1) mmol/L Sodium (132-148) mmol/L Potassium (3.6-5.2) mmol/L Chloride (98-107) mmol/L Carbon Dioxide (22-30) mmol/L Anion Gap (10-20) BUN (7-17) mg/dL Creatinine (0.7-1.2) mg/dL Est GFR ( Amer) Est GFR (Non-Af Amer) POC Glucose (mg/dL) 99 101 (65-110) mg/dL Random Glucose (65-105) mg/dL Calcium (8.6-10.4) mg/dl Phosphorus (2.5-4.5) mg/dL Magnesium (1.6-2.3) mg/dL Total Bilirubin (0.2-1.3) mg/dL AST (14-36) U/L ALT (9-52) U/L Alkaline Phosphatase (38-126) U/L Troponin I (0.00-0.120) ng/mL Total Protein (6.3-8.3) g/dL Albumin (3.5-5.0) g/dL Globulin (2.2-3.9) gm/dL Albumin/Globulin Ratio (1.0-2.1) Venous Blood Potassium (3.6-5.2) mmol/L Urine Color (YELLOW) Urine Clarity (Clear) Urine pH (5.0-8.0) Ur Specific [place] (1.003-1.030) Urine Protein (NEGATIVE) mg/dL Urine Glucose (UA) (Normal) mg/dL Urine Ketones (NEGATIVE) mg/dL Urine Blood (NEGATIVE) Urine Nitrate (NEGATIVE) Urine Bilirubin (NEGATIVE) Urine Urobilinogen (0.2-1.0) mg/dL Ur Leukocyte Esterase (Negative) [place]/uL Urine WBC (Auto) (0-5) /hpf Urine RBC (Auto) (0-3) /hpf Hyaline Casts (0-2) /lpf Urine Yeast (Budding) (NEGATIVE) /hpf Blood Type Antibody Screen 03/24/18 03/24/18 03/24/18 Range/Units 20:30 17:05 16:50 WBC (4.8-10.8) K/uL RBC (3.80-5.20) Mil/uL Hgb 8.8 L D (11.0-16.0) g/dL Hct 26.1 L (34.0-47.0) % MCV (81.0-99.0) fL MCH (27.0-31.0) pg MCHC (33.0-37.0) g/dL RDW (11.5-14.5) % Plt Count (130-400) K/uL MPV (7.2-11.7) fL Neut % (Auto) (50.0-75.0) % Lymph % (Auto) (20.0-40.0) % [place] % (Auto) (0.0-10.0) % Eos % (Auto) (0.0-4.0) % Baso % (Auto) (0.0-2.0) % Neut # (Auto) (1.8-7.0) K/uL Lymph # (Auto) (1.0-4.3) K/uL [place] # (Auto) (0.0-0.8) K/uL Eos # (Auto) (0.0-0.7) K/uL Baso # (Auto) (0.0-0.2) K/uL PT (9.7-12.2) SECONDS INR APTT (21-34) SECONDS pO2 (30-55) mm/Hg VBG pH (7.32-7.43) VBG pCO2 (40-60) mmHg VBG HCO3 mmol/L VBG Total CO2 (22-28) mmol/L VBG O2 Sat (Calc) (40-65) % VBG Base Excess (0.0-2.0) mmol/L VBG Potassium (3.6-5.2) mmol/L Glucose (65-105) mg/dl Lactate (0.7-2.1) mmol/L Sodium (132-148) mmol/L Potassium (3.6-5.2) mmol/L Chloride (98-107) mmol/L Carbon Dioxide (22-30) mmol/L Anion Gap (10-20) BUN (7-17) mg/dL Creatinine (0.7-1.2) mg/dL Est GFR ( Amer) Est GFR (Non-Af Amer) POC Glucose (mg/dL) (65-110) mg/dL Random Glucose (65-105) mg/dL Calcium (8.6-10.4) mg/dl Phosphorus (2.5-4.5) mg/dL Magnesium (1.6-2.3) mg/dL Total Bilirubin (0.2-1.3) mg/dL AST (14-36) U/L ALT (9-52) U/L Alkaline Phosphatase (38-126) U/L Troponin I (0.00-0.120) ng/mL Total Protein (6.3-8.3) g/dL Albumin (3.5-5.0) g/dL Globulin (2.2-3.9) gm/dL Albumin/Globulin Ratio (1.0-2.1) Venous Blood Potassium (3.6-5.2) mmol/L Urine Color Yellow (YELLOW) Urine Clarity Clear (Clear) Urine pH 6.0 (5.0-8.0) Ur Specific [place] 1.012 (1.003-1.030) Urine Protein Negative (NEGATIVE) mg/dL Urine Glucose (UA) Normal (Normal) mg/dL Urine Ketones Negative (NEGATIVE) mg/dL Urine Blood Negative (NEGATIVE) Urine Nitrate Negative (NEGATIVE) Urine Bilirubin Negative (NEGATIVE) Urine Urobilinogen Normal (0.2-1.0) mg/dL Ur Leukocyte Esterase 1+ H (Negative) [place]/uL Urine WBC (Auto) 7 H (0-5) /hpf Urine RBC (Auto) 4 H (0-3) /hpf Hyaline Casts 6-10 H (0-2) /lpf Urine Yeast (Budding) Mod H (NEGATIVE) /hpf Blood Type O POSITIVE Antibody Screen Negative 03/24/18 03/24/18 03/24/18 Range/Units 16:33 16:19 16:19 WBC (4.8-10.8) K/uL RBC (3.80-5.20) Mil/uL Hgb (11.0-16.0) g/dL Hct (34.0-47.0) % MCV (81.0-99.0) fL MCH (27.0-31.0) pg MCHC (33.0-37.0) g/dL RDW (11.5-14.5) % Plt Count (130-400) K/uL MPV (7.2-11.7) fL Neut % (Auto) (50.0-75.0) % Lymph % (Auto) (20.0-40.0) % [place] % (Auto) (0.0-10.0) % Eos % (Auto) (0.0-4.0) % Baso % (Auto) (0.0-2.0) % Neut # (Auto) (1.8-7.0) K/uL Lymph # (Auto) (1.0-4.3) K/uL [place] # (Auto) (0.0-0.8) K/uL Eos # (Auto) (0.0-0.7) K/uL Baso # (Auto) (0.0-0.2) K/uL PT 10.5 (9.7-12.2) SECONDS INR 1.0 APTT 25 (21-34) SECONDS pO2 21 L (30-55) mm/Hg VBG pH 7.43 (7.32-7.43) VBG pCO2 42 (40-60) mmHg VBG HCO3 25.8 mmol/L VBG Total CO2 29.2 H (22-28) mmol/L VBG O2 Sat (Calc) 33.1 L (40-65) % VBG Base Excess 3.2 H (0.0-2.0) mmol/L VBG Potassium 3.9 (3.6-5.2) mmol/L Glucose 131 H (65-105) mg/dl Lactate 3.1 H (0.7-2.1) mmol/L Sodium 137.0 135 (132-148) mmol/L Potassium 4.1 (3.6-5.2) mmol/L Chloride 104.0 99 (98-107) mmol/L Carbon Dioxide 26 (22-30) mmol/L Anion Gap 15 (10-20) BUN 22 H (7-17) mg/dL Creatinine 0.9 (0.7-1.2) mg/dL Est GFR ( Amer) > 60 Est GFR (Non-Af Amer) 60 POC Glucose (mg/dL) (65-110) mg/dL Random Glucose 147 H (65-105) mg/dL Calcium 10.1 (8.6-10.4) mg/dl Phosphorus 4.6 H (2.5-4.5) mg/dL Magnesium 2.2 (1.6-2.3) mg/dL Total Bilirubin 0.7 (0.2-1.3) mg/dL AST 30 (14-36) U/L ALT 35 (9-52) U/L Alkaline Phosphatase 68 (38-126) U/L Troponin I 0.0130 (0.00-0.120) ng/mL Total Protein 5.6 L (6.3-8.3) g/dL Albumin 3.3 L D (3.5-5.0) g/dL Globulin 2.4 (2.2-3.9) gm/dL Albumin/Globulin Ratio 1.4 (1.0-2.1) Venous Blood Potassium 3.9 (3.6-5.2) mmol/L Urine Color (YELLOW) Urine Clarity (Clear) Urine pH (5.0-8.0) Ur Specific [place] (1.003-1.030) Urine Protein (NEGATIVE) mg/dL Urine Glucose (UA) (Normal) mg/dL Urine Ketones (NEGATIVE) mg/dL Urine Blood (NEGATIVE) Urine Nitrate (NEGATIVE) Urine Bilirubin (NEGATIVE) Urine Urobilinogen (0.2-1.0) mg/dL Ur Leukocyte Esterase (Negative) [place]/uL Urine WBC (Auto) (0-5) /hpf Urine RBC (Auto) (0-3) /hpf Hyaline Casts (0-2) /lpf Urine Yeast (Budding) (NEGATIVE) /hpf Blood Type Antibody Screen 03/24/18 Range/Units 16:19 WBC 8.7 D (4.8-10.8) K/uL RBC 3.75 L (3.80-5.20) Mil/uL Hgb 11.3 (11.0-16.0) g/dL Hct 34.5 (34.0-47.0) % MCV 91.8 (81.0-99.0) fL MCH 30.2 (27.0-31.0) pg MCHC 32.9 L (33.0-37.0) g/dL RDW 16.7 H (11.5-14.5) % Plt Count 288 (130-400) K/uL MPV 7.5 (7.2-11.7) fL Neut % (Auto) 75.1 H (50.0-75.0) % Lymph % (Auto) 15.7 L (20.0-40.0) % [place] % (Auto) 7.3 (0.0-10.0) % Eos % (Auto) 1.0 (0.0-4.0) % Baso % (Auto) 0.9 (0.0-2.0) % Neut # (Auto) 6.5 (1.8-7.0) K/uL Lymph # (Auto) 1.4 (1.0-4.3) K/uL [place] # (Auto) 0.6 (0.0-0.8) K/uL Eos # (Auto) 0.1 (0.0-0.7) K/uL Baso # (Auto) 0.1 (0.0-0.2) K/uL PT (9.7-12.2) SECONDS INR APTT (21-34) SECONDS pO2 (30-55) mm/Hg VBG pH (7.32-7.43) VBG pCO2 (40-60) mmHg VBG HCO3 mmol/L VBG Total CO2 (22-28) mmol/L VBG O2 Sat (Calc) (40-65) % VBG Base Excess (0.0-2.0) mmol/L VBG Potassium (3.6-5.2) mmol/L Glucose (65-105) mg/dl Lactate (0.7-2.1) mmol/L Sodium (132-148) mmol/L Potassium (3.6-5.2) mmol/L Chloride (98-107) mmol/L Carbon Dioxide (22-30) mmol/L Anion Gap (10-20) BUN (7-17) mg/dL Creatinine (0.7-1.2) mg/dL Est GFR ( Amer) Est GFR (Non-Af Amer) POC Glucose (mg/dL) (65-110) mg/dL Random Glucose (65-105) mg/dL Calcium (8.6-10.4) mg/dl Phosphorus (2.5-4.5) mg/dL Magnesium (1.6-2.3) mg/dL Total Bilirubin (0.2-1.3) mg/dL AST (14-36) U/L ALT (9-52) U/L Alkaline Phosphatase (38-126) U/L Troponin I (0.00-0.120) ng/mL Total Protein (6.3-8.3) g/dL Albumin (3.5-5.0) g/dL Globulin (2.2-3.9) gm/dL Albumin/Globulin Ratio (1.0-2.1) Venous Blood Potassium (3.6-5.2) mmol/L Urine Color (YELLOW) Urine Clarity (Clear) Urine pH (5.0-8.0) Ur Specific [place] (1.003-1.030) Urine Protein (NEGATIVE) mg/dL Urine Glucose (UA) (Normal) mg/dL Urine Ketones (NEGATIVE) mg/dL Urine Blood (NEGATIVE) Urine Nitrate (NEGATIVE) Urine Bilirubin (NEGATIVE) Urine Urobilinogen (0.2-1.0) mg/dL Ur Leukocyte Esterase (Negative) Wilner/uL Urine WBC (Auto) (0-5) /hpf Urine RBC (Auto) (0-3) /hpf Hyaline Casts (0-2) /lpf Urine Yeast (Budding) (NEGATIVE) /hpf Blood Type Antibody Screen Laboratory Results - last 24 hr 03/24/18 03/24/18 03/24/18 16:19 16:19 16:19 WBC 8.7 D RBC 3.75 L Hgb 11.3 Hct 34.5 MCV 91.8 MCH 30.2 MCHC 32.9 L RDW 16.7 H Plt Count 288 MPV 7.5 Neut % (Auto) 75.1 H Lymph % (Auto) 15.7 L [place] % (Auto) 7.3 Eos % (Auto) 1.0 Baso % (Auto) 0.9 Neut # (Auto) 6.5 Lymph # (Auto) 1.4 [place] # (Auto) 0.6 Eos # (Auto) 0.1 Baso # (Auto) 0.1 PT 10.5 INR 1.0 APTT 25 pO2 VBG pH VBG pCO2 VBG HCO3 VBG Total CO2 VBG O2 Sat (Calc) VBG Base Excess VBG Potassium Glucose Lactate Sodium 135 Potassium 4.1 Chloride 99 Carbon Dioxide 26 Anion Gap 15 BUN 22 H Creatinine 0.9 Est GFR ( Amer) > 60 Est GFR (Non-Af Amer) 60 POC Glucose (mg/dL) Random Glucose 147 H Calcium 10.1 Phosphorus 4.6 H Magnesium 2.2 Total Bilirubin 0.7 AST 30 ALT 35 Alkaline Phosphatase 68 Troponin I 0.0130 Total Protein 5.6 L Albumin 3.3 L D Globulin 2.4 Albumin/Globulin Ratio 1.4 Venous Blood Potassium Urine Color Urine Clarity Urine pH Ur Specific [place] Urine Protein Urine Glucose (UA) Urine Ketones Urine Blood Urine Nitrate Urine Bilirubin Urine Urobilinogen Ur Leukocyte Esterase Urine WBC (Auto) Urine RBC (Auto) Hyaline Casts Urine Yeast (Budding) Blood Type Antibody Screen 03/24/18 03/24/18 03/24/18 16:33 16:50 17:05 WBC RBC Hgb Hct MCV MCH MCHC RDW Plt Count MPV Neut % (Auto) Lymph % (Auto) [place] % (Auto) Eos % (Auto) Baso % (Auto) Neut # (Auto) Lymph # (Auto) [place] # (Auto) Eos # (Auto) Baso # (Auto) PT INR APTT pO2 21 L VBG pH 7.43 VBG pCO2 42 VBG HCO3 25.8 VBG Total CO2 29.2 H VBG O2 Sat (Calc) 33.1 L VBG Base Excess 3.2 H VBG Potassium 3.9 Glucose 131 H Lactate 3.1 H Sodium 137.0 Potassium Chloride 104.0 Carbon Dioxide Anion Gap BUN Creatinine Est GFR ( Amer) Est GFR (Non-Af Amer) POC Glucose (mg/dL) Random Glucose Calcium Phosphorus Magnesium Total Bilirubin AST ALT Alkaline Phosphatase Troponin I Total Protein Albumin Globulin Albumin/Globulin Ratio Venous Blood Potassium 3.9 Urine Color Yellow Urine Clarity Clear Urine pH 6.0 Ur Specific [place] 1.012 Urine Protein Negative Urine Glucose (UA) Normal Urine Ketones Negative Urine Blood Negative Urine Nitrate Negative Urine Bilirubin Negative Urine Urobilinogen Normal Ur Leukocyte Esterase 1+ H Urine WBC (Auto) 7 H Urine RBC (Auto) 4 H Hyaline Casts 6-10 H Urine Yeast (Budding) Mod H Blood Type O POSITIVE Antibody Screen Negative 03/24/18 03/25/18 03/25/18 20:30 00:02 00:42 WBC 4.8 RBC 2.80 L Hgb 8.8 L D 8.6 L Hct 26.1 L 25.6 L MCV 91.6 MCH 30.9 MCHC 33.8 RDW 16.8 H Plt Count 224 MPV 7.0 L Neut % (Auto) 55.5 Lymph % (Auto) 30.5 [place] % (Auto) 9.3 Eos % (Auto) 3.1 Baso % (Auto) 1.6 Neut # (Auto) 2.7 Lymph # (Auto) 1.5 [place] # (Auto) 0.4 Eos # (Auto) 0.1 Baso # (Auto) 0.1 PT INR APTT pO2 VBG pH VBG pCO2 VBG HCO3 VBG Total CO2 VBG O2 Sat (Calc) VBG Base Excess VBG Potassium Glucose Lactate Sodium Potassium Chloride Carbon Dioxide Anion Gap BUN Creatinine Est GFR ( Amer) Est GFR (Non-Af Amer) POC Glucose (mg/dL) 101 Random Glucose Calcium Phosphorus Magnesium Total Bilirubin AST ALT Alkaline Phosphatase Troponin I Total Protein Albumin Globulin Albumin/Globulin Ratio Venous Blood Potassium Urine Color Urine Clarity Urine pH Ur Specific [place] Urine Protein Urine Glucose (UA) Urine Ketones Urine Blood Urine Nitrate Urine Bilirubin Urine Urobilinogen Ur Leukocyte Esterase Urine WBC (Auto) Urine RBC (Auto) Hyaline Casts Urine Yeast (Budding) Blood Type Antibody Screen 03/25/18 03/25/18 03/25/18 05:42 06:32 06:32 WBC 4.5 L RBC 2.71 L Hgb 8.4 L Hct 25.0 L MCV 92.2 MCH 31.0 MCHC 33.6 RDW 17.0 H Plt Count 223 MPV 7.2 Neut % (Auto) 59.3 Lymph % (Auto) 26.3 [place] % (Auto) 9.6 Eos % (Auto) 3.5 Baso % (Auto) 1.3 Neut # (Auto) 2.7 Lymph # (Auto) 1.2 [place] # (Auto) 0.4 Eos # (Auto) 0.2 Baso # (Auto) 0.1 PT 10.6 INR 1.0 APTT 27 pO2 VBG pH VBG pCO2 VBG HCO3 VBG Total CO2 VBG O2 Sat (Calc) VBG Base Excess VBG Potassium Glucose Lactate Sodium Potassium Chloride Carbon Dioxide Anion Gap BUN Creatinine Est GFR ( Amer) Est GFR (Non-Af Amer) POC Glucose (mg/dL) 99 Random Glucose Calcium Phosphorus Magnesium Total Bilirubin AST ALT Alkaline Phosphatase Troponin I Total Protein Albumin Globulin Albumin/Globulin Ratio Venous Blood Potassium Urine Color Urine Clarity Urine pH Ur Specific [place] Urine Protein Urine Glucose (UA) Urine Ketones Urine Blood Urine Nitrate Urine Bilirubin Urine Urobilinogen Ur Leukocyte Esterase Urine WBC (Auto) Urine RBC (Auto) Hyaline Casts Urine Yeast (Budding) Blood Type Antibody Screen 03/25/18 06:32 WBC RBC Hgb Hct MCV MCH MCHC RDW Plt Count MPV Neut % (Auto) Lymph % (Auto) [place] % (Auto) Eos % (Auto) Baso % (Auto) Neut # (Auto) Lymph # (Auto) [place] # (Auto) Eos # (Auto) Baso # (Auto) PT INR APTT pO2 VBG pH VBG pCO2 VBG HCO3 VBG Total CO2 VBG O2 Sat (Calc) VBG Base Excess VBG Potassium Glucose Lactate Sodium 139 Potassium 3.6 Chloride 109 H Carbon Dioxide 25 Anion Gap 9 L BUN 15 Creatinine 0.7 Est GFR ( Amer) > 60 Est GFR (Non-Af Amer) > 60 POC Glucose (mg/dL) Random Glucose 106 H Calcium 8.1 L Phosphorus 3.1 Magnesium 2.1 Total Bilirubin 0.7 AST 31 ALT 34 Alkaline Phosphatase 47 Troponin I Total Protein 4.6 L Albumin 2.4 L D Globulin 2.1 L Albumin/Globulin Ratio 1.1 Venous Blood Potassium Urine Color Urine Clarity Urine pH Ur Specific [place] Urine Protein Urine Glucose (UA) Urine Ketones Urine Blood Urine Nitrate Urine Bilirubin Urine Urobilinogen Ur Leukocyte Esterase Urine WBC (Auto) Urine RBC (Auto) Hyaline Casts Urine Yeast (Budding) Blood Type Antibody Screen EKG/Cardiology Studies: Cardiology / EKG Studies 03/24/18 16:05 ELECTROCARDIOGRAM Stat Comment: Mode Of Transportation: Reason For Exam: Sepsis Patient Review of Systems - Constitutional Constitutional: absent: Fever, Chills - EENT Eyes: absent: Change in Vision - Cardiovascular Cardiovascular: absent: Chest Pain, Diaphoresis, Dyspnea, Dyspnea on Exertion, Palpitations - Respiratory Respiratory: absent: Cough, Dyspnea - Gastrointestinal Gastrointestinal: absent: Abdominal Pain, Diarrhea - Musculoskeletal Musculoskeletal: Arthralgias (from RA) Assessment/Plan - Assessment and Plan (Free Text) Assessment: 82 yo F W/ PMHx of RA, HTN and DM admitted to ICU(03/24) for BRBPR. Pt is s/p hemorrhoidectomy(03/11) with Dr. Lopez, complicated by persistent colonic/ rectal bleed requiring multiple transfusions for asymptomatic acute blood loss anemia. 1. Acute blood loss anemia -hhb 8.4 (03/25) down from 11.3(03/24) -Pt to be transfused 2U PRBC today -h/h q8 -IVF -GI consult Dr. Alfred -Sx consult Dr. Sarmiento 2. HTN BP stable, continue to monitor 3. Ppx -protonix 40mg -SCD 4. DM -ISS Pt is DNR, DNI <Edison Junior M - Last Filed: 03/25/18 19:04> CCU Objective - Vital Signs / Intake & Output Vital Signs (Last 4 hours): Vital Signs Temp Pulse Resp BP Pulse Ox 03/25/18 18:24 86 14 113/53 L 97 03/25/18 18:00 98.2 F 82 18 107/53 L 03/25/18 17:39 88 17 114/50 L 98 03/25/18 17:30 98.1 F 88 16 117/53 L 03/25/18 17:10 96 H 17 112/58 L 96 03/25/18 17:00 98.5 F 87 17 112/58 L 03/25/18 16:39 89 17 123/70 99 03/25/18 16:30 98.1 F 75 15 115/52 L 03/25/18 16:00 98.1 F 77 17 123/53 L 96 03/25/18 15:54 77 17 123/53 L 100 03/25/18 15:30 98.0 F 75 17 115/52 L 03/25/18 15:15 98.4 F 72 15 105/46 L 03/25/18 15:09 72 17 113/51 L 100 03/25/18 15:00 98.2 F 83 16 113/51 L Intake and Output (Last 8hrs): Intake & Output 03/25/18 03/25/18 03/25/18 06:59 14:59 22:59 Intake Total 675 650 675 Output Total 400 500 400 Balance 275 150 275 Weight 124 lb 4.8 oz Intake: Intake, IV Amount 675 225 Left Antecubital 675 225 Oral 100 350 Blood Product 325 325 Red Blood Cells Cpd As1 325 Lr Unit [id number] Red Blood Cells Cpd As1 325 Lr Unit [id number] Output: Urine 400 500 400 Urine, Voided 400 500 400 Other: # Voids Urine, Voided 1 - Medications Active Medications: Active Medications Generic Name Dose Route Start Last Admin Trade Name Freq PRN Reason Stop Dose Admin Hydrocortisone 25 mg 03/25/18 12:00 03/25/18 17:34 Anusol-Hc RC 25 mg BID MERRILL Administration Insulin Human Regular 0 unit 03/25/18 00:00 03/25/18 18:15 Novolin R SC Not Given Q6 MERRILL Protocol Ofloxacin 0 ml 03/25/18 18:00 03/25/18 17:41 Ocuflox Ophth 0.3% OU 2 drop TID MERRILL Administration Pantoprazole Sodium 40 mg 03/25/18 10:00 03/25/18 09:38 Protonix Inj IVP 40 mg DAILY MERRILL Administration Tobramycin/Dexamethasone 0 ml 03/25/18 16:48 03/25/18 17:34 Tobradex Opht Susp OU Not Given TID MERRILL - Patient Studies Lab Studies: Microbiology Studies 03/24/18 17:05 Urine Culture - Final Urine,Catheterized No Growth (<1,000 CFU/ML) Lab Studies 03/25/18 03/25/18 03/25/18 Range/Units 11:43 06:32 06:32 WBC (4.8-10.8) K/uL RBC (3.80-5.20) Mil/uL Hgb (11.0-16.0) g/dL Hct (34.0-47.0) % MCV (81.0-99.0) fL MCH (27.0-31.0) pg MCHC (33.0-37.0) g/dL RDW (11.5-14.5) % Plt Count (130-400) K/uL MPV (7.2-11.7) fL Neut % (Auto) (50.0-75.0) % Lymph % (Auto) (20.0-40.0) % [place] % (Auto) (0.0-10.0) % Eos % (Auto) (0.0-4.0) % Baso % (Auto) (0.0-2.0) % Neut # (Auto) (1.8-7.0) K/uL Lymph # (Auto) (1.0-4.3) K/uL [place] # (Auto) (0.0-0.8) K/uL Eos # (Auto) (0.0-0.7) K/uL Baso # (Auto) (0.0-0.2) K/uL PT 10.6 (9.7-12.2) SECONDS INR 1.0 APTT 27 (21-34) SECONDS Sodium 139 (132-148) mmol/L Potassium 3.6 (3.6-5.2) mmol/L Chloride 109 H (98-107) mmol/L Carbon Dioxide 25 (22-30) mmol/L Anion Gap 9 L (10-20) BUN 15 (7-17) mg/dL Creatinine 0.7 (0.7-1.2) mg/dL Est GFR ( Amer) > 60 Est GFR (Non-Af Amer) > 60 POC Glucose (mg/dL) 99 (65-110) mg/dL Random Glucose 106 H (65-105) mg/dL Calcium 8.1 L (8.6-10.4) mg/dl Phosphorus 3.1 (2.5-4.5) mg/dL Magnesium 2.1 (1.6-2.3) mg/dL Total Bilirubin 0.7 (0.2-1.3) mg/dL AST 31 (14-36) U/L ALT 34 (9-52) U/L Alkaline Phosphatase 47 (38-126) U/L Total Protein 4.6 L (6.3-8.3) g/dL Albumin 2.4 L D (3.5-5.0) g/dL Globulin 2.1 L (2.2-3.9) gm/dL Albumin/Globulin Ratio 1.1 (1.0-2.1) Blood Type Antibody Screen 03/25/18 03/25/18 03/25/18 Range/Units 06:32 05:42 00:42 WBC 4.5 L 4.8 (4.8-10.8) K/uL RBC 2.71 L 2.80 L (3.80-5.20) Mil/uL Hgb 8.4 L 8.6 L (11.0-16.0) g/dL Hct 25.0 L 25.6 L (34.0-47.0) % MCV 92.2 91.6 (81.0-99.0) fL MCH 31.0 30.9 (27.0-31.0) pg MCHC 33.6 33.8 (33.0-37.0) g/dL RDW 17.0 H 16.8 H (11.5-14.5) % Plt Count 223 224 (130-400) K/uL MPV 7.2 7.0 L (7.2-11.7) fL Neut % (Auto) 59.3 55.5 (50.0-75.0) % Lymph % (Auto) 26.3 30.5 (20.0-40.0) % [place] % (Auto) 9.6 9.3 (0.0-10.0) % Eos % (Auto) 3.5 3.1 (0.0-4.0) % Baso % (Auto) 1.3 1.6 (0.0-2.0) % Neut # (Auto) 2.7 2.7 (1.8-7.0) K/uL Lymph # (Auto) 1.2 1.5 (1.0-4.3) K/uL [place] # (Auto) 0.4 0.4 (0.0-0.8) K/uL Eos # (Auto) 0.2 0.1 (0.0-0.7) K/uL Baso # (Auto) 0.1 0.1 (0.0-0.2) K/uL PT (9.7-12.2) SECONDS INR APTT (21-34) SECONDS Sodium (132-148) mmol/L Potassium (3.6-5.2) mmol/L Chloride (98-107) mmol/L Carbon Dioxide (22-30) mmol/L Anion Gap (10-20) BUN (7-17) mg/dL Creatinine (0.7-1.2) mg/dL Est GFR ( Amer) Est GFR (Non-Af Amer) POC Glucose (mg/dL) 99 (65-110) mg/dL Random Glucose (65-105) mg/dL Calcium (8.6-10.4) mg/dl Phosphorus (2.5-4.5) mg/dL Magnesium (1.6-2.3) mg/dL Total Bilirubin (0.2-1.3) mg/dL AST (14-36) U/L ALT (9-52) U/L Alkaline Phosphatase (38-126) U/L Total Protein (6.3-8.3) g/dL Albumin (3.5-5.0) g/dL Globulin (2.2-3.9) gm/dL Albumin/Globulin Ratio (1.0-2.1) Blood Type Antibody Screen 03/25/18 03/24/18 03/24/18 Range/Units 00:02 20:30 16:50 WBC (4.8-10.8) K/uL RBC (3.80-5.20) Mil/uL Hgb 8.8 L D (11.0-16.0) g/dL Hct 26.1 L (34.0-47.0) % MCV (81.0-99.0) fL MCH (27.0-31.0) pg MCHC (33.0-37.0) g/dL RDW (11.5-14.5) % Plt Count (130-400) K/uL MPV (7.2-11.7) fL Neut % (Auto) (50.0-75.0) % Lymph % (Auto) (20.0-40.0) % [place] % (Auto) (0.0-10.0) % Eos % (Auto) (0.0-4.0) % Baso % (Auto) (0.0-2.0) % Neut # (Auto) (1.8-7.0) K/uL Lymph # (Auto) (1.0-4.3) K/uL [place] # (Auto) (0.0-0.8) K/uL Eos # (Auto) (0.0-0.7) K/uL Baso # (Auto) (0.0-0.2) K/uL PT (9.7-12.2) SECONDS INR APTT (21-34) SECONDS Sodium (132-148) mmol/L Potassium (3.6-5.2) mmol/L Chloride (98-107) mmol/L Carbon Dioxide (22-30) mmol/L Anion Gap (10-20) BUN (7-17) mg/dL Creatinine (0.7-1.2) mg/dL Est GFR ( Amer) Est GFR (Non-Af Amer) POC Glucose (mg/dL) 101 (65-110) mg/dL Random Glucose (65-105) mg/dL Calcium (8.6-10.4) mg/dl Phosphorus (2.5-4.5) mg/dL Magnesium (1.6-2.3) mg/dL Total Bilirubin (0.2-1.3) mg/dL AST (14-36) U/L ALT (9-52) U/L Alkaline Phosphatase (38-126) U/L Total Protein (6.3-8.3) g/dL Albumin (3.5-5.0) g/dL Globulin (2.2-3.9) gm/dL Albumin/Globulin Ratio (1.0-2.1) Blood Type O POSITIVE Antibody Screen Negative Laboratory Results - last 24 hr 03/24/18 03/24/18 03/25/18 16:50 20:30 00:02 WBC RBC Hgb 8.8 L D Hct 26.1 L MCV MCH MCHC RDW Plt Count MPV Neut % (Auto) Lymph % (Auto) [place] % (Auto) Eos % (Auto) Baso % (Auto) Neut # (Auto) Lymph # (Auto) [place] # (Auto) Eos # (Auto) Baso # (Auto) PT INR APTT Sodium Potassium Chloride Carbon Dioxide Anion Gap BUN Creatinine Est GFR ( Amer) Est GFR (Non-Af Amer) POC Glucose (mg/dL) 101 Random Glucose Calcium Phosphorus Magnesium Total Bilirubin AST ALT Alkaline Phosphatase Total Protein Albumin Globulin Albumin/Globulin Ratio Blood Type O POSITIVE Antibody Screen Negative 03/25/18 03/25/18 03/25/18 00:42 05:42 06:32 WBC 4.8 4.5 L RBC 2.80 L 2.71 L Hgb 8.6 L 8.4 L Hct 25.6 L 25.0 L MCV 91.6 92.2 MCH 30.9 31.0 MCHC 33.8 33.6 RDW 16.8 H 17.0 H Plt Count 224 223 MPV 7.0 L 7.2 Neut % (Auto) 55.5 59.3 Lymph % (Auto) 30.5 26.3 [place] % (Auto) 9.3 9.6 Eos % (Auto) 3.1 3.5 Baso % (Auto) 1.6 1.3 Neut # (Auto) 2.7 2.7 Lymph # (Auto) 1.5 1.2 [place] # (Auto) 0.4 0.4 Eos # (Auto) 0.1 0.2 Baso # (Auto) 0.1 0.1 PT INR APTT Sodium Potassium Chloride Carbon Dioxide Anion Gap BUN Creatinine Est GFR ( Amer) Est GFR (Non-Af Amer) POC Glucose (mg/dL) 99 Random Glucose Calcium Phosphorus Magnesium Total Bilirubin AST ALT Alkaline Phosphatase Total Protein Albumin Globulin Albumin/Globulin Ratio Blood Type Antibody Screen 03/25/18 03/25/18 03/25/18 06:32 06:32 11:43 WBC RBC Hgb Hct MCV MCH MCHC RDW Plt Count MPV Neut % (Auto) Lymph % (Auto) [place] % (Auto) Eos % (Auto) Baso % (Auto) Neut # (Auto) Lymph # (Auto) [place] # (Auto) Eos # (Auto) Baso # (Auto) PT 10.6 INR 1.0 APTT 27 Sodium 139 Potassium 3.6 Chloride 109 H Carbon Dioxide 25 Anion Gap 9 L BUN 15 Creatinine 0.7 Est GFR ( Amer) > 60 Est GFR (Non-Af Amer) > 60 POC Glucose (mg/dL) 99 Random Glucose 106 H Calcium 8.1 L Phosphorus 3.1 Magnesium 2.1 Total Bilirubin 0.7 AST 31 ALT 34 Alkaline Phosphatase 47 Total Protein 4.6 L Albumin 2.4 L D Globulin 2.1 L Albumin/Globulin Ratio 1.1 Blood Type Antibody Screen Critical Care Progress Note - Ventilator Checklist Head of Bed 30 Degrees: Yes - Nutrition Nutrition: Nutrition Category Date Time Status Liquid Diet [DIET] Diets 03/25/18 Lunch Active Assessment/Plan - Assessment and Plan (Free Text) Assessment: Patient seen and examined at bedside. Patient well known to ICU team. Patient has lower Gi bleed (likely from hemmrhoidal site). Patient and daughter have refused any surgical intervention. IR studies revealed no arterial site of bleeding identified. GI input appreciated -Patient remains hemodynamically stable -serial cbc and transfuse to keep hemodynamic stability -Patient verbalized understanding and requested continued DNR/DNI. Prognosis guarded. - Date & Time Date: 03/25/18 Time: 19:04
--- NOTE | 2018-03-25 12:06 | CP.PCM.PN ---
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 consult has been cancelled Objective - Vital Signs/Intake and Output Vital Signs (last 24 hours): Temp Pulse Resp BP Pulse Ox 98.1 F 70 14 87/39 L 100 03/25/18 11:35 03/25/18 11:35 03/25/18 11:35 03/25/18 11:35 03/25/18 10:39 Intake and Output: 03/25/18 03/25/18 06:59 18:59 Intake Total 750 225 Output Total 400 100 Balance 350 125 - Medications Medications: Current Medications Hydrocortisone (Anusol-Hc) 25 mg RC BID [facility] Insulin Human Regular (Novolin R) 0 unit SC Q6 [facility] PRN Reason: Protocol Last Admin: 03/25/18 07:20 Dose: Not Given Pantoprazole Sodium (Protonix Inj) 40 mg IVP DAILY [facility] Last Admin: 03/25/18 09:38 Dose: 40 mg - Labs Labs: 03/25/18 06:32 03/25/18 06:32 PT 10.6 SECONDS (9.7-12.2) 03/25/18 06:32 INR 1.0 03/25/18 06:32 APTT 27 SECONDS (21-34) 03/25/18 06:32 - Constitutional Appears: Chronically Ill - Eye Exam Additional comments: pale conjunctivae - Respiratory Exam Respiratory Exam: Clear to Ausculation Bilateral - Cardiovascular Exam Cardiovascular Exam: REGULAR RHYTHM. absent: Tachycardia - GI/Abdominal Exam GI & Abdominal Exam: Soft. absent: Tenderness Assessment and Plan (1) Rectal bleeding Assessment & Plan: Dropped Hgb 3 gms Transfusing PRBCs No role for another scope. Has had 2 colonoscopies in past week, both demonstrating source of bleed to be from rectal ulcer/hemorrhoids S/P hemorrhoidectomy If intervention is needed, it should be by a surgeon Status: Acute (2) Rectal ulcer Assessment & Plan: Seen last week on scope Needs sitz baths and topical steroids Discussed with RN: patient refuses sitz baths Status: Acute
--- NOTE | 2018-03-25 14:00 | CP.PCM.PN ---
Subjective - Date & Time of Evaluation Date of Evaluation: 03/25/18 Time of Evaluation: 13:58 - Subjective Subjective: CHIEF COMPLAINTS TODAY : No specific symptoms. Hemoglobin has dropped down to 8.4 g/dL. Patient receiving 1 pack per cell and IV fluids. ROS. HEENT : N. Resp : No cough, wheezing ,pleuritic CP ,or hemoptysis Cardio : No anginal CP, PND, orthopnea, palpitation GI : No abd.pain, n/v ,diarrhea or GI bleeding . 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 Musculoskel : No joint swelling , Derm : No rash Psych : Normal affect. Ext : No swelling ,calf pain PE. Pt. is alert awake in no distress. V.S As noted in the chart Head ,ear nose,throat and eyes : Normal. Neck : Supple with normal carotids. Lungs: Clear air entry. Heart : S1 & S2 normal with S4. No murmur. Abd : Soft non tender with normal bowel sounds. Neuro : Moves all ext. with no localized deficit. Ext : No edema with intact pulses.Non tender calves Derm : No rashes or decubitus ulcer. LABS/RADIOLOGY: ASSESSMENT/PLAN : Second opinion surgical consult was decline by the surgeon. Discussed with GI for possible transfer to tertiary center for further evaluation of rectal area which appears to be the site of bleeding. Objective - Vital Signs/Intake and Output Vital Signs (last 24 hours): Temp Pulse Resp BP Pulse Ox 97.6 F 78 16 123/54 L 100 03/25/18 13:34 03/25/18 13:34 03/25/18 13:34 03/25/18 13:34 03/25/18 13:09 Intake and Output: 03/25/18 03/25/18 11:59 23:59 Intake Total 825 Output Total 500 400 Balance 325 -400 - Medications Medications: Current Medications Hydrocortisone (Anusol-Hc) 25 mg RC BID [facility] Last Admin: 03/25/18 13:00 Dose: 25 mg Insulin Human Regular (Novolin R) 0 unit SC Q6 [facility] PRN Reason: Protocol Last Admin: 03/25/18 12:05 Dose: Not Given Pantoprazole Sodium (Protonix Inj) 40 mg IVP DAILY [facility] Last Admin: 03/25/18 09:38 Dose: 40 mg - Labs Labs: 03/25/18 06:32 03/25/18 06:32 PT 10.6 SECONDS (9.7-12.2) 03/25/18 06:32 INR 1.0 03/25/18 06:32 APTT 27 SECONDS (21-34) 03/25/18 06:32
[2018-03-25] MEDS: Tobramycin/Dexamethasone (Tobradex) Opth Sol (2.5 ml) OU SCH ×2 (17:33→17:34)
[2018-03-25] MEDS: Ofloxacin 0.3% Ophth Soln OU SCH (17:41)
[2018-03-25 22:37] LABS: BASO # 0.1 K/uL (0.0-0.2); BASO % 1.2 % (0.0-2.0); EOS # 0.1 K/uL (0.0-0.7); EOS % 1.4 % (0.0-4.0); LYMPH % 13.6 % (20.0-40.0); MEAN CELL VOLUME 90.7 fL (81.0-99.0); MEAN CORPUSCULAR HEMOGLOBIN 31.2 pg (27.0-31.0); MEAN CORPUSCULAR HGB CONC 34.4 g/dL (33.0-37.0); MEAN PLATELET VOLUME 7.2 fL (7.2-11.7); MONO # 0.5 K/uL (0.0-0.8); MONO % 6.9 % (0.0-10.0); NEUT # 5.6 K/uL (1.8-7.0); NEUT % 76.9 % (50.0-75.0); RBC 3.94 Mil/uL (3.80-5.20); RED CELL DISTRIBUTION WIDTH 15.9 % (11.5-14.5)
[2018-03-25 22:59] LABS: HEMOGLOBIN 12.3 g/dL (11.0-16.0); WHITE BLOOD COUNT 7.3 K/uL (4.8-10.8)
[2018-03-26] MEDS: (Novolin R) Insulin Human Regular 100 units/ml vial SC SCH ×5 (00:15→22:00)
[2018-03-26 06:16] LABS: BASO # 0.1 K/uL (0.0-0.2); BASO % 1.4 % (0.0-2.0); EOS # 0.1 K/uL (0.0-0.7); EOS % 1.3 % (0.0-4.0); HEMOGLOBIN 12.4 g/dL (11.0-16.0); LYMPH # 1.5 K/uL (1.0-4.3); MEAN CELL VOLUME 91.6 fL (81.0-99.0); MEAN CORPUSCULAR HEMOGLOBIN 31.2 pg (27.0-31.0); MEAN CORPUSCULAR HGB CONC 34.1 g/dL (33.0-37.0); MEAN PLATELET VOLUME 7.3 fL (7.2-11.7); MONO # 0.5 K/uL (0.0-0.8); MONO % 7.1 % (0.0-10.0); NEUT # 5.5 K/uL (1.8-7.0); NEUT % 71.2 % (50.0-75.0); RBC 3.96 Mil/uL (3.80-5.20); RED CELL DISTRIBUTION WIDTH 15.6 % (11.5-14.5); WHITE BLOOD COUNT 7.7 K/uL (4.8-10.8)
[2018-03-26 06:44] LABS: ALB/GLOB RATIO 1.1 (1.0-2.1); ALBUMIN 2.7 g/dL (3.5-5.0); ALT/SGPT 34 U/L (9-52); AST/SGOT 25 U/L (14-36); BLOOD UREA NITROGEN 9 mg/dL (7-17); CALCIUM 8.3 mg/dl (8.6-10.4); GFR AFRICAN-AMERICAN > 60; GFR NON-AFRICAN AMERICAN > 60
[2018-03-26] MEDS: Tobramycin/Dexamethasone (Tobradex) Opth Sol (2.5 ml) OU SCH ×3 (09:48→17:44)
--- NOTE | 2018-03-26 09:49 | CP.PCM.PN ---
Subjective - Date & Time of Evaluation Date of Evaluation: 03/26/18 Time of Evaluation: 09:46 - Subjective Subjective: In ICU- no reported bleeding x 24 hrs Hgb stable post PRBCs Confused. Does not have full understanding of what I am telling her Objective - Vital Signs/Intake and Output Vital Signs (last 24 hours): Temp Pulse Resp BP Pulse Ox 98.7 F 67 20 100/47 L 96 03/26/18 04:00 03/26/18 06:00 03/26/18 06:00 03/25/18 21:09 03/26/18 06:00 Intake and Output: 03/26/18 03/26/18 06:59 18:59 Intake Total 220 Output Total 400 Balance -180 - Medications Medications: Current Medications Hydrocortisone (Anusol-Hc) 25 mg RC BID [facility] Last Admin: 03/25/18 17:34 Dose: 25 mg Insulin Human Regular (Novolin R) 0 unit SC Q6 [facility] PRN Reason: Protocol Last Admin: 03/26/18 05:53 Dose: Not Given Ofloxacin (Ocuflox Ophth 0.3%) 0 ml OU TID [facility] Last Admin: 03/25/18 17:41 Dose: 2 drop Pantoprazole Sodium (Protonix Inj) 40 mg IVP DAILY [facility] Last Admin: 03/25/18 09:38 Dose: 40 mg Tobramycin/Dexamethasone (Tobradex Opht Susp) 0 ml OU TID [facility] Last Admin: 03/25/18 17:34 Dose: Not Given - Labs Labs: 03/26/18 06:06 03/26/18 06:07 PT 10.6 SECONDS (9.7-12.2) 03/25/18 06:32 INR 1.0 03/25/18 06:32 APTT 27 SECONDS (21-34) 03/25/18 06:32 - Constitutional Appears: No Acute Distress, Chronically Ill, Other (Pale) - Head Exam Head Exam: NORMOCEPHALIC - Eye Exam Eye Exam: absent: Scleral icterus - Neck Exam Neck Exam: Normal Inspection - Respiratory Exam Respiratory Exam: NORMAL BREATHING PATTERN - Cardiovascular Exam Cardiovascular Exam: REGULAR RHYTHM. absent: Tachycardia - GI/Abdominal Exam GI & Abdominal Exam: Soft. absent: Distended, Tenderness, Mass - Rectal Exam Rectal Exam: Deferred - Extremities Exam Extremities Exam: Normal Inspection - Neurological Exam Neurological Exam: Alert, Awake - Psychiatric Exam Psychiatric exam: Flat Affect Assessment and Plan (1) Rectal bleeding Assessment & Plan: Major bleed on 03/24. No bleeding since then Needs local care for hemorrhoids/ulcer with sitz baths and supposirtories Colorectal surgeon to evaluate/treat Status: Acute (2) Rectal ulcer Assessment & Plan: Local care ordered Status: Acute
[2018-03-26] MEDS: Ofloxacin 0.3% Ophth Soln OU SCH ×3 (09:50→17:45)
--- NOTE | 2018-03-26 14:06 | CP.PCM.PN ---
Subjective - Date & Time of Evaluation Date of Evaluation: 03/26/18 Time of Evaluation: 14:05 - Subjective Subjective: CHIEF COMPLAINTS TODAY : no further rectal bleeding since yesterday. Today's hemoglobin is 12.0 g/dL No specific complaints. . ROS. HEENT : N. Resp : No cough, wheezing ,pleuritic CP ,or hemoptysis Cardio : No anginal CP, PND, orthopnea, palpitation GI : No abd.pain, n/v ,diarrhea or GI bleeding . 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 Musculoskel : No joint swelling , Derm : No rash Psych : Normal affect. Ext : No swelling ,calf pain PE. Pt. is alert awake in no distress. V.S As noted in the chart Head ,ear nose,throat and eyes : Normal. Neck : Supple with normal carotids. Lungs: Clear air entry. Heart : S1 & S2 normal with S4. No murmur. Abd : Soft non tender with normal bowel sounds. Neuro : Moves all ext. with no localized deficit. Ext : No edema with intact pulses.Non tender calves Derm : No rashes or decubitus ulcer. LABS/RADIOLOGY: ASSESSMENT/PLAN : discussed with patient's daughter. Explained to the patient and the daughter that she will be transferred to [facility] for evaluation for colorectal surgery as currently etiology of recurrent bleeding is unclear Objective - Vital Signs/Intake and Output Vital Signs (last 24 hours): Temp Pulse Resp BP Pulse Ox 98.7 F 76 17 98/47 L 100 03/26/18 04:00 03/26/18 09:52 03/26/18 09:52 03/26/18 09:52 03/26/18 09:52 Intake and Output: 03/26/18 03/26/18 11:59 23:59 Intake Total 420 Output Total 800 Balance -380 - Medications Medications: Current Medications Hydrocortisone (Anusol-Hc) 25 mg RC BID [facility] Last Admin: 03/26/18 09:48 Dose: 25 mg Insulin Human Regular (Novolin R) 0 unit SC Q6 [facility] PRN Reason: Protocol Last Admin: 03/26/18 05:53 Dose: Not Given Ofloxacin (Ocuflox Ophth 0.3%) 0 ml OU TID [facility] Last Admin: 03/26/18 09:50 Dose: 2 drop Pantoprazole Sodium (Protonix Inj) 40 mg IVP DAILY [facility] Last Admin: 03/26/18 09:48 Dose: 40 mg Tobramycin/Dexamethasone (Tobradex Opht Susp) 0 ml OU TID [facility] Last Admin: 03/26/18 09:48 Dose: 2 drop - Labs Labs: 03/26/18 06:06 03/26/18 06:07 PT 10.6 SECONDS (9.7-12.2) 03/25/18 06:32 INR 1.0 03/25/18 06:32 APTT 27 SECONDS (21-34) 03/25/18 06:32
[2018-03-27 04:28] VITALS: TEMP 98.2
[2018-03-27] MEDS: (Novolin R) Insulin Human Regular 100 units/ml vial SC SCH ×2 (08:00→11:48)
[2018-03-27] MEDS: Tobramycin/Dexamethasone (Tobradex) Opth Sol (2.5 ml) OU SCH ×2 (09:14→13:12)
[2018-03-27] MEDS: Ofloxacin 0.3% Ophth Soln OU SCH ×2 (09:15→13:12)
--- NOTE | 2018-03-27 10:09 | CP.PCM.PN ---
Subjective - Date & Time of Evaluation Date of Evaluation: 03/27/18 Time of Evaluation: 10:07 - Subjective Subjective: In ICU 1 dark bloody BM last night. Remains hemodynamically stable Labwork pending Will need transfer for tertiary care Objective - Vital Signs/Intake and Output Vital Signs (last 24 hours): Temp Pulse Resp BP Pulse Ox 98.2 F 95 H 15 107/58 L 96 03/27/18 04:00 03/27/18 04:02 03/27/18 04:02 03/27/18 00:01 03/27/18 04:02 Intake and Output: 03/27/18 03/27/18 06:59 18:59 Intake Total 240 Output Total 500 Balance -260 - Medications Medications: Current Medications Hydrocortisone (Anusol-Hc) 25 mg RC BID [facility] Last Admin: 03/27/18 09:14 Dose: 25 mg Insulin Human Regular (Novolin R) 0 unit SC ACHS [facility] PRN Reason: Protocol Last Admin: 03/27/18 08:00 Dose: Not Given Ofloxacin (Ocuflox Ophth 0.3%) 0 ml OU TID [facility] Last Admin: 03/27/18 09:15 Dose: 2 drop Pantoprazole Sodium (Protonix Inj) 40 mg IVP DAILY [facility] Last Admin: 03/27/18 09:21 Dose: 40 mg Tobramycin/Dexamethasone (Tobradex Opht Susp) 0 ml OU TID [facility] Last Admin: 03/27/18 09:14 Dose: 2 drop - Labs Labs: 03/26/18 06:06 03/26/18 06:07 PT 10.6 SECONDS (9.7-12.2) 03/25/18 06:32 INR 1.0 03/25/18 06:32 APTT 27 SECONDS (21-34) 03/25/18 06:32 - Constitutional Appears: No Acute Distress - Respiratory Exam Respiratory Exam: NORMAL BREATHING PATTERN - Cardiovascular Exam Cardiovascular Exam: REGULAR RHYTHM - GI/Abdominal Exam GI & Abdominal Exam: Soft. absent: Distended, Tenderness Assessment and Plan (1) Rectal bleeding Assessment & Plan: Old blood in BM Check Hgb stat Status: Acute (2) Rectal ulcer Assessment & Plan: Transfer to tertiary hospital for colorectal care Status: Acute
[2018-03-27 11:09] LABS: HEMOGLOBIN 11.7 g/dL (11.0-16.0); MEAN CELL VOLUME 91.9 fL (81.0-99.0); MEAN CORPUSCULAR HEMOGLOBIN 31.3 pg (27.0-31.0); MEAN CORPUSCULAR HGB CONC 34.1 g/dL (33.0-37.0); MEAN PLATELET VOLUME 7.3 fL (7.2-11.7); RBC 3.74 Mil/uL (3.80-5.20); RED CELL DISTRIBUTION WIDTH 15.7 % (11.5-14.5); WHITE BLOOD COUNT 8.6 K/uL (4.8-10.8)
[2018-03-27 15:27] VITALS: BP 103/52; PULSE 109; RESP 22; O2SAT 97
--- NOTE | 2018-03-27 15:32 | CP.PCM.DIS ---
Provider - Provider Date of Admission: 03/24/18 16:55 Attending physician: Rick Ramos MD Time Spent in preparation of Discharge (in minutes): 35 Hospital Course - Lab Results Lab Results: Micro Results 03/24/18 15:40 Blood Blood Culture - Preliminary NO GROWTH AFTER 48 HOURS 03/24/18 15:40 Blood Blood Culture - Preliminary NO GROWTH AFTER 48 HOURS 03/24/18 21:55 Naris MRSA Culture - Final 03/24/18 17:05 Urine,Catheterized Urine Culture - Final No Growth (<1,000 CFU/ML) Most Recent Lab Values WBC 8.6 K/uL (4.8-10.8) 03/27/18 11:04 RBC 3.74 Mil/uL (3.80-5.20) L 03/27/18 11:04 Hgb 11.7 g/dL (11.0-16.0) 03/27/18 11:04 Hct 34.4 % (34.0-47.0) 03/27/18 11:04 MCV 91.9 fL (81.0-99.0) 03/27/18 11:04 MCH 31.3 pg (27.0-31.0) H 03/27/18 11:04 MCHC 34.1 g/dL (33.0-37.0) 03/27/18 11:04 RDW 15.7 % (11.5-14.5) H 03/27/18 11:04 Plt Count 213 K/uL (130-400) 03/27/18 11:04 MPV 7.3 fL (7.2-11.7) 03/27/18 11:04 Neut % (Auto) 71.2 % (50.0-75.0) 03/26/18 06:06 Lymph % (Auto) 19.0 % (20.0-40.0) L 03/26/18 06:06 [place] % (Auto) 7.1 % (0.0-10.0) 03/26/18 06:06 Eos % (Auto) 1.3 % (0.0-4.0) 03/26/18 06:06 Baso % (Auto) 1.4 % (0.0-2.0) 03/26/18 06:06 Neut # (Auto) 5.5 K/uL (1.8-7.0) 03/26/18 06:06 Lymph # (Auto) 1.5 K/uL (1.0-4.3) 03/26/18 06:06 [place] # (Auto) 0.5 K/uL (0.0-0.8) 03/26/18 06:06 Eos # (Auto) 0.1 K/uL (0.0-0.7) 03/26/18 06:06 Baso # (Auto) 0.1 K/uL (0.0-0.2) 03/26/18 06:06 PT 10.6 SECONDS (9.7-12.2) 03/25/18 06:32 INR 1.0 03/25/18 06:32 APTT 27 SECONDS (21-34) 03/25/18 06:32 pO2 21 mm/Hg (30-55) L 03/24/18 16:33 VBG pH 7.43 (7.32-7.43) 03/24/18 16:33 VBG pCO2 42 mmHg (40-60) 03/24/18 16:33 VBG HCO3 25.8 mmol/L 03/24/18 16:33 VBG Total CO2 29.2 mmol/L (22-28) H 03/24/18 16:33 VBG O2 Sat (Calc) 33.1 % (40-65) L 03/24/18 16:33 VBG Base Excess 3.2 mmol/L (0.0-2.0) H 03/24/18 16:33 VBG Potassium 3.9 mmol/L (3.6-5.2) 03/24/18 16:33 Sodium 137.0 mmol/l (132-148) 03/24/18 16:33 Chloride 104.0 mmol/L (98-107) 03/24/18 16:33 Glucose 131 mg/dl (65-105) H 03/24/18 16:33 Lactate 3.1 mmol/L (0.7-2.1) H 03/24/18 16:33 Sodium 137 mmol/L (132-148) 03/26/18 06:07 Potassium 3.5 mmol/L (3.6-5.2) L 03/26/18 06:07 Chloride 105 mmol/L (98-107) 03/26/18 06:07 Carbon Dioxide 26 mmol/L (22-30) 03/26/18 06:07 Anion Gap 10 (10-20) 03/26/18 06:07 BUN 9 mg/dL (7-17) 03/26/18 06:07 Creatinine 0.6 mg/dL (0.7-1.2) L 03/26/18 06:07 Est GFR ( Amer) > 60 03/26/18 06:07 Est GFR (Non-Af Amer) > 60 03/26/18 06:07 POC Glucose (mg/dL) 108 mg/dL (65-110) 03/27/18 11:21 Random Glucose 108 mg/dL (65-105) H 03/26/18 06:07 Calcium 8.3 mg/dl (8.6-10.4) L 03/26/18 06:07 Phosphorus 2.1 mg/dL (2.5-4.5) L 03/26/18 06:07 Magnesium 2.1 mg/dL (1.6-2.3) 03/26/18 06:07 Total Bilirubin 0.9 mg/dL (0.2-1.3) 03/26/18 06:07 AST 25 U/L (14-36) 03/26/18 06:07 ALT 34 U/L (9-52) 03/26/18 06:07 Alkaline Phosphatase 59 U/L (38-126) 03/26/18 06:07 Troponin I 0.0130 ng/mL (0.00-0.120) 03/24/18 16:19 Total Protein 5.2 g/dL (6.3-8.3) L 03/26/18 06:07 Albumin 2.7 g/dL (3.5-5.0) L 03/26/18 06:07 Globulin 2.4 gm/dL (2.2-3.9) 03/26/18 06:07 Albumin/Globulin Ratio 1.1 (1.0-2.1) 03/26/18 06:07 Venous Blood Potassium 3.9 mmol/L (3.6-5.2) 03/24/18 16:33 Urine Color Yellow (YELLOW) 03/24/18 17:05 Urine Clarity Clear (Clear) 03/24/18 17:05 Urine pH 6.0 (5.0-8.0) 03/24/18 17:05 Ur Specific Reading 1.012 (1.003-1.030) 03/24/18 17:05 Urine Protein Negative mg/dL (NEGATIVE) 03/24/18 17:05 Urine Glucose (UA) Normal mg/dL (Normal) 03/24/18 17:05 Urine Ketones Negative mg/dL (NEGATIVE) 03/24/18 17:05 Urine Blood Negative (NEGATIVE) 03/24/18 17:05 Urine Nitrate Negative (NEGATIVE) 03/24/18 17:05 Urine Bilirubin Negative (NEGATIVE) 03/24/18 17:05 Urine Urobilinogen Normal mg/dL (0.2-1.0) 03/24/18 17:05 Ur Leukocyte Esterase 1+ Wilner/uL (Negative) H 03/24/18 17:05 Urine WBC (Auto) 7 /hpf (0-5) H 03/24/18 17:05 Urine RBC (Auto) 4 /hpf (0-3) H 03/24/18 17:05 Hyaline Casts 6-10 /lpf (0-2) H 03/24/18 17:05 Urine Yeast (Budding) Mod /hpf (NEGATIVE) H 03/24/18 17:05 Blood Type O POSITIVE 03/24/18 16:50 Antibody Screen Negative 03/24/18 16:50 - Hospital Course Hospital Course: Patient was transferred from short-term rehab after patient had a moderate amount of rectal bleeding bright blood. Patient was also tachycardic and hypertensive. In the first evaluation in the ER blood pressure was 87 mmHg heart rate 105 hemoglobin was stable at 11 g/dL. Patient was admitted in ICU for further treatment HPI Few days ago patient was admitted to [facility] for similar rectal bleed. During that hospitalization patient had hemorrhoidectomy done which was said to be the source of bleeding patient had 2 colonoscopy done which did not reveal any other source of bleeding. Patient was reevaluated by the surgeon and there was an ulceration near the previous surgical site. There is still a difference of opinion of the source of the bleeding. After patient was discharged patient apparently in no distress and experienced sudden onset of rectal bleeding in the rehab. PAST HIST. Patient has a history of hypertension history of afd-[id number] diabetes PATIENT WAS ADMITTED TO icu. wITH FLUID RESUSCITATION AND 2 UNITS OF BLOOD TRANSFUSION PACKED CELLS, PATIENT IMPROVED AND ASYMPTOMATIC WITH NORMAL VITAL SIGNS AND HEMODYNAMICS. tHE CASE WAS DISCUSSED WITH THE gi SURGICAL CONSULT WAS NOT AVAILABLE AT THE CURRENT SURGEON DECLINED TO SEE THE PATIENT. wITH FURTHER DISCUSSION IT WAS AGREED THAT PATIENT WILL BE TRANSFERRED TO [facility] UNDER THE CARE OF THE COLORECTAL SURGERY FOR FURTHER EVALUATION FOR RECTAL BLEEDING OF UNKNOWN ETIOLOGY. aT THIS STAGE. pRIOR TO DISCHARGE PATIENT HAD SOME DARK STOOL THE MORNING HEMOGLOBIN IS 11.7. uRINE CULTURES ARE NEGATIVE. TREATED FOR uti. pATIENT IN A STABLE CONDITION AND WAS TRANSFERRED TO [facility] Discharge Exam - Head Exam Head Exam: NORMOCEPHALIC Discharge Plan - Follow Up Plan Condition: FAIR Disposition: HOME/ ROUTINE
--- NOTE | 2018-03-27 16:11 | CARD ---
APPROVED REPORT Date of service: 03/24/2018 EKG Measurement Heart [id number] <Conclusion> Normal sinus rhythm ST elevation, consider early repolarization, pericarditis, or injury Abnormal ECG
== END 2018-03-27 15:39 | disposition short-term general hospital (02) | DRG 377 ==
LOC: C.ER 15:14 → C.9E 16:55 → C.9I 18:42
PROVIDERS: ADMIT Internal Medicine Cardiovascular Disease; ATTEND Internal Medicine Cardiovascular Disease
PROC: 30233N1 Transfusion of Nonautologous Red Blood Cells into Peripheral Vein, Percutaneous Approach (ICD-10-PCS; principal; 2018-03-24)
DX: K62.5 Hemorrhage of anus and rectum (principal); R57.1 Hypovolemic shock; D62 Acute posthemorrhagic anemia; K62.6 Ulcer of anus and rectum; N39.0 Urinary tract infection, site not specified; E11.9 Type 2 diabetes mellitus without complications; E78.5 Hyperlipidemia, unspecified; F03.90 Unspecified dementia, unspecified severity, without behavioral disturbance, psychotic disturbance, mood disturbance, and anxiety; I10 Essential (primary) hypertension; I25.10 Atherosclerotic heart disease of native coronary artery without angina pectoris; K59.00 Constipation, unspecified; K64.9 Unspecified hemorrhoids; M19.90 Unspecified osteoarthritis, unspecified site; Z66 Do not resuscitate; Z79.4 Long term (current) use of insulin